=== PATIENT | female | born 1970 | race Caucasian/White ===

== ENCOUNTER 2017-12-18 19:16 | Emergency (ER) | payer MEDICARE, MEDICAID ==
[~2017-12-18] VITALS: Ht 175.3 cm; Wt 79.6 kg
[2017-12-18 19:25] VITALS: BP 110/7
[2017-12-18] MEDS ORDERED: amox tr/potassium clavulanate 875/125mg TAB PO ONE (20:20)
[2017-12-18] MEDS ORDERED: HYDROcodone/acetaminophen 5mg/325mg tablet PO ONE (20:20)
[2017-12-18] MEDS ORDERED: AMOX-422 PO (20:33)
[2017-12-18] MEDS ORDERED: ondansetron 4mg rapidly disintigrating tab PO ONE (20:35)
== END 2017-12-18 20:48 | disposition home or self-care (01) ==
LOC: ER 19:17
DX: H65.91 Unspecified nonsuppurative otitis media, right ear (principal); H72.91 Unspecified perforation of tympanic membrane, right ear; I48.91 Unspecified atrial fibrillation; I10 Essential (primary) hypertension; K21.9 Gastro-esophageal reflux disease without esophagitis; E11.9 Type 2 diabetes mellitus without complications; Z90.49 Acquired absence of other specified parts of digestive tract; Z88.5 Allergy status to narcotic agent
CPT/HCPCS: 99283; 99284

== ENCOUNTER 2018-07-12 13:05 | Emergency (ER) | payer MEDICARE, MEDICAID ==
[~2018-07-12] VITALS: Ht 177.8 cm; Wt 74.5 kg
[2018-07-12 13:34] LABS: BASOPHILS # (AUTO) 0.1 X10'3 (0-0.2); BASOPHILS % (AUTO) 1.6 % (0-1); EOSINOPHILS # (AUTO) 0.1 X10'3 (0-0.9); EOSINOPHILS % (AUTO) 2.1 % (0-6); HEMATOCRIT 29.8 % (35.0-45.0); HEMOGLOBIN 9.5 g/dl (12.0-16.0); LYMPHOCYTES # (AUTO) 1.5 X10'3 (1.1-4.8); LYMPHOCYTES % (AUTO) 27.9 % (21-51); MEAN CORPUSCULAR HEMOGLOBIN 23.9 PG (27.0-31.0); MEAN CORPUSCULAR HGB CONC 31.8 % (33.0-36.5); MEAN CORPUSCULAR VOLUME 75.1 FL (78-98); MEAN PLATELET VOLUME 7.1 FL (7.4-10.4); MONOCYTES # (AUTO) 0.5 X10'3 (0-0.9); MONOCYTES % (AUTO) 10.2 % (2-12); NEUTROPHILS % (AUTO) 58.2 % (42-75); PLATELET COUNT 376 X10'3 (140-440); RED BLOOD COUNT 3.97 X10'6 (4.20-5.60); RED CELL DISTRIBUTION WIDTH 20.9 % (11.5-14.5); WHITE BLOOD COUNT 5.2 X10'3 (4.5-11.0)
[2018-07-12] MEDS ORDERED: LORazepam 2 mg/ml vial IV ONE (13:35)
[2018-07-12 13:51] LABS: ALANINE AMINOTRANSFERASE 26 U/L (12-78); ALBUMIN 3.2 G/DL (3.4-5.0); ALBUMIN/GLOBULIN RATIO 0.8 (1.1-1.5); ALKALINE PHOSPHATASE 101 IU/L (46-116); ANION GAP 11 (8-16); ASPARTATE AMINO TRANSFERASE 20 U/L (10-37); BILIRUBIN,TOTAL 0.5 MG/DL (0.1-1.0); BLOOD UREA NITROGEN 17 MG/DL (7-18); CALCIUM 7.8 MG/DL (8.5-10.1); CHLORIDE 105 MMOL/L (99-107); CREATININE 0.74 MG/DL (0.40-0.90); GLUCOSE 114 MG/DL (70-104); POTASSIUM 3.8 MMOL/L (3.5-5.1); SODIUM 138 MMOL/L (135-145); TOTAL CARBON DIOXIDE 22.3 MMOL/L (24-32); TOTAL PROTEIN 7.3 G/DL (6.4-8.2); eGFR 84 ML/MIN
[2018-07-12 13:52] LABS: INR 0.9 INR; PARTIAL THROMBOPLASTIN TIME 27 SECONDS (22-32); PROTHROMBIN TIME 9.4 SECONDS (9.0-12.0)
[2018-07-12 14:00] LABS: TROPONIN I < 0.04 NG/ML (0.0-0.05)
[2018-07-12 14:46] LABS: ANISOCYTOSIS 3+; LARGE PLATELETS FEW; PLATELET ESTIMATE NORMAL
[2018-07-12 14:47] LABS: HYPOCHROMASIA 1+; POLYCHROMASIA 1+
[2018-07-12 16:46] LABS: CLARITY,URINE SLIGHTLY CLOUDY (Clear); COLOR,URINE YELLOW (Yellow); GLUCOSE, URINE NEGATIVE (Neg); KETONES,URINE NEGATIVE (Neg); LEUKOCYTE ESTERASE ,URINE TRACE (Neg); NITRITES, URINE NEGATIVE (Neg); OCCULT BLOOD,URINE NEGATIVE (Neg); PH,URINE 5.5 (4.8-8.0); PROTEIN,URINE NEGATIVE (Neg)
[2018-07-12 16:50] LABS: UA COLLECTION TYPE CLN CATCH MIDSTREAM
[2018-07-12 17:02] LABS: BACTERIA,URINE FEW /HPF (Neg); MUCUS STRANDS FEW /LPF (Neg); RBC,URINE 0-2 /HPF (0-2); SQUAMOUS EPITHELIAL CELL,UR MANY /LPF (FEW)
[2018-07-12 17:03] LABS: WBC,URINE 0-4 /HPF (0-4)
[2018-07-12 18:02] VITALS: BP 140/70
== END 2018-07-12 18:04 | disposition home or self-care (01) ==
LOC: ER 13:05
DX: I73.00 Raynaud's syndrome without gangrene (principal); R29.0 Tetany; R45.1 Restlessness and agitation; I48.91 Unspecified atrial fibrillation; I10 Essential (primary) hypertension; K21.9 Gastro-esophageal reflux disease without esophagitis; E11.9 Type 2 diabetes mellitus without complications; Z87.891 Personal history of nicotine dependence; Z90.49 Acquired absence of other specified parts of digestive tract; Z98.890 Other specified postprocedural states; Z98.84 Bariatric surgery status; Z88.5 Allergy status to narcotic agent
CPT/HCPCS: 36415; 71045; 80053; 81001; 84443; 84484; 85025; 85610; 85651; 85730; 93005; 96374; 99285; J2060

== ENCOUNTER 2018-07-15 17:55 | Emergency (ER) | payer MEDICARE, MEDICAID ==
[~2018-07-15] VITALS: Ht 177.8 cm; Wt 80.9 kg
[2018-07-15 19:09] VITALS: BP 111/74
== END 2018-07-15 19:11 | disposition home or self-care (01) ==
LOC: ER 17:56
DX: F10.129 Alcohol abuse with intoxication, unspecified (principal); I48.91 Unspecified atrial fibrillation; I10 Essential (primary) hypertension; K21.9 Gastro-esophageal reflux disease without esophagitis; E11.9 Type 2 diabetes mellitus without complications; Z90.49 Acquired absence of other specified parts of digestive tract; Z98.0 Intestinal bypass and anastomosis status; Z88.5 Allergy status to narcotic agent; Y90.9 Presence of alcohol in blood, level not specified
CPT/HCPCS: 99284

== ENCOUNTER 2018-07-15 19:12 | Emergency (ER) | payer MEDICARE, MEDICAID | END 2018-07-15 20:04 | disposition left against medical advice (07) | LOC: ER 19:12 | DX: R45.851 Suicidal ideations (principal); Z53.21 Procedure and treatment not carried out due to patient leaving prior to being seen by health care provider ==

== ENCOUNTER 2018-07-17 00:38 | Emergency (ER) | payer MEDICARE, MEDICAID | END 2018-07-17 00:47 | disposition left against medical advice (07) | LOC: ER 00:39 | DX: R45.851 Suicidal ideations (principal); Z53.21 Procedure and treatment not carried out due to patient leaving prior to being seen by health care provider ==

== ENCOUNTER 2018-07-18 00:34 | Emergency (ER) | payer MEDICARE, MEDICAID ==
[~2018-07-18] VITALS: Ht 177.8 cm; Wt 78.1 kg
[2018-07-18 04:19] VITALS: BP 91/59
== END 2018-07-18 04:20 | disposition home or self-care (01) ==
LOC: ER 00:34
DX: F10.129 Alcohol abuse with intoxication, unspecified (principal); I10 Essential (primary) hypertension; I48.91 Unspecified atrial fibrillation; K21.9 Gastro-esophageal reflux disease without esophagitis; E11.9 Type 2 diabetes mellitus without complications; Z90.49 Acquired absence of other specified parts of digestive tract; Z88.5 Allergy status to narcotic agent; Z88.8 Allergy status to other drugs, medicaments and biological substances; Y90.9 Presence of alcohol in blood, level not specified
CPT/HCPCS: 99284

== ENCOUNTER 2020-03-18 17:16 | Emergency (ER) | payer MEDICARE, MEDICAID ==
[~2020-03-18] VITALS: Ht 177.8 cm; Wt 90.9 kg
[2020-03-18 17:39] VITALS: BP 135/78
--- NOTE | 2020-03-18 18:41 | NUR ---
Pt admitted to being under the influence of ETOH
[2020-03-18] MEDS ORDERED: ibuprofen tablet 400 MG TABLET PO ONE (18:50)
== END 2020-03-18 19:14 | disposition home or self-care (01) ==
LOC: ER 17:17
DX: S61.411A Laceration without foreign body of right hand, initial encounter (principal); R20.0 Anesthesia of skin; M79.641 Pain in right hand; F10.920 Alcohol use, unspecified with intoxication, uncomplicated; I48.91 Unspecified atrial fibrillation; I10 Essential (primary) hypertension; K21.9 Gastro-esophageal reflux disease without esophagitis; E11.9 Type 2 diabetes mellitus without complications; F41.9 Anxiety disorder, unspecified; F31.9 Bipolar disorder, unspecified; Z86.69 Personal history of other diseases of the nervous system and sense organs; Z87.11 Personal history of peptic ulcer disease; Z90.89 Acquired absence of other organs; Z90.49 Acquired absence of other specified parts of digestive tract; Z72.89 Other problems related to lifestyle; Z88.5 Allergy status to narcotic agent; Z88.8 Allergy status to other drugs, medicaments and biological substances; X58.XXXA Exposure to other specified factors, initial encounter; Y93.89 Activity, other specified; Y92.89 Other specified places as the place of occurrence of the external cause; Y99.8 Other external cause status
CPT/HCPCS: 99282

== ENCOUNTER 2020-09-13 10:16 | Emergency (ER) | payer MEDICARE, MEDICAID ==
[~2020-09-13] VITALS: Ht 172.7 cm; Wt 97.7 kg
[2020-09-13 10:25] VITALS: BP 142/95
[2020-09-13] MEDS ORDERED: ondansetron 4mg rapidly disintigrating tab PO ONE (10:25)
[2020-09-13] MEDS ORDERED: proCHLORperazine 10 MG/2 ml inj IM ONE (11:25)
[2020-09-13] MEDS ORDERED: HYDROcodone/acetaminophen 10/325mg tab PO ONE (11:25)
== END 2020-09-13 12:12 | disposition home or self-care (01) ==
LOC: ER 10:16
DX: S30.0XXA Contusion of lower back and pelvis, initial encounter (principal); F10.129 Alcohol abuse with intoxication, unspecified; X58.XXXA Exposure to other specified factors, initial encounter; Y93.89 Activity, other specified; Y92.89 Other specified places as the place of occurrence of the external cause; Y99.8 Other external cause status; Y90.9 Presence of alcohol in blood, level not specified
CPT/HCPCS: 72100; 96372; 99283; J0780

== ENCOUNTER 2020-09-14 20:13 | Emergency (ER) | payer MEDICARE, MEDICAID ==
[~2020-09-14] VITALS: Ht 177.8 cm; Wt 102.3 kg
[2020-09-14 23:03] LABS: HEMATOCRIT 26.8 % (35.0-45.0); HEMOGLOBIN 8.4 g/dl (12.0-16.0); PLATELET COUNT 308 X10'3 (140-440)
[2020-09-14 23:05] LABS: BASOPHILS # (AUTO) 0.1 X10'3 (0-0.2); BASOPHILS % (AUTO) 1.9 % (0-1); EOSINOPHILS # (AUTO) 0.1 X10'3 (0-0.9); EOSINOPHILS % (AUTO) 1.9 % (0-6); LYMPHOCYTES # (AUTO) 1.5 X10'3 (1.1-4.8); LYMPHOCYTES % (AUTO) 34.6 % (21-51); MEAN CORPUSCULAR HEMOGLOBIN 21.1 PG (27.0-31.0); MEAN CORPUSCULAR HGB CONC 31.2 g/dL (33.0-36.5); MEAN CORPUSCULAR VOLUME 67.7 FL (78-98); MEAN PLATELET VOLUME 7.1 FL (7.4-10.4); MONOCYTES # (AUTO) 0.3 X10'3 (0-0.9); MONOCYTES % (AUTO) 6.8 % (2-12); NEUTROPHILS # (AUTO) 2.4 X10'3 (1.8-7.7); NEUTROPHILS % (AUTO) 54.8 % (42-75); RED BLOOD COUNT 3.96 X10'6 (4.20-5.60); RED CELL DISTRIBUTION WIDTH 19.4 % (11.5-14.5); WHITE BLOOD COUNT 4.3 X10'3 (4.5-11.0)
[2020-09-14 23:17] LABS: ALANINE AMINOTRANSFERASE 63 U/L (12-78); ALBUMIN 3.4 G/DL (3.4-5.0); ALBUMIN/GLOBULIN RATIO 0.9 (1.1-1.5); ALKALINE PHOSPHATASE 211 IU/L (46-116); ANION GAP 10 (8-16); ASPARTATE AMINO TRANSFERASE 73 U/L (10-37); BILIRUBIN,TOTAL 0.6 MG/DL (0.1-1.0); BLOOD UREA NITROGEN 13 MG/DL (7-18); BUN/CREATININE RATIO 15.3 (6.6-38.0); CALCIUM 7.8 MG/DL (8.5-10.1); CHLORIDE 103 MMOL/L (99-107); CREATININE 0.85 MG/DL (0.40-0.90); GLUCOSE 80 MG/DL (70-104); POTASSIUM 4.1 MMOL/L (3.5-5.1); SODIUM 138 MMOL/L (135-145); TOTAL CARBON DIOXIDE 25.1 MMOL/L (24-32); TOTAL PROTEIN 7.4 G/DL (6.4-8.2); eGFR 71 ML/MIN
[2020-09-14 23:18] LABS: LIPASE 63 U/L (73-393); MAGNESIUM 2.3 MG/DL (1.5-2.4)
[2020-09-14 23:27] LABS: ETHANOL 0.385 GM/DL (0.0-0.010)
[2020-09-15 00:18] VITALS: BP 117/83
== END 2020-09-15 00:20 | disposition home or self-care (01) ==
LOC: ER 20:13
DX: F10.239 Alcohol dependence with withdrawal, unspecified (principal); I10 Essential (primary) hypertension; K21.9 Gastro-esophageal reflux disease without esophagitis; E11.9 Type 2 diabetes mellitus without complications; F31.9 Bipolar disorder, unspecified; Z85.3 Personal history of malignant neoplasm of breast; Z87.19 Personal history of other diseases of the digestive system; Z90.49 Acquired absence of other specified parts of digestive tract; Z88.5 Allergy status to narcotic agent; Y90.9 Presence of alcohol in blood, level not specified
CPT/HCPCS: 36415; 80053; 80320; 83690; 83735; 85025; 99283

== ENCOUNTER 2021-01-03 14:17 | Emergency (ER) | payer MEDICARE, MEDICAID ==
[~2021-01-03] VITALS: Ht 177.8 cm; Wt 97.0 kg
[2021-01-03] MEDS ORDERED: ondansetron 4mg rapidly disintigrating tab PO ONE (15:30)
[2021-01-03 16:08] LABS: OCCULT BLOOD STOOL POSITIVE (Neg)
[2021-01-03 16:09] LABS: BASOPHILS % (AUTO) 1.2 % (0-1); EOSINOPHILS # (AUTO) 0.3 X10'3 (0-0.9); EOSINOPHILS % (AUTO) 8.6 % (0-6); HEMATOCRIT 27.3 % (35.0-45.0); HEMOGLOBIN 8.7 g/dl (12.0-16.0); LYMPHOCYTES # (AUTO) 1.8 X10'3 (1.1-4.8); LYMPHOCYTES % (AUTO) 50.6 % (21-51); MEAN CORPUSCULAR HEMOGLOBIN 26.2 PG (27.0-31.0); MEAN CORPUSCULAR HGB CONC 31.8 g/dL (33.0-36.5); MEAN CORPUSCULAR VOLUME 82.1 FL (78-98); MEAN PLATELET VOLUME 7.2 FL (7.4-10.4); MONOCYTES # (AUTO) 0.1 X10'3 (0-0.9); NEUTROPHILS # (AUTO) 1.3 X10'3 (1.8-7.7); NEUTROPHILS % (AUTO) 35.6 % (42-75); PLATELET COUNT 269 X10'3 (140-440); RED BLOOD COUNT 3.32 X10'6 (4.20-5.60); RED CELL DISTRIBUTION WIDTH 27.8 % (11.5-14.5); WHITE BLOOD COUNT 3.6 X10'3 (4.5-11.0)
[2021-01-03] MEDS ORDERED: proCHLORperazine 10mg tablet PO ONE (16:20)
[2021-01-03 16:23] LABS: ALANINE AMINOTRANSFERASE 95 U/L (12-78); ALBUMIN 3.4 G/DL (3.4-5.0); ALBUMIN/GLOBULIN RATIO 0.9 (1.1-1.5); ALKALINE PHOSPHATASE 310 IU/L (46-116); ANION GAP 15 (8-16); ASPARTATE AMINO TRANSFERASE 133 U/L (10-37); BILIRUBIN,TOTAL 0.5 MG/DL (0.1-1.0); BLOOD UREA NITROGEN 8 MG/DL (7-18); BUN/CREATININE RATIO 9.8 (6.6-38.0); CALCIUM 8.1 MG/DL (8.5-10.1); CHLORIDE 102 MMOL/L (99-107); CREATININE 0.82 MG/DL (0.40-0.90); GLUCOSE 94 MG/DL (70-104); POTASSIUM 3.9 MMOL/L (3.5-5.1); SODIUM 140 MMOL/L (135-145); TOTAL CARBON DIOXIDE 23.3 MMOL/L (24-32); TOTAL PROTEIN 7.3 G/DL (6.4-8.2); eGFR 74 ML/MIN
[2021-01-03 16:25] LABS: ETHANOL 0.406 GM/DL (0.0-0.010)
[2021-01-03 16:37] LABS: PLATELET ESTIMATE NORMAL; POIKILOCYTOSIS FEW; POLYCHROMASIA 1+
[2021-01-03 16:38] LABS: ANISOCYTOSIS 3+; MICROCYTOSIS 1+
[2021-01-03] MEDS ORDERED: pantoprazole 40mg Tablet.DR PO SCH (16:59)
[2021-01-03 17:17] VITALS: BP 119/78
[2021-01-04] MEDS ORDERED: pantoprazole 40mg Tablet.DR PO SCH (07:30)
== END 2021-01-03 17:18 | disposition home or self-care (01) ==
LOC: ER 14:18
DX: F10.129 Alcohol abuse with intoxication, unspecified (principal); I48.91 Unspecified atrial fibrillation; I10 Essential (primary) hypertension; K21.9 Gastro-esophageal reflux disease without esophagitis; E11.9 Type 2 diabetes mellitus without complications; F31.9 Bipolar disorder, unspecified; F15.90 Other stimulant use, unspecified, uncomplicated; Z86.14 Personal history of Methicillin resistant Staphylococcus aureus infection; Z90.49 Acquired absence of other specified parts of digestive tract; Z98.51 Tubal ligation status; Z98.890 Other specified postprocedural states; Z86.69 Personal history of other diseases of the nervous system and sense organs; Z88.8 Allergy status to other drugs, medicaments and biological substances; Z88.5 Allergy status to narcotic agent; Y90.9 Presence of alcohol in blood, level not specified
CPT/HCPCS: 36415; 80053; 80320; 82272; 85008; 85025; 86885; 86900; 86901; 99283; Q0164

== ENCOUNTER 2021-08-24 06:08 | Emergency (ER) | payer MEDICARE, MEDICAID ==
[~2021-08-24] VITALS: Ht 175.3 cm; Wt 90.9 kg
[2021-08-24] MEDS ORDERED: ondansetron/PF 4mg/2ml inj IV ONE (06:55)
[2021-08-24] MEDS ORDERED: normal saline 1000ML IV soln IVB ONE (06:55)
[2021-08-24] MEDS ORDERED: morphine 4 MG/ML inj SYRINge IV PRN (06:55)
--- NOTE | 2021-08-24 07:35 | NUR ---
PT WAS AMBULATED WITH TO RESTROOM, PT UNABLE TO PROVIDE URINE SAMPLE.
[2021-08-24 07:45] LABS: BASOPHILS % (AUTO) 0.3 % (0-1); EOSINOPHILS % (AUTO) 0.3 % (0-6); HEMATOCRIT 31.1 % (35.0-45.0); HEMOGLOBIN 10.2 g/dl (12.0-16.0); LYMPHOCYTES # (AUTO) 0.5 X10'3 (1.1-4.8); LYMPHOCYTES % (AUTO) 10.6 % (21-51); MEAN CORPUSCULAR HEMOGLOBIN 25.1 PG (27.0-31.0); MEAN CORPUSCULAR HGB CONC 32.7 g/dL (33.0-36.5); MEAN CORPUSCULAR VOLUME 76.9 FL (78-98); MEAN PLATELET VOLUME 8.9 FL (7.4-10.4); MONOCYTES # (AUTO) 0.7 X10'3 (0-0.9); MONOCYTES % (AUTO) 15.7 % (2-12); NEUTROPHILS # (AUTO) 3.1 X10'3 (1.8-7.7); NEUTROPHILS % (AUTO) 73.1 % (42-75); PLATELET COUNT 120 X10'3 (140-440); RED BLOOD COUNT 4.05 X10'6 (4.20-5.60); RED CELL DISTRIBUTION WIDTH 25.7 % (11.5-14.5); WHITE BLOOD COUNT 4.3 X10'3 (4.5-11.0)
[2021-08-24 07:51] LABS: PARTIAL THROMBOPLASTIN TIME 28 SECONDS (22-32)
[2021-08-24 07:54] LABS: ALANINE AMINOTRANSFERASE 53 U/L (12-78); ALBUMIN 2.7 G/DL (3.4-5.0); ALBUMIN/GLOBULIN RATIO 0.6 (1.1-1.5); ALKALINE PHOSPHATASE 225 IU/L (46-116); ANION GAP 11 (8-16); ASPARTATE AMINO TRANSFERASE 96 U/L (10-37); BILIRUBIN,TOTAL 0.8 MG/DL (0.1-1.0); BLOOD UREA NITROGEN 17 MG/DL (7-18); BUN/CREATININE RATIO 23.3 (6.6-38.0); CALCIUM 8.2 MG/DL (8.5-10.1); CHLORIDE 92 MMOL/L (99-107); CREATININE 0.73 MG/DL (0.40-0.90); ETHANOL < 0.010 GM/DL (0.0-0.010); GLUCOSE 108 MG/DL (70-104); LIPASE 600 U/L (73-393); POTASSIUM 3.7 MMOL/L (3.5-5.1); SODIUM 132 MMOL/L (135-145); TOTAL CARBON DIOXIDE 29.5 MMOL/L (24-32); TOTAL PROTEIN 7.1 G/DL (6.4-8.2); eGFR 85 ML/MIN
[2021-08-24 10:00] LABS: ANISOCYTOSIS 3+; PLATELET ESTIMATE DECREASED; TOTAL CELLS COUNTED 100
[2021-08-24 10:01] LABS: HYPOCHROMASIA 1+; MICROCYTOSIS 1+; POLYCHROMASIA FEW
[2021-08-24 13:06] VITALS: BP 126/97
== END 2021-08-24 12:58 | disposition home or self-care (01) ==
LOC: ER 06:09
DX: R10.10 Upper abdominal pain, unspecified (principal); R10.30 Lower abdominal pain, unspecified; K85.90 Acute pancreatitis without necrosis or infection, unspecified; K92.2 Gastrointestinal hemorrhage, unspecified; G40.909 Epilepsy, unspecified, not intractable, without status epilepticus; I48.91 Unspecified atrial fibrillation; K21.9 Gastro-esophageal reflux disease without esophagitis; E11.9 Type 2 diabetes mellitus without complications; F15.90 Other stimulant use, unspecified, uncomplicated; Z87.11 Personal history of peptic ulcer disease; Z86.14 Personal history of Methicillin resistant Staphylococcus aureus infection; Z85.3 Personal history of malignant neoplasm of breast; Z90.49 Acquired absence of other specified parts of digestive tract; Z98.51 Tubal ligation status; Z98.84 Bariatric surgery status; Z72.89 Other problems related to lifestyle
CPT/HCPCS: 80053; 80320; 83690; 85007; 85025; 85610; 85730; 86885; 86900; 86901; 96361; 96374; 96375; 99284; J2270; J2405; J7030

== ENCOUNTER 2021-09-04 22:00 | Inpatient (IN) | payer MEDICARE, MEDICAID ==
[~2021-09-04 22:00] MED LIST: CIPR-202 PO; FLUO40CA PO; METR-159 PO; NIFE30TA95 PO; ONDA4TAB12 PO; PANT-47 PO
[2021-09-30] MEDS ORDERED: HYDR-3686 PO (11:17)
[2021-09-30] MEDS ORDERED: gabapentin capsule PO (11:17)
[2021-09-30] MEDS ORDERED: VENL75CA61 PO (11:17)
[2021-09-30] MEDS ORDERED: QUET25TA36 PO (11:17)
[2021-09-30] MEDS ORDERED: folic acid tablet PO (11:17)
[2021-09-30] MEDS ORDERED: POTA-197 PO (11:17)
[2021-09-30] MEDS ORDERED: FURO40TA4 PO (11:17)
[2021-09-30] MEDS ORDERED: thiamine tablet PO (11:17)
[2021-09-30] MEDS ORDERED: MULT-25 PO (11:17)
[2021-09-30] MEDS ORDERED: NIFE30TA95 PO (11:17)
[2021-09-30] MEDS ORDERED: HYDR50TA65 PO (11:17)
[2021-09-30] MEDS ORDERED: CYAN500T71 PO (11:17)
[2021-09-30] MEDS ORDERED: VENL-191 PO (11:17)
[2021-09-30] MEDS ORDERED: PRAZ1CAP5 PO (11:17)
[2021-09-30] MEDS ORDERED: ONDA4TAB12 PO (11:17)
[2021-09-30] MEDS ORDERED: Lorazepam PO (16:00)
[2021-10-01] MEDS ORDERED: BUPR1FIL17 SL (06:27)
== END 2021-10-01 14:10 | disposition home or self-care (01) | DRG 885 ==
LOC: ADULT MH 22:00 → EEVIPCON 22:00
PROVIDERS: ADMIT Psychiatry & Neurology Psychiatry; ATTEND Psychiatry & Neurology Psychiatry
DX: F33.2 Major depressive disorder, recurrent severe without psychotic features (principal); F11.20 Opioid dependence, uncomplicated; K85.90 Acute pancreatitis without necrosis or infection, unspecified; R45.851 Suicidal ideations; F10.20 Alcohol dependence, uncomplicated; I48.91 Unspecified atrial fibrillation; I10 Essential (primary) hypertension; K21.9 Gastro-esophageal reflux disease without esophagitis; F43.12 Post-traumatic stress disorder, chronic; G89.29 Other chronic pain; D50.9 Iron deficiency anemia, unspecified; F41.9 Anxiety disorder, unspecified; E88.09 Other disorders of plasma-protein metabolism, not elsewhere classified; D72.819 Decreased white blood cell count, unspecified; R10.10 Upper abdominal pain, unspecified; Z88.5 Allergy status to narcotic agent; Z88.8 Allergy status to other drugs, medicaments and biological substances; Z85.3 Personal history of malignant neoplasm of breast; Z90.49 Acquired absence of other specified parts of digestive tract; Z98.51 Tubal ligation status; Z90.710 Acquired absence of both cervix and uterus; Z87.11 Personal history of peptic ulcer disease; Z98.84 Bariatric surgery status; Z86.14 Personal history of Methicillin resistant Staphylococcus aureus infection
CPT/HCPCS: 0002A; 36415; 71045; 80053; 80061; 82272; 82728; 83036; 83540; 83550; 84443; 85007; 85008; 85025; 86703; 86705; 86709; 86803; 87081; 87340; 87635; 91300; 93306; 97116; 97530; J2405; J7030; Q0177

== ENCOUNTER 2021-11-18 10:01 | Emergency (ER) | payer MEDICARE, MEDICAID ==
[~2021-11-18] VITALS: Ht 176.5 cm; Wt 81.8 kg
[~2021-11-18 10:01] MED LIST changes: +BUPR1FIL17 SL; -CIPR-202 PO; +CYAN500T71 PO; -FLUO40CA PO; +FURO40TA4 PO; +HYDR-3686 PO; +HYDR50TA65 PO; +Lorazepam PO; -METR-159 PO; +MULT-25 PO; +POTA-197 PO; +PRAZ1CAP5 PO; +QUET25TA36 PO; +VENL-191 PO; +VENL75CA61 PO; +folic acid tablet PO; +gabapentin capsule PO; +thiamine tablet PO
[2021-11-18] MEDS ORDERED: potassium Cl 20 mEq SR tablet PO STA (10:37)
[2021-11-18] MEDS ORDERED: normal saline 1000ML IV soln IVB ONE (10:40)
[2021-11-18] MEDS ORDERED: LORazepam 2 mg/ml vial IV ONE (10:40)
[2021-11-18] MEDS ORDERED: thiamine 100mg/ml 2ml inj. IV ONE (10:40)
[2021-11-18] MEDS ORDERED: folic acid 1mg/0.2ml inj IV ONE (10:40)
[2021-11-18 11:03] LABS: BASOPHILS # (AUTO) 0.1 X10'3 (0-0.2); BASOPHILS % (AUTO) 0.9 % (0-1); EOSINOPHILS # (AUTO) 0.1 X10'3 (0-0.9); EOSINOPHILS % (AUTO) 1.9 % (0-6); HEMATOCRIT 34.4 % (35.0-45.0); HEMOGLOBIN 11.3 g/dl (12.0-16.0); LYMPHOCYTES # (AUTO) 2.4 X10'3 (1.1-4.8); LYMPHOCYTES % (AUTO) 33.5 % (21-51); MEAN CORPUSCULAR HEMOGLOBIN 26.1 PG (27.0-31.0); MEAN CORPUSCULAR HGB CONC 32.8 g/dL (33.0-36.5); MEAN CORPUSCULAR VOLUME 79.4 FL (78-98); MONOCYTES # (AUTO) 0.4 X10'3 (0-0.9); MONOCYTES % (AUTO) 6.2 % (2-12); NEUTROPHILS # (AUTO) 4.1 X10'3 (1.8-7.7); NEUTROPHILS % (AUTO) 57.5 % (42-75); PLATELET COUNT 285 X10'3 (140-440); RED BLOOD COUNT 4.33 X10'6 (4.20-5.60); RED CELL DISTRIBUTION WIDTH 18.7 % (11.5-14.5); WHITE BLOOD COUNT 7.1 X10'3 (4.5-11.0)
[2021-11-18 11:18] LABS: ALANINE AMINOTRANSFERASE 45 U/L (12-78); ALBUMIN 3.6 G/DL (3.4-5.0); ALBUMIN/GLOBULIN RATIO 0.9 (1.1-1.5); ALKALINE PHOSPHATASE 129 IU/L (46-116); ANION GAP 12 (8-16); ASPARTATE AMINO TRANSFERASE 45 U/L (10-37); BILIRUBIN,TOTAL 0.4 MG/DL (0.1-1.0); BLOOD UREA NITROGEN 24 MG/DL (7-18); BUN/CREATININE RATIO 27.6 (6.6-38.0); CALCIUM 8.4 MG/DL (8.5-10.1); CHLORIDE 106 MMOL/L (99-107); CREATININE 0.87 MG/DL (0.40-0.90); GLUCOSE 84 MG/DL (70-104); POTASSIUM 3.7 MMOL/L (3.5-5.1); SODIUM 142 MMOL/L (135-145); TOTAL CARBON DIOXIDE 23.7 MMOL/L (24-32); TOTAL PROTEIN 7.7 G/DL (6.4-8.2); eGFR 69 ML/MIN
[2021-11-18 11:26] LABS: PLATELET ESTIMATE NORMAL
[2021-11-18 11:27] LABS: ANISOCYTOSIS 2+; ETHANOL 0.294 GM/DL (0.0-0.010); MICROCYTOSIS 1+
[2021-11-18 11:34] LABS: URINE HCG NEGATIVE (NEG)
[2021-11-18 11:40] LABS: CLARITY,URINE SLIGHTLY CLOUDY (Clear); GLUCOSE, URINE NEGATIVE (Neg); KETONES,URINE NEGATIVE (Neg); LEUKOCYTE ESTERASE ,URINE NEGATIVE (Neg); NITRITES, URINE NEGATIVE (Neg); OCCULT BLOOD,URINE NEGATIVE (Neg); PH,URINE 5.5 (4.8-8.0); PROTEIN,URINE NEGATIVE (Neg); UROBILINOGEN,URINE 0.2 E.U/dL (0.2-1.0)
[2021-11-18 11:42] LABS: COLOR,URINE STRAW (Yellow); UA COLLECTION TYPE CLN CATCH MIDSTREAM
[2021-11-18 11:46] LABS: BACTERIA,URINE 3+ /HPF (Neg); MUCUS STRANDS NONE SEEN /LPF (Neg); RBC,URINE NONE SEEN /HPF (0-2); SQUAMOUS EPITHELIAL CELL,UR MANY /LPF (FEW); WBC,URINE 0-4 /HPF (0-4)
[2021-11-18 12:20] LABS: URINE AMPHETAMINE SCREEN NEGATIVE (Neg); URINE BARBITUATE SCREEN NEGATIVE (Neg); URINE BENZODIAZEPINES SCREEN NEGATIVE (Neg); URINE CANNABINOID SCREEN NEGATIVE (Neg); URINE COCAINE SCREEN NEGATIVE (Neg); URINE METHADONE SCREEN NEGATIVE (Neg); URINE OPIATE SCREEN NEGATIVE (Neg); URINE PHENCYCLIDINE SCREEN NEGATIVE (Neg)
--- NOTE | 2021-11-18 12:40 | NUR ---
PT. TRANSFERRED FROM MAIN ER TO OVERFLOW. PT. AMBULATED ON TO THE UNIT BY [facility]. PT. PLACED IN BED #20. PT. PROVIDED WITH A GREEN SCRUB SET AND PERSONAL BELONGINGS LOGGED IN AND PLACED IN LOCKER. PT. AAOX4 AT THIS TIME. PT. DENIES ANY HI OR A/V HALLUCINATIONS. PT. STATES THAT LONG SHE IN THE HOSPITAL SHE HAS NO CURRENT THOUGHTS OF SI. PT. ASKING FOR FOOD STATES SHE DIDN'T GET TO FINISH HER LUNCH TRAY PRIOR TO TRANSFER. PT. PROVIDED WITH A SANDWICH AND JUICE. PT. ARRIVED ON THE UNIT WITH A #20 GAUGE IN RT. AC AREA, THIS VASCULAR RADIOLOGIST REMOVED IV SITE. NO S/S OF INFECTION OR INFILTARTION NOTED.
--- NOTE | 2021-11-18 12:57 | NUR ---
PT. NOTED HANGING OVER THE BED SIDE VOMITING. NOTIFIED WITH ORDER RECEIVED FOR REGLAN 10 MG PO .
[2021-11-18] MEDS ORDERED: metoclopramide 10mg tablet PO ONE (13:05)
--- NOTE | 2021-11-18 14:44 | NUR ---
PT. RESTING QUIETLY AFTER TALKING ON THE PHONE.
[2021-11-18] MEDS ORDERED: LORA-269 PO (15:40)
[2021-11-18] MEDS ORDERED: PRAZ2CAP2 PO (15:40)
[2021-11-18] MEDS ORDERED: ESCI20TA39 PO (15:40)
[2021-11-18] MEDS ORDERED: POTA-188 PO (15:40)
[2021-11-18] MEDS ORDERED: HYDR-3686 PO (15:40)
[2021-11-18] MEDS ORDERED: ONDA-103 PO (15:40)
[2021-11-18] MEDS ORDERED: NIFE30TA95 PO (15:40)
[2021-11-18] MEDS ORDERED: BUPR300T86 PO (15:40)
[2021-11-18] MEDS ORDERED: GABA600T13 PO (15:40)
[2021-11-18] MEDS ORDERED: PANT40TA54 PO (15:40)
[2021-11-18] MEDS ORDERED: FURO-149 PO (15:40)
[2021-11-18] MEDS ORDERED: FOLI1TAB27 PO (16:18)
--- NOTE | 2021-11-18 19:15 | NUR ---
RECEIVED PATIENT ON THE UNIT IN NO OBVIOUS DISTRESS NOTED. NO PHYSICAL COMPLAINT MADE. PATIENT BREATHING SPONTANOUSLY ON ROOM AIR. PATIENT RATES ANXIETY 10/10 AND DEPRESSION 5/10. SHE DENIES HAVING ANY SUICIDAL/ HOMICIDAL IDEATION AT THIS TIME.
[2021-11-18] MEDS: hydrOXYzine 25 MG tablet PO SCH (20:35)
[2021-11-18] MEDS: prazosin 1mg capsule PO SCH (20:35)
[2021-11-18] MEDS: gabapentin 300mg capsule PO SCH (20:35)
[2021-11-18] MEDS ORDERED: LORazepam 1 MG tablet PO SCH (21:00)
--- NOTE | 2021-11-19 01:23 | NUR ---
PATIENT ASLEEP BUT EASILY AROUSE. NO OBVIOUS DISTRESS NOTED.
--- NOTE | 2021-11-19 04:03 | NUR ---
PATIENT ASLEEP BUT EASILY AROUSE. NO OBVIOUS DISTRESS NOTED.OBSERVATION ONGOING.
--- NOTE | 2021-11-19 06:00 | NUR ---
PT. CARE ASSUMED FROM OFF GOING NURSE FIDELINA JESSICA. PT. VISIBLE ON THE UNIT RESTING QUIETLY WITH EYES CLOSED. NO SIGNS OF DISTRESS NOTED. STAFF WILL CONTINUE TO MONITOR FOR SAFETY
--- NOTE | 2021-11-19 06:05 | NUR ---
PATIENT ASLEEP BUT EASILY AROUSE. NO OBVIOUS DISTRESS NOTED. OBSERVATION ONGOING.
[2021-11-19] MEDS: hydrOXYzine 25 MG tablet PO SCH ×2 (07:38→20:46)
[2021-11-19] MEDS: gabapentin 300mg capsule PO SCH ×3 (07:38→20:45)
[2021-11-19] MEDS: potassium chloride 10mEq ER tablet PO SCH (07:38)
[2021-11-19] MEDS: furosemide 40mg tablet PO SCH (07:38)
[2021-11-19] MEDS: folic acid 1mg tablet PO SCH (07:38)
[2021-11-19] MEDS: pantoprazole 40mg Tablet.DR PO SCH (07:38)
[2021-11-19] MEDS: buPROPion SR 150mg tablet PO SCH (07:39)
[2021-11-19] MEDS: ESCITALOPRAM OXALATE 5 MG TABLET PO SCH (07:39)
[2021-11-19] MEDS: NIFEdipine XL 30mg tablet PO SCH (07:42)
[2021-11-19] MEDS: LORazepam 1 MG tablet PO PRN ×2 (07:46→14:03)
[2021-11-19] MEDS: ondansetron 4mg rapidly disintigrating tab PO SCH ×4 (07:49→23:30)
--- NOTE | 2021-11-19 07:50 | NUR ---
PT. AAOX4 THIS MORNING. PT. DENIES ANY CURRENT SI/HI OR A/V HALLUCINATIONS. PT. COMPLIANT WITH MORNING SCHEDULED MEDICATIONS. PT. REQUESTING PRN DOSE OF ATIVAN FOR C/O INCREASED ANXIETY. STAFF WILL CONTINUE TO MONITOR FOR SAFETY ON THE UNIT.
--- NOTE | 2021-11-19 13:55 | NUR ---
PT SEEN BY DR. FU. PT REPORTS HER HOME/ROUTINE DOSE OF BEDTIME ATIVAN IS 2MG AND ORDER HERE IS FOR 1 MG. RECEIVED V/O TO CHANGE HS DOSE TO 2MG PER DR. FU.
[2021-11-19] MEDS: acetaminophen 325mg tablet PO PRN (14:00)
--- NOTE | 2021-11-19 14:37 | NUR ---
PT. INQUIRED ABOUT TRANSFER TO THE [facility]. PT. INFORMED THAT BECAUSE OF HER HOLD STATUS 5150 SHE WOULD BE PLACED IN A BEHAVIORAL HEALTH FACILITY FOR FURTHER STABILIAZATION.
--- NOTE | 2021-11-19 14:45 | NUR ---
PT. VISIBLE SITTING ON THE EDGE OF BED TALKING ON THE PHONE.
[2021-11-19] MEDS: prazosin 1mg capsule PO SCH (20:46)
[2021-11-19] MEDS ORDERED: LORazepam 1 MG tablet PO SCH (21:00)
--- NOTE | 2021-11-19 21:14 | NUR ---
PATIENT RECEIVED ON THE UNIT IN NO OBVIOUS DISTRESS. NO PHYSICAL COMPLAINT MADE. PATIENT RATES HER ANXIETY 10/10 AND DEPRESSION 4/10. PATIENT DENIES HAVING ANY SUICIDAL IDEATION AT THIS TIME.
--- NOTE | 2021-11-19 23:51 | NUR ---
PATIENT ASLEEP BUT EASILY AROUSE. OBSERVATION ONGOING
--- NOTE | 2021-11-20 02:03 | NUR ---
PATIENT ASLEEP IN NO OBVIOUS DISTRESS OBSERVATION ONGOING
--- NOTE | 2021-11-20 05:59 | NUR ---
PATIENT ASLEEP IN NO OBVIOUS DISTRESS. OBSERVATION ONGOING.
[2021-11-20] MEDS: ondansetron 4mg rapidly disintigrating tab PO SCH (08:00)
[2021-11-20] MEDS: NIFEdipine XL 30mg tablet PO SCH (08:11)
[2021-11-20] MEDS: LORazepam 1 MG tablet PO PRN ×2 (08:11→12:37)
[2021-11-20] MEDS: buPROPion SR 150mg tablet PO SCH (08:11)
[2021-11-20] MEDS: ESCITALOPRAM OXALATE 5 MG TABLET PO SCH (08:11)
[2021-11-20] MEDS: pantoprazole 40mg Tablet.DR PO SCH (08:12)
[2021-11-20] MEDS: acetaminophen 325mg tablet PO PRN (08:12)
[2021-11-20] MEDS: folic acid 1mg tablet PO SCH (08:12)
[2021-11-20] MEDS: furosemide 40mg tablet PO SCH (08:12)
[2021-11-20] MEDS: potassium chloride 10mEq ER tablet PO SCH (08:12)
[2021-11-20] MEDS: gabapentin 300mg capsule PO SCH ×2 (08:12→12:20)
[2021-11-20] MEDS: hydrOXYzine 25 MG tablet PO SCH (08:12)
--- NOTE | 2021-11-20 08:30 | NUR ---
Pt. awake and eating breakfast at bedside. Pt. took all medications.
--- NOTE | 2021-11-20 10:30 | NUR ---
1:1 done at bedside, pt. denies SI/HI, A/V hallucinations. Pt. reports that she wants to go back to the [facility]
[2021-11-20] MEDS ORDERED: ondansetron 4mg rapidly disintigrating tab PO ONE (11:00)
--- NOTE | 2021-11-20 12:30 | NUR ---
Pt. awake and watching TV. Pt. in no apparent distress.
--- NOTE | 2021-11-20 14:30 | NUR ---
RN informed that pt. is able to return to [facility]. Physician medical clearance form filled out and signed by Dr. Zazueta and submitted to [facility] health social work professor.
[2021-11-20 17:01] VITALS: BP 128/88
[2021-11-21] MEDS ORDERED: aspirin 81mg tab.chew PO SCH (08:30)
== END 2021-11-20 17:04 ==
LOC: ER 10:02
DX: F43.10 Post-traumatic stress disorder, unspecified (principal); Z20.822 Contact with and (suspected) exposure to COVID-19; R45.851 Suicidal ideations; F10.129 Alcohol abuse with intoxication, unspecified; F41.9 Anxiety disorder, unspecified; I48.91 Unspecified atrial fibrillation; I10 Essential (primary) hypertension; K21.9 Gastro-esophageal reflux disease without esophagitis; E11.9 Type 2 diabetes mellitus without complications; F31.9 Bipolar disorder, unspecified; F15.90 Other stimulant use, unspecified, uncomplicated; Z86.69 Personal history of other diseases of the nervous system and sense organs; Z87.11 Personal history of peptic ulcer disease; Z86.14 Personal history of Methicillin resistant Staphylococcus aureus infection; Z90.89 Acquired absence of other organs; Z90.49 Acquired absence of other specified parts of digestive tract; Z98.51 Tubal ligation status; Z98.890 Other specified postprocedural states; Z72.89 Other problems related to lifestyle; Z88.1 Allergy status to other antibiotic agents; Z88.8 Allergy status to other drugs, medicaments and biological substances; Z88.5 Allergy status to narcotic agent; Z79.899 Other long term (current) drug therapy; Y90.0 Blood alcohol level of less than 20 mg/100 ml
CPT/HCPCS: 36415; 80053; 80305; 80320; 81001; 81025; 84443; 85008; 85025; 87635; 96374; 96375; 99285; C9803; J3411; J3490; J7030; Q0177

== ENCOUNTER 2022-06-26 11:14 | Emergency (ER) | payer MEDICARE, MEDICAID ==
[~2022-06-26] VITALS: Ht 182.9 cm; Wt 81.8 kg
[~2022-06-26 11:14] MED LIST changes: -BUPR1FIL17 SL; +BUPR300T86 PO; +ESCI20TA39 PO; +FOLI1TAB27 PO; +FURO-149 PO; -FURO40TA4 PO; +GABA600T13 PO; -HYDR50TA65 PO; +LORA-269 PO; -Lorazepam PO; +ONDA-103 PO; -ONDA4TAB12 PO; -PANT-47 PO; +PANT40TA54 PO; +POTA-188 PO; -POTA-197 PO; -PRAZ1CAP5 PO; +PRAZ2CAP2 PO; -QUET25TA36 PO; -VENL-191 PO; -VENL75CA61 PO; -gabapentin capsule PO
[2022-06-26 12:55] LABS: BASOPHILS # (AUTO) 0.1 X10'3 (0-0.2); EOSINOPHILS # (AUTO) 0.1 X10'3 (0-0.9); EOSINOPHILS % (AUTO) 2.6 % (0-6); HEMOGLOBIN 12.8 g/dl (12.0-16.0); LYMPHOCYTES # (AUTO) 2.1 X10'3 (1.1-4.8); MEAN CORPUSCULAR HEMOGLOBIN 30.3 PG (27.0-31.0); MEAN CORPUSCULAR HGB CONC 34.5 g/dL (33.0-36.5); MEAN CORPUSCULAR VOLUME 87.9 FL (78-98); MEAN PLATELET VOLUME 7.1 FL (7.4-10.4); MONOCYTES # (AUTO) 0.2 X10'3 (0-0.9); MONOCYTES % (AUTO) 4.1 % (2-12); NEUTROPHILS # (AUTO) 2.9 X10'3 (1.8-7.7); NEUTROPHILS % (AUTO) 53.3 % (42-75); PLATELET COUNT 226 X10'3 (140-440); RED BLOOD COUNT 4.21 X10'6 (4.20-5.60); RED CELL DISTRIBUTION WIDTH 17.2 % (11.5-14.5); WHITE BLOOD COUNT 5.4 X10'3 (4.5-11.0)
[2022-06-26 13:08] LABS: ALANINE AMINOTRANSFERASE 28 U/L (12-78); ALBUMIN 3.7 G/DL (3.4-5.0); ALBUMIN/GLOBULIN RATIO 1.1 (1.1-1.5); ALKALINE PHOSPHATASE 146 IU/L (46-116); ANION GAP 14 (8-16); ASPARTATE AMINO TRANSFERASE 35 U/L (10-37); BILIRUBIN,TOTAL 0.9 MG/DL (0.1-1.0); BLOOD UREA NITROGEN 16 MG/DL (7-18); BUN/CREATININE RATIO 18.2 (6.6-38.0); CALCIUM 8.3 MG/DL (8.5-10.1); CHLORIDE 109 MMOL/L (99-107); CREATININE 0.88 MG/DL (0.40-0.90); ETHANOL 0.279 GM/DL (0.0-0.010); GLUCOSE 78 MG/DL (70-104); POTASSIUM 3.6 MMOL/L (3.5-5.1); SODIUM 146 MMOL/L (135-145); TOTAL CARBON DIOXIDE 23.3 MMOL/L (24-32); TOTAL PROTEIN 7.1 G/DL (6.4-8.2); eGFR 68 ML/MIN
[2022-06-26 16:40] VITALS: BP 110/72
== END 2022-06-26 16:51 | disposition home or self-care (01) ==
LOC: ER 11:15 → EEVIPCON 11:15 → ER 16:51
DX: S00.12XA Contusion of left eyelid and periocular area, initial encounter (principal); S60.051A Contusion of right little finger without damage to nail, initial encounter; I11.9 Hypertensive heart disease without heart failure; K21.9 Gastro-esophageal reflux disease without esophagitis; E11.9 Type 2 diabetes mellitus without complications; F31.9 Bipolar disorder, unspecified; Z98.890 Other specified postprocedural states; F15.10 Other stimulant abuse, uncomplicated; Z90.49 Acquired absence of other specified parts of digestive tract; T76.21XA Adult sexual abuse, suspected, initial encounter; Y93.89 Activity, other specified; Y92.89 Other specified places as the place of occurrence of the external cause; Y99.8 Other external cause status
CPT/HCPCS: 36415; 70450; 70486; 71045; 80053; 80320; 85025; 93005; 99285

== ENCOUNTER 2023-01-04 13:03 | Emergency (ER) | payer MEDICARE, MEDICAID ==
[~2023-01-04] VITALS: Ht 172.7 cm; Wt 95.0 kg
[~2023-01-04 13:03] MED LIST changes: +DARI25TA PO; +DEXT30CA6 PO; -HYDR-3686 PO; +LORA2TAB96 PO; -ONDA-103 PO; +PRAZ1CAP5 PO; -PRAZ2CAP2 PO; +THIA50TA10 PO; -folic acid tablet PO; -thiamine tablet PO
[2023-01-04] MEDS ORDERED: LORazepam 2 mg/ml vial IV ONE (14:20)
[2023-01-04] MEDS ORDERED: thiamine 100mg/ml 2ml inj. IV ONE (14:20)
[2023-01-04] MEDS ORDERED: normal saline 1000ML IV soln IVB ONE (14:20)
[2023-01-04] MEDS ORDERED: folic acid 1mg/0.2ml inj IV ONE (14:33)
[2023-01-04 14:55] LABS: EOSINOPHILS # (AUTO) 0.1 X10'3 (0-0.9); MEAN CORPUSCULAR HGB CONC 33.6 g/dL (33.0-36.5); MEAN PLATELET VOLUME 7.9 FL (7.4-10.4); WHITE BLOOD COUNT 4.2 X10'3 (4.5-11.0)
[2023-01-04 14:57] LABS: ALANINE AMINOTRANSFERASE 36 U/L (12-78); ALBUMIN 3.5 G/DL (3.4-5.0); ALBUMIN/GLOBULIN RATIO 0.9 (1.1-1.5); ALKALINE PHOSPHATASE 101 IU/L (46-116); ANION GAP 10 (8-16); ASPARTATE AMINO TRANSFERASE 45 U/L (10-37); BILIRUBIN,TOTAL 0.2 MG/DL (0.1-1.0); BLOOD UREA NITROGEN 16 MG/DL (7-18); BUN/CREATININE RATIO 19.8 (10.0-20.0); CALCIUM 8.3 MG/DL (8.5-10.1); CHLORIDE 104 MMOL/L (99-107); CREATININE 0.81 MG/DL (0.40-0.90); GLUCOSE 73 MG/DL (70-104); POTASSIUM 4.5 MMOL/L (3.5-5.1); SODIUM 137 MMOL/L (135-145); TOTAL CARBON DIOXIDE 23.1 MMOL/L (24-32); TOTAL PROTEIN 7.4 G/DL (6.4-8.2); eGFR 75 ML/MIN
[2023-01-04 14:58] LABS: BASOPHILS % (AUTO) 1.1 % (0-1); EOSINOPHILS % (AUTO) 1.5 % (0-6); HEMATOCRIT 35.2 % (35.0-45.0); HEMOGLOBIN 11.8 g/dl (12.0-16.0); LYMPHOCYTES # (AUTO) 1.7 X10'3 (1.1-4.8); LYMPHOCYTES % (AUTO) 40.2 % (21-51); MEAN CORPUSCULAR HEMOGLOBIN 32.6 PG (27.0-31.0); MEAN CORPUSCULAR VOLUME 97.1 FL (78-98); MONOCYTES # (AUTO) 0.4 X10'3 (0-0.9); NEUTROPHILS % (AUTO) 47.2 % (42-75); PLATELET COUNT 272 X10'3 (140-440); RED BLOOD COUNT 3.63 X10'6 (4.20-5.60)
[2023-01-04 15:07] LABS: ETHANOL 0.228 GM/DL (0.0-0.010); LIPASE 86 U/L (73-393)
--- NOTE | 2023-01-04 18:05 | NUR ---
Faxed dietary for dinner tray. Order placed earlier. Pt has eaten snack of crackers and cheese and OJ, but has not had any other food today.
[2023-01-04 19:50] LABS: URINE AMPHETAMINE SCREEN NEGATIVE (Neg)
[2023-01-04 19:51] LABS: URINE BARBITUATE SCREEN POSITIVE (Neg); URINE BENZODIAZEPINES SCREEN POSITIVE (Neg); URINE CANNABINOID SCREEN NEGATIVE (Neg); URINE COCAINE SCREEN NEGATIVE (Neg); URINE METHADONE SCREEN NEGATIVE (Neg); URINE OPIATE SCREEN NEGATIVE (Neg); URINE PHENCYCLIDINE SCREEN NEGATIVE (Neg)
[2023-01-05] MEDS ORDERED: chlordiazePOXIDE 25mg capsule PO ONE ×2 (08:30→12:15)
--- NOTE | 2023-01-05 10:14 | NUR ---
RN CALLED REPORT TO OVERFLOW ARACELY BAL. PT WILL BE TRANSFERRED TO OVERFLOW BED 26.
--- NOTE | 2023-01-05 10:18 | NUR ---
patient just came from ER and now is in overflow water was also given to patient patient is now in bed sitting up.
--- NOTE | 2023-01-05 11:22 | NUR ---
Patient sleeping supine in her bed. No distress observed. Continue to monitor.
--- NOTE | 2023-01-05 12:14 | NUR ---
Patient eating lunch. No distress observed. Continue to monitor.
[2023-01-05] MEDS ORDERED: haloperidol lactate 5mg/ml inj IM ONE (12:15)
--- NOTE | 2023-01-05 14:19 | NUR ---
Patient sleeping. No distress observed. Continue to monitor.
--- NOTE | 2023-01-05 16:05 | NUR ---
Patient going to [facility] . Patient c/o of a little anxiety. RN went to get order for Ativan to give to patient prior to leaving.
[2023-01-05 16:16] VITALS: BP 143/79
[2023-01-05] MEDS ORDERED: LORazepam 1 MG tablet PO ONE (16:55)
== END 2023-01-05 16:15 ==
LOC: ER 13:04
DX: R45.851 Suicidal ideations (principal); Z20.822 Contact with and (suspected) exposure to COVID-19; F10.129 Alcohol abuse with intoxication, unspecified; I10 Essential (primary) hypertension; K21.9 Gastro-esophageal reflux disease without esophagitis; E11.9 Type 2 diabetes mellitus without complications; F31.9 Bipolar disorder, unspecified; F15.20 Other stimulant dependence, uncomplicated; Z88.1 Allergy status to other antibiotic agents; Z88.5 Allergy status to narcotic agent; Z90.49 Acquired absence of other specified parts of digestive tract
CPT/HCPCS: 36415; 80053; 80305; 80320; 83690; 84443; 85025; 87811; 96361; 96372; 96374; 96375; 99285; J1630; J2060; J3411; J3490; J7030

== ENCOUNTER 2023-01-18 13:43 | Emergency (ER) | payer MEDICARE, MEDICAID ==
[~2023-01-18] VITALS: Ht 177.8 cm; Wt 86.0 kg
[2023-01-18] MEDS ORDERED: thiamine 100mg/ml 2ml inj. IV ONE (14:05)
[2023-01-18] MEDS ORDERED: normal saline 1000ML IV soln IVB ONE (14:05)
[2023-01-18] MEDS ORDERED: folic acid 1mg/0.2ml inj IV ONE (14:05)
[2023-01-18 14:38] LABS: BASOPHILS # (AUTO) 0.1 X10'3 (0-0.2); BASOPHILS % (AUTO) 1.8 % (0-1); EOSINOPHILS # (AUTO) 0.1 X10'3 (0-0.9); EOSINOPHILS % (AUTO) 1.2 % (0-6); HEMATOCRIT 41.6 % (35.0-45.0); HEMOGLOBIN 14.1 g/dl (12.0-16.0); LYMPHOCYTES # (AUTO) 3.1 X10'3 (1.1-4.8); LYMPHOCYTES % (AUTO) 53.8 % (21-51); MEAN CORPUSCULAR HEMOGLOBIN 32.1 PG (27.0-31.0); MEAN CORPUSCULAR HGB CONC 33.9 g/dL (33.0-36.5); MEAN CORPUSCULAR VOLUME 94.5 FL (78-98); MEAN PLATELET VOLUME 7.7 FL (7.4-10.4); MONOCYTES # (AUTO) 0.3 X10'3 (0-0.9); MONOCYTES % (AUTO) 4.7 % (2-12); NEUTROPHILS # (AUTO) 2.2 X10'3 (1.8-7.7); NEUTROPHILS % (AUTO) 38.5 % (42-75); PLATELET COUNT 387 X10'3 (140-440); RED CELL DISTRIBUTION WIDTH 17.8 % (11.5-14.5); WHITE BLOOD COUNT 5.7 X10'3 (4.5-11.0)
[2023-01-18 14:57] LABS: ALANINE AMINOTRANSFERASE 28 U/L (12-78); ALBUMIN/GLOBULIN RATIO 0.9 (1.1-1.5); ALKALINE PHOSPHATASE 107 IU/L (46-116); ANION GAP 11 (8-16); ASPARTATE AMINO TRANSFERASE 32 U/L (10-37); BILIRUBIN,TOTAL 0.3 MG/DL (0.1-1.0); BLOOD UREA NITROGEN 18 MG/DL (7-18); BUN/CREATININE RATIO 21.7 (10.0-20.0); CALCIUM 8.7 MG/DL (8.5-10.1); CHLORIDE 99 MMOL/L (99-107); CREATININE 0.83 MG/DL (0.40-0.90); GLUCOSE 96 MG/DL (70-104); POTASSIUM 4.4 MMOL/L (3.5-5.1); SODIUM 137 MMOL/L (135-145); TOTAL CARBON DIOXIDE 27.4 MMOL/L (24-32); TOTAL PROTEIN 8.5 G/DL (6.4-8.2); eGFR 73 ML/MIN
[2023-01-18 14:58] VITALS: BP 136/87
[2023-01-18 15:06] LABS: ETHANOL 0.367 GM/DL (0.0-0.010)
[2023-01-18 15:26] LABS: ANISOCYTOSIS 1+; PLATELET ESTIMATE NORMAL; TOTAL CELLS COUNTED 100
--- NOTE | 2023-01-18 16:02 | NUR ---
Met with patient in regards to alcohol use and to see if patient was interested in resources for treatment options. Patient slipped up and hasn't been in contact with her sponsor, or gone to a meeting and hasn't taken her Naltrexone. I talked to the patient about calling her sponsor and getting to a meeting. Also to start her Naltrexone again. I gave patient my card and asked her to call me in a couple days and let me know how she is doing.
== END 2023-01-18 16:34 | disposition home or self-care (01) ==
LOC: ER 13:43
DX: F10.129 Alcohol abuse with intoxication, unspecified (principal); S09.90XA Unspecified injury of head, initial encounter; K21.9 Gastro-esophageal reflux disease without esophagitis; I10 Essential (primary) hypertension; F15.10 Other stimulant abuse, uncomplicated; R41.82 Altered mental status, unspecified; E11.9 Type 2 diabetes mellitus without complications; F31.9 Bipolar disorder, unspecified; I11.9 Hypertensive heart disease without heart failure; Z90.49 Acquired absence of other specified parts of digestive tract; Z98.890 Other specified postprocedural states; Y90.9 Presence of alcohol in blood, level not specified
CPT/HCPCS: 36415; 70450; 80053; 80320; 82948; 85007; 85025; 96374; 96375; 99285; J3411; J3490; J7030

== ENCOUNTER 2023-02-22 12:11 | Emergency (ER) | payer MEDICARE, MEDICAID ==
[~2023-02-22] VITALS: Ht 180.3 cm; Wt 85.0 kg
[~2023-02-22 12:11] MED LIST changes: +NIFE-72 PO; -NIFE30TA95 PO
[2023-02-22] MEDS ORDERED: famotidine/PF 10 mg/ml inj IV ONE (12:20)
[2023-02-22] MEDS ORDERED: normal saline 1000ML IV soln IV ONE (12:20)
[2023-02-22] MEDS ORDERED: folic acid 1mg/0.2ml inj IV ONE (12:20)
[2023-02-22] MEDS ORDERED: ondansetron/PF 4mg/2ml inj IV ONE (12:20)
[2023-02-22] MEDS ORDERED: thiamine 100mg/ml 2ml inj. IV ONE (12:20)
[2023-02-22] MEDS ORDERED: calcium gluconate inj. 1 GM in normal saline 100ml IV soln 100 ML IV ONE (12:45)
[2023-02-22 12:49] LABS: BASOPHILS # (AUTO) 0.1 X10'3 (0-0.2); BASOPHILS % (AUTO) 0.9 % (0-1); EOSINOPHILS # (AUTO) 0.1 X10'3 (0-0.9); EOSINOPHILS % (AUTO) 0.6 % (0-6); HEMOGLOBIN 13.2 g/dl (12.0-16.0); LYMPHOCYTES # (AUTO) 1.8 X10'3 (1.1-4.8); LYMPHOCYTES % (AUTO) 19.4 % (21-51); MEAN CORPUSCULAR HEMOGLOBIN 32.7 PG (27.0-31.0); MEAN CORPUSCULAR HGB CONC 33.9 g/dL (33.0-36.5); MEAN CORPUSCULAR VOLUME 96.4 FL (78-98); MEAN PLATELET VOLUME 8.5 FL (7.4-10.4); MONOCYTES # (AUTO) 0.7 X10'3 (0-0.9); MONOCYTES % (AUTO) 7.3 % (2-12); NEUTROPHILS # (AUTO) 6.5 X10'3 (1.8-7.7); NEUTROPHILS % (AUTO) 71.8 % (42-75); PLATELET COUNT 188 X10'3 (140-440); RED BLOOD COUNT 4.05 X10'6 (4.20-5.60); RED CELL DISTRIBUTION WIDTH 16.7 % (11.5-14.5); WHITE BLOOD COUNT 9.1 X10'3 (4.5-11.0)
[2023-02-22] MEDS ORDERED: CALCIUM GLUC 1gm/50ml NACL,iso 50 ML IV ONE (13:19)
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
[2023-02-22 13:42] LABS: ALANINE AMINOTRANSFERASE 27 U/L (12-78); ALBUMIN 3.6 G/DL (3.4-5.0); ALBUMIN/GLOBULIN RATIO 0.9 (1.1-1.5); ALKALINE PHOSPHATASE 112 IU/L (46-116); ASPARTATE AMINO TRANSFERASE 61 U/L (10-37); BILIRUBIN,TOTAL 0.5 MG/DL (0.1-1.0); BLOOD UREA NITROGEN 12 MG/DL (7-18); CHLORIDE 101 MMOL/L (99-107); GLUCOSE 130 MG/DL (70-104); MAGNESIUM 2.1 MG/DL (1.5-2.4); POTASSIUM 3.9 MMOL/L (3.5-5.1); SODIUM 137 MMOL/L (135-145); TOTAL PROTEIN 7.4 G/DL (6.4-8.2); eGFR 59 ML/MIN
[2023-02-22 13:44] LABS: ETHANOL 0.345 GM/DL (0.0-0.010)
[2023-02-22 14:05] LABS: ANION GAP 15 (8-16); TOTAL CARBON DIOXIDE 20.8 MMOL/L (24-32)
[2023-02-22 16:33] VITALS: BP 149/101
[2023-02-22] MEDS ORDERED: ONDA4TAB12 PO (23:48)
== END 2023-02-22 16:35 | disposition home or self-care (01) ==
LOC: ER 12:11
DX: F10.129 Alcohol abuse with intoxication, unspecified (principal); Y90.9 Presence of alcohol in blood, level not specified; F31.9 Bipolar disorder, unspecified; I10 Essential (primary) hypertension; K21.9 Gastro-esophageal reflux disease without esophagitis; E11.9 Type 2 diabetes mellitus without complications; F32.A Depression, unspecified; Z88.8 Allergy status to other drugs, medicaments and biological substances; Z88.1 Allergy status to other antibiotic agents
CPT/HCPCS: 36415; 80053; 80320; 83735; 85025; 96374; 96375; 99284; J0610; J2405; J3411; J3490; J7030

== ENCOUNTER 2023-02-22 22:35 | Emergency (ER) | payer MEDICARE, MEDICAID ==
[~2023-02-22] VITALS: Ht 180.3 cm; Wt 100.0 kg
[2023-02-22 22:40] VITALS: BP 164/95
[2023-02-22] MEDS ORDERED: ONDA4TAB12 PO (23:48)
--- NOTE | 2023-02-23 00:04 | NUR ---
PT SEEN BY PROVIDER ONLY. PROVIDED ONLY DC PAPERS TO THE PT AND HAD UC CALL TAXI
== END 2023-02-23 00:04 | disposition home or self-care (01) ==
LOC: ER 22:36
DX: F10.129 Alcohol abuse with intoxication, unspecified (principal); I10 Essential (primary) hypertension; K21.9 Gastro-esophageal reflux disease without esophagitis; E11.9 Type 2 diabetes mellitus without complications; F41.9 Anxiety disorder, unspecified; F15.10 Other stimulant abuse, uncomplicated; Z56.0 Unemployment, unspecified; Z88.8 Allergy status to other drugs, medicaments and biological substances; Z88.1 Allergy status to other antibiotic agents; Z88.6 Allergy status to analgesic agent; Y90.9 Presence of alcohol in blood, level not specified
CPT/HCPCS: 99283

== ENCOUNTER 2023-04-04 16:31 | Emergency (ER) | payer MEDICARE, MEDICAID ==
[~2023-04-04] VITALS: Ht 177.8 cm; Wt 84.0 kg
[~2023-04-04 16:31] MED LIST changes: -CYAN500T71 PO; -DEXT30CA6 PO; -FURO-149 PO; -GABA600T13 PO; -LORA2TAB96 PO; -MULT-25 PO; -POTA-188 PO; -PRAZ1CAP5 PO
[2023-04-04 17:45] LABS: BASOPHILS # (AUTO) 0.1 X10'3 (0-0.2); BASOPHILS % (AUTO) 1.2 % (0-1); EOSINOPHILS # (AUTO) 0.3 X10'3 (0-0.9); EOSINOPHILS % (AUTO) 5.4 % (0-6); HEMATOCRIT 35.2 % (35.0-45.0); HEMOGLOBIN 11.9 g/dl (12.0-16.0); LYMPHOCYTES # (AUTO) 2.5 X10'3 (1.1-4.8); LYMPHOCYTES % (AUTO) 50.3 % (21-51); MEAN CORPUSCULAR HEMOGLOBIN 31.6 PG (27.0-31.0); MEAN CORPUSCULAR HGB CONC 33.9 g/dL (33.0-36.5); MEAN CORPUSCULAR VOLUME 93.2 FL (78-98); MEAN PLATELET VOLUME 7.4 FL (7.4-10.4); MONOCYTES # (AUTO) 0.4 X10'3 (0-0.9); MONOCYTES % (AUTO) 7.3 % (2-12); NEUTROPHILS # (AUTO) 1.8 X10'3 (1.8-7.7); NEUTROPHILS % (AUTO) 35.8 % (42-75); PLATELET COUNT 261 X10'3 (140-440); RED BLOOD COUNT 3.78 X10'6 (4.20-5.60); RED CELL DISTRIBUTION WIDTH 15.8 % (11.5-14.5)
[2023-04-04 17:53] LABS: ALANINE AMINOTRANSFERASE 38 U/L (12-78); ALBUMIN/GLOBULIN RATIO 0.9 (1.1-1.5); ALKALINE PHOSPHATASE 109 IU/L (46-116); ANION GAP 12 (8-16); ASPARTATE AMINO TRANSFERASE 40 U/L (10-37); BILIRUBIN,TOTAL 0.6 MG/DL (0.1-1.0); BLOOD UREA NITROGEN 20 MG/DL (7-18); BUN/CREATININE RATIO 18.2 (10.0-20.0); CHLORIDE 104 MMOL/L (99-107); GLUCOSE 72 MG/DL (70-104); POTASSIUM 4.1 MMOL/L (3.5-5.1); SODIUM 140 MMOL/L (135-145); TOTAL CARBON DIOXIDE 23.6 MMOL/L (24-32); TOTAL PROTEIN 8.3 G/DL (6.4-8.2); eGFR 53 ML/MIN
[2023-04-04 18:03] LABS: ETHANOL 0.383 GM/DL (0.0-0.010)
[2023-04-04] MEDS ORDERED: normal saline 1000ml 1,000 ML IV ONE ×2 (18:55→21:40)
[2023-04-04] MEDS ORDERED: LORazepam 1 MG tablet PO ONE (20:15)
[2023-04-04] MEDS ORDERED: thiamine 100mg/ml 2ml inj. IV ONE (21:05)
[2023-04-04] MEDS ORDERED: folic acid 1mg/0.2ml inj IV ONE (21:05)
[2023-04-04 21:27] LABS: URINE HCG NEGATIVE (NEG)
[2023-04-04 21:30] LABS: COLOR,URINE YELLOW (Yellow); GLUCOSE, URINE NEGATIVE (Neg); KETONES,URINE NEGATIVE (Neg); LEUKOCYTE ESTERASE ,URINE NEGATIVE (Neg); NITRITES, URINE NEGATIVE (Neg); OCCULT BLOOD,URINE NEGATIVE (Neg); PH,URINE 5.5 (4.8-8.0); PROTEIN,URINE NEGATIVE (Neg); UROBILINOGEN,URINE 0.2 E.U/dL (0.2-1.0)
[2023-04-04 21:46] LABS: URINE AMPHETAMINE SCREEN NEGATIVE (Neg); URINE BARBITUATE SCREEN NEGATIVE (Neg); URINE BENZODIAZEPINES SCREEN NEGATIVE (Neg); URINE CANNABINOID SCREEN NEGATIVE (Neg); URINE COCAINE SCREEN NEGATIVE (Neg); URINE METHADONE SCREEN NEGATIVE (Neg); URINE OPIATE SCREEN NEGATIVE (Neg); URINE PHENCYCLIDINE SCREEN NEGATIVE (Neg)
[2023-04-04] MEDS: LORazepam 1 MG tablet PO PRN (22:09)
[2023-04-04 22:14] LABS: CLARITY,URINE SLIGHTLY CLOUDY (Clear)
[2023-04-04 22:17] LABS: UA COLLECTION TYPE CLN CATCH MIDSTREAM
[2023-04-04 22:18] LABS: WBC,URINE 0-4 /HPF (0-4)
[2023-04-04 22:19] LABS: RBC,URINE 0-2 /HPF (0-2)
[2023-04-04 22:24] LABS: BACTERIA,URINE 1+ /HPF (Neg); SQUAMOUS EPITHELIAL CELL,UR MANY /LPF (FEW)
--- NOTE | 2023-04-04 23:08 | NUR ---
Received pt from main ER, pt denies SI at this time. Pt had a snack and fresh water given. Pt is currently sleeping.
--- NOTE | 2023-04-05 00:35 | NUR ---
Pt is currently sleeping.
[2023-04-05] MEDS ORDERED: DARIDOREXANT HCL PO PRN (01:10)
[2023-04-05] MEDS ORDERED: LORazepam 1 MG tablet PO PRN (01:10)
[2023-04-05] MEDS ORDERED: LORazepam 1 MG tablet PO ONE (01:30)
--- NOTE | 2023-04-05 02:43 | NUR ---
Pt appears to be sleeping.
--- NOTE | 2023-04-05 05:13 | NUR ---
pt is currently sleeping.
[2023-04-05 05:45] VITALS: BP 149/80
[2023-04-05] MEDS: LORazepam 1 MG tablet PO PRN ×2 (05:45→09:41)
--- NOTE | 2023-04-05 06:44 | NUR ---
Patient sleeping on her left side. No distress observed. Continue to monitor.
[2023-04-05] MEDS ORDERED: folic acid 1mg tablet PO SCH (08:00)
[2023-04-05] MEDS ORDERED: thiamine 100mg tablet PO SCH (08:00)
[2023-04-05] MEDS ORDERED: NIFEdipine XL 30mg tablet PO SCH (08:00)
[2023-04-05] MEDS ORDERED: pantoprazole 40mg Tablet.DR PO SCH (08:00)
[2023-04-05] MEDS ORDERED: buPROPion SR 150mg tablet PO SCH (08:00)
[2023-04-05] MEDS ORDERED: ESCITALOPRAM OXALATE 5 MG TABLET PO SCH (08:00)
--- NOTE | 2023-04-05 08:40 | NUR ---
Patient eating breakfast. No distress observed. Continue to monitor.
--- NOTE | 2023-04-05 09:55 | NUR ---
Paty VINSON, evaluating patient. Continue to monitor.
--- NOTE | 2023-04-05 11:01 | NUR ---
Met with patient in regards to alcohol use and to see if patient was interested in resources for treatment options. Patient stopped taking her Naltrexone and started drinking again. Patient is having problems with her housing and it was a trigger for her. I discussed with patient about starting Naltrexone again, contacting her sponsor and going back to meetings.
== END 2023-04-05 12:20 | disposition home or self-care (01) ==
LOC: ER 16:31
DX: R45.851 Suicidal ideations (principal); Z20.822 Contact with and (suspected) exposure to COVID-19; F10.99 Alcohol use, unspecified with unspecified alcohol-induced disorder; I10 Essential (primary) hypertension; K21.9 Gastro-esophageal reflux disease without esophagitis; E11.9 Type 2 diabetes mellitus without complications; F31.9 Bipolar disorder, unspecified; F15.20 Other stimulant dependence, uncomplicated; Z88.1 Allergy status to other antibiotic agents; Z88.5 Allergy status to narcotic agent; Z88.8 Allergy status to other drugs, medicaments and biological substances; Z79.899 Other long term (current) drug therapy; Z90.49 Acquired absence of other specified parts of digestive tract; Z98.51 Tubal ligation status; Y90.9 Presence of alcohol in blood, level not specified
CPT/HCPCS: 36415; 80053; 80305; 80320; 81001; 81025; 84443; 85025; 87811; 96361; 96374; 96375; 99285; J3411; J3490; J7030

== ENCOUNTER 2023-04-11 00:28 | Inpatient (IN) | payer MEDICARE, MEDICAID ==
[~2023-04-11] VITALS: Ht 175.3 cm; Wt 90.9 kg
[2023-04-11 01:22] LABS: BASOPHILS # (AUTO) 0.1 X10'3 (0-0.2); EOSINOPHILS # (AUTO) 0.1 X10'3 (0-0.9); EOSINOPHILS % (AUTO) 1.5 % (0-6); HEMATOCRIT 33.8 % (35.0-45.0); HEMOGLOBIN 11.5 g/dl (12.0-16.0); LYMPHOCYTES # (AUTO) 1.4 X10'3 (1.1-4.8); LYMPHOCYTES % (AUTO) 24.9 % (21-51); MEAN CORPUSCULAR HEMOGLOBIN 31.8 PG (27.0-31.0); MEAN CORPUSCULAR HGB CONC 34.1 g/dL (33.0-36.5); MEAN CORPUSCULAR VOLUME 93.2 FL (78-98); MEAN PLATELET VOLUME 6.9 FL (7.4-10.4); MONOCYTES # (AUTO) 0.7 X10'3 (0-0.9); MONOCYTES % (AUTO) 12.2 % (2-12); NEUTROPHILS # (AUTO) 3.3 X10'3 (1.8-7.7); NEUTROPHILS % (AUTO) 60.4 % (42-75); PLATELET COUNT 240 X10'3 (140-440); RED BLOOD COUNT 3.63 X10'6 (4.20-5.60); RED CELL DISTRIBUTION WIDTH 16.1 % (11.5-14.5); WHITE BLOOD COUNT 5.4 X10'3 (4.5-11.0)
[2023-04-11 01:40] LABS: ALANINE AMINOTRANSFERASE 31 U/L (12-78); ALBUMIN 3.5 G/DL (3.4-5.0); ALBUMIN/GLOBULIN RATIO 0.9 (1.1-1.5); ALKALINE PHOSPHATASE 105 IU/L (46-116); ANION GAP 14 (8-16); ASPARTATE AMINO TRANSFERASE 77 U/L (10-37); BILIRUBIN,TOTAL 0.8 MG/DL (0.1-1.0); BLOOD UREA NITROGEN 11 MG/DL (7-18); BUN/CREATININE RATIO 10.7 (10.0-20.0); CALCIUM 8.3 MG/DL (8.5-10.1); CHLORIDE 100 MMOL/L (99-107); CREATININE 1.03 MG/DL (0.40-0.90); GLUCOSE 125 MG/DL (70-104); POTASSIUM 4.1 MMOL/L (3.5-5.1); SODIUM 135 MMOL/L (135-145); TOTAL CARBON DIOXIDE 21.5 MMOL/L (24-32); TOTAL PROTEIN 7.4 G/DL (6.4-8.2); eGFR 57 ML/MIN
[2023-04-11 01:55] LABS: ACETAMINOPHEN < 2.0 UG/ML (10-30); ETHANOL 0.354 GM/DL (0.0-0.010)
[2023-04-11 02:14] LABS: URINE AMPHETAMINE SCREEN NEGATIVE (Neg); URINE BARBITUATE SCREEN NEGATIVE (Neg); URINE BENZODIAZEPINES SCREEN NEGATIVE (Neg); URINE CANNABINOID SCREEN NEGATIVE (Neg); URINE COCAINE SCREEN NEGATIVE (Neg); URINE METHADONE SCREEN NEGATIVE (Neg); URINE OPIATE SCREEN NEGATIVE (Neg); URINE PHENCYCLIDINE SCREEN NEGATIVE (Neg)
[2023-04-11] MEDS ORDERED: LORazepam 1 MG tablet PO PRN (04:45)
--- NOTE | 2023-04-11 06:19 | NUR ---
[facility] FAXED TO [facility] @ [phone]
[2023-04-11] MEDS: buPROPion SR 150mg tablet PO SCH ×2 (08:00→20:27)
--- NOTE | 2023-04-11 08:30 | NUR ---
Patient sleeping quietly in bed. No requests at this time.
--- NOTE | 2023-04-11 09:46 | NUR ---
Pt requesting PO Ativan for withdrawal symptoms. Otherwise resting quietly.
[2023-04-11] MEDS: LORazepam 0.5 MG tablet PO PRN (09:57)
--- NOTE | 2023-04-11 10:02 | NUR ---
Met with patient in regards to alcohol use and to see if patient is interested in resources for treatment options. Patient is currently taking Naltrexone for alcohol cravings but still drinking. Patient has not contacted her sponsor or made it to a meeting. Patient said that she is concerned with her mental well-being right now. I discussed with patient that her mental well-being and her addiction go hand and hand and that it is very important to get back in contact with her sponsor. Patient has my card to call me if she needs anything.
[2023-04-11] MEDS: pantoprazole 40mg Tablet.DR PO SCH (11:01)
[2023-04-11] MEDS: folic acid 1mg tablet PO SCH (11:01)
[2023-04-11] MEDS: NIFEdipine XL 30mg tablet PO SCH (11:02)
[2023-04-11] MEDS: ESCITALOPRAM OXALATE 5 MG TABLET PO SCH (11:02)
[2023-04-11] MEDS: thiamine 100mg tablet PO SCH (11:02)
--- NOTE | 2023-04-11 11:15 | NUR ---
Patient sleeping most of afternoon - requesting snack for late breakfast. Yogurt and juice eaten.
--- NOTE | 2023-04-11 12:32 | NUR ---
Patient resting in bed, stating she feels uncomfortable and sick. VSS.
--- NOTE | 2023-04-11 13:45 | NUR ---
Late tray ordered for noon meal, but patient stating she feels nauseous. 1 juice consumed instead.
--- NOTE | 2023-04-11 15:48 | NUR ---
MD Chin requested CIWA score. PT scored 26 on CIWA @ 1545. BP 172/105, HR 88, 99% RA, pain of 8. Will continue to monitor.
[2023-04-11] MEDS ORDERED: dextrose 50%-water 50ml dispensing syringe IV PRN (16:15)
[2023-04-11] MEDS: haloperidol lactate 5mg/ml inj IM PRN (16:31)
--- NOTE | 2023-04-11 16:50 | NUR ---
PATIENT SITTING UP IN BED IN TRIPOD STANCE, DRY HEAVING, DIAPHORETIC, RN OCTAVIO AT BEDSIDE TO ADMINISTER PRN ATIVAN IVP (SEE EMAR) PER MD ORDER.
[2023-04-11] MEDS: LORazepam 2 mg/ml vial IV PRN (16:53)
[2023-04-11] MEDS ORDERED: chlordiazePOXIDE 25mg capsule PO ONE (17:40)
[2023-04-11] MEDS ORDERED: LORazepam 2 mg/ml vial IV ONE (17:40)
[2023-04-11] MEDS ORDERED: haloperidol lactate 5mg/ml inj IM ONE (17:40)
--- NOTE | 2023-04-11 17:45 | NUR ---
Patient received IM Haldol and IV Ativan for agitation, tremors, and withdrawal symptoms. See Vitals flowsheet for trends
[2023-04-11] MEDS ORDERED: ibuprofen 200mg tablet PO ONE (18:20)
[2023-04-11] MEDS ORDERED: HYDROcodone/acetaminophen 5mg/325mg tablet PO ONE (18:20)
[2023-04-11] MEDS ORDERED: HYDR-3973 PO (18:20)
--- NOTE | 2023-04-11 18:32 | NUR ---
Dr Chin spoke with MD Garcia regarding pt's withdrawal symptoms, Jose stated to given pt additional dose of 5mg IM Haldol and 2mg IV Ativan for symptoms. Tile Mechanic verified this with MD and MD assessed pt at bedside prior to administration of these. Pt stating she is feeling much more comfortable at this time. Vitals 148/101, HR 76, 97% RA, pain 7.
--- NOTE | 2023-04-11 18:45 | NUR ---
Rcvd report from Josephine JESSICA. Pt is here due to s/i and OD. Pt arrived in ER yesterday w/REJI of .354. Pt is fatigued upon arrival from main ER. Vitals WNL. Pt states she wants to eat and is encouraged to have dinner, but patient falls back asleep.
--- NOTE | 2023-04-11 19:35 | NUR ---
Pt is asleep, softly snoring, RR 14
[2023-04-11] MEDS: thiamine 100mg/ml 2ml inj. IV SCH (20:42)
--- NOTE | 2023-04-11 20:43 | NUR ---
Pt is calm cooperative, took HS meds and went back to sleep.
--- NOTE | 2023-04-11 21:33 | NUR ---
Pt is sleeping rr even and unlabored.
--- NOTE | 2023-04-12 03:12 | NUR ---
Pt is sleeping rr even and unlabored
--- NOTE | 2023-04-12 05:35 | NUR ---
Pt woke to have vitals done and returned to sleep. Pt appears to be resting comfortably
--- NOTE | 2023-04-12 06:30 | NUR ---
Received patient sleeping at shift change. Pt is on ETOH withdrawal precaution. VS stable. Will continue to monitor.
--- NOTE | 2023-04-12 07:15 | NUR ---
CIWA score 9. Pt arouses to name. Pt is calm, alert to person, place, year and situation. Lab at bedside drawing ETOH level. Pt compliant.
[2023-04-12] MEDS: ondansetron/PF 4mg/2ml inj IV PRN ×2 (07:43→16:42)
[2023-04-12] MEDS: LORazepam 2 mg/ml vial IV PRN ×5 (07:44→22:34)
--- NOTE | 2023-04-12 07:45 | NUR ---
Pt has saline lock in right ankle. IV flushed. Administered Zofran 4m and Ativan 2mg.
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
--- NOTE | 2023-04-12 08:30 | NUR ---
Pt eating breakfast. Pt movements are slow. On continuous monitor. No c/o N/V.
--- NOTE | 2023-04-12 08:30 | NUR ---
CIWA SCORE 3
--- NOTE | 2023-04-12 09:15 | NUR ---
MATTWA SCORE 3.
[2023-04-12] MEDS: thiamine 100mg/ml 2ml inj. IV SCH ×2 (10:05→14:01)
[2023-04-12] MEDS: folic acid 1mg/0.2ml inj IV SCH (10:05)
[2023-04-12] MEDS: ESCITALOPRAM OXALATE 5 MG TABLET PO SCH (10:06)
[2023-04-12] MEDS: pantoprazole 40mg Tablet.DR PO SCH (10:06)
[2023-04-12] MEDS: NIFEdipine XL 30mg tablet PO SCH (10:06)
[2023-04-12] MEDS: folic acid 1mg tablet PO SCH (10:07)
[2023-04-12] MEDS: thiamine 100mg tablet PO SCH (10:07)
[2023-04-12] MEDS: buPROPion SR 150mg tablet PO SCH ×2 (10:07→19:08)
--- NOTE | 2023-04-12 10:10 | NUR ---
Pt compliant with medication, able to keep down PO meds. Pt was just administered her HTN medication. Pt's SBP is ranging in the mid to high 150's and DBP around 99. Pt is having body twitches, reports she "dreaming." Pt continues to A&Ox4. Pt slightly sedated r/t Ativan. Decreased anxiety, diaphoresis and nausea. Will continue to monitor.
--- NOTE | 2023-04-12 11:15 | NUR ---
CIWA SCORE 3. Pt verbally reported "I am feeling okay." Will continue to monitor.
--- NOTE | 2023-04-12 11:55 | NUR ---
Pt's boyfriend Quinn called requesting to talk to patient. I woke pt up and asked if she wanted to speak to caller, she stated "I will call him back later, I want to sleep more". Clinical Professor relayed pt's response to caller.
--- NOTE | 2023-04-12 12:16 | NUR ---
JAVIER SCORE 3. Pt reports "I'm okay." Lunch tray at bedside. Pt A&Ox4. Addendum: 04/12/23 at 1218 by JOSE MARTIN CORRECTION. CIWA SCORE 1.
[2023-04-12] MEDS ORDERED: LORazepam 2 mg/ml vial IV ONE (14:17)
--- NOTE | 2023-04-12 14:40 | NUR ---
CIWA SCORE 6. PT REQUESTED PRN ATIVAN. ADMINISTERED 1 MG. WILL CONTINUE TO MONITOR.
--- NOTE | 2023-04-12 16:10 | NUR ---
CIWA SCORE 10. Pt c/o increased tremors, with increased diaphoresis. Pt ambulated to bathroom, gait is stiff. Pt r/t stiffness to increased tremors. Pt urinated without issue. Linens changed.
--- NOTE | 2023-04-12 16:50 | NUR ---
Administered Zofran for nausea and Ativan for withdrawal symptoms. IV located on right ankle.
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
--- NOTE | 2023-04-12 19:00 | NUR ---
The patient assessed. She has bilateral hand tremors. She is stating that she is hearing voices. Ativan 2mg given IV.
--- NOTE | 2023-04-12 20:51 | NUR ---
The patient is resting on her bed quietly. HR 78 and BP 151/95. She is endorsing suicidal thoughts and stated that she wants to go to sleep and never wake up.
--- NOTE | 2023-04-12 21:50 | NUR ---
The patient is resting on her bed.
[2023-04-12] MEDS ORDERED: acetaminophen 325mg tablet PO ONE (22:30)
--- NOTE | 2023-04-12 22:40 | NUR ---
The patient complaint of GODOY and requesting tylenol. Hand tremors present. MD made aware of patient complaint of GODOY. Tylenol given and Ativan for WD.
--- NOTE | 2023-04-12 23:30 | NUR ---
The patient appears to be sleeping
--- NOTE | 2023-04-13 01:01 | NUR ---
The patient appears to be sleeping
[2023-04-13] MEDS: LORazepam 2 mg/ml vial IV PRN ×3 (02:05→13:13)
--- NOTE | 2023-04-13 02:12 | NUR ---
The patient reports AH, high anxiety and GODOY. She is oriented to place and why she is here and year. She stated the month was February and had no idea of the day of the week or day of the month. Tremors are mild to moderate. Ativan 4mg given IV. She is now reporting decreasing GODOY
--- NOTE | 2023-04-13 03:01 | NUR ---
The patient is resting on her bed but is awake
--- NOTE | 2023-04-13 03:58 | NUR ---
The patient is complaining of restlessness. HR 67. Had been experiencing voices but denies this now. Her BP is 168/118. Dr. Harris was made aware of elevated BP, meds given and earlier report of AH.
--- NOTE | 2023-04-13 04:18 | NUR ---
Hospitalist here to examine the patient
[2023-04-13] MEDS ORDERED: glucagon, human recombinant 1mg kit SUBCUT PRN (04:30)
[2023-04-13] MEDS ORDERED: acetaminophen 325mg tablet PO PRN (04:30)
[2023-04-13] MEDS ORDERED: magnesium 4gm in 100ml NS 100 ML IV PRN (04:30)
[2023-04-13] MEDS ORDERED: ondansetron/PF 4mg/2ml inj IV PRN (04:30)
[2023-04-13] MEDS ORDERED: magnesium hydroxide 30ml (MOM) UD suspension PO PRN (04:30)
[2023-04-13] MEDS ORDERED: mag hydrox/Alum hydrox/simeth 30ml oral suspension PO PRN (04:30)
[2023-04-13] MEDS ORDERED: dextrose 50%-water 50ml dispensing syringe IV PRN ×2 (04:30)
[2023-04-13] MEDS ORDERED: MESSAGE TO PHARMACY PO ONE (04:30)
[2023-04-13] MEDS ORDERED: insulin Lispro (HumaLOG) vial - multi-dose SQ SCH (04:30)
[2023-04-13] MEDS ORDERED: potassium Cl 20 mEq SR tablet PO PRN ×2 (04:30)
[2023-04-13] MEDS ORDERED: potassium Cl 40MEQ/1/2NS 520ml 520 ML IV PRN (04:30)
[2023-04-13] MEDS ORDERED: DEXTROSE 15 GM of carb/4 tabs (each vial/BOTTLE has 4 tablets) PO PRN ×2 (04:30)
--- NOTE | 2023-04-13 05:04 | NUR ---
The patient is laying on her bed and talking to herself. Ativan given IV.
[2023-04-13] MEDS: K and/or MAG REPLACEMENT MC SCH ×2 (08:00→20:00)
[2023-04-13] MEDS: multivitamins, therapeutics tablet PO SCH (08:16)
[2023-04-13] MEDS: buPROPion SR 150mg tablet PO SCH ×2 (08:16→20:40)
[2023-04-13] MEDS: pantoprazole 40mg Tablet.DR PO SCH (08:16)
[2023-04-13] MEDS: thiamine 100mg tablet PO SCH ×2 (08:17→21:55)
[2023-04-13] MEDS: docusate sod 100mg capsule PO SCH ×2 (08:17→20:40)
[2023-04-13] MEDS: NIFEdipine XL 30mg tablet PO SCH (08:18)
[2023-04-13] MEDS: ESCITALOPRAM OXALATE 5 MG TABLET PO SCH (08:18)
[2023-04-13] MEDS: folic acid 1mg/0.2ml inj IV SCH (08:45)
[2023-04-13 10:07] LABS: BASOPHILS % (AUTO) 1.1 % (0-1); EOSINOPHILS # (AUTO) 0.2 X10'3 (0-0.9); EOSINOPHILS % (AUTO) 5.8 % (0-6); HEMATOCRIT 36.7 % (35.0-45.0); HEMOGLOBIN 12.3 g/dl (12.0-16.0); LYMPHOCYTES # (AUTO) 0.8 X10'3 (1.1-4.8); LYMPHOCYTES % (AUTO) 28.8 % (21-51); MEAN CORPUSCULAR HEMOGLOBIN 31.6 PG (27.0-31.0); MEAN CORPUSCULAR HGB CONC 33.5 g/dL (33.0-36.5); MEAN CORPUSCULAR VOLUME 94.3 FL (78-98); MEAN PLATELET VOLUME 7.6 FL (7.4-10.4); MONOCYTES # (AUTO) 0.3 X10'3 (0-0.9); MONOCYTES % (AUTO) 10.4 % (2-12); NEUTROPHILS # (AUTO) 1.5 X10'3 (1.8-7.7); NEUTROPHILS % (AUTO) 53.9 % (42-75); PLATELET COUNT 127 X10'3 (140-440); RED BLOOD COUNT 3.89 X10'6 (4.20-5.60); RED CELL DISTRIBUTION WIDTH 15.7 % (11.5-14.5); WHITE BLOOD COUNT 2.8 X10'3 (4.5-11.0)
[2023-04-13 10:13] LABS: ALANINE AMINOTRANSFERASE 27 U/L (12-78); ALBUMIN 3.5 G/DL (3.4-5.0); ALBUMIN/GLOBULIN RATIO 0.9 (1.1-1.5); ALKALINE PHOSPHATASE 116 IU/L (46-116); ANION GAP 11 (8-16); ASPARTATE AMINO TRANSFERASE 32 U/L (10-37); BILIRUBIN,TOTAL 1.1 MG/DL (0.1-1.0); BLOOD UREA NITROGEN 10 MG/DL (7-18); BUN/CREATININE RATIO 10.4 (10.0-20.0); CALCIUM 8.6 MG/DL (8.5-10.1); CHLORIDE 99 MMOL/L (99-107); CREATININE 0.96 MG/DL (0.40-0.90); GLUCOSE 156 MG/DL (70-104); POTASSIUM 3.7 MMOL/L (3.5-5.1); SODIUM 135 MMOL/L (135-145); TOTAL CARBON DIOXIDE 24.9 MMOL/L (24-32); TOTAL PROTEIN 7.3 G/DL (6.4-8.2); eGFR 62 ML/MIN
[2023-04-13 10:35] LABS: TOTAL CELLS COUNTED 100
[2023-04-13 10:36] LABS: LARGE PLATELETS FEW; PLATELET ESTIMATE DECREASED
[2023-04-13] MEDS: haloperidol lactate 5mg/ml inj IM PRN (13:23)
--- NOTE | 2023-04-13 18:00 | NUR ---
Pt has been cooperative and nice all day long. Pt has recieved 2 PRN doses of ativan today and 1 dose of Haldol. Pt has been resting in bed most of the day and will get up and ambulate to and from bathroom. Pt aware of being admitted to floor then planning on going to [facility] after.
--- NOTE | 2023-04-13 18:29 | NUR ---
Attempted to call report to PCU asked by staff to call back in a little while. Charge nurse notified.
--- NOTE | 2023-04-13 19:00 | NUR ---
Recieved report from ER Nurse Dragan pt made comfortable on her bed.
[2023-04-13 19:15] VITALS: BP 147/95; PULSE 74; RESP 16; TEMP 98.3; O2SAT 99
[2023-04-13] MEDS: enoxaparin 40mg/0.4ml syringe SQ SCH (20:00)
[2023-04-13] MEDS: acetaminophen 325mg tablet PO PRN (20:42)
[2023-04-13] MEDS: insulin glargine (Lantus) pen - multi-dose SQ SCH (21:00)
[2023-04-13] MEDS: LORazepam 0.5 MG tablet PO PRN (21:54)
[2023-04-13 22:00] VITALS: BP 138/72; PULSE 78; RESP 15; TEMP 98.2; O2SAT 96
[2023-04-14] VITALS (7 sets, daily range): BP systolic 136–151; BP diastolic 67–97; PULSE 68–87; RESP 12–16; TEMP 98–98.4; O2SAT 96–99
[2023-04-14] MEDS: LORazepam 2 mg/ml vial IV PRN ×5 (02:51→19:21)
--- NOTE | 2023-04-14 06:37 | NUR ---
Problems reprioritized. Patient report given, questions answered & plan of care reviewed with ARACELY HALE.
[2023-04-14 07:30] LABS: BASOPHILS % (AUTO) 1.1 % (0-1); EOSINOPHILS # (AUTO) 0.2 X10'3 (0-0.9); EOSINOPHILS % (AUTO) 7.9 % (0-6); HEMATOCRIT 35.2 % (35.0-45.0); HEMOGLOBIN 11.8 g/dl (12.0-16.0); LYMPHOCYTES # (AUTO) 1.2 X10'3 (1.1-4.8); LYMPHOCYTES % (AUTO) 37.1 % (21-51); MEAN CORPUSCULAR HEMOGLOBIN 31.7 PG (27.0-31.0); MEAN CORPUSCULAR HGB CONC 33.4 g/dL (33.0-36.5); MEAN PLATELET VOLUME 7.9 FL (7.4-10.4); MONOCYTES # (AUTO) 0.4 X10'3 (0-0.9); MONOCYTES % (AUTO) 11.5 % (2-12); NEUTROPHILS # (AUTO) 1.3 X10'3 (1.8-7.7); NEUTROPHILS % (AUTO) 42.4 % (42-75); PLATELET COUNT 132 X10'3 (140-440); RED BLOOD COUNT 3.71 X10'6 (4.20-5.60); WHITE BLOOD COUNT 3.1 X10'3 (4.5-11.0)
[2023-04-14 07:44] LABS: ALANINE AMINOTRANSFERASE 28 U/L (12-78); ALBUMIN 3.3 G/DL (3.4-5.0); ALBUMIN/GLOBULIN RATIO 0.9 (1.1-1.5); ALKALINE PHOSPHATASE 101 IU/L (46-116); ANION GAP 12 (8-16); ASPARTATE AMINO TRANSFERASE 34 U/L (10-37); BILIRUBIN,TOTAL 0.8 MG/DL (0.1-1.0); BLOOD UREA NITROGEN 8 MG/DL (7-18); BUN/CREATININE RATIO 9.5 (10.0-20.0); CALCIUM 8.5 MG/DL (8.5-10.1); CHLORIDE 104 MMOL/L (99-107); CREATININE 0.84 MG/DL (0.40-0.90); GLUCOSE 96 MG/DL (70-104); LIPASE 83 U/L (73-393); MAGNESIUM 1.8 MG/DL (1.5-2.4); PHOSPHORUS 3.4 MG/DL (2.3-4.5); POTASSIUM 3.6 MMOL/L (3.5-5.1); SODIUM 140 MMOL/L (135-145); TOTAL CARBON DIOXIDE 23.8 MMOL/L (24-32); TOTAL PROTEIN 6.9 G/DL (6.4-8.2); eGFR 72 ML/MIN
[2023-04-14] MEDS: K and/or MAG REPLACEMENT MC SCH ×2 (08:00→20:00)
[2023-04-14] MEDS: folic acid 1mg/0.2ml inj IV SCH (08:44)
[2023-04-14] MEDS: ESCITALOPRAM OXALATE 5 MG TABLET PO SCH (08:45)
[2023-04-14] MEDS: buPROPion SR 150mg tablet PO SCH ×2 (08:45→21:11)
[2023-04-14] MEDS: docusate sod 100mg capsule PO SCH ×2 (08:45→21:11)
[2023-04-14] MEDS: multivitamins, therapeutics tablet PO SCH (08:45)
[2023-04-14] MEDS: pantoprazole 40mg Tablet.DR PO SCH (08:45)
[2023-04-14] MEDS: NIFEdipine XL 30mg tablet PO SCH (08:45)
[2023-04-14] MEDS: thiamine 100mg tablet PO SCH ×2 (08:46→21:10)
--- NOTE | 2023-04-14 09:29 | NUR ---
Patient in room PCU 3020. I have received report from Cornelio JESSICA and had the opportunity to ask questions and assume patient care. Vanesa JESSICA, Chava JESSICA
--- NOTE | 2023-04-14 10:51 | NUR ---
Nutrition consult re: "poor appetite >1 week". Pt reports decreased appetite/PO intake per malnutrition risk screen with RN however at f/u malnutrition risk screen with RN pt denies decreased appetite/PO intake. Pt denies wt loss at both screenings. Per EMR pt A/O x 2, currently on a 1799 hold with a sitter at bedside, unable to obtain information from pt at this time. Current wt isn't scaled however is higher than scaled wt hx in EMR (range 81.82-86.6 kg 06/26/22-04/04/23). Patient's diet has just been advanced to regular from clear liquids, pending first meal since diet advancement. Pt with no documented decrease in muscle strength or edema. Pt currently lacks a minimum of two criteria for malnutrition. Per EMR pt with h/o gastric bypass and EtOH, currently receiving routine Thiamine, Folic acid, and MVI. TC to RN with recommendation for changing MVI to MVM with Iron and adding routine Vitamin D3, Vitamin B12, and Calcium citrate. Will continue to follow and make recommendations as appropriate. Recommendations: 1) Continue regular diet 2) Continue routine Thiamine and Folic acid, change MVI to MVM with Iron, add routine Calcium Citrate TID, Vitamin B12, and Vitamin D3 d/t h/o gastric bypass and EtOH 3) Routine bowel care 4) Scaled weight this admit; subsequent weekly scaled weights Addendum: 04/14/23 at [address] Amended: Links added.
--- NOTE | 2023-04-14 11:24 | NUR ---
Order for new vitamins placed per verbal order from Vanesa Tirado RN
[2023-04-14] MEDS: calcitriol 0.25mcg capsule PO SCH ×2 (12:21→21:10)
[2023-04-14] MEDS: insulin glargine (Lantus) pen - multi-dose SQ SCH (21:00)
--- NOTE | 2023-04-14 21:02 | NUR ---
PAGED DR. WILKINSON FOR ROOM 3020 MICHOACANO RAHMAN TAKES PRAZOSIN 1MG AT HOME EVERDAY FOR NIGHTMARES AND ASKING IF SHE CAN GET IT HERE NOW. THANK YOU AURORA BLACK RN [phone]
[2023-04-14] MEDS: enoxaparin 40mg/0.4ml syringe SQ SCH (21:11)
[2023-04-14] MEDS: cholecalciferol (vitamin D3) 1,000 unit (25mcg) tablet PO SCH (21:11)
[2023-04-14] MEDS: haloperidol lactate 5mg/ml inj IM PRN (21:12)
--- NOTE | 2023-04-14 22:11 | NUR ---
MD coffmanayed pt to take prazosin 1 mg once
[2023-04-14] MEDS ORDERED: prazosin 1mg capsule PO ONE (22:15)
[2023-04-15 02:00] VITALS: BP 118/78; PULSE 68; RESP 17; TEMP 98.2; O2SAT 96
[2023-04-15] MEDS: acetaminophen 325mg tablet PO PRN (05:24)
[2023-04-15] MEDS: haloperidol lactate 5mg/ml inj IM PRN (05:27)
--- NOTE | 2023-04-15 06:14 | NUR ---
Problems reprioritized. Patient report given, questions answered & plan of care reviewed with MARCIA.
--- NOTE | 2023-04-15 06:27 | NUR ---
Patient in room PCU 3020. I have received report from Maylin and had the opportunity to ask questions and assume patient care.Sitter at bedside, Pt sleeping Addendum: 04/15/23 at 0627 by Lawson White RN Amended: Links added.
[2023-04-15 06:52] VITALS: BP 135/86; PULSE 65; RESP 17; TEMP 97.6; O2SAT 100
[2023-04-15] MEDS: buPROPion SR 150mg tablet PO SCH (07:39)
[2023-04-15] MEDS: thiamine 100mg tablet PO SCH (07:39)
[2023-04-15] MEDS: multivitamins, therapeutics tablet PO SCH (07:39)
[2023-04-15] MEDS: docusate sod 100mg capsule PO SCH (07:39)
[2023-04-15] MEDS: calcitriol 0.25mcg capsule PO SCH (07:40)
[2023-04-15] MEDS: NIFEdipine XL 30mg tablet PO SCH (07:40)
[2023-04-15] MEDS: pantoprazole 40mg Tablet.DR PO SCH (07:40)
[2023-04-15] MEDS: ESCITALOPRAM OXALATE 5 MG TABLET PO SCH (07:40)
[2023-04-15] MEDS: cholecalciferol (vitamin D3) 1,000 unit (25mcg) tablet PO SCH (07:40)
[2023-04-15 08:00] VITALS: RESP 17; O2SAT 100
[2023-04-15] MEDS ORDERED: cyanocobalamin 500mcg tablet PO SCH (08:00)
[2023-04-15] MEDS ORDERED: folic acid 1mg tablet PO SCH ×2 (08:00)
[2023-04-15] MEDS ORDERED: multi-vitamin w/minerals & ferrous gluconate 9 MG/15 ML oral LIQUID PO SCH (08:00)
[2023-04-15] MEDS: K and/or MAG REPLACEMENT MC SCH (08:00)
[2023-04-15 08:08] LABS: BASOPHILS % (AUTO) 0.6 % (0-1); EOSINOPHILS # (AUTO) 0.2 X10'3 (0-0.9); EOSINOPHILS % (AUTO) 4.6 % (0-6); HEMATOCRIT 35.6 % (35.0-45.0); HEMOGLOBIN 11.8 g/dl (12.0-16.0); LYMPHOCYTES # (AUTO) 1.2 X10'3 (1.1-4.8); MEAN CORPUSCULAR HEMOGLOBIN 31.7 PG (27.0-31.0); MEAN CORPUSCULAR HGB CONC 33.3 g/dL (33.0-36.5); MEAN CORPUSCULAR VOLUME 95.4 FL (78-98); MONOCYTES # (AUTO) 0.5 X10'3 (0-0.9); MONOCYTES % (AUTO) 11.9 % (2-12); NEUTROPHILS # (AUTO) 2.3 X10'3 (1.8-7.7); NEUTROPHILS % (AUTO) 53.9 % (42-75); PLATELET COUNT 131 X10'3 (140-440); RED BLOOD COUNT 3.73 X10'6 (4.20-5.60); RED CELL DISTRIBUTION WIDTH 15.8 % (11.5-14.5); WHITE BLOOD COUNT 4.2 X10'3 (4.5-11.0)
[2023-04-15 08:12] LABS: ALANINE AMINOTRANSFERASE 29 U/L (12-78); ALBUMIN 3.3 G/DL (3.4-5.0); ALBUMIN/GLOBULIN RATIO 0.9 (1.1-1.5); ALKALINE PHOSPHATASE 108 IU/L (46-116); ANION GAP 10 (8-16); ASPARTATE AMINO TRANSFERASE 37 U/L (10-37); BILIRUBIN,TOTAL 0.6 MG/DL (0.1-1.0); BLOOD UREA NITROGEN 15 MG/DL (7-18); BUN/CREATININE RATIO 15.2 (10.0-20.0); CALCIUM 8.6 MG/DL (8.5-10.1); CHLORIDE 104 MMOL/L (99-107); CREATININE 0.99 MG/DL (0.40-0.90); GLUCOSE 94 MG/DL (70-104); LIPASE 99 U/L (73-393); MAGNESIUM 1.8 MG/DL (1.5-2.4); PHOSPHORUS 3.5 MG/DL (2.3-4.5); POTASSIUM 3.6 MMOL/L (3.5-5.1); SODIUM 138 MMOL/L (135-145); TOTAL CARBON DIOXIDE 24.2 MMOL/L (24-32); TOTAL PROTEIN 6.9 G/DL (6.4-8.2); eGFR 59 ML/MIN
[2023-04-15] MEDS: LORazepam 0.5 MG tablet PO PRN (09:32)
[2023-04-15] MEDS ORDERED: MULTIVIT MINERALS PO (10:19)
[2023-04-15] MEDS ORDERED: FERROUS GLUC PO (10:19)
--- NOTE | 2023-04-15 10:53 | NUR ---
iv removed, paperwork reviewed and questions answered, psych floor called
[2023-04-15] MEDS ORDERED: MULT-661 PO (12:43)
[2023-04-16] MEDS ORDERED: thiamine 100mg tablet PO SCH (08:00)
== END 2023-04-15 11:33 | DRG 897 ==
LOC: ER 00:29 → ED HOLD 04-13 04:34 → PCU 3S 04-13 19:05
PROVIDERS: ADMIT Family Medicine; ATTEND Family Medicine
DX: F10.129 Alcohol abuse with intoxication, unspecified (principal); R45.851 Suicidal ideations; F10.139 Alcohol abuse with withdrawal, unspecified; R25.1 Tremor, unspecified; Z20.822 Contact with and (suspected) exposure to COVID-19; E11.9 Type 2 diabetes mellitus without complications; F31.9 Bipolar disorder, unspecified; I10 Essential (primary) hypertension; F43.12 Post-traumatic stress disorder, chronic; I48.0 Paroxysmal atrial fibrillation; F15.90 Other stimulant use, unspecified, uncomplicated; F41.9 Anxiety disorder, unspecified; K21.9 Gastro-esophageal reflux disease without esophagitis; Z85.3 Personal history of malignant neoplasm of breast; Z87.11 Personal history of peptic ulcer disease; Z88.1 Allergy status to other antibiotic agents; Z88.8 Allergy status to other drugs, medicaments and biological substances; Z90.49 Acquired absence of other specified parts of digestive tract; Z98.84 Bariatric surgery status; Z98.51 Tubal ligation status; Z56.0 Unemployment, unspecified; Z88.5 Allergy status to narcotic agent; Z79.899 Other long term (current) drug therapy
CPT/HCPCS: 36415; 80053; 80305; 80320; 80329; 82272; 82948; 83690; 83735; 84100; 85007; 85025; 85610; 85730; 87081; 87811; 93005; 96374; 96375; 96376; 97116; 97161; 97530; 99285; G0378; J1630; J1650; J2060; J2405; J3411; J3490; J7030

== ENCOUNTER 2023-04-15 09:03 | Inpatient (IN) | payer MEDICARE, MEDICAID ==
[~2023-04-15] VITALS: Ht 175.3 cm; Wt 92.1 kg
[~2023-04-15 09:03] MED LIST changes: +HYDR-3973 PO
[2023-04-15] MEDS ORDERED: FERROUS GLUC PO (10:19)
[2023-04-15] MEDS ORDERED: MULTIVIT MINERALS PO (10:19)
[2023-04-15 11:45] VITALS: RESP 18
[2023-04-15] MEDS ORDERED: mag hydrox/Alum hydrox/simeth 30ml oral suspension PO PRN (11:45)
[2023-04-15] MEDS ORDERED: magnesium hydroxide 30ml (MOM) UD suspension PO PRN (11:45)
[2023-04-15] MEDS ORDERED: loperamide 2mg capsule PO PRN (11:45)
[2023-04-15] MEDS ORDERED: acetaminophen 325mg tablet PO PRN ×2 (11:45)
--- NOTE | 2023-04-15 12:20 | NUR ---
Admit note: [facility] to [facility] on a 5150 for DTS from Telemetry unit at 1136. Pt was brought in by ambulance stating she tried to cut her wrists but it didn't work. She states she lives alone and doesn't know if she can keep herself safe if she leaves the hospital. Pt has history of A-FIB, HTN, pancreatitis, DM, Bipolar, Depression, gastric bypass.
[2023-04-15] MEDS: LORazepam 1 MG tablet PO SCH ×2 (12:24→20:11)
[2023-04-15] MEDS ORDERED: MULT-661 PO (12:43)
[2023-04-15] MEDS ORDERED: ondansetron 4mg rapidly disintigrating tab PO PRN (12:50)
[2023-04-15] MEDS ORDERED: DARIDOREXANT HCL PO PRN (12:55)
[2023-04-15] MEDS: LORazepam 1 MG tablet PO PRN (16:16)
--- NOTE | 2023-04-15 17:52 | NUR ---
Nursing Progress Note: Sherlyn Problem: This is a 52-year-old female who has a long history of alcohol abuse and has depression as well has been drinking 1/5 of vodka every night and wanted to cut her wrist however cannot find a sharp object in her house. She was in the mental health overflow in the ED and the patient had DTs. Patient was admitted to PCU on residential monitor heavy alcohol withdrawal protocols were ordered. Patient has a history of atrial fibrillation, breast cancer, hypertension, GERD, Anxiety, Bipolar, and Peptic Ulcer Disease. Intervention: : Maintained a safe and supportive environment, medication administration/education/monitoring, provided clear and simple instructions, provided active listening and positive encouragement, CIWA protocol, maintained fall precautions, and maintained Q 15 min safety checks. Response: Received pt 1136 on unit. Performed 2 RN skin check. No notable skin issues. Pt. scored 14 on CIWA scale, given scheduled 2mg Ativan. Repeated CIWA q1hr due to first score over 8. Pt. reports hearing mumbled voices that wake her up and make her feel like she is in other places. They are command hallucinations telling her to harm herself. Denies VH at the moment. Patient endorses audio hallucinations when she starts to doze off as being more pronounced, otherwise she hears mumbling. Patient prefers to be called River. Pt. states she is considered disabled with PTSD. Pt. endorses SI, not HI. 1mg Ativan PRN given for anxiety. Plan: Patient continues to require monitoring in a safe therapeutic environment.
[2023-04-15 19:22] VITALS: BP 113/72; PULSE 77; RESP 16; TEMP 97.7; O2SAT 98
--- NOTE | 2023-04-16 01:45 | NUR ---
Nursing Progress Note: Problem: This is a 52-year-old female who has a long history of alcohol abuse and has depression as well has been drinking 1/5 of vodka every night and wanted to cut her wrist however cannot find a sharp object in her house. She was in the mental health overflow in the ED and the patient had DTs. Patient was admitted to PCU on personnel monitor heavy alcohol withdrawal protocols were ordered. Patient has a history of atrial fibrillation, breast cancer, hypertension, GERD, Anxiety, Bipolar, and Peptic Ulcer Disease. Intervention: : Maintained a safe and supportive environment, medication administration/education/monitoring, provided clear and simple instructions, provided active listening and positive encouragement, CIWA protocol, maintained fall precautions, and maintained Q 15 min safety checks. Response: Patient is pleasant and cooperative with care; compliant with medication. Patient remains on CIWA; scores have remained 6 or below at this time and is currently on q2H checks. Patient denied SI, HI, A/VH this shift; no apparent delusions but appears to be guarded. Patient is self-isolative but participated in HS snack. She was observed talking on the phone and conversation appeared to go well. She is observed sleeping and does not appear to be having difficulty. Plan: Patient continues to require monitoring in a safe therapeutic environment.
[2023-04-16 07:00] VITALS: RESP 16; O2SAT 100
[2023-04-16 07:20] LABS: BASOPHILS % (AUTO) 0.4 % (0-1); EOSINOPHILS # (AUTO) 0.1 X10'3 (0-0.9); EOSINOPHILS % (AUTO) 3.1 % (0-6); HEMATOCRIT 35.7 % (35.0-45.0); HEMOGLOBIN 12.1 g/dl (12.0-16.0); LYMPHOCYTES # (AUTO) 1.3 X10'3 (1.1-4.8); LYMPHOCYTES % (AUTO) 29.8 % (21-51); MEAN CORPUSCULAR HEMOGLOBIN 31.9 PG (27.0-31.0); MEAN CORPUSCULAR HGB CONC 33.8 g/dL (33.0-36.5); MEAN CORPUSCULAR VOLUME 94.4 FL (78-98); MEAN PLATELET VOLUME 7.8 FL (7.4-10.4); MONOCYTES # (AUTO) 0.5 X10'3 (0-0.9); MONOCYTES % (AUTO) 11.5 % (2-12); NEUTROPHILS # (AUTO) 2.4 X10'3 (1.8-7.7); NEUTROPHILS % (AUTO) 55.2 % (42-75); PLATELET COUNT 122 X10'3 (140-440); RED BLOOD COUNT 3.79 X10'6 (4.20-5.60); WHITE BLOOD COUNT 4.4 X10'3 (4.5-11.0)
[2023-04-16 07:36] LABS: ALANINE AMINOTRANSFERASE 36 U/L (12-78); ALBUMIN 3.4 G/DL (3.4-5.0); ALBUMIN/GLOBULIN RATIO 0.9 (1.1-1.5); ALKALINE PHOSPHATASE 102 IU/L (46-116); ANION GAP 9 (8-16); ASPARTATE AMINO TRANSFERASE 42 U/L (10-37); BILIRUBIN,TOTAL 0.6 MG/DL (0.1-1.0); BLOOD UREA NITROGEN 20 MG/DL (7-18); BUN/CREATININE RATIO 22.5 (10.0-20.0); CALCIUM 8.8 MG/DL (8.5-10.1); CHLORIDE 104 MMOL/L (99-107); CREATININE 0.89 MG/DL (0.40-0.90); GLUCOSE 94 MG/DL (70-104); MAGNESIUM 1.8 MG/DL (1.5-2.4); POTASSIUM 3.7 MMOL/L (3.5-5.1); SODIUM 136 MMOL/L (135-145); TOTAL CARBON DIOXIDE 23.4 MMOL/L (24-32); TOTAL PROTEIN 7.1 G/DL (6.4-8.2); eGFR 67 ML/MIN
[2023-04-16] MEDS: LORazepam 1 MG tablet PO SCH ×3 (07:42→20:03)
[2023-04-16] MEDS: folic acid 1mg tablet PO SCH (07:42)
[2023-04-16] MEDS: multivitamins, therapeutics tablet PO SCH (07:42)
[2023-04-16] MEDS: NIFEdipine XL 30mg tablet PO SCH (07:42)
[2023-04-16] MEDS: thiamine 100mg tablet PO SCH (07:42)
[2023-04-16] MEDS: pantoprazole 40mg Tablet.DR PO SCH (07:42)
[2023-04-16] MEDS: ESCITALOPRAM OXALATE 5 MG TABLET PO SCH (07:43)
[2023-04-16 08:00] VITALS: BP 152/87; PULSE 78; RESP 16; TEMP 98.3; O2SAT 100
[2023-04-16] MEDS ORDERED: buPROPion SR 150mg tablet PO SCH ×2 (08:00→08:45)
[2023-04-16] MEDS ORDERED: MULTIVIT MINERALS PO SCH (08:00)
[2023-04-16] MEDS ORDERED: FERROUS GLUC PO SCH (08:00)
[2023-04-16] MEDS: buPROPion SR 150mg tablet PO SCH (10:04)
[2023-04-16] MEDS: LORazepam 1 MG tablet PO PRN (15:43)
--- NOTE | 2023-04-16 17:40 | NUR ---
Nursing Progress Note: Sherlyn Problem: This is a 52-year-old female who has a long history of alcohol abuse and has depression as well has been drinking 1/5 of vodka every night and wanted to cut her wrist however cannot find a sharp object in her house. She was in the mental health overflow in the ED and the patient had DTs. Patient was admitted to PCU on manager card heavy alcohol withdrawal protocols were ordered. Patient has a history of atrial fibrillation, breast cancer, hypertension, GERD, Anxiety, Bipolar, and Peptic Ulcer Disease. Intervention: : Maintained a safe and supportive environment, medication administration/education/monitoring, provided clear and simple instructions, provided active listening and positive encouragement, CIWA protocol, maintained fall precautions, and maintained Q 15 min safety checks. Response: Received Pt in bed sleeping w/o distress at the beginning of this shift. Pt was cooperative with vitals and took AM meds w/o issue. She ate breakfast and engaged in assessments in a guarded way. Pt CIWA at 1000 = 1. She spent time in community room watching TV and talking a little with others. Pt appears well groomed. She was anxious in early afternoon and received scheduled meds with good effect. Her CIWA at 1400 = 13; Ativan 1mg given and Dr Castano nitified. CIWA repeated at 1700 =4. Pt continues to endorse SI and deny HI/AH/VH at this time. She reports never having a seizure during w/d but has had some tremors. Pt states when I do it, I do it good. I want to get thru this and get out of here. Pt does not appear to have a serious plan to not abuse ETOH in future, although recognizing it is a serious problem. Plan: Patient continues to require monitoring in a safe therapeutic environment.
[2023-04-16 19:00] VITALS: RESP 19; O2SAT 99
[2023-04-16 19:40] VITALS: BP 136/82; PULSE 76; RESP 17; TEMP 98.5; O2SAT 99
--- NOTE | 2023-04-17 03:33 | NUR ---
Nursing Progress Note: Problem: This is a 52-year-old female who has a long history of alcohol abuse and has depression as well has been drinking 1/5 of vodka every night and wanted to cut her wrist however cannot find a sharp object in her house. She was in the mental health overflow in the ED and the patient had DTs. Patient was admitted to PCU on color television console monitor heavy alcohol withdrawal protocols were ordered. Patient has a history of atrial fibrillation, breast cancer, hypertension, GERD, Anxiety, Bipolar, and Peptic Ulcer Disease. Intervention: : Maintained a safe and supportive environment, medication administration/education/monitoring, provided clear and simple instructions, provided active listening and positive encouragement, CIWA protocol, maintained fall precautions, and maintained Q 15 min safety checks. Response: Patient is pleasant and cooperative with care; compliant with medication. She remains on CIWA q6H; at this time patient has scored 0. Patient reported looking forward to starting Rexulti and Prazosin. She denied SI, HI, A/VH this shift; no apparent delusions expressed. She was social with peers in the community room and participated in HS snack prior to bed; observed sleeping and does not appear to be having difficulty. Plan: Patient continues to require monitoring in a safe therapeutic environment.
[2023-04-17 07:30] VITALS: RESP 16; O2SAT 99
[2023-04-17 07:54] VITALS: BP 112/83; PULSE 67; RESP 16; TEMP 97.1; O2SAT 99
[2023-04-17] MEDS: thiamine 100mg tablet PO SCH (08:03)
[2023-04-17] MEDS: LORazepam 1 MG tablet PO SCH ×3 (08:03→20:03)
[2023-04-17] MEDS: buPROPion SR 150mg tablet PO SCH (08:03)
[2023-04-17] MEDS: pantoprazole 40mg Tablet.DR PO SCH (08:03)
[2023-04-17] MEDS: NIFEdipine XL 30mg tablet PO SCH (08:03)
[2023-04-17] MEDS: multivitamins, therapeutics tablet PO SCH (08:04)
[2023-04-17] MEDS: folic acid 1mg tablet PO SCH (08:04)
[2023-04-17] MEDS: ESCITALOPRAM OXALATE 5 MG TABLET PO SCH (08:04)
[2023-04-17] MEDS: LORazepam 1 MG tablet PO PRN ×2 (11:46→18:24)
--- NOTE | 2023-04-17 17:36 | NUR ---
Nursing Progress Note: Problem: This is a 52-year-old female who has a long history of alcohol abuse and has depression as well has been drinking 1/5 of vodka every night and wanted to cut her wrist however cannot find a sharp object in her house. She was in the mental health overflow in the ED and the patient had DTs. Patient was admitted to PCU on ekg monitor heavy alcohol withdrawal protocols were ordered. Patient has a history of atrial fibrillation, breast cancer, hypertension, GERD, Anxiety, Bipolar, and Peptic Ulcer Disease. Intervention: : Maintained a safe and supportive environment, medication administration/education/monitoring, provided clear and simple instructions, provided active listening and positive encouragement, CIWA protocol, maintained fall precautions, and maintained Q 15 min safety checks. Response: RN received pt. asleep in bed at start of shift. Pt. awoke for breakfast and took all medications. Pt.s CIWA discontinued by provider. 1:1 done at bedside, pt. denies SI/HI, A/V hallucinations. Pt. requested PRN anxiolytic due to increased anxiety and received Ativan 1mg with good effect. Pt. observed. Watching TV in community room and socializing with peers. Pt. reports that her boyfriend is unable to bring in her Quvivic and is requested to be placed on Seroquel 250mg HS for sleep. Provider notified. Plan: Patient continues to require monitoring in a safe therapeutic environment.
--- NOTE | 2023-04-17 18:54 | NUR ---
Notified Dr. Reyes about patient's request for Seroquel [address] Reyes called states that he will place her on Rexulti and Inderal instead. Waiting for orders to come through.
[2023-04-17 19:50] VITALS: RESP 16; O2SAT 99
[2023-04-17 20:01] VITALS: BP 115/78; PULSE 88; RESP 16; TEMP 97.7; O2SAT 99
[2023-04-17] MEDS: prazosin 1mg capsule PO SCH (20:03)
--- NOTE | 2023-04-18 05:31 | NUR ---
Nursing Progress Note: Problem: This is a 52-year-old female who has a long history of alcohol abuse and has depression as well has been drinking 1/5 of vodka every night and wanted to cut her wrist however cannot find a sharp object in her house. She was in the mental health overflow in the ED and the patient had DTs. Patient was admitted to PCU on psychology tech heavy alcohol withdrawal protocols were ordered. Patient has a history of atrial fibrillation, breast cancer, hypertension, GERD, Anxiety, Bipolar, and Peptic Ulcer Disease. Intervention: : Maintained a safe and supportive environment, medication administration/education/monitoring, provided clear and simple instructions, provided active listening and positive encouragement, CIWA protocol, maintained fall precautions, and maintained Q 15 min safety checks. Response:Upon arrival to shift noted patient sitting up in group room socializing with cohort. Noted her to be wearing clean green scrubs with good hygiene. Open in conversation, friendly. Speech and thought process clear. Patient requested Seroquel for sleep. Dr. Reyes ordered Rexulti instead. Denies SI, HI, AH or VH. No behaviors or delusional statements noted. Compliant with HS meds. No PRNs given this shift. Will continue to monitor. Plan: Patient continues to require monitoring in a safe therapeutic environment.
[2023-04-18 07:30] VITALS: BP 136/82; PULSE 58; RESP 18; TEMP 97.3; O2SAT 98
[2023-04-18] MEDS: pantoprazole 40mg Tablet.DR PO SCH (07:45)
[2023-04-18] MEDS: NIFEdipine XL 30mg tablet PO SCH (07:45)
[2023-04-18] MEDS: thiamine 100mg tablet PO SCH (07:45)
[2023-04-18] MEDS: LORazepam 1 MG tablet PO SCH ×3 (07:45→20:06)
[2023-04-18] MEDS: ESCITALOPRAM OXALATE 5 MG TABLET PO SCH (07:45)
[2023-04-18] MEDS: folic acid 1mg tablet PO SCH (07:46)
[2023-04-18] MEDS: buPROPion SR 150mg tablet PO SCH (07:46)
[2023-04-18] MEDS: multivitamins, therapeutics tablet PO SCH (07:46)
--- NOTE | 2023-04-18 13:34 | NUR ---
5250 UPHELD FOR DTS
[2023-04-18] MEDS: LORazepam 1 MG tablet PO PRN ×2 (16:47→20:02)
--- NOTE | 2023-04-18 16:58 | NUR ---
Nursing Progress Note: Problem: This is a 52-year-old female who has a long history of alcohol abuse and has depression as well has been drinking 1/5 of vodka every night and wanted to cut her wrist however cannot find a sharp object in her house. She was in the mental health overflow in the ED and the patient had DTs. Patient was admitted to PCU on classroom monitor heavy alcohol withdrawal protocols were ordered. Patient has a history of atrial fibrillation, breast cancer, hypertension, GERD, Anxiety, Bipolar, and Peptic Ulcer Disease. Intervention: : Maintained a safe and supportive environment, medication administration/education/monitoring, provided clear and simple instructions, provided active listening and positive encouragement, maintained fall precautions, and maintained Q 15 min safety checks. Response: RN received pt. asleep in bed at start of shift. Pt. awoke for breakfast and took all medications. 1:1 done at bedside, pt. reports feeling good today, denies SI/HI, A/V hallucinations. Pt. observed watching TV in community room and socializing with peers. In the afternoon pt. c/o anxiety and received PRN Ativan 1mg with good effect. Plan: Patient continues to require monitoring in a safe therapeutic environment.
[2023-04-18 19:49] VITALS: RESP 16; O2SAT 99
[2023-04-18 20:00] VITALS: BP 122/79; PULSE 76; RESP 16; TEMP 97.9; O2SAT 99
[2023-04-18] MEDS: prazosin 1mg capsule PO SCH (20:02)
[2023-04-18] MEDS: temazepam 15mg capsule PO PRN (21:15)
--- NOTE | 2023-04-19 03:37 | NUR ---
Nursing Progress Note: Problem: This is a 52-year-old female who has a long history of alcohol abuse and has depression as well has been drinking 1/5 of vodka every night and wanted to cut her wrist however cannot find a sharp object in her house. She was in the mental health overflow in the ED and the patient had DTs. 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 Patient has a history of atrial fibrillation, breast cancer, hypertension, GERD, Anxiety, Bipolar, and Peptic Ulcer Disease. Intervention: : Maintained a safe and supportive environment, medication administration/education/monitoring, provided clear and simple instructions, provided active listening and positive encouragement, maintained fall precautions, and maintained Q 15 min safety checks. Response: Upon arrival to shift noted patient sitting up in group room with her arms wrapped around herself and rocking. Reports feeling anxious. Asked about new medication for this evening. Reports having trouble sleeping last night as she tossed and turned so MD said hed order a new med Temazepam. Asked for a shower. Got in the shower right away and reports feeling better. Reports that her boyfriend will hopefully bring in the Quivic tomorrow but his construction job get off late in the evening. Compliant with HS meds. PRN Ativan and Temazepam given. Will continue to monitor. Plan: Patient continues to require monitoring in a safe therapeutic environment.
[2023-04-19 07:30] VITALS: BP 106/81; PULSE 81; RESP 14; TEMP 97.1; O2SAT 99
[2023-04-19] MEDS: folic acid 1mg tablet PO SCH (07:45)
[2023-04-19] MEDS: pantoprazole 40mg Tablet.DR PO SCH (07:45)
[2023-04-19] MEDS: LORazepam 1 MG tablet PO SCH ×2 (07:45→13:25)
[2023-04-19] MEDS: ESCITALOPRAM OXALATE 5 MG TABLET PO SCH (07:45)
[2023-04-19] MEDS: NIFEdipine XL 30mg tablet PO SCH (07:45)
[2023-04-19] MEDS: thiamine 100mg tablet PO SCH (07:45)
[2023-04-19] MEDS: multivitamins, therapeutics tablet PO SCH (07:45)
[2023-04-19] MEDS: buPROPion SR 150mg tablet PO SCH (07:46)
--- NOTE | 2023-04-19 09:51 | NUR ---
Initial: Pt admit for depression with SI and PTSD. Currently on a regular diet and eating well, documented with mostly 100% PO intake though occasional 75% PO intake of meals, overall meeting estimated nutrient needs. Per EMR pt with EtOH hx, currently receiving routine Thiamine, Folic acid, and MVI. Noted h/o gastric bypass per EMR. Pt would benefit from MVI change to MVM with Iron as well as routine Calcium, Vitamin B12, and Vitamin D supplementation, TC to [facility] and message left for RN. CRUZ 04/18 per EMR. Will continue to follow and make recommendations as appropriate. Recommendations: 1) Continue regular diet 2) Continue routine Thiamine and Folic acid, change MVI to MVM with Iron, add routine Calcium, Vitamin B12, and Vitamin D d/t h/o gastric bypass and EtOH 3) Bowel care PRN 4) Weekly scaled weights Addendum: 04/19/23 at [address] Amended: Links added.
[2023-04-19] MEDS ORDERED: multi-vitamin w/minerals & ferrous gluconate 9 MG/15 ML oral LIQUID PO ONE (10:45)
[2023-04-19] MEDS: LORazepam 1 MG tablet PO PRN (17:02)
--- NOTE | 2023-04-19 17:46 | NUR ---
Nursing Progress Note: Problem: This is a 52-year-old female who has a long history of alcohol abuse and has depression as well has been drinking 1/5 of vodka every night and wanted to cut her wrist however cannot find a sharp object in her house. She was in the mental health overflow in the ED and the patient had DTs. Patient was admitted to PCU on library monitor heavy alcohol withdrawal protocols were ordered. Patient has a history of atrial fibrillation, breast cancer, hypertension, GERD, Anxiety, Bipolar, and Peptic Ulcer Disease. Intervention: : Maintained a safe and supportive environment, medication administration/education/monitoring, provided clear and simple instructions, provided active listening and positive encouragement, maintained fall precautions, and maintained Q 15 min safety checks. Response: RN received pt. asleep in bed at start of shift. Pt. awoke for breakfast and took all medications. 1:1 done at bedside, pt. reports feeling good today, denies SI/HI, A/V hallucinations. Pt. reports she feels she is getting better and is thinking she may discharge Tuesday. Pt. reports she is going to go back to seeing her ETOH counselor once a week. Pt. observed watching TV in community room and socializing with peers. In the afternoon pt. c/o anxiety and received PRN Ativan 1mg with good effect. Plan: Patient continues to require monitoring in a safe therapeutic environment.
[2023-04-19 19:02] VITALS: RESP 16
[2023-04-19 19:30] VITALS: BP 116/78; PULSE 74; RESP 16; TEMP 97.9; O2SAT 100
[2023-04-19] MEDS: prazosin 1mg capsule PO SCH (19:58)
[2023-04-19] MEDS: cholecalciferol (vitamin D3) 1,000 unit (25mcg) tablet PO SCH (19:58)
[2023-04-19] MEDS: temazepam 15mg capsule PO PRN (19:58)
[2023-04-20] MEDS: LORazepam 1 MG tablet PO PRN (03:59)
--- NOTE | 2023-04-20 04:11 | NUR ---
Nursing Progress Note: Problem: This is a 52-year-old female who has a long history of alcohol abuse and has depression as well has been drinking 1/5 of vodka every night and wanted to cut her wrist however cannot find a sharp object in her house. She was in the mental health overflow in the ED and the patient had DTs. Patient was admitted to PCU on residential monitor heavy alcohol withdrawal protocols were ordered. Patient has a history of atrial fibrillation, breast cancer, hypertension, GERD, Anxiety, Bipolar, and Peptic Ulcer Disease. Intervention: : Maintained a safe and supportive environment, medication administration/education/monitoring, provided clear and simple instructions, provided active listening and positive encouragement, maintained fall precautions, and maintained Q 15 min safety checks. Response: Upon arrival to shift noted patient to be in a good mood. Sitting up in group room with feet propped up on table. Good hygiene noted while wearing clean green hospital scrubs. Reports feeling better and that, as long as Dr. Clancy says its okay I can go discharge tomorrow. Appears to be in a good mood with bright affect noted. Denies SI or MH s/sx. Reports Temazepam worked for her last night. PRN Temazepam and Ativan administered with good effect. Compliant with HS meds. Will continue to monitor. Plan: Patient continues to require monitoring in a safe therapeutic environment.
[2023-04-20 08:00] VITALS: BP 161/88; PULSE 55; RESP 14; TEMP 97.9; O2SAT 98
[2023-04-20] MEDS ORDERED: multi-vitamin w/minerals & ferrous gluconate 9 MG/15 ML oral LIQUID PO SCH (08:00)
[2023-04-20] MEDS: cholecalciferol (vitamin D3) 1,000 unit (25mcg) tablet PO SCH ×2 (08:12→20:10)
[2023-04-20] MEDS: thiamine 100mg tablet PO SCH (08:12)
[2023-04-20] MEDS: folic acid 1mg tablet PO SCH (08:13)
[2023-04-20] MEDS: NIFEdipine XL 30mg tablet PO SCH (08:13)
[2023-04-20] MEDS: pantoprazole 40mg Tablet.DR PO SCH (08:13)
[2023-04-20] MEDS: buPROPion SR 150mg tablet PO SCH (08:13)
[2023-04-20] MEDS: ESCITALOPRAM OXALATE 5 MG TABLET PO SCH (08:14)
[2023-04-20] MEDS: LORazepam 1 MG tablet PO SCH ×3 (08:14→16:12)
--- NOTE | 2023-04-20 17:40 | NUR ---
Nursing Progress Note: Problem: This is a 52-year-old female who has a long history of alcohol abuse and has depression as well has been drinking 1/5 of vodka every night and wanted to cut her wrist however cannot find a sharp object in her house. She was in the mental health overflow in the ED and the patient had DTs. 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 Patient has a history of atrial fibrillation, breast cancer, hypertension, GERD, Anxiety, Bipolar, and Peptic Ulcer Disease. Intervention: : Maintained a safe and supportive environment, medication administration/education/monitoring, provided clear and simple instructions, provided active listening and positive encouragement, maintained fall precautions, and maintained Q 15 min safety checks. Response: RN received pt. asleep in bed at start of shift. Patient ate all meals in the community room and took medications cooperatively. Pt. denies SI/HI and AVH. Performed 1:1 in the community room. Observed patient interacting in community room and watching TV while riding the exercise bike. Pt. is hoping to meet with Dr. Michelle and be able to go home tomorrow. Patient states that she is feeling a lot better. Patient napping intermittently throughout the day. Patient has a bright affect and is calm and cooperative. Plan: Patient continues to require monitoring in a safe therapeutic environment.
[2023-04-20 19:00] VITALS: RESP 16; O2SAT 98
[2023-04-20 20:00] VITALS: BP 121/82; PULSE 76; RESP 16; TEMP 96.9; O2SAT 100
[2023-04-20] MEDS: prazosin 1mg capsule PO SCH (20:09)
--- NOTE | 2023-04-21 03:48 | NUR ---
Nursing Progress Note: Problem: This is a 52-year-old female who has a long history of alcohol abuse and has depression as well has been drinking 1/5 of vodka every night and wanted to cut her wrist however cannot find a sharp object in her house. She was in the mental health overflow in the ED and the patient had DTs. Patient was admitted to PCU on monitoring manager heavy alcohol withdrawal protocols were ordered. Patient has a history of atrial fibrillation, breast cancer, hypertension, GERD, Anxiety, Bipolar, and Peptic Ulcer Disease. Intervention: : Maintained a safe and supportive environment, medication administration/education/monitoring, provided clear and simple instructions, provided active listening and positive encouragement, maintained fall precautions, and maintained Q 15 min safety checks. Response: Patient approached nursing station requesting shower, in which patient received one. Patient was observed getting hair braided by a peer. Patient participated in HS snack time and was seen chatting with peers and watching TV. Patient cooperative with medication regimen and has no complaints to note. Patient denies any hallucination, voices, or thoughts. Plan: Patient continues to require monitoring in a safe therapeutic environment.
[2023-04-21 07:00] VITALS: RESP 16; O2SAT 98
[2023-04-21 08:00] VITALS: BP 143/83; PULSE 60; RESP 16; TEMP 97.8; O2SAT 99
[2023-04-21] MEDS: NIFEdipine XL 30mg tablet PO SCH (08:45)
[2023-04-21] MEDS: cholecalciferol (vitamin D3) 1,000 unit (25mcg) tablet PO SCH (08:46)
[2023-04-21] MEDS: thiamine 100mg tablet PO SCH (08:46)
[2023-04-21] MEDS: ESCITALOPRAM OXALATE 5 MG TABLET PO SCH (08:46)
[2023-04-21] MEDS: LORazepam 1 MG tablet PO SCH ×2 (08:46→11:08)
[2023-04-21] MEDS: buPROPion SR 150mg tablet PO SCH (08:46)
[2023-04-21] MEDS: pantoprazole 40mg Tablet.DR PO SCH (08:47)
[2023-04-21] MEDS: folic acid 1mg tablet PO SCH (08:47)
[2023-04-21] MEDS ORDERED: CHOL100046 PO (11:02)
[2023-04-21] MEDS ORDERED: BUPR450T3 PO (11:02)
[2023-04-21] MEDS ORDERED: ATI1T PO ×2 (11:02→15:27)
[2023-04-21] MEDS ORDERED: FOLI1TAB27 PO (11:02)
[2023-04-21] MEDS ORDERED: PRAZ1CAP5 PO (11:02)
[2023-04-21] MEDS ORDERED: BREX0.5T PO (11:02)
[2023-04-21] MEDS ORDERED: THIA100T66 PO (11:02)
--- NOTE | 2023-04-21 12:31 | NUR ---
DISCHARGE NOTE: Pt. signed all paperwork and copies placed in binder. All personal belongings were accounted for and signed off by pt. All f/u recommendations reviewed with pt. She ambulated off the unit at 1215 without issue.
== END 2023-04-21 12:15 | disposition home or self-care (01) | DRG 885 ==
LOC: ADULT MH 11:50
PROVIDERS: ADMIT Psychiatry & Neurology Psychiatry; ATTEND Psychiatry & Neurology Psychiatry
DX: F33.2 Major depressive disorder, recurrent severe without psychotic features (principal); R45.851 Suicidal ideations; D50.9 Iron deficiency anemia, unspecified; F10.20 Alcohol dependence, uncomplicated; F43.12 Post-traumatic stress disorder, chronic; I10 Essential (primary) hypertension; I48.0 Paroxysmal atrial fibrillation; F41.9 Anxiety disorder, unspecified; F90.9 Attention-deficit hyperactivity disorder, unspecified type; E11.9 Type 2 diabetes mellitus without complications; K21.9 Gastro-esophageal reflux disease without esophagitis; R01.1 Cardiac murmur, unspecified; Z79.899 Other long term (current) drug therapy; Z80.0 Family history of malignant neoplasm of digestive organs; Z80.3 Family history of malignant neoplasm of breast; Z81.8 Family history of other mental and behavioral disorders; Z82.49 Family history of ischemic heart disease and other diseases of the circulatory system; Z85.3 Personal history of malignant neoplasm of breast; Z87.11 Personal history of peptic ulcer disease; Z88.1 Allergy status to other antibiotic agents; Z88.8 Allergy status to other drugs, medicaments and biological substances; Z90.13 Acquired absence of bilateral breasts and nipples; Z98.84 Bariatric surgery status; Z71.41 Alcohol abuse counseling and surveillance of alcoholic; Z90.49 Acquired absence of other specified parts of digestive tract; Z98.51 Tubal ligation status
CPT/HCPCS: 36415; 80053; 83735; 85025; 87081

== ENCOUNTER 2023-05-14 11:51 | Emergency (ER) | payer MEDICARE, MEDICAID ==
[~2023-05-14] VITALS: Ht 180.3 cm; Wt 100.0 kg
[~2023-05-14 11:51] MED LIST changes: +ATI1T PO; +BREX0.5T PO; -BUPR300T86 PO; +BUPR450T3 PO; +CHOL100046 PO; +FERROUS GLUC PO; -HYDR-3973 PO; -LORA-269 PO; +MULT-661 PO; +MULTIVIT MINERALS PO; +PRAZ1CAP5 PO; +THIA100T66 PO; -THIA50TA10 PO
[2023-05-14 13:12] LABS: BASOPHILS % (AUTO) 0.9 % (0-1); EOSINOPHILS # (AUTO) 0.1 X10'3 (0-0.9); EOSINOPHILS % (AUTO) 1.3 % (0-6); HEMOGLOBIN 12.4 g/dl (12.0-16.0); LYMPHOCYTES # (AUTO) 1.7 X10'3 (1.1-4.8); LYMPHOCYTES % (AUTO) 35.4 % (21-51); MEAN CORPUSCULAR HEMOGLOBIN 32.1 PG (27.0-31.0); MEAN CORPUSCULAR HGB CONC 33.6 g/dL (33.0-36.5); MEAN CORPUSCULAR VOLUME 95.6 FL (78-98); MEAN PLATELET VOLUME 6.7 FL (7.4-10.4); MONOCYTES # (AUTO) 0.4 X10'3 (0-0.9); MONOCYTES % (AUTO) 7.4 % (2-12); NEUTROPHILS # (AUTO) 2.7 X10'3 (1.8-7.7); PLATELET COUNT 237 X10'3 (140-440); RED BLOOD COUNT 3.87 X10'6 (4.20-5.60); RED CELL DISTRIBUTION WIDTH 16.3 % (11.5-14.5); WHITE BLOOD COUNT 4.9 X10'3 (4.5-11.0)
[2023-05-14 13:19] LABS: BILIRUBIN,URINE NEGATIVE (Neg); CLARITY,URINE CLEAR (Clear); COLOR,URINE YELLOW (Yellow); GLUCOSE, URINE NEGATIVE (Neg); KETONES,URINE NEGATIVE (Neg); LEUKOCYTE ESTERASE ,URINE NEGATIVE (Neg); NITRITES, URINE NEGATIVE (Neg); OCCULT BLOOD,URINE NEGATIVE (Neg); PH,URINE 5.5 (4.8-8.0); PROTEIN,URINE NEGATIVE (Neg); URINE HCG NEGATIVE (NEG); UROBILINOGEN,URINE 0.2 E.U/dL (0.2-1.0)
[2023-05-14 13:24] LABS: UA COLLECTION TYPE VOIDED
[2023-05-14 13:26] LABS: URINE AMPHETAMINE SCREEN NEGATIVE (Neg); URINE BARBITUATE SCREEN NEGATIVE (Neg); URINE BENZODIAZEPINES SCREEN NEGATIVE (Neg); URINE CANNABINOID SCREEN NEGATIVE (Neg); URINE COCAINE SCREEN NEGATIVE (Neg); URINE METHADONE SCREEN NEGATIVE (Neg); URINE OPIATE SCREEN NEGATIVE (Neg); URINE PHENCYCLIDINE SCREEN NEGATIVE (Neg)
[2023-05-14 13:26] LABS: ALANINE AMINOTRANSFERASE 27 U/L (12-78); ALBUMIN 3.5 G/DL (3.4-5.0); ALBUMIN/GLOBULIN RATIO 0.8 (1.1-1.5); ALKALINE PHOSPHATASE 99 IU/L (46-116); ANION GAP 9 (8-16); ASPARTATE AMINO TRANSFERASE 35 U/L (10-37); BILIRUBIN,TOTAL 0.5 MG/DL (0.1-1.0); BLOOD UREA NITROGEN 18 MG/DL (7-18); BUN/CREATININE RATIO 19.6 (10.0-20.0); CALCIUM 8.4 MG/DL (8.5-10.1); CHLORIDE 104 MMOL/L (99-107); CREATININE 0.92 MG/DL (0.40-0.90); GLUCOSE 95 MG/DL (70-104); POTASSIUM 3.9 MMOL/L (3.5-5.1); SODIUM 139 MMOL/L (135-145); TOTAL CARBON DIOXIDE 25.9 MMOL/L (24-32); TOTAL PROTEIN 7.7 G/DL (6.4-8.2); eCRCL 82 ML/MIN; eGFR 65 ML/MIN
[2023-05-14 13:30] LABS: ETHANOL 415 MG/DL (<10)
[2023-05-14] MEDS ORDERED: LORazepam 1 MG tablet PO ONE (13:30)
--- NOTE | 2023-05-14 13:31 | NUR ---
DR LESLIE NOTIFIED OF PT'S BLOOD ALCOHOL LEVEL 415
--- NOTE | 2023-05-14 17:03 | NUR ---
patient changed into green scrubs and all belongings are in room 27. patient in bed resting quietly, no distress noted.
--- NOTE | 2023-05-14 18:44 | NUR ---
pt is awake and sitting quietly on the gurney in er room 13. no distress or needs at this time. per md pt will not be medically cleared until observation period has ended due to etoh level.
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
[2023-05-14] MEDS ORDERED: prazosin 1mg capsule PO ONE (20:50)
[2023-05-14] MEDS ORDERED: chlordiazePOXIDE 25mg capsule PO ONE (20:50)
[2023-05-14] MEDS ORDERED: haloperidol lactate 5mg/ml inj IM ONE (20:50)
--- NOTE | 2023-05-14 21:31 | NUR ---
Client was resting at 21:30. Scored 11 on CIWA. Moderate tremors in both hands. 100 mg Librium Cap PO and 5 mg Haldol IM given. Client reports hx of ETOH withdrawal and recognizes s/s. Cooperative.
--- NOTE | 2023-05-14 23:01 | NUR ---
Client ambulated to restroom at 22:30 and returned to bed. Fell asleep w/o difficulty.
--- NOTE | 2023-05-14 23:06 | NUR ---
CORRECTION: Client did not ambulate to restroom at this time.
[2023-05-15] MEDS ORDERED: DARIDOREXANT HCL PO PRN (00:15)
--- NOTE | 2023-05-15 02:01 | NUR ---
CIWA score 11 at 01:30. Ambulated to restroom. Reported 7/10 anxiety. Vital signs taken. Client fell asleep w/o difficulty.
--- NOTE | 2023-05-15 04:45 | NUR ---
Resting on back. Resp even and unlabored.
[2023-05-15 05:24] VITALS: BP 163/103; PULSE 89; TEMP 97.6; O2SAT 98
[2023-05-15] MEDS ORDERED: chlordiazePOXIDE 25mg capsule PO ONE (05:40)
[2023-05-15] MEDS ORDERED: LORazepam 1 MG tablet PO PRN ×2 (05:45→10:10)
[2023-05-15] MEDS ORDERED: LORazepam 1 MG tablet PO ONE (05:45)
--- NOTE | 2023-05-15 05:58 | NUR ---
MATTWA score 18. Given 100 mg Librium Tab PO and 1 mg Ativan Tab PO. Stated "I'm going through withdrawals." Client has tremors and reports GODOY.
--- NOTE | 2023-05-15 06:44 | NUR ---
Ptient sleeping on her right side. Respirtions nonlabored. No distress observed. Continue to monitor.
[2023-05-15 07:45] VITALS: RESP 16
[2023-05-15] MEDS ORDERED: ESCITALOPRAM OXALATE 5 MG TABLET PO SCH (08:00)
[2023-05-15] MEDS ORDERED: folic acid 1mg tablet PO SCH (08:00)
[2023-05-15] MEDS ORDERED: BUPROPION HCL 450 MG PO SCH (08:00)
[2023-05-15] MEDS ORDERED: LORazepam 1 MG tablet PO SCH (08:00)
[2023-05-15] MEDS ORDERED: thiamine 100mg tablet PO SCH (08:00)
[2023-05-15] MEDS ORDERED: multivitamins, therapeutics tablet PO SCH (08:00)
[2023-05-15] MEDS ORDERED: NIFEdipine XL 30mg tablet PO SCH (08:00)
[2023-05-15] MEDS ORDERED: pantoprazole 40mg Tablet.DR PO SCH (08:00)
[2023-05-15] MEDS ORDERED: cholecalciferol (vitamin D3) 1,000 unit (25mcg) tablet PO SCH (08:00)
--- NOTE | 2023-05-15 08:36 | NUR ---
Patient eating breakfast. No distress observed. Continue to monitor.
--- NOTE | 2023-05-15 09:55 | NUR ---
CIWA Score 11. Patient fell asleep immediately after vital signs. No distress observed. Continue to monitor.
--- NOTE | 2023-05-15 12:08 | NUR ---
Patient eating lunch. No distress observed. Continue to monitor.
--- NOTE | 2023-05-15 14:10 | NUR ---
RN gave patient 2 mg Ativan due to tremors. Continue to monitor.
--- NOTE | 2023-05-15 14:30 | NUR ---
Mickey VINSON, evaluating patient. No distress observed. Continue to monitor.
[2023-05-15] MEDS ORDERED: prazosin 1mg capsule PO SCH (21:00)
== END 2023-05-15 17:01 | disposition still patient (30) ==
LOC: ER 11:52
DX: R45.851 Suicidal ideations (principal); Z20.822 Contact with and (suspected) exposure to COVID-19; F10.129 Alcohol abuse with intoxication, unspecified; I10 Essential (primary) hypertension; K21.9 Gastro-esophageal reflux disease without esophagitis; E11.9 Type 2 diabetes mellitus without complications; F31.9 Bipolar disorder, unspecified; F15.90 Other stimulant use, unspecified, uncomplicated; Z88.8 Allergy status to other drugs, medicaments and biological substances; Z88.1 Allergy status to other antibiotic agents; Z88.5 Allergy status to narcotic agent; Z98.890 Other specified postprocedural states; Z90.49 Acquired absence of other specified parts of digestive tract; Z98.51 Tubal ligation status; Y90.9 Presence of alcohol in blood, level not specified
CPT/HCPCS: 36415; 80053; 80305; 80320; 81003; 81025; 85025; 87811; 96372; 99285; J1630

== ENCOUNTER 2023-05-29 19:09 | Inpatient (IN) | payer MEDICARE, MEDICAID ==
[~2023-05-29] VITALS: Ht 180.3 cm; Wt 96.4 kg
[2023-05-29] MEDS ORDERED: ringers solution, lacted 1,000 ML IV ONE (19:20)
[2023-05-29] MEDS ORDERED: pantoprazole 40mg IV 40 MG in normal saline 100ml IV soln 100 ML IV ONE (19:20)
[2023-05-29] MEDS ORDERED: thiamine 100mg/ml 2ml inj. IV ONE (19:20)
[2023-05-29] MEDS ORDERED: pantoprazole 40MG/NS 100ML BAG 100 ML IV ONE (19:31)
[2023-05-29] MEDS ORDERED: QUET200T31 PO (19:40)
[2023-05-29 19:55] LABS: BASOPHILS % (AUTO) 0.7 % (0-1); EOSINOPHILS # (AUTO) 0.2 X10'3 (0-0.9); EOSINOPHILS % (AUTO) 5.1 % (0-6); HEMATOCRIT 36.9 % (35.0-45.0); HEMOGLOBIN 12.1 g/dl (12.0-16.0); LYMPHOCYTES # (AUTO) 2.4 X10'3 (1.1-4.8); LYMPHOCYTES % (AUTO) 54.3 % (21-51); MEAN CORPUSCULAR HEMOGLOBIN 31.6 PG (27.0-31.0); MEAN CORPUSCULAR HGB CONC 32.9 g/dL (33.0-36.5); MEAN CORPUSCULAR VOLUME 96.1 FL (78-98); MEAN PLATELET VOLUME 7.4 FL (7.4-10.4); MONOCYTES # (AUTO) 0.5 X10'3 (0-0.9); NEUTROPHILS # (AUTO) 1.3 X10'3 (1.8-7.7); NEUTROPHILS % (AUTO) 28.9 % (42-75); PLATELET COUNT 162 X10'3 (140-440); RED BLOOD COUNT 3.83 X10'6 (4.20-5.60); RED CELL DISTRIBUTION WIDTH 17.6 % (11.5-14.5); WHITE BLOOD COUNT 4.4 X10'3 (4.5-11.0)
[2023-05-29 19:55] LABS: BILIRUBIN,URINE NEGATIVE (Neg); CLARITY,URINE CLEAR (Clear); COLOR,URINE STRAW (Yellow); GLUCOSE, URINE NEGATIVE (Neg); KETONES,URINE NEGATIVE (Neg); LEUKOCYTE ESTERASE ,URINE NEGATIVE (Neg); NITRITES, URINE NEGATIVE (Neg); OCCULT BLOOD,URINE NEGATIVE (Neg); PH,URINE 5.5 (4.8-8.0); PROTEIN,URINE NEGATIVE (Neg); UROBILINOGEN,URINE 0.2 E.U/dL (0.2-1.0)
[2023-05-29 19:58] LABS: ALANINE AMINOTRANSFERASE 35 U/L (12-78); ALBUMIN 3.3 G/DL (3.4-5.0); ALBUMIN/GLOBULIN RATIO 0.8 (1.1-1.5); ALKALINE PHOSPHATASE 111 IU/L (46-116); ANION GAP 10 (8-16); ASPARTATE AMINO TRANSFERASE 71 U/L (10-37); BILIRUBIN,TOTAL 0.3 MG/DL (0.1-1.0); BLOOD UREA NITROGEN 10 MG/DL (7-18); BUN/CREATININE RATIO 10.5 (10.0-20.0); CHLORIDE 101 MMOL/L (99-107); CREATININE 0.95 MG/DL (0.40-0.90); GLUCOSE 108 MG/DL (70-104); POTASSIUM 4.1 MMOL/L (3.5-5.1); SODIUM 136 MMOL/L (135-145); TOTAL CARBON DIOXIDE 24.9 MMOL/L (24-32); TOTAL PROTEIN 7.4 G/DL (6.4-8.2); eCRCL 79 ML/MIN; eGFR 62 ML/MIN
[2023-05-29 20:01] LABS: LIPASE 141 U/L (73-393)
[2023-05-29 20:07] LABS: ETHANOL 504 MG/DL (<10)
--- NOTE | 2023-05-29 20:08 | NUR ---
The patient moved to bed 21 in the ER overflow. She is very intoxicated but cooperative.
[2023-05-29 20:09] LABS: UA COLLECTION TYPE STRAIGHT CATH
[2023-05-29 20:11] LABS: URINE AMPHETAMINE SCREEN NEGATIVE (Neg); URINE BARBITUATE SCREEN NEGATIVE (Neg); URINE BENZODIAZEPINES SCREEN NEGATIVE (Neg); URINE CANNABINOID SCREEN NEGATIVE (Neg); URINE COCAINE SCREEN NEGATIVE (Neg); URINE METHADONE SCREEN NEGATIVE (Neg); URINE OPIATE SCREEN NEGATIVE (Neg); URINE PHENCYCLIDINE SCREEN NEGATIVE (Neg)
[2023-05-29 20:34] LABS: TOTAL CELLS COUNTED 100
[2023-05-29 20:36] LABS: PLATELET ESTIMATE NORMAL
[2023-05-29 20:37] LABS: ANISOCYTOSIS 1+
[2023-05-29 20:39] LABS: SPHEROCYTES FEW
--- NOTE | 2023-05-29 20:39 | NUR ---
Dr. Abdul made aware of critical BA 504
[2023-05-29] MEDS ORDERED: LORazepam 2 mg/ml vial IV ONE (21:20)
--- NOTE | 2023-05-29 22:10 | NUR ---
The patient appears to be resting comfortable
[2023-05-29] MEDS ORDERED: ringers solution, lactated 500ml IV solution IV ONE (22:40)
[2023-05-29] MEDS ORDERED: diphenhydrAMINE 25mg capsule PO PRN (23:05)
[2023-05-29] MEDS ORDERED: magnesium hydroxide 30ml (MOM) UD suspension PO PRN (23:05)
[2023-05-29] MEDS ORDERED: acetaminophen 650mg rectal suppository RC PRN (23:05)
[2023-05-29] MEDS ORDERED: bisacodyl 10mg suppository rectal RC PRN (23:05)
[2023-05-29] MEDS ORDERED: mag hydrox/Alum hydrox/simeth 30ml oral suspension PO PRN (23:05)
[2023-05-29] MEDS ORDERED: metoclopramide 5 mg/ml inj IV PRN (23:05)
[2023-05-29] MEDS ORDERED: diphenhydrAMINE 50 mg/ml inj IV PRN (23:05)
[2023-05-29] MEDS ORDERED: acetaminophen 325mg tablet PO PRN ×2 (23:05)
[2023-05-29] MEDS ORDERED: dextrose 50%-water 50ml dispensing syringe IV PRN (23:05)
[2023-05-29] MEDS ORDERED: haloperidol lactate 5mg/ml inj IM PRN (23:05)
[2023-05-29] MEDS ORDERED: haloperidol 5mg tablet PO PRN (23:05)
[2023-05-29] MEDS ORDERED: morphine 2 MG/ML inj. syringe IV PRN ×2 (23:05)
[2023-05-29] MEDS ORDERED: ondansetron/PF 4mg/2ml inj IV PRN (23:05)
[2023-05-29] MEDS ORDERED: ondansetron 4mg rapidly disintigrating tab PO PRN (23:05)
[2023-05-29 23:29] LABS: APTT 28 SECONDS (22-32); PROTHROMBIN TIME 9.8 SECONDS (9.0-12.0)
[2023-05-29 23:49] LABS: PHOSPHORUS 6.1 MG/DL (2.3-4.5); PRO BRAIN NATRIURETIC PEPTIDE 113 PG/ML (0-125)
[2023-05-29] MEDS: dextrose 5%-1/2 normal saline 1,000 ML IV SCH (23:52)
[2023-05-30 00:09] LABS: INR 0.9 INR
[2023-05-30 00:10] LABS: HEMOGLOBIN A1C 4.9 % (4.5-6.2)
[2023-05-30 04:48] LABS: BASOPHILS % (AUTO) 0.5 % (0-1); EOSINOPHILS # (AUTO) 0.1 X10'3 (0-0.9); EOSINOPHILS % (AUTO) 5.6 % (0-6); HEMATOCRIT 34.5 % (35.0-45.0); HEMOGLOBIN 11.3 g/dl (12.0-16.0); LYMPHOCYTES # (AUTO) 1.4 X10'3 (1.1-4.8); LYMPHOCYTES % (AUTO) 54.4 % (21-51); MEAN CORPUSCULAR HEMOGLOBIN 31.5 PG (27.0-31.0); MEAN CORPUSCULAR HGB CONC 32.7 g/dL (33.0-36.5); MEAN CORPUSCULAR VOLUME 96.6 FL (78-98); MEAN PLATELET VOLUME 7.4 FL (7.4-10.4); MONOCYTES # (AUTO) 0.3 X10'3 (0-0.9); MONOCYTES % (AUTO) 13.1 % (2-12); NEUTROPHILS # (AUTO) 0.7 X10'3 (1.8-7.7); NEUTROPHILS % (AUTO) 26.4 % (42-75); PLATELET COUNT 114 X10'3 (140-440); RED BLOOD COUNT 3.58 X10'6 (4.20-5.60); RED CELL DISTRIBUTION WIDTH 17.3 % (11.5-14.5); WHITE BLOOD COUNT 2.6 X10'3 (4.5-11.0)
[2023-05-30 04:50] LABS: ALANINE AMINOTRANSFERASE 31 U/L (12-78); ALBUMIN 2.8 G/DL (3.4-5.0); ALBUMIN/GLOBULIN RATIO 0.8 (1.1-1.5); ALKALINE PHOSPHATASE 93 IU/L (46-116); ANION GAP 10 (8-16); ASPARTATE AMINO TRANSFERASE 64 U/L (10-37); BILIRUBIN,TOTAL 0.3 MG/DL (0.1-1.0); BLOOD UREA NITROGEN 8 MG/DL (7-18); BUN/CREATININE RATIO 8.7 (10.0-20.0); CHLORIDE 107 MMOL/L (99-107); CHOL/HDL RATIO 1.9 (0.00-4.99); CHOLESTEROL 255 MG/DL (0-200); CREATININE 0.92 MG/DL (0.40-0.90); GLUCOSE 88 MG/DL (70-104); HDL CHOLESTEROL 134 MG/DL (35-60); LDL CHOLESTEROL 44 MG/DL (50-100); POTASSIUM 3.7 MMOL/L (3.5-5.1); SODIUM 142 MMOL/L (135-145); TOTAL CARBON DIOXIDE 24.9 MMOL/L (24-32); TOTAL PROTEIN 6.5 G/DL (6.4-8.2); TRIGLYCERIDES 50 MG/DL (20-135); eCRCL 82 ML/MIN; eGFR 65 ML/MIN
[2023-05-30] MEDS: docusate sod 100mg capsule PO SCH ×2 (08:37→20:00)
[2023-05-30] MEDS: heparin, porcine 5000 units/ml vial SQ SCH ×2 (08:37→20:02)
[2023-05-30] MEDS: thiamine 100mg/ml 2ml inj. IV SCH ×3 (09:01→22:06)
--- NOTE | 2023-05-30 09:09 | NUR ---
Received order for consult. Met with patient in regards to alcohol use and to see if patient was interested in resources for treatment options. Patient wants help but hasn't been ready to follow through with treatment. Patient knows what she needs to do but is lacking support from boyfriend. I talked to patient about getting a sponsor, going back on naltrexone, and starting meetings. Patient will call me with any questions.
[2023-05-30] MEDS: dextrose 5%-1/2 normal saline 1,000 ML IV SCH ×2 (09:29→19:52)
[2023-05-30] MEDS: folic acid 1mg/0.2ml inj IV SCH (09:34)
[2023-05-30] MEDS: proCHLORperazine 10 MG/2 ml inj IV PRN ×2 (09:38→20:02)
--- NOTE | 2023-05-30 10:22 | NUR ---
Pt resting in bed with eyes closed. Respirations equal and unlabored. No acute distress noted at this time.
[2023-05-30] MEDS: LORazepam 2 mg/ml vial IV PRN ×4 (12:25→22:07)
[2023-05-30] MEDS ORDERED: PROZ10C PO (17:12)
[2023-05-30] MEDS ORDERED: NALT50TA PO (17:12)
[2023-05-30] MEDS ORDERED: PANT-47 PO (17:12)
[2023-05-30] MEDS ORDERED: QUET200T PO (17:12)
[2023-05-30] MEDS ORDERED: THIA50TA10 PO (17:12)
[2023-05-30] MEDS ORDERED: CHOL100017 PO (17:12)
[2023-05-30] MEDS ORDERED: AMPH30CA3 PO (17:12)
[2023-05-30] MEDS ORDERED: BUPR300T7 PO (17:12)
[2023-05-30] MEDS ORDERED: LORA-269 PO (17:12)
[2023-05-30] MEDS ORDERED: PRAZ2CAP2 PO (17:12)
[2023-05-30] MEDS ORDERED: BREX0.5T PO (17:12)
[2023-05-30] MEDS ORDERED: NIFE-34 PO (17:12)
[2023-05-30] MEDS ORDERED: DARI25TA PO (17:12)
[2023-05-30] MEDS ORDERED: FOLI1TAB27 PO (17:12)
[2023-05-30] MEDS ORDERED: ESCI20TA39 PO (17:12)
[2023-05-30 19:40] VITALS: BP 149/98; PULSE 69; RESP 18; TEMP 97.6; O2SAT 98
--- NOTE | 2023-05-30 19:50 | NUR ---
Report received from Dragan JESSICA. Pt arrived on unit at 1914. Pt placed on tele. Sitter at bedside. All needs met at this time.
[2023-05-30] MEDS ORDERED: DARIDOREXANT HCL PO SCH (21:00)
[2023-05-30 22:00] VITALS: BP 154/87; PULSE 61; RESP 18; TEMP 98; O2SAT 98
[2023-05-30] MEDS: quetiapine 100mg tablet PO SCH (22:07)
[2023-05-30] MEDS: prazosin 1mg capsule PO SCH (22:07)
[2023-05-31] VITALS (7 sets, daily range): BP systolic 121–141; BP diastolic 70–95; PULSE 61–99; RESP 16–20; TEMP 97.5–98.6; O2SAT 95–99
[2023-05-31] MEDS: dextrose 5%-1/2 normal saline 1,000 ML IV SCH (05:30)
--- NOTE | 2023-05-31 06:32 | NUR ---
Problems reprioritized. Patient report given, questions answered & plan of care reviewed with Sebastian RN and Celia RN.
--- NOTE | 2023-05-31 07:34 | NUR ---
Patient in room PCU 3013. I have received report from Mel JESSICA and had the opportunity to ask questions and assume patient care.
[2023-05-31 07:39] LABS: BASOPHILS % (AUTO) 0.5 % (0-1); EOSINOPHILS # (AUTO) 0.1 X10'3 (0-0.9); EOSINOPHILS % (AUTO) 3.6 % (0-6); HEMATOCRIT 33.2 % (35.0-45.0); HEMOGLOBIN 11.1 g/dl (12.0-16.0); LYMPHOCYTES # (AUTO) 0.7 X10'3 (1.1-4.8); LYMPHOCYTES % (AUTO) 34.3 % (21-51); MEAN CORPUSCULAR HEMOGLOBIN 31.8 PG (27.0-31.0); MEAN CORPUSCULAR HGB CONC 33.4 g/dL (33.0-36.5); MEAN CORPUSCULAR VOLUME 95.3 FL (78-98); MEAN PLATELET VOLUME 7.8 FL (7.4-10.4); MONOCYTES # (AUTO) 0.2 X10'3 (0-0.9); MONOCYTES % (AUTO) 10.2 % (2-12); NEUTROPHILS % (AUTO) 51.4 % (42-75); PLATELET COUNT 86 X10'3 (140-440); RED BLOOD COUNT 3.48 X10'6 (4.20-5.60); RED CELL DISTRIBUTION WIDTH 16.9 % (11.5-14.5)
[2023-05-31] MEDS: buPROPion SR 150mg tablet PO SCH (07:55)
[2023-05-31] MEDS: thiamine 100mg/ml 2ml inj. IV SCH ×3 (07:55→20:28)
[2023-05-31] MEDS: NIFEdipine XL 30mg tablet PO SCH (07:55)
[2023-05-31] MEDS: pantoprazole 40mg Tablet.DR PO SCH (07:55)
[2023-05-31] MEDS: docusate sod 100mg capsule PO SCH ×2 (07:56→20:28)
[2023-05-31] MEDS: ESCITALOPRAM OXALATE 5 MG TABLET PO SCH (07:57)
[2023-05-31] MEDS: LORazepam 1 MG tablet PO SCH ×3 (07:57→16:48)
[2023-05-31] MEDS: HYDROcodone/acetaminophen 5mg/325mg tablet PO PRN (07:57)
[2023-05-31] MEDS: folic acid 1mg/0.2ml inj IV SCH (07:57)
[2023-05-31] MEDS: FLUoxetine 10mg capsule PO SCH (07:58)
[2023-05-31] MEDS: heparin, porcine 5000 units/ml vial SQ SCH ×2 (07:58→20:00)
[2023-05-31] MEDS ORDERED: dextroamphetamine/amphetamine ER 5 MG CAP.ER.24H PO SCH ×2 (08:00→08:14)
[2023-05-31] MEDS ORDERED: folic acid 1mg tablet PO SCH (08:00)
[2023-05-31] MEDS ORDERED: dextroamphetam/amphetam ER cap 15 MG CAP.ER.24H PO SCH (08:00)
[2023-05-31 08:18] LABS: ALANINE AMINOTRANSFERASE 35 U/L (12-78); ALBUMIN 2.7 G/DL (3.4-5.0); ALBUMIN/GLOBULIN RATIO 0.8 (1.1-1.5); ALKALINE PHOSPHATASE 97 IU/L (46-116); ANION GAP 8 (8-16); ASPARTATE AMINO TRANSFERASE 54 U/L (10-37); BLOOD UREA NITROGEN 11 MG/DL (7-18); BUN/CREATININE RATIO 12.9 (10.0-20.0); CALCIUM 8.4 MG/DL (8.5-10.1); CHLORIDE 102 MMOL/L (99-107); CREATININE 0.85 MG/DL (0.40-0.90); GLUCOSE 97 MG/DL (70-104); POTASSIUM 3.4 MMOL/L (3.5-5.1); SODIUM 136 MMOL/L (135-145); TOTAL CARBON DIOXIDE 25.8 MMOL/L (24-32); TOTAL PROTEIN 6.2 G/DL (6.4-8.2); eCRCL 89 ML/MIN; eGFR 71 ML/MIN
[2023-05-31] MEDS ORDERED: DEXTROAMPHETAMINE PO SCH (08:23)
[2023-05-31] MEDS ORDERED: AMPHETAMINE PO SCH (08:23)
[2023-05-31 08:39] LABS: ANISOCYTOSIS 1+; PLATELET ESTIMATE DECREASED; TOTAL CELLS COUNTED 100
[2023-05-31 08:40] LABS: HYPOCHROMASIA 1+
[2023-05-31 08:41] LABS: POLYCHROMASIA FEW
[2023-05-31] MEDS ORDERED: potassium Cl 20 mEq SR tablet PO PRN (09:30)
[2023-05-31] MEDS ORDERED: magnesium Cl slow-release 64mg tablet PO PRN (09:30)
[2023-05-31] MEDS ORDERED: magnesium 2GM in 50ml NS 50 ML IV PRN (09:30)
[2023-05-31] MEDS ORDERED: magnesium 4gm in 100ml NS 100 ML IV PRN (09:30)
[2023-05-31] MEDS ORDERED: potassium Cl 40MEQ/1/2NS 520ml 520 ML IV PRN (09:30)
[2023-05-31] MEDS: potassium Cl 20 mEq SR tablet PO PRN ×3 (10:03→20:27)
[2023-05-31] MEDS: proCHLORperazine 10 MG/2 ml inj IV PRN (12:36)
[2023-05-31] MEDS: LORazepam 2 mg/ml vial IV PRN ×2 (14:42→20:41)
[2023-05-31] MEDS: K and/or MAG REPLACEMENT MC SCH (20:00)
[2023-05-31] MEDS: prazosin 1mg capsule PO SCH (20:27)
[2023-05-31] MEDS: quetiapine 100mg tablet PO SCH (20:27)
[2023-05-31] MEDS: HYDROcodone/acetaminophen 10/325mg tab PO PRN (20:28)
--- NOTE | 2023-05-31 20:30 | NUR ---
Pt stated she was in pain when nurse was giving the 2000 medications to pt. Nurse got PRN pain medication which was effective. When nurse came back with PRN Pain medication the pt then stated she was feeling anxious, pt's arms were also shaking. Nurse then got PRN ativan and administered the medication for anxiety per orders.
[2023-06-01] VITALS (8 sets, daily range): BP systolic 129–146; BP diastolic 83–93; PULSE 62–69; RESP 16–17; TEMP 97.6–98.9; O2SAT 93–98
[2023-06-01] MEDS: LORazepam 2 mg/ml vial IV PRN ×3 (01:09→11:03)
--- NOTE | 2023-06-01 01:15 | NUR ---
Pt woke up and called for nurse. When nurse checked on the pt, the pt stated she was feeling anxious. Nurse administered PRN ativan per order, medication was effective.
[2023-06-01] MEDS: proCHLORperazine 10 MG/2 ml inj IV PRN ×2 (05:11→11:04)
[2023-06-01 05:42] LABS: BASOPHILS % (AUTO) 0.6 % (0-1); EOSINOPHILS # (AUTO) 0.1 X10'3 (0-0.9); EOSINOPHILS % (AUTO) 3.4 % (0-6); HEMATOCRIT 34.3 % (35.0-45.0); HEMOGLOBIN 11.3 g/dl (12.0-16.0); LYMPHOCYTES # (AUTO) 0.7 X10'3 (1.1-4.8); LYMPHOCYTES % (AUTO) 31.4 % (21-51); MEAN CORPUSCULAR HEMOGLOBIN 31.5 PG (27.0-31.0); MEAN CORPUSCULAR HGB CONC 33.1 g/dL (33.0-36.5); MEAN CORPUSCULAR VOLUME 95.2 FL (78-98); MEAN PLATELET VOLUME 7.7 FL (7.4-10.4); MONOCYTES # (AUTO) 0.3 X10'3 (0-0.9); MONOCYTES % (AUTO) 10.7 % (2-12); NEUTROPHILS # (AUTO) 1.3 X10'3 (1.8-7.7); NEUTROPHILS % (AUTO) 53.9 % (42-75); PLATELET COUNT 96 X10'3 (140-440); RED CELL DISTRIBUTION WIDTH 16.6 % (11.5-14.5); WHITE BLOOD COUNT 2.4 X10'3 (4.5-11.0)
[2023-06-01 05:57] LABS: ALANINE AMINOTRANSFERASE 47 U/L (12-78); ALBUMIN 3.1 G/DL (3.4-5.0); ALBUMIN/GLOBULIN RATIO 0.8 (1.1-1.5); ALKALINE PHOSPHATASE 110 IU/L (46-116); ANION GAP 8 (8-16); ASPARTATE AMINO TRANSFERASE 74 U/L (10-37); BILIRUBIN,TOTAL 0.7 MG/DL (0.1-1.0); BLOOD UREA NITROGEN 9 MG/DL (7-18); BUN/CREATININE RATIO 10.1 (10.0-20.0); CALCIUM 9.2 MG/DL (8.5-10.1); CHLORIDE 102 MMOL/L (99-107); CREATININE 0.89 MG/DL (0.40-0.90); GLUCOSE 99 MG/DL (70-104); POTASSIUM 3.7 MMOL/L (3.5-5.1); SODIUM 134 MMOL/L (135-145); TOTAL CARBON DIOXIDE 24.3 MMOL/L (24-32); TOTAL PROTEIN 7.1 G/DL (6.4-8.2); eCRCL 85 ML/MIN; eGFR 67 ML/MIN
--- NOTE | 2023-06-01 06:04 | NUR ---
Patient in room PCU 3013. I have received report from Mel JESSICA and had the opportunity to ask questions and assume patient care.
--- NOTE | 2023-06-01 06:19 | NUR ---
Problems reprioritized. Patient report given, questions answered & plan of care reviewed with Sebastian JESSICA. Pt stable at shift change.
[2023-06-01] MEDS: FLUoxetine 10mg capsule PO SCH (08:00)
[2023-06-01] MEDS: K and/or MAG REPLACEMENT MC SCH ×2 (08:00→20:00)
[2023-06-01] MEDS: ESCITALOPRAM OXALATE 5 MG TABLET PO SCH (08:08)
[2023-06-01] MEDS: pantoprazole 40mg Tablet.DR PO SCH (08:08)
[2023-06-01] MEDS: docusate sod 100mg capsule PO SCH ×2 (08:09→19:42)
[2023-06-01] MEDS: NIFEdipine XL 30mg tablet PO SCH (08:09)
[2023-06-01] MEDS: buPROPion SR 150mg tablet PO SCH (08:09)
[2023-06-01] MEDS: LORazepam 1 MG tablet PO SCH ×4 (08:09→19:42)
[2023-06-01] MEDS: thiamine 100mg/ml 2ml inj. IV SCH ×3 (08:09→21:18)
[2023-06-01] MEDS: folic acid 1mg/0.2ml inj IV SCH (08:09)
[2023-06-01] MEDS: heparin, porcine 5000 units/ml vial SQ SCH ×2 (08:10→19:44)
[2023-06-01 10:29] LABS: TOTAL CELLS COUNTED 100
[2023-06-01 10:30] LABS: ANISOCYTOSIS 1+; GIANT PLATELET FEW; LARGE PLATELETS FEW; PLATELET ESTIMATE DECREASED
--- NOTE | 2023-06-01 13:44 | NUR ---
Received order for consult. I met with patient in the ER. Patient is lacking motivation and support to start recovery process. Patient has the tools to start when ready and has my card to call me with any questions.
[2023-06-01] MEDS: HYDROcodone/acetaminophen 5mg/325mg tablet PO PRN (15:04)
--- NOTE | 2023-06-01 18:21 | NUR ---
Problems reprioritized. Patient report given, questions answered & plan of care reviewed with Mariia JESSICA.
--- NOTE | 2023-06-01 18:30 | NUR ---
Patient in room PCU 3013. I have received report from GUERLINE JESSICA and had the opportunity to ask questions and assume patient care.
[2023-06-01] MEDS: prazosin 1mg capsule PO SCH (21:22)
[2023-06-01] MEDS: quetiapine 100mg tablet PO SCH (21:23)
[2023-06-01] MEDS: LORazepam 1 MG tablet PO PRN (23:37)
[2023-06-02] MEDS: temazepam 15mg capsule PO PRN ×2 (01:02→20:35)
[2023-06-02] MEDS: HYDROcodone/acetaminophen 10/325mg tab PO PRN ×2 (01:06→20:36)
[2023-06-02 05:26] LABS: NUCLEATED RED BLOOD CELLS 0 /100WBC (0-0)
[2023-06-02 05:30] LABS: EOSINOPHILS # (AUTO) 0.1 X10'3 (0-0.9); EOSINOPHILS % (AUTO) 3.3 % (0-6); HEMATOCRIT 33.2 % (35.0-45.0); LYMPHOCYTES # (AUTO) 1.1 X10'3 (1.1-4.8); LYMPHOCYTES % (AUTO) 38.7 % (21-51); MEAN CORPUSCULAR HEMOGLOBIN 31.7 PG (27.0-31.0); MONOCYTES # (AUTO) 0.4 X10'3 (0-0.9); MONOCYTES % (AUTO) 13.7 % (2-12); NEUTROPHILS # (AUTO) 1.2 X10'3 (1.8-7.7); NEUTROPHILS % (AUTO) 43.3 % (42-75); PLATELET COUNT 110 X10'3 (140-440); RED BLOOD COUNT 3.46 X10'6 (4.20-5.60); RED CELL DISTRIBUTION WIDTH 16.3 % (11.5-14.5); WHITE BLOOD COUNT 2.8 X10'3 (4.5-11.0)
[2023-06-02 05:46] LABS: ALANINE AMINOTRANSFERASE 51 U/L (12-78); ALBUMIN/GLOBULIN RATIO 0.8 (1.1-1.5); ALKALINE PHOSPHATASE 102 IU/L (46-116); ANION GAP 8 (8-16); ASPARTATE AMINO TRANSFERASE 79 U/L (10-37); BILIRUBIN,TOTAL 0.5 MG/DL (0.1-1.0); BLOOD UREA NITROGEN 13 MG/DL (7-18); BUN/CREATININE RATIO 13.4 (10.0-20.0); CALCIUM 8.6 MG/DL (8.5-10.1); CHLORIDE 102 MMOL/L (99-107); CREATININE 0.97 MG/DL (0.40-0.90); GLUCOSE 91 MG/DL (70-104); POTASSIUM 3.6 MMOL/L (3.5-5.1); SODIUM 134 MMOL/L (135-145); TOTAL CARBON DIOXIDE 24.5 MMOL/L (24-32); TOTAL PROTEIN 6.9 G/DL (6.4-8.2); eCRCL 77 ML/MIN; eGFR 61 ML/MIN
--- NOTE | 2023-06-02 06:11 | NUR ---
Problems reprioritized. Patient report given, questions answered & plan of care reviewed with GUERLINE JESSICA.
--- NOTE | 2023-06-02 06:18 | NUR ---
Yesterday Dr Castillo noticed that the pt had two similar class meds and when I asked the pt she stated she hadn't been taking her Prozac for a few months. Dr Castillo then told me to cancel her Prozac med so they wouldn't have a compounding effect.
--- NOTE | 2023-06-02 06:18 | NUR ---
Patient in room PCU 3013. I have received report from Mariia JESSICA and had the opportunity to ask questions and assume patient care.
[2023-06-02 06:50] LABS: ANISOCYTOSIS 1+; PLATELET ESTIMATE DECREASED; TOTAL CELLS COUNTED 100
[2023-06-02 06:52] LABS: HYPOCHROMASIA 1+; STOMATOCYTES FEW
[2023-06-02 06:53] LABS: LARGE PLATELETS FEW
[2023-06-02 07:00] VITALS: BP 128/72; PULSE 66; RESP 15; TEMP 98.6; O2SAT 96
[2023-06-02] MEDS: ESCITALOPRAM OXALATE 5 MG TABLET PO SCH (07:22)
[2023-06-02] MEDS: docusate sod 100mg capsule PO SCH ×2 (07:22→19:54)
[2023-06-02] MEDS: LORazepam 1 MG tablet PO PRN ×2 (07:22→20:35)
[2023-06-02] MEDS: heparin, porcine 5000 units/ml vial SQ SCH ×2 (07:23→19:55)
[2023-06-02] MEDS: buPROPion SR 150mg tablet PO SCH (07:23)
[2023-06-02] MEDS: K and/or MAG REPLACEMENT MC SCH ×2 (07:23→20:00)
[2023-06-02] MEDS: pantoprazole 40mg Tablet.DR PO SCH (07:23)
[2023-06-02] MEDS: NIFEdipine XL 30mg tablet PO SCH (07:23)
[2023-06-02 07:37] VITALS: RESP 15; O2SAT 96
[2023-06-02 11:00] VITALS: BP 108/75; PULSE 75; RESP 14; TEMP 98.1; O2SAT 97
[2023-06-02] MEDS: naltrexone 50mg tablet PO SCH (12:06)
[2023-06-02] MEDS: HYDROcodone/acetaminophen 5mg/325mg tablet PO PRN ×2 (12:06→16:12)
[2023-06-02] MEDS: LORazepam 1 MG tablet PO SCH ×2 (12:06→16:09)
--- NOTE | 2023-06-02 14:49 | NUR ---
PAGER ID: [phone] MESSAGE: [place] [id number], [place] pt and she will not be admitted to [facility] due to lack of mental hold. Did you want anything done for pt or plan for DC? Sebastian [phone]
--- NOTE | 2023-06-02 15:58 | NUR ---
Page Sent promotional table spacer PAGER ID: [phone] MESSAGE: [id number]. SRI. IS IT OK TO DC THE SITTER AND THE 1799 ON THIS PATIENT ? VALENTINE @[phone] (87 character message out of a maximum of 240)
[2023-06-02] MEDS: gabapentin 300mg capsule PO SCH ×2 (16:09→23:22)
[2023-06-02 18:00] VITALS: BP 129/94; PULSE 76; RESP 17; TEMP 96.9; O2SAT 98
--- NOTE | 2023-06-02 18:12 | NUR ---
Problems reprioritized. Patient report given, questions answered & plan of care reviewed with Bessie MO.
[2023-06-02 20:00] VITALS: RESP 17; O2SAT 98
[2023-06-02] MEDS: prazosin 1mg capsule PO SCH (20:35)
[2023-06-02] MEDS: quetiapine 100mg tablet PO SCH (20:36)
[2023-06-02 22:00] VITALS: BP 100/72; PULSE 76; RESP 14; TEMP 97.7; O2SAT 99
[2023-06-02] MEDS ORDERED: LORazepam 2 mg/ml vial IV PRN (23:05)
[2023-06-02] MEDS ORDERED: LORazepam 1 MG tablet PO PRN (23:05)
[2023-06-03 02:00] VITALS: BP 116/72; PULSE 66; RESP 20; TEMP 98.5; O2SAT 92
[2023-06-03 06:00] VITALS: BP 122/76; PULSE 66; RESP 18; TEMP 97.7; O2SAT 99
--- NOTE | 2023-06-03 06:00 | NUR ---
Patient in room PCU 3013. I have received report from Deborah and had the opportunity to ask questions and assume patient care.
[2023-06-03 06:37] LABS: BASOPHILS % (AUTO) 0.8 % (0-1); EOSINOPHILS # (AUTO) 0.1 X10'3 (0-0.9); EOSINOPHILS % (AUTO) 3.1 % (0-6); HEMATOCRIT 36.2 % (35.0-45.0); HEMOGLOBIN 11.8 g/dl (12.0-16.0); LYMPHOCYTES % (AUTO) 26.7 % (21-51); MEAN CORPUSCULAR HEMOGLOBIN 31.4 PG (27.0-31.0); MEAN CORPUSCULAR HGB CONC 32.5 g/dL (33.0-36.5); MEAN CORPUSCULAR VOLUME 96.4 FL (78-98); MEAN PLATELET VOLUME 7.8 FL (7.4-10.4); MONOCYTES # (AUTO) 0.5 X10'3 (0-0.9); MONOCYTES % (AUTO) 13.4 % (2-12); NEUTROPHILS # (AUTO) 2.1 X10'3 (1.8-7.7); PLATELET COUNT 125 X10'3 (140-440); RED BLOOD COUNT 3.76 X10'6 (4.20-5.60); RED CELL DISTRIBUTION WIDTH 16.8 % (11.5-14.5); WHITE BLOOD COUNT 3.7 X10'3 (4.5-11.0)
[2023-06-03 06:57] LABS: ALANINE AMINOTRANSFERASE 82 U/L (12-78); ALBUMIN 3.1 G/DL (3.4-5.0); ALBUMIN/GLOBULIN RATIO 0.8 (1.1-1.5); ALKALINE PHOSPHATASE 97 IU/L (46-116); ANION GAP 6 (8-16); ASPARTATE AMINO TRANSFERASE 112 U/L (10-37); BILIRUBIN,TOTAL 0.4 MG/DL (0.1-1.0); BLOOD UREA NITROGEN 15 MG/DL (7-18); BUN/CREATININE RATIO 14.2 (10.0-20.0); CALCIUM 8.9 MG/DL (8.5-10.1); CHLORIDE 106 MMOL/L (99-107); CREATININE 1.06 MG/DL (0.40-0.90); GLUCOSE 94 MG/DL (70-104); POTASSIUM 3.9 MMOL/L (3.5-5.1); SODIUM 137 MMOL/L (135-145); TOTAL CARBON DIOXIDE 24.6 MMOL/L (24-32); TOTAL PROTEIN 7.1 G/DL (6.4-8.2); eCRCL 70 ML/MIN; eGFR 55 ML/MIN
[2023-06-03 08:00] VITALS: RESP 18; O2SAT 99
[2023-06-03] MEDS: K and/or MAG REPLACEMENT MC SCH (08:00)
[2023-06-03] MEDS ORDERED: thiamine 100mg tablet PO SCH (08:00)
[2023-06-03] MEDS ORDERED: folic acid 1mg tablet PO SCH (08:00)
[2023-06-03] MEDS: gabapentin 300mg capsule PO SCH (08:40)
[2023-06-03] MEDS: ESCITALOPRAM OXALATE 5 MG TABLET PO SCH (08:40)
[2023-06-03] MEDS: LORazepam 1 MG tablet PO SCH ×2 (08:41→12:19)
[2023-06-03] MEDS: docusate sod 100mg capsule PO SCH (08:41)
[2023-06-03] MEDS: NIFEdipine XL 30mg tablet PO SCH (08:41)
[2023-06-03] MEDS: heparin, porcine 5000 units/ml vial SQ SCH (08:41)
[2023-06-03] MEDS: naltrexone 50mg tablet PO SCH (08:42)
[2023-06-03] MEDS: pantoprazole 40mg Tablet.DR PO SCH (08:42)
[2023-06-03] MEDS: buPROPion SR 150mg tablet PO SCH (08:42)
[2023-06-03] MEDS: HYDROcodone/acetaminophen 10/325mg tab PO PRN (09:10)
[2023-06-03 10:00] VITALS: BP 137/92; PULSE 78; RESP 18; TEMP 98.1; O2SAT 100
--- NOTE | 2023-06-03 12:30 | NUR ---
Patient discharged. Discharge paperwork given and explained. No IV or Telebox present. Patient was stable and had no c/o of pain or discomfort. Patient took all belongings and left in a private vehicle with her boyfriend.
== END 2023-06-03 12:43 | disposition home or self-care (01) | DRG 439 ==
LOC: ER 19:09 → ED HOLD 23:08 → EDBEDREQ 05-30 17:37 → PCU 3S 05-30 19:15
PROVIDERS: ADMIT Family Medicine; ATTEND Family Medicine
DX: K85.90 Acute pancreatitis without necrosis or infection, unspecified (principal); F10.231 Alcohol dependence with withdrawal delirium; I13.0 Hypertensive heart and chronic kidney disease with heart failure and stage 1 through stage 4 chronic kidney disease, or unspecified chronic kidney disease; I50.32 Chronic diastolic (congestive) heart failure; R45.851 Suicidal ideations; N17.9 Acute kidney failure, unspecified; F10.229 Alcohol dependence with intoxication, unspecified; Z20.822 Contact with and (suspected) exposure to COVID-19; N18.9 Chronic kidney disease, unspecified; G40.909 Epilepsy, unspecified, not intractable, without status epilepticus; F31.9 Bipolar disorder, unspecified; E11.22 Type 2 diabetes mellitus with diabetic chronic kidney disease; K76.0 Fatty (change of) liver, not elsewhere classified; I48.91 Unspecified atrial fibrillation; I27.20 Pulmonary hypertension, unspecified; F41.9 Anxiety disorder, unspecified; K21.9 Gastro-esophageal reflux disease without esophagitis; Y90.8 Blood alcohol level of 240 mg/100 ml or more; Z88.5 Allergy status to narcotic agent; Z88.8 Allergy status to other drugs, medicaments and biological substances; Z88.1 Allergy status to other antibiotic agents; Z79.899 Other long term (current) drug therapy; Z98.84 Bariatric surgery status; Z90.49 Acquired absence of other specified parts of digestive tract; Z87.11 Personal history of peptic ulcer disease; Z85.3 Personal history of malignant neoplasm of breast; Z87.891 Personal history of nicotine dependence; Z82.49 Family history of ischemic heart disease and other diseases of the circulatory system; Z80.3 Family history of malignant neoplasm of breast; Z80.0 Family history of malignant neoplasm of digestive organs
CPT/HCPCS: 36415; 80053; 80061; 80305; 80320; 81003; 83036; 83690; 83735; 83880; 84100; 85007; 85025; 85610; 85730; 87081; 87811; 99285; A6258; C1758; C9113; G0378; J0780; J1644; J2060; J3411; J3490; J7042; J7120

== ENCOUNTER 2023-07-26 14:50 | Emergency (ER) | payer MEDICARE, MEDICAID ==
[~2023-07-26] VITALS: Ht 172.7 cm; Wt 96.0 kg
[~2023-07-26 14:50] MED LIST changes: +AMPH30CA3 PO; -ATI1T PO; +BUPR300T7 PO; -BUPR450T3 PO; +CHOL100017 PO; -CHOL100046 PO; -FERROUS GLUC PO; +LORA-269 PO; -MULT-661 PO; -MULTIVIT MINERALS PO; +NALT50TA PO; +NIFE-34 PO; -NIFE-72 PO; +PANT-47 PO; -PANT40TA54 PO; -PRAZ1CAP5 PO; +PRAZ2CAP2 PO; +PROZ10C PO; +QUET200T PO; -THIA100T66 PO; +THIA50TA10 PO
[2023-07-26 17:28] LABS: ALANINE AMINOTRANSFERASE 97 U/L (12-78); ALBUMIN/GLOBULIN RATIO 0.9 (1.1-1.5); ALKALINE PHOSPHATASE 232 IU/L (46-116); ANION GAP 17 (8-16); ASPARTATE AMINO TRANSFERASE 189 U/L (10-37); BILIRUBIN,TOTAL 1.1 MG/DL (0.1-1.0); BLOOD UREA NITROGEN 15 MG/DL (7-18); BUN/CREATININE RATIO 15.8 (10.0-20.0); CALCIUM 9.1 MG/DL (8.5-10.1); CHLORIDE 94 MMOL/L (99-107); CREATININE 0.95 MG/DL (0.40-0.90); EOSINOPHILS % (AUTO) 0.6 % (0-6); GLUCOSE 92 MG/DL (70-104); HEMATOCRIT 41.7 % (35.0-45.0); LYMPHOCYTES # (AUTO) 1.6 X10'3 (1.1-4.8); LYMPHOCYTES % (AUTO) 33.3 % (21-51); MEAN CORPUSCULAR HEMOGLOBIN 31.1 PG (27.0-31.0); MEAN CORPUSCULAR HGB CONC 33.4 g/dL (33.0-36.5); MEAN CORPUSCULAR VOLUME 93.1 FL (78-98); MEAN PLATELET VOLUME 7.4 FL (7.4-10.4); MONOCYTES # (AUTO) 0.3 X10'3 (0-0.9); MONOCYTES % (AUTO) 7.2 % (2-12); NEUTROPHILS # (AUTO) 2.7 X10'3 (1.8-7.7); NEUTROPHILS % (AUTO) 57.9 % (42-75); PLATELET COUNT 254 X10'3 (140-440); POTASSIUM 4.1 MMOL/L (3.5-5.1); RED BLOOD COUNT 4.48 X10'6 (4.20-5.60); RED CELL DISTRIBUTION WIDTH 15.9 % (11.5-14.5); SODIUM 130 MMOL/L (135-145); TOTAL CARBON DIOXIDE 19.3 MMOL/L (24-32); TOTAL PROTEIN 8.5 G/DL (6.4-8.2); WHITE BLOOD COUNT 4.7 X10'3 (4.5-11.0); eCRCL 71 ML/MIN; eGFR 62 ML/MIN
[2023-07-26 17:37] LABS: LIPASE 48 U/L (16-77); THYROID STIMULATING HORMONE 1.68 ulU/ml (0.34-4.50)
[2023-07-26] MEDS ORDERED: LORazepam 2 mg/ml vial IV ONE ×2 (20:00→21:05)
[2023-07-26] MEDS ORDERED: normal saline 1000ML IV soln IVB ONE ×2 (20:00)
[2023-07-26] MEDS ORDERED: metoclopramide 5 mg/ml inj IV ONE (20:00)
[2023-07-26] MEDS ORDERED: diphenhydrAMINE 50 mg/ml inj IV ONE (20:00)
[2023-07-26 20:32] LABS: LIPASE 48 U/L (16-77)
[2023-07-26] MEDS ORDERED: chlordiazePOXIDE 25mg capsule PO ONE (21:05)
[2023-07-26 22:17] LABS: ETHANOL 287 MG/DL (<10)
[2023-07-26 22:35] LABS: URINE HCG NEGATIVE (NEG)
[2023-07-26 22:37] LABS: BILIRUBIN,URINE NEGATIVE (Neg); CLARITY,URINE CLOUDY (Clear); COLOR,URINE YELLOW (Yellow); GLUCOSE, URINE NEGATIVE (Neg); KETONES,URINE TRACE mg/dl (Neg); LEUKOCYTE ESTERASE ,URINE NEGATIVE (Neg); NITRITES, URINE NEGATIVE (Neg); OCCULT BLOOD,URINE TRACE-INTACT (Neg); PROTEIN,URINE TRACE mg/dl (Neg); UROBILINOGEN,URINE 0.2 E.U/dL (0.2-1.0)
[2023-07-26 22:44] LABS: UA COLLECTION TYPE CLN CATCH MIDSTREAM
[2023-07-26 22:45] LABS: URINE AMPHETAMINE SCREEN NEGATIVE (Neg); URINE BARBITUATE SCREEN NEGATIVE (Neg); URINE BENZODIAZEPINES SCREEN NEGATIVE (Neg); URINE CANNABINOID SCREEN NEGATIVE (Neg); URINE COCAINE SCREEN NEGATIVE (Neg); URINE METHADONE SCREEN NEGATIVE (Neg); URINE OPIATE SCREEN NEGATIVE (Neg); URINE PHENCYCLIDINE SCREEN NEGATIVE (Neg)
[2023-07-26 22:46] LABS: BACTERIA,URINE 1+ /HPF (Neg); MUCUS STRANDS FEW /LPF (Neg); RBC,URINE 0-2 /HPF (0-2); RENAL CELLS, URINE FEW /HPF; SQUAMOUS EPITHELIAL CELL,UR MANY /LPF (FEW); WBC,URINE 0-4 /HPF (0-4)
[2023-07-27 07:00] VITALS: TEMP 98.4
[2023-07-27 09:07] VITALS: BP 157/85; PULSE 97; RESP 16; O2SAT 98
--- NOTE | 2023-07-27 09:07 | NUR ---
PT. BELONGINGS COLLECTED AND PLACED IN OVERFLOW LOCKER #4.
--- NOTE | 2023-07-27 09:21 | NUR ---
PACKET FAXED TO [facility] @ [phone]
[2023-07-27] MEDS ORDERED: AMPH30TA3 PO (09:48)
[2023-07-27] MEDS ORDERED: GABA600T13 PO (09:48)
[2023-07-27] MEDS ORDERED: GABA-535 PO (09:48)
[2023-07-27] MEDS ORDERED: HYDR-3686 PO (09:48)
--- NOTE | 2023-07-27 10:49 | NUR ---
Met with patient in regards to alcohol use and to see if she was interested in resources for treatment options. Patient stated that she recently relapsed. Patient was doing good for a while. Patient has Naltrexone at home and I encouraged her to start taking again and to get back in touch with her sponsor. Patient has my number to call me if needed.
[2023-07-27] MEDS ORDERED: LORazepam 2 mg/ml vial IV ONE (11:20)
[2023-07-27] MEDS ORDERED: LORazepam 1 MG tablet PO ONE (11:45)
== END 2023-07-27 12:00 | disposition home or self-care (01) ==
LOC: ER 14:51
DX: R45.851 Suicidal ideations (principal); Z20.822 Contact with and (suspected) exposure to COVID-19; F10.129 Alcohol abuse with intoxication, unspecified; I48.91 Unspecified atrial fibrillation; I10 Essential (primary) hypertension; E11.9 Type 2 diabetes mellitus without complications; K21.9 Gastro-esophageal reflux disease without esophagitis; F41.9 Anxiety disorder, unspecified; F31.9 Bipolar disorder, unspecified; F15.90 Other stimulant use, unspecified, uncomplicated; Z56.0 Unemployment, unspecified; Z98.51 Tubal ligation status; Z90.49 Acquired absence of other specified parts of digestive tract; Z79.899 Other long term (current) drug therapy; Z88.1 Allergy status to other antibiotic agents; Z88.8 Allergy status to other drugs, medicaments and biological substances; Y90.8 Blood alcohol level of 240 mg/100 ml or more
CPT/HCPCS: 36415; 80053; 80305; 80320; 81001; 81025; 83690; 84145; 84443; 85025; 87811; 96361; 96374; 96375; 99285; J1200; J2060; J2765; J7030

== ENCOUNTER 2023-07-31 08:55 | Emergency (ER) | payer MEDICARE, MEDICAID ==
[~2023-07-31] VITALS: Ht 175.3 cm; Wt 99.6 kg
[~2023-07-31 08:55] MED LIST changes: -AMPH30CA3 PO; +AMPH30TA3 PO; -BREX0.5T PO; +GABA600T13 PO; +HYDR-3686 PO; -QUET200T PO
[2023-07-31 08:56] VITALS: BP_SYST 162; TEMP 97.8
[2023-07-31] MEDS ORDERED: bacitracin 15gm ointment TP ONE (09:05)
[2023-07-31] MEDS ORDERED: LIDOcaine 1% 30ml preserv. free vial IJ ONE ×2 (10:30→11:15)
[2023-07-31] MEDS ORDERED: LIDOcaine/epinephrine/tetracaine TOPICAL sol 3 ML syringe TOP ONE (10:30)
[2023-07-31] MEDS ORDERED: fluorescein sod 1mg ophthalmic strip RIGHTEYE ONE (10:30)
[2023-07-31] MEDS ORDERED: acetaminophen 325mg tablet PO ONE (10:35)
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
[2023-07-31] MEDS ORDERED: AMOX-117 PO (11:50)
[2023-07-31] MEDS ORDERED: PROP15DR68 OP (11:50)
[2023-07-31] MEDS ORDERED: ketorolac trometh. 30mg/ml inj. IM ONE (11:55)
[2023-07-31 12:22] VITALS: BP_DIAS 151; PULSE 86; RESP 18; O2SAT 77
== END 2023-07-31 12:25 | disposition home or self-care (01) ==
LOC: ER 08:56
DX: S01.511A Laceration without foreign body of lip, initial encounter (principal); W18.39XA Other fall on same level, initial encounter; Y93.89 Activity, other specified; Y92.89 Other specified places as the place of occurrence of the external cause; Y99.8 Other external cause status
CPT/HCPCS: 70450; 70486; 71250; 73562; 74176; 96372; 99285; J1885

== ENCOUNTER 2023-10-12 17:50 | Emergency (ER) | payer MEDICARE, MEDICAID ==
[~2023-10-12] VITALS: Ht 175.3 cm; Wt 109.1 kg
[~2023-10-12 17:50] MED LIST changes: +AMPH30CA3 PO; -AMPH30TA3 PO; +BUPR150T8 PO; -BUPR300T7 PO; +ESCI20TA PO; -ESCI20TA39 PO; -GABA600T13 PO; +MULT-25 PO; +POTA-207 PO; -PROZ10C PO
[2023-10-12] MEDS ORDERED: iohexol 350MG/ML 100ml bottle IV ONE (17:54)
[2023-10-12 18:20] LABS: BASOPHILS % (AUTO) 0.7 % (0-1); EOSINOPHILS # (AUTO) 0.1 X10'3 (0-0.9); HEMATOCRIT 32.7 % (35.0-45.0); HEMOGLOBIN 10.7 g/dl (12.0-16.0); LYMPHOCYTES # (AUTO) 1.3 X10'3 (1.1-4.8); LYMPHOCYTES % (AUTO) 19.5 % (21-51); MEAN CORPUSCULAR HEMOGLOBIN 30.9 PG (27.0-31.0); MEAN CORPUSCULAR HGB CONC 32.9 g/dL (33.0-36.5); MEAN PLATELET VOLUME 8.1 FL (7.4-10.4); MONOCYTES # (AUTO) 0.7 X10'3 (0-0.9); MONOCYTES % (AUTO) 10.5 % (2-12); NEUTROPHILS # (AUTO) 4.4 X10'3 (1.8-7.7); NEUTROPHILS % (AUTO) 67.3 % (42-75); PLATELET COUNT 158 X10'3 (140-440); RED BLOOD COUNT 3.47 X10'6 (4.20-5.60); RED CELL DISTRIBUTION WIDTH 18.5 % (11.5-14.5); WHITE BLOOD COUNT 6.5 X10'3 (4.5-11.0)
[2023-10-12 18:38] LABS: APTT 26 SECONDS (22-32); PROTHROMBIN TIME 9.6 SECONDS (9.0-12.0)
[2023-10-12 19:06] LABS: INR 0.9 INR
[2023-10-12 19:19] LABS: ALANINE AMINOTRANSFERASE 43 U/L (12-78); ALBUMIN/GLOBULIN RATIO 0.9 (1.1-1.5); ALKALINE PHOSPHATASE 125 IU/L (46-116); ANION GAP 15 (8-16); ASPARTATE AMINO TRANSFERASE 36 U/L (10-37); BILIRUBIN,TOTAL 0.3 MG/DL (0.1-1.0); BLOOD UREA NITROGEN 20 MG/DL (7-18); BUN/CREATININE RATIO 19.6 (10.0-20.0); CALCIUM 8.8 MG/DL (8.5-10.1); CHLORIDE 102 MMOL/L (99-107); CREATININE 1.02 MG/DL (0.40-0.90); ETHANOL 232 MG/DL (<10); GLUCOSE 69 MG/DL (70-104); POTASSIUM 4.1 MMOL/L (3.5-5.1); SODIUM 135 MMOL/L (135-145); TOTAL CARBON DIOXIDE 17.7 MMOL/L (24-32); TOTAL PROTEIN 8.4 G/DL (6.4-8.2); eCRCL 68 ML/MIN; eGFR 57 ML/MIN
[2023-10-12 19:45] LABS: BILIRUBIN,URINE NEGATIVE (Neg); CLARITY,URINE SLIGHTLY CLOUDY (Clear); COLOR,URINE STRAW (Yellow); GLUCOSE, URINE NEGATIVE (Neg); KETONES,URINE NEGATIVE (Neg); LEUKOCYTE ESTERASE ,URINE NEGATIVE (Neg); NITRITES, URINE NEGATIVE (Neg); OCCULT BLOOD,URINE NEGATIVE (Neg); PH,URINE 5.5 (4.8-8.0); PROTEIN,URINE NEGATIVE (Neg); UROBILINOGEN,URINE 0.2 E.U/dL (0.2-1.0)
[2023-10-12 19:51] LABS: UA COLLECTION TYPE CLN CATCH MIDSTREAM
[2023-10-12 19:53] LABS: WBC,URINE 0-4 /HPF (0-4)
[2023-10-12 19:54] LABS: BACTERIA,URINE FEW /HPF (Neg); MUCUS STRANDS FEW /LPF (Neg); RBC,URINE 0-2 /HPF (0-2); SQUAMOUS EPITHELIAL CELL,UR NONE SEEN /LPF (FEW)
[2023-10-12 20:23] LABS: URINE AMPHETAMINE SCREEN NEGATIVE (Neg); URINE BARBITUATE SCREEN POSITIVE (Neg); URINE BENZODIAZEPINES SCREEN NEGATIVE (Neg); URINE CANNABINOID SCREEN NEGATIVE (Neg); URINE COCAINE SCREEN NEGATIVE (Neg); URINE METHADONE SCREEN NEGATIVE (Neg); URINE OPIATE SCREEN NEGATIVE (Neg); URINE PHENCYCLIDINE SCREEN NEGATIVE (Neg)
[2023-10-12 20:42] VITALS: BP 150/107; PULSE 83; RESP 16; O2SAT 100
== END 2023-10-12 20:43 | disposition home or self-care (01) ==
LOC: ER 17:51
DX: F10.129 Alcohol abuse with intoxication, unspecified (principal); Y90.7 Blood alcohol level of 200-239 mg/100 ml; R29.810 Facial weakness; R53.1 Weakness; R47.81 Slurred speech; I48.91 Unspecified atrial fibrillation; I10 Essential (primary) hypertension; F15.90 Other stimulant use, unspecified, uncomplicated; E11.9 Type 2 diabetes mellitus without complications; Z85.3 Personal history of malignant neoplasm of breast; Z59.00 Homelessness unspecified; Z90.49 Acquired absence of other specified parts of digestive tract; Z98.51 Tubal ligation status; Z88.8 Allergy status to other drugs, medicaments and biological substances; Z88.1 Allergy status to other antibiotic agents
CPT/HCPCS: 36415; 70450; 70496; 70498; 71045; 80053; 80305; 80320; 81001; 82948; 85025; 85610; 85730; 86885; 86900; 86901; 93005; 99285; J3490; Q9967

== ENCOUNTER 2023-11-09 00:20 | Emergency (ER) | payer MEDICARE, MEDICAID ==
[~2023-11-09] VITALS: Ht 175.3 cm; Wt 100.0 kg
[~2023-11-09 00:20] MED LIST changes: +CHLO25CA10 PO; -LORA-269 PO; -POTA-207 PO; +PROC-8 PO
[2023-11-09] MEDS ORDERED: iohexol 300mg/ml 100ml inj. ONE (00:52)
[2023-11-09] MEDS: acetaminophen 1,000mg/100ml IV 100 ML IV ONE (01:26)
[2023-11-09] MEDS: metoclopramide 5 mg/ml inj IV ONE (01:26)
[2023-11-09] MEDS: normal saline 1000ml 1,000 ML IV ONE (01:27)
[2023-11-09 01:45] LABS: BASOPHILS # (AUTO) 0.1 X10'3 (0-0.2); EOSINOPHILS # (AUTO) 0.1 X10'3 (0-0.9); LYMPHOCYTES # (AUTO) 1.2 X10'3 (1.1-4.8); MONOCYTES # (AUTO) 0.3 X10'3 (0-0.9); NEUTROPHILS # (AUTO) 1.5 X10'3 (1.8-7.7); WHITE BLOOD COUNT 3.3 X10'3 (4.5-11.0)
[2023-11-09 01:47] LABS: BASOPHILS % (AUTO) 1.9 % (0-1); EOSINOPHILS % (AUTO) 2.6 % (0-6); HEMATOCRIT 33.7 % (35.0-45.0); HEMOGLOBIN 11.2 g/dl (12.0-16.0); LYMPHOCYTES % (AUTO) 38.2 % (21-51); MEAN CORPUSCULAR HEMOGLOBIN 30.7 PG (27.0-31.0); MEAN CORPUSCULAR HGB CONC 33.1 g/dL (33.0-36.5); MEAN CORPUSCULAR VOLUME 92.7 FL (78-98); MEAN PLATELET VOLUME 6.7 FL (7.4-10.4); MONOCYTES % (AUTO) 10.7 % (2-12); NEUTROPHILS % (AUTO) 46.6 % (42-75); PLATELET COUNT 242 X10'3 (140-440); RED BLOOD COUNT 3.63 X10'6 (4.20-5.60); RED CELL DISTRIBUTION WIDTH 19.9 % (11.5-14.5)
[2023-11-09 01:50] LABS: ALBUMIN 3.4 G/DL (3.4-5.0); ANION GAP 11 (8-16); BLOOD UREA NITROGEN 17 MG/DL (7-18); BUN/CREATININE RATIO 18.1 (10.0-20.0); CHLORIDE 103 MMOL/L (99-107); CREATININE 0.94 MG/DL (0.40-0.90); GLUCOSE 97 MG/DL (70-104); POTASSIUM 3.5 MMOL/L (3.5-5.1); SODIUM 140 MMOL/L (135-145); TOTAL CARBON DIOXIDE 26.2 MMOL/L (24-32); eCRCL 74 ML/MIN; eGFR 63 ML/MIN
[2023-11-09 01:51] LABS: ETHANOL 317 MG/DL (<10)
[2023-11-09 02:30] VITALS: BP 107/66; PULSE 77; RESP 16; TEMP 97.9; O2SAT 96
[2023-11-09 03:28] LABS: TOTAL CELLS COUNTED 100
[2023-11-09 03:29] LABS: ANISOCYTOSIS 2+; PLATELET ESTIMATE NORMAL
== END 2023-11-09 02:34 | disposition home or self-care (01) ==
LOC: ER 00:21
DX: R51.9 Headache, unspecified (principal); M54.9 Dorsalgia, unspecified; M54.2 Cervicalgia; F10.129 Alcohol abuse with intoxication, unspecified; Y93.89 Activity, other specified; Y92.89 Other specified places as the place of occurrence of the external cause; Y99.8 Other external cause status; Y90.9 Presence of alcohol in blood, level not specified
CPT/HCPCS: 36415; 70450; 71260; 72125; 72128; 74177; 80048; 80320; 85007; 85025; 93005; 96374; 96375; 99285; J0131; J2765; J3490; J7030; Q9967

== ENCOUNTER 2023-11-13 12:42 | Emergency (ER) | payer MEDICARE, MEDICAID ==
[~2023-11-13] VITALS: Ht 176.5 cm; Wt 78.0 kg
[2023-11-13] MEDS ORDERED: LORazepam 2 mg/ml vial IV ONE (14:10)
[2023-11-13] MEDS ORDERED: morphine 2 MG/ML inj. syringe IV ONE (14:15)
[2023-11-13 15:09] LABS: BASOPHILS % (AUTO) 0.4 % (0-1); EOSINOPHILS # (AUTO) 0.1 X10'3 (0-0.9); EOSINOPHILS % (AUTO) 2.5 % (0-6); HEMATOCRIT 36.9 % (35.0-45.0); HEMOGLOBIN 12.2 g/dl (12.0-16.0); LYMPHOCYTES # (AUTO) 1.4 X10'3 (1.1-4.8); LYMPHOCYTES % (AUTO) 41.5 % (21-51); MEAN CORPUSCULAR HEMOGLOBIN 30.3 PG (27.0-31.0); MEAN CORPUSCULAR HGB CONC 33.1 g/dL (33.0-36.5); MEAN CORPUSCULAR VOLUME 91.5 FL (78-98); MEAN PLATELET VOLUME 6.8 FL (7.4-10.4); MONOCYTES # (AUTO) 0.2 X10'3 (0-0.9); MONOCYTES % (AUTO) 5.4 % (2-12); NEUTROPHILS # (AUTO) 1.7 X10'3 (1.8-7.7); NEUTROPHILS % (AUTO) 50.2 % (42-75); PLATELET COUNT 234 X10'3 (140-440); RED BLOOD COUNT 4.03 X10'6 (4.20-5.60); RED CELL DISTRIBUTION WIDTH 19.6 % (11.5-14.5); WHITE BLOOD COUNT 3.4 X10'3 (4.5-11.0)
[2023-11-13 15:30] LABS: ALANINE AMINOTRANSFERASE 25 U/L (12-78); ALBUMIN 3.5 G/DL (3.4-5.0); ALBUMIN/GLOBULIN RATIO 0.8 (1.1-1.5); ALKALINE PHOSPHATASE 105 IU/L (46-116); ANION GAP 17 (8-16); ASPARTATE AMINO TRANSFERASE 41 U/L (10-37); BILIRUBIN,TOTAL 0.6 MG/DL (0.1-1.0); BLOOD UREA NITROGEN 12 MG/DL (7-18); BUN/CREATININE RATIO 14.1 (10.0-20.0); CALCIUM 8.1 MG/DL (8.5-10.1); CHLORIDE 102 MMOL/L (99-107); CREATININE 0.85 MG/DL (0.40-0.90); GLUCOSE 92 MG/DL (70-104); SODIUM 141 MMOL/L (135-145); TOTAL CARBON DIOXIDE 21.8 MMOL/L (24-32); TOTAL PROTEIN 7.9 G/DL (6.4-8.2); eCRCL 83 ML/MIN; eGFR 71 ML/MIN
[2023-11-13 15:38] LABS: BILIRUBIN,DIRECT 0.4 MG/DL (0-0.3); LIPASE 51 U/L (16-77); MAGNESIUM 2.1 MG/DL (1.5-2.4); PRO BRAIN NATRIURETIC PEPTIDE 47 PG/ML (0-125)
[2023-11-13 15:44] LABS: ETHANOL 428 MG/DL (<10)
[2023-11-13 15:59] VITALS: BP 116/66; PULSE 89; RESP 16; TEMP 98.5; O2SAT 95
[2023-11-13] MEDS: normal saline 1000ml 1,000 ML IV ONE (16:20)
[2023-11-13 17:23] LABS: OCCULT BLOOD STOOL POSITIVE (Neg)
== END 2023-11-13 18:38 | disposition home or self-care (01) ==
LOC: ER 12:42
DX: F10.129 Alcohol abuse with intoxication, unspecified (principal); Y90.9 Presence of alcohol in blood, level not specified; K21.9 Gastro-esophageal reflux disease without esophagitis; F31.9 Bipolar disorder, unspecified; F41.9 Anxiety disorder, unspecified; I10 Essential (primary) hypertension; Z88.8 Allergy status to other drugs, medicaments and biological substances; Z88.1 Allergy status to other antibiotic agents
CPT/HCPCS: 36415; 71045; 80048; 80076; 80320; 82140; 82272; 83690; 83735; 83880; 84484; 85025; 93005; 96360; 99285; J7030

== ENCOUNTER 2023-11-16 19:02 | Emergency (ER) | payer MEDICARE, MEDICAID ==
[~2023-11-16] VITALS: Ht 175.3 cm; Wt 100.0 kg
[2023-11-16 19:12] VITALS: TEMP 98
[2023-11-17 04:11] VITALS: BP 124/84; PULSE 103; RESP 20; O2SAT 97
== END 2023-11-17 05:16 | disposition home or self-care (01) ==
LOC: ER 19:05
DX: F10.920 Alcohol use, unspecified with intoxication, uncomplicated (principal); K21.9 Gastro-esophageal reflux disease without esophagitis; I11.0 Hypertensive heart disease with heart failure; E11.9 Type 2 diabetes mellitus without complications; F31.9 Bipolar disorder, unspecified; Z90.49 Acquired absence of other specified parts of digestive tract; Z88.8 Allergy status to other drugs, medicaments and biological substances; Z88.1 Allergy status to other antibiotic agents; Z79.899 Other long term (current) drug therapy; Y90.9 Presence of alcohol in blood, level not specified
CPT/HCPCS: 99283; 99284

== ENCOUNTER 2023-12-14 17:58 | Emergency (ER) | payer MEDICARE, MEDICAID ==
[~2023-12-14] VITALS: Ht 175.3 cm; Wt 108.0 kg
[2023-12-14 18:54] LABS: BASOPHILS % (AUTO) 0.7 % (0-1); EOSINOPHILS # (AUTO) 0.1 X10'3 (0-0.9); EOSINOPHILS % (AUTO) 2.6 % (0-6); HEMATOCRIT 33.6 % (35.0-45.0); LYMPHOCYTES # (AUTO) 1.4 X10'3 (1.1-4.8); LYMPHOCYTES % (AUTO) 44.6 % (21-51); MEAN CORPUSCULAR HEMOGLOBIN 29.4 PG (27.0-31.0); MEAN CORPUSCULAR HGB CONC 32.6 g/dL (33.0-36.5); MEAN PLATELET VOLUME 7.2 FL (7.4-10.4); MONOCYTES # (AUTO) 0.4 X10'3 (0-0.9); MONOCYTES % (AUTO) 12.5 % (2-12); NEUTROPHILS # (AUTO) 1.2 X10'3 (1.8-7.7); NEUTROPHILS % (AUTO) 39.6 % (42-75); PLATELET COUNT 192 X10'3 (140-440); RED BLOOD COUNT 3.74 X10'6 (4.20-5.60); RED CELL DISTRIBUTION WIDTH 19.6 % (11.5-14.5)
[2023-12-14 19:19] LABS: ALBUMIN 3.4 G/DL (3.4-5.0); ANION GAP 12 (8-16); BLOOD UREA NITROGEN 16 MG/DL (7-18); BUN/CREATININE RATIO 18.4 (10.0-20.0); CALCIUM 8.9 MG/DL (8.5-10.1); CHLORIDE 107 MMOL/L (99-107); CREATININE 0.87 MG/DL (0.40-0.90); GLUCOSE 113 MG/DL (70-104); POTASSIUM 3.8 MMOL/L (3.5-5.1); SODIUM 141 MMOL/L (135-145); THYROID STIMULATING HORMONE 1.56 ulU/ml (0.34-4.50); TOTAL CARBON DIOXIDE 21.8 MMOL/L (24-32); eCRCL 80 ML/MIN; eGFR 69 ML/MIN
[2023-12-14 19:27] LABS: ETHANOL 435 MG/DL (<10)
[2023-12-14 21:24] LABS: TOTAL CELLS COUNTED 100
[2023-12-14 21:25] LABS: ANISOCYTOSIS 2+; PLATELET ESTIMATE NORMAL
[2023-12-14] MEDS: normal saline 1000ml 1,000 ML IV ONE (22:48)
[2023-12-14] MEDS ORDERED: LORA-269 PO (23:00)
[2023-12-14] MEDS ORDERED: ASPI-1265 PO (23:00)
[2023-12-14 23:21] LABS: LIPASE 60 U/L (16-77)
[2023-12-15 00:50] LABS: URINE HCG NEGATIVE (NEG)
[2023-12-15 00:55] LABS: BILIRUBIN,URINE NEGATIVE (Neg); CLARITY,URINE CLEAR (Clear); COLOR,URINE YELLOW (Yellow); GLUCOSE, URINE NEGATIVE (Neg); KETONES,URINE NEGATIVE (Neg); LEUKOCYTE ESTERASE ,URINE NEGATIVE (Neg); NITRITES, URINE NEGATIVE (Neg); OCCULT BLOOD,URINE NEGATIVE (Neg); PH,URINE 5.5 (4.8-8.0); PROTEIN,URINE NEGATIVE (Neg); UROBILINOGEN,URINE 0.2 E.U/dL (0.2-1.0)
[2023-12-15 01:04] LABS: URINE AMPHETAMINE SCREEN NEGATIVE (Neg); URINE BARBITUATE SCREEN NEGATIVE (Neg); URINE BENZODIAZEPINES SCREEN NEGATIVE (Neg); URINE CANNABINOID SCREEN NEGATIVE (Neg); URINE COCAINE SCREEN NEGATIVE (Neg); URINE METHADONE SCREEN NEGATIVE (Neg); URINE OPIATE SCREEN NEGATIVE (Neg); URINE PHENCYCLIDINE SCREEN NEGATIVE (Neg)
[2023-12-15 01:14] LABS: UA COLLECTION TYPE CLN CATCH MIDSTREAM
[2023-12-15] MEDS: LORazepam 1 MG tablet PO ONE ×2 (05:40→09:13)
[2023-12-15] MEDS: buPROPion SR 150mg tablet PO SCH (08:17)
[2023-12-15] MEDS: pantoprazole 40mg Tablet.DR PO SCH (08:18)
[2023-12-15] MEDS: thiamine 100mg tablet PO SCH (08:18)
[2023-12-15] MEDS: ESCITALOPRAM 10 mg tablet 10 MG TABLET PO SCH (08:18)
[2023-12-15] MEDS: proMETHazine 25mg tablet PO ONE (12:45)
[2023-12-15] MEDS: LORazepam 1 MG tablet PO PRN (15:53)
[2023-12-15 17:53] VITALS: BP 161/86; PULSE 96; RESP 16; TEMP 98.9; O2SAT 99
[2023-12-15] MEDS: acetaminophen 325mg tablet PO ONE (18:23)
[2023-12-16] MEDS: chlordiazePOXIDE 25mg capsule PO ONE (03:38)
== END 2023-12-16 09:38 | disposition home or self-care (01) ==
LOC: ER 17:58
DX: R45.851 Suicidal ideations (principal); R10.9 Unspecified abdominal pain; Z20.822 Contact with and (suspected) exposure to COVID-19; I10 Essential (primary) hypertension; E11.9 Type 2 diabetes mellitus without complications; K21.9 Gastro-esophageal reflux disease without esophagitis; Z85.3 Personal history of malignant neoplasm of breast; F41.9 Anxiety disorder, unspecified; F32.9 Major depressive disorder, single episode, unspecified; Z88.8 Allergy status to other drugs, medicaments and biological substances; Z91.018 Allergy to other foods
CPT/HCPCS: 36415; 74176; 80048; 80305; 80320; 81003; 81025; 83690; 84443; 85007; 85025; 87811; 96360; 96361; 99285; J7030; Q0169; 99284

== ENCOUNTER 2023-12-21 18:02 | Emergency (ER) | payer MEDICARE, MEDICAID ==
[~2023-12-21] VITALS: Ht 175.3 cm; Wt 99.0 kg
[~2023-12-21 18:02] MED LIST changes: -AMPH30CA3 PO; -CHLO25CA10 PO; -FOLI1TAB27 PO; -HYDR-3686 PO; -NALT50TA PO; -NIFE-34 PO; -PRAZ2CAP2 PO; -PROC-8 PO
[2023-12-21 18:25] VITALS: BP 123/86; PULSE 84; RESP 17; TEMP 98.2; O2SAT 97
== END 2023-12-21 20:02 | disposition left against medical advice (07) ==
LOC: ER 18:02
DX: R45.851 Suicidal ideations (principal); Z53.21 Procedure and treatment not carried out due to patient leaving prior to being seen by health care provider
CPT/HCPCS: 99281

== ENCOUNTER 2024-02-15 16:14 | Inpatient (IN) | payer MEDICARE, MEDICAID ==
[~2024-02-15] VITALS: Ht 177.8 cm; Wt 100.0 kg
[2024-02-15] MEDS: ondansetron/PF 4mg/2ml inj IV ONE (17:40)
[2024-02-15 17:48] LABS: URINE HCG NEGATIVE (NEG)
[2024-02-15 18:02] LABS: BILIRUBIN,URINE NEGATIVE (Neg); CLARITY,URINE CLEAR (Clear); COLOR,URINE YELLOW (Yellow); GLUCOSE, URINE NEGATIVE (Neg); KETONES,URINE NEGATIVE (Neg); LEUKOCYTE ESTERASE ,URINE NEGATIVE (Neg); NITRITES, URINE NEGATIVE (Neg); OCCULT BLOOD,URINE NEGATIVE (Neg); PH,URINE 5.5 (4.8-8.0); PROTEIN,URINE NEGATIVE (Neg); UROBILINOGEN,URINE 0.2 E.U/dL (0.2-1.0)
[2024-02-15 18:04] LABS: BASOPHILS # (AUTO) 0.1 X10'3 (0-0.2); EOSINOPHILS # (AUTO) 0.1 X10'3 (0-0.9); EOSINOPHILS % (AUTO) 2.7 % (0-6); HEMATOCRIT 33.4 % (35.0-45.0); HEMOGLOBIN 10.6 g/dl (12.0-16.0); LYMPHOCYTES # (AUTO) 1.1 X10'3 (1.1-4.8); MEAN CORPUSCULAR HEMOGLOBIN 30.1 PG (27.0-31.0); MEAN CORPUSCULAR HGB CONC 31.7 g/dL (33.0-36.5); MEAN CORPUSCULAR VOLUME 94.9 FL (78-98); MEAN PLATELET VOLUME 8.2 FL (7.4-10.4); MONOCYTES # (AUTO) 0.7 X10'3 (0-0.9); MONOCYTES % (AUTO) 19.4 % (2-12); NEUTROPHILS # (AUTO) 1.5 X10'3 (1.8-7.7); NEUTROPHILS % (AUTO) 43.9 % (42-75); PLATELET COUNT 192 X10'3 (140-440); RED BLOOD COUNT 3.52 X10'6 (4.20-5.60); RED CELL DISTRIBUTION WIDTH 22.8 % (11.5-14.5); WHITE BLOOD COUNT 3.5 X10'3 (4.5-11.0)
[2024-02-15 18:05] LABS: UA COLLECTION TYPE VOIDED
[2024-02-15 18:05] LABS: URINE AMPHETAMINE SCREEN NEGATIVE (Neg); URINE BARBITUATE SCREEN NEGATIVE (Neg); URINE BENZODIAZEPINES SCREEN NEGATIVE (Neg); URINE CANNABINOID SCREEN NEGATIVE (Neg); URINE COCAINE SCREEN NEGATIVE (Neg); URINE METHADONE SCREEN NEGATIVE (Neg); URINE PHENCYCLIDINE SCREEN NEGATIVE (Neg)
[2024-02-15 18:10] LABS: ALBUMIN 3.2 G/DL (3.4-5.0); ANION GAP 12 (8-16); BLOOD UREA NITROGEN 8 MG/DL (7-18); BUN/CREATININE RATIO 8.8 (10.0-20.0); CHLORIDE 103 MMOL/L (99-107); CREATININE 0.91 MG/DL (0.40-0.90); GLUCOSE 100 MG/DL (70-104); POTASSIUM 4.1 MMOL/L (3.5-5.1); SODIUM 135 MMOL/L (135-145); THYROID STIMULATING HORMONE 2.36 ulU/ml (0.34-4.50); TOTAL CARBON DIOXIDE 19.9 MMOL/L (24-32); eCRCL 79 ML/MIN; eGFR 65 ML/MIN
[2024-02-15 18:12] LABS: ETHANOL 326 MG/DL (<10)
[2024-02-15] MEDS: chlordiazePOXIDE 25mg capsule PO ONE (19:00)
[2024-02-15] MEDS: normal saline 1000ml 1,000 ML IV ONE (19:01)
[2024-02-15] MEDS: diphenhydrAMINE 50 mg/ml inj IV ONE (19:51)
[2024-02-15] MEDS: proCHLORperazine 10 MG/2 ml inj IV ONE (19:51)
[2024-02-15] MEDS: phenobarbital inj 130 MG in normal saline 100ml IV soln 99 ML IV SCH (19:52)
[2024-02-15] MEDS ORDERED: phenobarbital inj 130 MG in normal saline 100ml IV soln 99 ML IV SCH (20:00)
[2024-02-15] MEDS ORDERED: diltiazem 5mg/ml 5ml inj. IV ONE (20:10)
[2024-02-15] MEDS ORDERED: phenobarbital sod 130mg/ml inj. IV ONE (20:10)
[2024-02-15 20:37] LABS: TOTAL CELLS COUNTED 100
[2024-02-15 20:38] LABS: ANISOCYTOSIS 3+; PLATELET ESTIMATE NORMAL; POLYCHROMASIA FEW; SMUDGE CELLS 1+
[2024-02-15] MEDS: normal saline 1000ml 1,000 ML IVB ONE (20:46)
[2024-02-15] MEDS: diltiazem 5mg/ml 5ml inj. IV ONE (20:56)
[2024-02-15 21:39] LABS: ALANINE AMINOTRANSFERASE 112 U/L (12-78); ALBUMIN/GLOBULIN RATIO 0.7 (1.1-1.5); ALKALINE PHOSPHATASE 143 IU/L (46-116); ASPARTATE AMINO TRANSFERASE 247 U/L (10-37); BILIRUBIN,DIRECT 0.6 MG/DL (0-0.3); BILIRUBIN,TOTAL 0.5 MG/DL (0.1-1.0); LIPASE 147 U/L (16-77); TOTAL PROTEIN 7.8 G/DL (6.4-8.2)
[2024-02-16] VITALS (14 sets, daily range): BP systolic 110–143; BP diastolic 73–109; PULSE 112–161; RESP 15–24; TEMP 97.6–99.1; O2SAT 94–99
[2024-02-16] MEDS: metoprolol tartrate 25mg tablet PO ONE (00:26)
[2024-02-16] MEDS: ringers solution, lacted 1,000 ML IV SCH (00:27)
[2024-02-16] MEDS ORDERED: magnesium hydroxide 30ml (MOM) UD suspension PO PRN (01:50)
[2024-02-16] MEDS ORDERED: morphine 2 MG/ML inj. syringe IV PRN (01:50)
[2024-02-16] MEDS ORDERED: magnesium Cl slow-release 64mg tablet PO PRN (01:50)
[2024-02-16] MEDS ORDERED: potassium Cl 20 mEq SR tablet PO PRN (01:50)
[2024-02-16] MEDS ORDERED: mag hydrox/Alum hydrox/simeth 30ml oral suspension PO PRN (01:50)
[2024-02-16] MEDS ORDERED: potassium Cl 40MEQ/1/2NS 520ml 520 ML IV PRN (01:50)
[2024-02-16] MEDS ORDERED: ondansetron/PF 4mg/2ml inj IV PRN (01:50)
[2024-02-16] MEDS ORDERED: haloperidol lactate 5mg/ml inj IM PRN (01:50)
[2024-02-16] MEDS ORDERED: magnesium 4gm in 100ml NS 100 ML IV PRN (01:50)
[2024-02-16] MEDS ORDERED: HYDROcodone/acetaminophen 5mg/325mg tablet PO PRN (01:50)
[2024-02-16] MEDS ORDERED: acetaminophen 325mg tablet PO PRN (01:50)
[2024-02-16] MEDS ORDERED: dextrose 50%-water 50ml dispensing syringe IV PRN (01:50)
[2024-02-16] MEDS ORDERED: magnesium 2GM in 50ml NS 50 ML IV PRN (01:50)
[2024-02-16] MEDS: diltiazem-NS 100mg/100ml 100 ML IV SCH (02:11)
[2024-02-16] MEDS: diltiazem 5mg/ml 5ml inj. IV ONE (02:11)
[2024-02-16] MEDS: normal saline 1000ml 1,000 ML IV SCH (04:17)
[2024-02-16] MEDS: diazepam inj 5 MG/ML inj. IV PRN ×2 (04:43→11:19)
[2024-02-16 07:58] LABS: APTT 27 SECONDS (22-32); INR 1.1 INR; PROTHROMBIN TIME 11.2 SECONDS (9.0-12.0)
[2024-02-16] MEDS: K and/or MAG REPLACEMENT MC SCH (08:00)
[2024-02-16] MEDS ORDERED: heparin, porcine 5000 units/ml vial SQ SCH (08:00)
[2024-02-16] MEDS: ringers solution, lacted 1,000 ML IV ONE (08:31)
[2024-02-16 08:35] LABS: FREE T4 (FREE THYROXINE) 0.89 NG/DL (0.73-1.40); MAGNESIUM 1.7 MG/DL (1.5-2.4); PHOSPHORUS 3.7 MG/DL (2.3-4.5); THYROID STIMULATING HORMONE 2.34 ulU/ml (0.34-4.50)
[2024-02-16] MEDS: metoprolol tartrate 50mg tablet PO SCH (08:35)
[2024-02-16] MEDS: buPROPion SR 150mg tablet PO SCH (08:35)
[2024-02-16] MEDS: ESCITALOPRAM 10 mg tablet 10 MG TABLET PO SCH (08:35)
[2024-02-16] MEDS: thiamine 100mg/ml 2ml inj. IV SCH (08:36)
[2024-02-16] MEDS: chlordiazePOXIDE 25mg capsule PO SCH (08:36)
[2024-02-16] MEDS: pantoprazole 40mg Tablet.DR PO SCH (08:36)
[2024-02-16] MEDS: morphine 2 MG/ML inj. syringe IV PRN (08:37)
[2024-02-16] MEDS: folic acid 1mg/0.2ml inj IV SCH (11:19)
[2024-02-16] MEDS: HYDROcodone/acetaminophen 10/325mg tab PO PRN (11:20)
[2024-02-16] MEDS ORDERED: aminophylline 250mg/10ml inj. IV PRN (11:55)
[2024-02-16] MEDS ORDERED: nitroGLYCERIN 0.4mg SUBLingual tab SL PRN (11:55)
[2024-02-16] MEDS ORDERED: metoprolol tartrate 1mg/ml inj IV PRN (11:55)
[2024-02-16] MEDS: digoxin 250mcg/ml 2ml ampule IV ONE (12:53)
[2024-02-16] MEDS: proCHLORperazine 10 MG/2 ml inj IV PRN (15:34)
[2024-02-17] VITALS (20 sets, daily range): BP systolic 113–149; BP diastolic 77–102; PULSE 95–143; RESP 14–24; TEMP 97.3–99; O2SAT 92–99
[2024-02-17] MEDS: heparin, porcine 5000 units/ml vial SQ SCH (00:49)
[2024-02-17 06:56] LABS: BASOPHILS % (AUTO) 1.3 % (0-1); EOSINOPHILS # (AUTO) 0.1 X10'3 (0-0.9); EOSINOPHILS % (AUTO) 2.5 % (0-6); HEMOGLOBIN 9.6 g/dl (12.0-16.0); LYMPHOCYTES # (AUTO) 0.5 X10'3 (1.1-4.8); LYMPHOCYTES % (AUTO) 15.6 % (21-51); MEAN CORPUSCULAR HEMOGLOBIN 31.1 PG (27.0-31.0); MEAN CORPUSCULAR VOLUME 94.3 FL (78-98); MEAN PLATELET VOLUME 8.6 FL (7.4-10.4); MONOCYTES # (AUTO) 0.3 X10'3 (0-0.9); MONOCYTES % (AUTO) 9.5 % (2-12); NEUTROPHILS # (AUTO) 2.3 X10'3 (1.8-7.7); NEUTROPHILS % (AUTO) 71.1 % (42-75); PLATELET COUNT 131 X10'3 (140-440); RED BLOOD COUNT 3.08 X10'6 (4.20-5.60); RED CELL DISTRIBUTION WIDTH 22.2 % (11.5-14.5); WHITE BLOOD COUNT 3.3 X10'3 (4.5-11.0)
[2024-02-17 07:18] LABS: ALANINE AMINOTRANSFERASE 122 U/L (12-78); ALBUMIN 2.8 G/DL (3.4-5.0); ALBUMIN/GLOBULIN RATIO 0.7 (1.1-1.5); ALKALINE PHOSPHATASE 161 IU/L (46-116); ANION GAP 8 (8-16); ASPARTATE AMINO TRANSFERASE 265 U/L (10-37); BILIRUBIN,TOTAL 1.8 MG/DL (0.1-1.0); BLOOD UREA NITROGEN 5 MG/DL (7-18); BUN/CREATININE RATIO 6.3 (10.0-20.0); CALCIUM 7.7 MG/DL (8.5-10.1); CHLORIDE 104 MMOL/L (99-107); CHOL/HDL RATIO 4.6 (0.00-4.99); CHOLESTEROL 264 MG/DL (0-200); GLUCOSE 90 MG/DL (70-104); HDL CHOLESTEROL 57 MG/DL (35-60); LDL CHOLESTEROL 150 MG/DL (50-100); LIPASE 48 U/L (16-77); POTASSIUM 3.2 MMOL/L (3.5-5.1); SODIUM 136 MMOL/L (135-145); TOTAL CARBON DIOXIDE 24.1 MMOL/L (24-32); TOTAL PROTEIN 7.1 G/DL (6.4-8.2); TRIGLYCERIDES 68 MG/DL (20-135); eCRCL 90 ML/MIN; eGFR 76 ML/MIN
[2024-02-17] MEDS: regadenoson 0.4mg/5ml syringe IV PRN (09:37)
[2024-02-17] MEDS: chlordiazePOXIDE 25mg capsule PO SCH (10:37)
[2024-02-17] MEDS: diltiazem SR 60mg capsule (twice daily) PO ONE (12:00)
[2024-02-17] MEDS: digoxin 250mcg (0.25mg) tablet PO ONE (14:53)
[2024-02-17] MEDS: diltiazem SR 60mg capsule (twice daily) PO SCH (19:36)
[2024-02-17] MEDS: potassium Cl 20 mEq SR tablet PO PRN (19:37)
[2024-02-18 05:01] VITALS: RESP 16
[2024-02-18] MEDS: diazepam 5mg tablet PO PRN (05:01)
[2024-02-18] MEDS: digoxin 250mcg (0.25mg) tablet PO SCH (07:48)
[2024-02-18 07:59] LABS: % IRON SATURATION 10 % (11-46); IRON 36 UG/DL (49-151); TOTAL IRON BINDING CAPACITY 369 UG/DL (259-388)
[2024-02-18 08:00] VITALS: PULSE 94
[2024-02-18 08:00] LABS: ALANINE AMINOTRANSFERASE 112 U/L (12-78); ALBUMIN 3.3 G/DL (3.4-5.0); ALBUMIN/GLOBULIN RATIO 0.7 (1.1-1.5); ALKALINE PHOSPHATASE 182 IU/L (46-116); ANION GAP 13 (8-16); ASPARTATE AMINO TRANSFERASE 174 U/L (10-37); BILIRUBIN,TOTAL 1.9 MG/DL (0.1-1.0); BLOOD UREA NITROGEN 5 MG/DL (7-18); BUN/CREATININE RATIO 6.1 (10.0-20.0); CALCIUM 8.6 MG/DL (8.5-10.1); CHLORIDE 99 MMOL/L (99-107); CREATININE 0.82 MG/DL (0.40-0.90); FERRITIN 69 NG/ML (8-252); GLUCOSE 108 MG/DL (70-104); LIPASE 59 U/L (16-77); POTASSIUM 3.4 MMOL/L (3.5-5.1); SODIUM 133 MMOL/L (135-145); TOTAL CARBON DIOXIDE 21.3 MMOL/L (24-32); TOTAL PROTEIN 8.3 G/DL (6.4-8.2); eCRCL 88 ML/MIN; eGFR 73 ML/MIN
[2024-02-18 08:50] LABS: BASOPHILS % (AUTO) 0.4 % (0-1); EOSINOPHILS # (AUTO) 0.1 X10'3 (0-0.9); EOSINOPHILS % (AUTO) 1.2 % (0-6); HEMATOCRIT 32.1 % (35.0-45.0); HEMOGLOBIN 10.3 g/dl (12.0-16.0); LYMPHOCYTES # (AUTO) 0.5 X10'3 (1.1-4.8); LYMPHOCYTES % (AUTO) 9.2 % (21-51); MEAN CORPUSCULAR HEMOGLOBIN 30.8 PG (27.0-31.0); MEAN PLATELET VOLUME 8.7 FL (7.4-10.4); MONOCYTES # (AUTO) 0.7 X10'3 (0-0.9); MONOCYTES % (AUTO) 13.3 % (2-12); NEUTROPHILS # (AUTO) 3.9 X10'3 (1.8-7.7); NEUTROPHILS % (AUTO) 75.9 % (42-75); PLATELET COUNT 158 X10'3 (140-440); RED BLOOD COUNT 3.34 X10'6 (4.20-5.60); RED CELL DISTRIBUTION WIDTH 22.2 % (11.5-14.5); WHITE BLOOD COUNT 5.2 X10'3 (4.5-11.0)
[2024-02-18 09:25] LABS: ANISOCYTOSIS 3+; PLATELET ESTIMATE NORMAL
[2024-02-18 09:26] LABS: STOMATOCYTES FEW
[2024-02-18] MEDS ORDERED: METO50TA16 PO (13:18)
[2024-02-18] MEDS ORDERED: CARSR60C PO (13:18)
[2024-02-18] MEDS ORDERED: APIX5TAB3 PO (13:18)
[2024-02-18] MEDS ORDERED: DIGO250T4 PO (13:18)
[2024-02-19 12:26] LABS: TRANSFERRIN 304 mg/dL (192-364)
[2024-02-20] MEDS ORDERED: thiamine 100mg tablet PO SCH (08:00)
[2024-02-20] MEDS ORDERED: folic acid 1mg tablet PO SCH (08:00)
== END 2024-02-18 14:10 | disposition home or self-care (01) | DRG 308 ==
LOC: ER 16:15 → ED HOLD 02-16 01:53 → PCU 3S 02-16 07:38
PROVIDERS: ADMIT Internal Medicine Critical Care Medicine; ATTEND Internal Medicine
PROC: 4A02XM4 Measurement of Cardiac Total Activity, External Approach (ICD-10-PCS; principal; 2024-02-17)
PROC: 3E033HZ Introduction of Radioactive Substance into Peripheral Vein, Percutaneous Approach (ICD-10-PCS; 2024-02-17)
DX: I48.91 Unspecified atrial fibrillation (principal); K85.90 Acute pancreatitis without necrosis or infection, unspecified; F10.239 Alcohol dependence with withdrawal, unspecified; R45.851 Suicidal ideations; I10 Essential (primary) hypertension; K21.9 Gastro-esophageal reflux disease without esophagitis; Z20.822 Contact with and (suspected) exposure to COVID-19; F41.9 Anxiety disorder, unspecified; K76.0 Fatty (change of) liver, not elsewhere classified; K70.9 Alcoholic liver disease, unspecified; E11.9 Type 2 diabetes mellitus without complications; F31.9 Bipolar disorder, unspecified; F10.229 Alcohol dependence with intoxication, unspecified; F43.10 Post-traumatic stress disorder, unspecified; E87.6 Hypokalemia; D69.6 Thrombocytopenia, unspecified; F15.90 Other stimulant use, unspecified, uncomplicated; R74.01 Elevation of levels of liver transaminase levels; D64.9 Anemia, unspecified; N28.89 Other specified disorders of kidney and ureter; Z88.8 Allergy status to other drugs, medicaments and biological substances; Z90.13 Acquired absence of bilateral breasts and nipples; Z88.1 Allergy status to other antibiotic agents; Z88.5 Allergy status to narcotic agent; Z85.3 Personal history of malignant neoplasm of breast; Z90.710 Acquired absence of both cervix and uterus; Z90.49 Acquired absence of other specified parts of digestive tract; Z98.84 Bariatric surgery status; Z80.3 Family history of malignant neoplasm of breast; Z80.0 Family history of malignant neoplasm of digestive organs; Z87.11 Personal history of peptic ulcer disease; Z98.51 Tubal ligation status
CPT/HCPCS: 36415; 74176; 78452; 80048; 80053; 80061; 80076; 80305; 80320; 81003; 81025; 82607; 82728; 82948; 83540; 83550; 83605; 83690; 83735; 84100; 84439; 84443; 84466; 85007; 85008; 85025; 85610; 85730; 87081; 87811; 93005; 93017; 93306; 99285; A9500; C1751; G0378; J0780; J1160; J1200; J1644; J2270; J2405; J2560; J2785; J3360; J3411; J3490; J7030; J7120

== ENCOUNTER 2024-02-29 07:50 | Emergency (ER) | payer MEDICARE, MEDICAID ==
[~2024-02-29] VITALS: Ht 175.3 cm; Wt 109.1 kg
[~2024-02-29 07:50] MED LIST changes: +APIX5TAB3 PO; +CARSR60C PO; +DIGO250T4 PO; +METO50TA16 PO
[2024-02-29 07:57] VITALS: TEMP 98.8
[2024-02-29 08:27] LABS: BASOPHILS # (AUTO) 0.2 X10'3 (0-0.2); BILIRUBIN,URINE NEGATIVE (Neg); CLARITY,URINE CLEAR (Clear); COLOR,URINE YELLOW (Yellow); EOSINOPHILS # (AUTO) 0.1 X10'3 (0-0.9); GLUCOSE, URINE NEGATIVE (Neg); KETONES,URINE NEGATIVE (Neg); LEUKOCYTE ESTERASE ,URINE NEGATIVE (Neg); MEAN PLATELET VOLUME 7.2 FL (7.4-10.4); MONOCYTES # (AUTO) 1.1 X10'3 (0-0.9); NITRITES, URINE NEGATIVE (Neg); OCCULT BLOOD,URINE TRACE-INTACT (Neg); PH,URINE 5.5 (4.8-8.0); PROTEIN,URINE NEGATIVE (Neg); UROBILINOGEN,URINE 0.2 E.U/dL (0.2-1.0)
[2024-02-29 08:28] LABS: BASOPHILS % (AUTO) 4.3 % (0-1); EOSINOPHILS % (AUTO) 2.1 % (0-6); HEMATOCRIT 35.1 % (35.0-45.0); HEMOGLOBIN 11.2 g/dl (12.0-16.0); LYMPHOCYTES # (AUTO) 1.2 X10'3 (1.1-4.8); LYMPHOCYTES % (AUTO) 23.4 % (21-51); MEAN CORPUSCULAR HEMOGLOBIN 29.7 PG (27.0-31.0); MEAN CORPUSCULAR HGB CONC 31.8 g/dL (33.0-36.5); MEAN CORPUSCULAR VOLUME 93.6 FL (78-98); MONOCYTES % (AUTO) 21.4 % (2-12); NEUTROPHILS # (AUTO) 2.5 X10'3 (1.8-7.7); NEUTROPHILS % (AUTO) 48.8 % (42-75); PLATELET COUNT 571 X10'3 (140-440); RED BLOOD COUNT 3.75 X10'6 (4.20-5.60); RED CELL DISTRIBUTION WIDTH 21.6 % (11.5-14.5); WHITE BLOOD COUNT 5.1 X10'3 (4.5-11.0)
[2024-02-29 08:32] LABS: URINE HCG NEGATIVE (NEG)
[2024-02-29 08:33] LABS: UA COLLECTION TYPE OTHER
[2024-02-29 08:34] LABS: SQUAMOUS EPITHELIAL CELL,UR MANY /LPF (FEW)
[2024-02-29 08:35] LABS: BACTERIA,URINE NONE SEEN /HPF (Neg); RBC,URINE 0-2 /HPF (0-2); WBC,URINE 0-4 /HPF (0-4)
[2024-02-29 08:42] LABS: ALANINE AMINOTRANSFERASE 161 U/L (12-78); ALBUMIN/GLOBULIN RATIO 0.6 (1.1-1.5); ALKALINE PHOSPHATASE 183 IU/L (46-116); ANION GAP 14 (8-16); ASPARTATE AMINO TRANSFERASE 398 U/L (10-37); BILIRUBIN,TOTAL 0.4 MG/DL (0.1-1.0); BLOOD UREA NITROGEN 8 MG/DL (7-18); BUN/CREATININE RATIO 9.3 (10.0-20.0); CALCIUM 8.9 MG/DL (8.5-10.1); CHLORIDE 104 MMOL/L (99-107); CREATININE 0.86 MG/DL (0.40-0.90); GLUCOSE 77 MG/DL (70-104); LIPASE 84 U/L (16-77); POTASSIUM 4.3 MMOL/L (3.5-5.1); SODIUM 138 MMOL/L (135-145); TOTAL CARBON DIOXIDE 20.5 MMOL/L (24-32); TOTAL PROTEIN 8.4 G/DL (6.4-8.2); eCRCL 81 ML/MIN; eGFR 70 ML/MIN
[2024-02-29] MEDS: normal saline 1000ML IV soln IVB ONE (08:44)
[2024-02-29] MEDS: diphenhydrAMINE 50 mg/ml inj IV ONE (08:45)
[2024-02-29] MEDS: ketorolac tromethamine 15mg/ml inj. IV ONE (08:45)
[2024-02-29] MEDS: metoclopramide 5 mg/ml inj IV ONE (08:45)
[2024-02-29 08:54] LABS: ANISOCYTOSIS 3+; PLATELET ESTIMATE INCREASED; TOTAL CELLS COUNTED 100
[2024-02-29 08:55] LABS: STOMATOCYTES FEW
[2024-02-29 10:06] VITALS: BP 118/74; PULSE 88; RESP 20; O2SAT 95
== END 2024-02-29 11:09 | disposition home or self-care (01) ==
LOC: ER 07:51
DX: S09.8XXA Other specified injuries of head, initial encounter (principal); I48.91 Unspecified atrial fibrillation; I10 Essential (primary) hypertension; K21.9 Gastro-esophageal reflux disease without esophagitis; E11.9 Type 2 diabetes mellitus without complications; F41.9 Anxiety disorder, unspecified; F32.A Depression, unspecified; Z90.49 Acquired absence of other specified parts of digestive tract; Z98.51 Tubal ligation status; F10.90 Alcohol use, unspecified, uncomplicated; F15.90 Other stimulant use, unspecified, uncomplicated; Z56.0 Unemployment, unspecified; Z88.1 Allergy status to other antibiotic agents; Z88.8 Allergy status to other drugs, medicaments and biological substances; Z91.018 Allergy to other foods; Z79.899 Other long term (current) drug therapy; W18.30XA Fall on same level, unspecified, initial encounter; Y93.89 Activity, other specified; Y92.89 Other specified places as the place of occurrence of the external cause; Y99.8 Other external cause status
CPT/HCPCS: 36415; 70450; 80053; 81001; 81025; 83690; 85007; 85025; 96361; 96374; 96375; 99285; J1200; J1885; J2765; J7030

== ENCOUNTER 2024-03-12 12:17 | Emergency (ER) | payer MEDICARE, MEDICAID ==
[~2024-03-12] VITALS: Ht 175.3 cm; Wt 113.6 kg
[2024-03-12 13:45] LABS: URINE HCG NEGATIVE (NEG)
[2024-03-12 13:47] LABS: BILIRUBIN,URINE NEGATIVE (Neg); CLARITY,URINE CLEAR (Clear); COLOR,URINE YELLOW (Yellow); GLUCOSE, URINE NEGATIVE (Neg); KETONES,URINE NEGATIVE (Neg); LEUKOCYTE ESTERASE ,URINE NEGATIVE (Neg); NITRITES, URINE NEGATIVE (Neg); OCCULT BLOOD,URINE NEGATIVE (Neg); PH,URINE 5.5 (4.8-8.0); PROTEIN,URINE NEGATIVE (Neg); UROBILINOGEN,URINE 0.2 E.U/dL (0.2-1.0)
[2024-03-12 13:52] LABS: UA COLLECTION TYPE CLN CATCH MIDSTREAM
[2024-03-12 13:58] LABS: URINE AMPHETAMINE SCREEN NEGATIVE (Neg); URINE BARBITUATE SCREEN NEGATIVE (Neg); URINE BENZODIAZEPINES SCREEN POSITIVE (Neg); URINE CANNABINOID SCREEN NEGATIVE (Neg); URINE COCAINE SCREEN NEGATIVE (Neg); URINE METHADONE SCREEN NEGATIVE (Neg); URINE OPIATE SCREEN NEGATIVE (Neg); URINE PHENCYCLIDINE SCREEN NEGATIVE (Neg)
[2024-03-12 14:06] LABS: EOSINOPHILS # (AUTO) 0.2 X10'3 (0-0.9); MEAN PLATELET VOLUME 7.8 FL (7.4-10.4); MONOCYTES # (AUTO) 0.5 X10'3 (0-0.9); WHITE BLOOD COUNT 4.2 X10'3 (4.5-11.0)
[2024-03-12 14:08] LABS: BASOPHILS % (AUTO) 1.2 % (0-1); EOSINOPHILS % (AUTO) 4.1 % (0-6); HEMOGLOBIN 10.1 g/dl (12.0-16.0); LYMPHOCYTES # (AUTO) 1.5 X10'3 (1.1-4.8); LYMPHOCYTES % (AUTO) 36.7 % (21-51); MEAN CORPUSCULAR HEMOGLOBIN 30.5 PG (27.0-31.0); MEAN CORPUSCULAR HGB CONC 32.5 g/dL (33.0-36.5); MEAN CORPUSCULAR VOLUME 93.9 FL (78-98); MONOCYTES % (AUTO) 12.6 % (2-12); NEUTROPHILS # (AUTO) 1.9 X10'3 (1.8-7.7); NEUTROPHILS % (AUTO) 45.4 % (42-75); PLATELET COUNT 292 X10'3 (140-440); RED CELL DISTRIBUTION WIDTH 21.3 % (11.5-14.5)
[2024-03-12 14:30] LABS: ALBUMIN 3.2 G/DL (3.4-5.0); ANION GAP 14 (8-16); BLOOD UREA NITROGEN 10 MG/DL (7-18); BUN/CREATININE RATIO 12.7 (10.0-20.0); CALCIUM 8.8 MG/DL (8.5-10.1); CHLORIDE 106 MMOL/L (99-107); CREATININE 0.79 MG/DL (0.40-0.90); GLUCOSE 92 MG/DL (70-104); POTASSIUM 4.1 MMOL/L (3.5-5.1); SODIUM 140 MMOL/L (135-145); THYROID STIMULATING HORMONE 0.66 ulU/ml (0.34-4.50); TOTAL CARBON DIOXIDE 20.3 MMOL/L (24-32); eCRCL 88 ML/MIN; eGFR 77 ML/MIN
[2024-03-12 14:39] LABS: ETHANOL 323 MG/DL (<10)
[2024-03-12 14:52] LABS: ANISOCYTOSIS 3+; PLATELET ESTIMATE NORMAL; TEAR DROP CELLS FEW
[2024-03-12] MEDS ORDERED: LORA2TAB96 PO (15:50)
[2024-03-12] MEDS ORDERED: NIFE10CA2 PO (15:55)
[2024-03-12] MEDS ORDERED: MULT-25 PO (15:58)
[2024-03-12] MEDS: mag hydrox/Alum hydrox/simeth 30ml oral suspension PO ONE (19:19)
[2024-03-12] MEDS: LIDOcaine 2% Viscous 15ml cup MM ONE (19:19)
[2024-03-12] MEDS: LORazepam 1 MG tablet PO PRN (19:26)
[2024-03-12] MEDS: DARIDOREXANT HCL PO SCH (21:00)
[2024-03-13 05:36] VITALS: BP 142/96; PULSE 90; RESP 13; TEMP 98.1; O2SAT 97
[2024-03-13] MEDS ORDERED: thiamine 100mg tablet PO SCH (08:00)
[2024-03-13] MEDS ORDERED: multivitamins, therapeutics tablet PO SCH (08:00)
[2024-03-13] MEDS ORDERED: pantoprazole 40mg Tablet.DR PO SCH (08:00)
[2024-03-13] MEDS ORDERED: ESCITALOPRAM 10 mg tablet 10 MG TABLET PO SCH (08:00)
[2024-03-13] MEDS ORDERED: cholecalciferol (vitamin D3) 1,000 unit (25mcg) tablet PO SCH (08:00)
[2024-03-13] MEDS ORDERED: buPROPion SR 150mg tablet PO SCH (08:00)
== END 2024-03-13 07:58 | disposition home or self-care (01) ==
LOC: ER 12:17
DX: F10.129 Alcohol abuse with intoxication, unspecified (principal); R45.851 Suicidal ideations; Z20.822 Contact with and (suspected) exposure to COVID-19; I48.91 Unspecified atrial fibrillation; I10 Essential (primary) hypertension; K21.9 Gastro-esophageal reflux disease without esophagitis; E11.9 Type 2 diabetes mellitus without complications; F41.9 Anxiety disorder, unspecified; F32.A Depression, unspecified; F15.90 Other stimulant use, unspecified, uncomplicated; Z90.49 Acquired absence of other specified parts of digestive tract; Z95.1 Presence of aortocoronary bypass graft; Z98.51 Tubal ligation status; Z85.41 Personal history of malignant neoplasm of cervix uteri; Z98.890 Other specified postprocedural states; Z56.0 Unemployment, unspecified; Z88.1 Allergy status to other antibiotic agents; Z88.8 Allergy status to other drugs, medicaments and biological substances; Z91.018 Allergy to other foods; Z79.899 Other long term (current) drug therapy; Y90.8 Blood alcohol level of 240 mg/100 ml or more
CPT/HCPCS: 36415; 80048; 80305; 81003; 81025; 84443; 85008; 85025; 87811; 99284; G0480; 80320

== ENCOUNTER 2024-04-14 13:27 | Emergency (ER) | payer MEDICARE, MEDICAID ==
[~2024-04-14] VITALS: Ht 177.8 cm; Wt 109.1 kg
[~2024-04-14 13:27] MED LIST changes: -APIX5TAB3 PO; -CARSR60C PO; -DIGO250T4 PO; +LORA2TAB96 PO; -METO50TA16 PO; +NIFE10CA2 PO
[2024-04-14 14:57] LABS: BASOPHILS # (AUTO) 0.1 X10'3 (0-0.2); EOSINOPHILS # (AUTO) 0.1 X10'3 (0-0.9); HEMOGLOBIN 10.5 g/dl (12.0-16.0); MEAN PLATELET VOLUME 8.1 FL (7.4-10.4); MONOCYTES # (AUTO) 0.5 X10'3 (0-0.9); PLATELET COUNT 304 X10'3 (140-440)
[2024-04-14 14:58] LABS: BASOPHILS % (AUTO) 1.5 % (0-1); EOSINOPHILS % (AUTO) 1.3 % (0-6); HEMATOCRIT 32.1 % (35.0-45.0); LYMPHOCYTES # (AUTO) 1.7 X10'3 (1.1-4.8); LYMPHOCYTES % (AUTO) 28.6 % (21-51); MEAN CORPUSCULAR HEMOGLOBIN 28.9 PG (27.0-31.0); MEAN CORPUSCULAR HGB CONC 32.6 g/dL (33.0-36.5); MEAN CORPUSCULAR VOLUME 88.7 FL (78-98); MONOCYTES % (AUTO) 8.6 % (2-12); NEUTROPHILS # (AUTO) 3.5 X10'3 (1.8-7.7); RED BLOOD COUNT 3.62 X10'6 (4.20-5.60); RED CELL DISTRIBUTION WIDTH 17.5 % (11.5-14.5); WHITE BLOOD COUNT 5.8 X10'3 (4.5-11.0)
[2024-04-14 15:08] LABS: ALANINE AMINOTRANSFERASE 66 U/L (12-78); ALBUMIN 3.9 G/DL (3.4-5.0); ALKALINE PHOSPHATASE 111 IU/L (46-116); ANION GAP 12 (8-16); ASPARTATE AMINO TRANSFERASE 67 U/L (10-37); BILIRUBIN,TOTAL 0.6 MG/DL (0.1-1.0); BLOOD UREA NITROGEN 12 MG/DL (7-18); BUN/CREATININE RATIO 12.8 (10.0-20.0); CHLORIDE 103 MMOL/L (99-107); CREATININE 0.94 MG/DL (0.40-0.90); GLUCOSE 85 MG/DL (70-104); POTASSIUM 4.2 MMOL/L (3.5-5.1); SODIUM 135 MMOL/L (135-145); TOTAL CARBON DIOXIDE 20.1 MMOL/L (24-32); eCRCL 77 ML/MIN; eGFR 63 ML/MIN
[2024-04-14 15:17] LABS: SALICYLATE 2.8 MG/DL (4.0-20.0); THYROID STIMULATING HORMONE 1.21 ulU/ml (0.34-4.50)
[2024-04-14 15:19] LABS: ETHANOL 355 MG/DL (<10)
[2024-04-14 15:20] LABS: ACETAMINOPHEN < 2.0 UG/ML (10-30)
[2024-04-14 16:48] LABS: BILIRUBIN,URINE NEGATIVE (Neg); CLARITY,URINE CLEAR (Clear); GLUCOSE, URINE NEGATIVE (Neg); KETONES,URINE NEGATIVE (Neg); LEUKOCYTE ESTERASE ,URINE NEGATIVE (Neg); NITRITES, URINE NEGATIVE (Neg); OCCULT BLOOD,URINE NEGATIVE (Neg); PH,URINE 5.5 (4.8-8.0); PROTEIN,URINE NEGATIVE (Neg); UROBILINOGEN,URINE 0.2 E.U/dL (0.2-1.0)
[2024-04-14 16:51] LABS: COLOR,URINE STRAW (Yellow); UA COLLECTION TYPE CLN CATCH MIDSTREAM
[2024-04-14 16:52] LABS: URINE AMPHETAMINE SCREEN NEGATIVE (Neg); URINE BARBITUATE SCREEN NEGATIVE (Neg); URINE BENZODIAZEPINES SCREEN NEGATIVE (Neg); URINE CANNABINOID SCREEN NEGATIVE (Neg); URINE COCAINE SCREEN NEGATIVE (Neg); URINE METHADONE SCREEN NEGATIVE (Neg); URINE OPIATE SCREEN NEGATIVE (Neg); URINE PHENCYCLIDINE SCREEN NEGATIVE (Neg)
[2024-04-14 20:07] VITALS: BP 140/98; PULSE 89; RESP 16; TEMP 98.3; O2SAT 98
== END 2024-04-14 20:10 | disposition still patient (30) ==
LOC: ER 13:28
DX: F10.129 Alcohol abuse with intoxication, unspecified (principal); R45.851 Suicidal ideations; F32.A Depression, unspecified; I48.91 Unspecified atrial fibrillation; I10 Essential (primary) hypertension; K21.9 Gastro-esophageal reflux disease without esophagitis; E11.9 Type 2 diabetes mellitus without complications; F41.9 Anxiety disorder, unspecified; F15.90 Other stimulant use, unspecified, uncomplicated; Z90.49 Acquired absence of other specified parts of digestive tract; Z98.890 Other specified postprocedural states; Z88.8 Allergy status to other drugs, medicaments and biological substances; Z88.1 Allergy status to other antibiotic agents; Z79.899 Other long term (current) drug therapy; Z98.51 Tubal ligation status; Z85.3 Personal history of malignant neoplasm of breast; Z56.0 Unemployment, unspecified; Z20.822 Contact with and (suspected) exposure to COVID-19
CPT/HCPCS: 36415; 80053; 80305; 80329; 81003; 84443; 85025; 87811; 99285; G0480; 80320

== ENCOUNTER 2024-04-19 09:25 | Emergency (ER) | payer MEDICARE, MEDICAID ==
[~2024-04-19] VITALS: Ht 177.8 cm; Wt 98.5 kg
[2024-04-19] MEDS ORDERED: BUSP10TA3 (09:57)
[2024-04-19 10:36] LABS: BASOPHILS # (AUTO) 0.1 X10'3 (0-0.2); BASOPHILS % (AUTO) 0.8 % (0-1); EOSINOPHILS # (AUTO) 0.1 X10'3 (0-0.9); HEMATOCRIT 34.1 % (35.0-45.0); HEMOGLOBIN 11.1 g/dl (12.0-16.0); LYMPHOCYTES # (AUTO) 1.8 X10'3 (1.1-4.8); MEAN CORPUSCULAR HEMOGLOBIN 29.1 PG (27.0-31.0); MEAN CORPUSCULAR HGB CONC 32.6 g/dL (33.0-36.5); MEAN CORPUSCULAR VOLUME 89.2 FL (78-98); MEAN PLATELET VOLUME 7.3 FL (7.4-10.4); MONOCYTES # (AUTO) 0.6 X10'3 (0-0.9); MONOCYTES % (AUTO) 8.7 % (2-12); NEUTROPHILS # (AUTO) 4.4 X10'3 (1.8-7.7); NEUTROPHILS % (AUTO) 62.5 % (42-75); PLATELET COUNT 300 X10'3 (140-440); RED BLOOD COUNT 3.83 X10'6 (4.20-5.60)
[2024-04-19 10:52] LABS: ALBUMIN 3.9 G/DL (3.4-5.0); ANION GAP 15 (8-16); BLOOD UREA NITROGEN 13 MG/DL (7-18); BUN/CREATININE RATIO 13.1 (10.0-20.0); CALCIUM 8.9 MG/DL (8.5-10.1); CHLORIDE 103 MMOL/L (99-107); CREATININE 0.99 MG/DL (0.40-0.90); GLUCOSE 97 MG/DL (70-104); POTASSIUM 4.2 MMOL/L (3.5-5.1); SALICYLATE 3.5 MG/DL (4.0-20.0); SODIUM 140 MMOL/L (135-145); THYROID STIMULATING HORMONE 1.04 ulU/ml (0.34-4.50); TOTAL CARBON DIOXIDE 22.4 MMOL/L (24-32); eCRCL 73 ML/MIN; eGFR 59 ML/MIN
[2024-04-19 10:57] LABS: ACETAMINOPHEN < 2.0 UG/ML (10-30); ETHANOL 402 MG/DL (<10)
[2024-04-19 11:33] LABS: URINE HCG NEGATIVE (NEG)
[2024-04-19] MEDS: normal saline 1000ml 1,000 ML IV ONE ×2 (11:35→12:07)
[2024-04-19 11:40] LABS: BILIRUBIN,URINE NEGATIVE (Neg); CLARITY,URINE CLEAR (Clear); COLOR,URINE STRAW (Yellow); GLUCOSE, URINE NEGATIVE (Neg); KETONES,URINE NEGATIVE (Neg); LEUKOCYTE ESTERASE ,URINE NEGATIVE (Neg); NITRITES, URINE NEGATIVE (Neg); OCCULT BLOOD,URINE NEGATIVE (Neg); PROTEIN,URINE NEGATIVE (Neg); UROBILINOGEN,URINE 0.2 E.U/dL (0.2-1.0)
[2024-04-19 11:53] LABS: URINE AMPHETAMINE SCREEN NEGATIVE (Neg); URINE BARBITUATE SCREEN NEGATIVE (Neg); URINE BENZODIAZEPINES SCREEN NEGATIVE (Neg); URINE CANNABINOID SCREEN NEGATIVE (Neg); URINE COCAINE SCREEN NEGATIVE (Neg); URINE METHADONE SCREEN NEGATIVE (Neg); URINE OPIATE SCREEN NEGATIVE (Neg); URINE PHENCYCLIDINE SCREEN NEGATIVE (Neg)
[2024-04-19 12:01] LABS: UA COLLECTION TYPE NON-SPECIFIED
[2024-04-19] MEDS ORDERED: BUPR-561 PO (13:34)
[2024-04-19] MEDS ORDERED: NIFE-72 PO (13:42)
[2024-04-19 16:34] VITALS: BP 165/105; PULSE 97; RESP 16; TEMP 98.1; O2SAT 95
[2024-04-20] MEDS ORDERED: multivitamins, therapeutics tablet PO SCH (08:00)
[2024-04-20] MEDS ORDERED: cholecalciferol (vitamin D3) 1,000 unit (25mcg) tablet PO SCH (08:00)
[2024-04-20] MEDS ORDERED: BUPROPION HCL 150MG XL 24 HR 150 MG TAB PO SCH (08:00)
[2024-04-20] MEDS ORDERED: thiamine 100mg tablet PO SCH (08:00)
[2024-04-20] MEDS ORDERED: pantoprazole 40mg Tablet.DR PO SCH (08:00)
[2024-04-20] MEDS ORDERED: ESCITALOPRAM 10 mg tablet 10 MG TABLET PO SCH (08:00)
[2024-04-20] MEDS ORDERED: NIFEdipine XL 30mg tablet PO SCH (08:00)
== END 2024-04-19 16:36 | disposition home or self-care (01) ==
LOC: ER 09:26
DX: F10.129 Alcohol abuse with intoxication, unspecified (principal); Z20.822 Contact with and (suspected) exposure to COVID-19; R45.851 Suicidal ideations; I48.91 Unspecified atrial fibrillation; I10 Essential (primary) hypertension; K21.9 Gastro-esophageal reflux disease without esophagitis; E11.9 Type 2 diabetes mellitus without complications; F41.9 Anxiety disorder, unspecified; F31.9 Bipolar disorder, unspecified; F15.90 Other stimulant use, unspecified, uncomplicated; Z88.8 Allergy status to other drugs, medicaments and biological substances; Z88.1 Allergy status to other antibiotic agents; Z88.5 Allergy status to narcotic agent; Z91.018 Allergy to other foods; Z79.899 Other long term (current) drug therapy; Z98.890 Other specified postprocedural states; Z90.49 Acquired absence of other specified parts of digestive tract; Z98.51 Tubal ligation status; Y90.9 Presence of alcohol in blood, level not specified
CPT/HCPCS: 36415; 71046; 76770; 80048; 80305; 80329; 81003; 81025; 84443; 85025; 87811; 96360; 99284; G0480; J7030; 80320

== ENCOUNTER 2024-08-16 22:45 | Emergency (ER) | payer MEDICARE, MEDICAID ==
[~2024-08-16] VITALS: Ht 177.8 cm; Wt 96.0 kg
[~2024-08-16 22:45] MED LIST changes: +APIX5TAB3 PO; +ATEN50TA41 PO; +BUPR-561 PO; -BUPR150T8 PO; +BUSP10TA11 PO; -DARI25TA PO; +FERR324T3 PO; +FOLI1TAB27 PO; +GABA-535 PO; -LORA2TAB96 PO; +NIFE-72 PO; -NIFE10CA2 PO; +QUET-1 PO; +VITC500T PO
[2024-08-16] MEDS: thiamine 100mg tablet PO ONE (23:43)
[2024-08-16 23:54] LABS: BASOPHILS % (AUTO) 0.7 % (0-1); EOSINOPHILS # (AUTO) 0.1 X10'3 (0-0.9); EOSINOPHILS % (AUTO) 2.7 % (0-6); HEMATOCRIT 30.3 % (35.0-45.0); HEMOGLOBIN 10.2 g/dl (12.0-16.0); LYMPHOCYTES # (AUTO) 1.5 X10'3 (1.1-4.8); LYMPHOCYTES % (AUTO) 28.7 % (21-51); MEAN CORPUSCULAR HEMOGLOBIN 31.9 PG (27.0-31.0); MEAN CORPUSCULAR HGB CONC 33.6 g/dL (33.0-36.5); MEAN CORPUSCULAR VOLUME 94.8 FL (78-98); MEAN PLATELET VOLUME 7.4 FL (7.4-10.4); MONOCYTES # (AUTO) 0.6 X10'3 (0-0.9); MONOCYTES % (AUTO) 11.3 % (2-12); NEUTROPHILS % (AUTO) 56.6 % (42-75); PLATELET COUNT 139 X10'3 (140-440); RED CELL DISTRIBUTION WIDTH 18.5 % (11.5-14.5); WHITE BLOOD COUNT 5.2 X10'3 (4.5-11.0)
[2024-08-16] MEDS: normal saline 1000ml 1,000 ML IV ONE (23:54)
[2024-08-17 00:09] LABS: ALANINE AMINOTRANSFERASE 36 U/L (12-78); ALBUMIN 3.3 G/DL (3.4-5.0); ALBUMIN/GLOBULIN RATIO 0.8 (1.1-1.5); ALKALINE PHOSPHATASE 136 IU/L (46-116); ANION GAP 11 (8-16); ASPARTATE AMINO TRANSFERASE 80 U/L (10-37); BILIRUBIN,TOTAL 0.4 MG/DL (0.1-1.0); BLOOD UREA NITROGEN 19 MG/DL (7-18); BUN/CREATININE RATIO 14.1 (10.0-20.0); CHLORIDE 98 MMOL/L (99-107); CREATININE 1.35 MG/DL (0.40-0.90); GLUCOSE 97 MG/DL (70-104); SODIUM 133 MMOL/L (135-145); TOTAL CARBON DIOXIDE 23.9 MMOL/L (24-32); TOTAL PROTEIN 7.4 G/DL (6.4-8.2); eCRCL 53 ML/MIN; eGFR 41 ML/MIN
[2024-08-17 00:29] LABS: ETHANOL 489 MG/DL (<10)
[2024-08-17] MEDS: normal saline 1000ML IV soln IVB ONE (01:58)
[2024-08-17] MEDS: normal saline 1000ml 1,000 ML IV ONE (04:32)
[2024-08-17] MEDS: potassium Cl 20 mEq SR tablet PO STA (05:18)
[2024-08-17 07:44] VITALS: BP 90/58; PULSE 77; RESP 16; TEMP 97.7; O2SAT 99
== END 2024-08-17 07:46 | disposition home or self-care (01) ==
LOC: ER 22:46
DX: F10.129 Alcohol abuse with intoxication, unspecified (principal); I48.91 Unspecified atrial fibrillation; I10 Essential (primary) hypertension; E11.9 Type 2 diabetes mellitus without complications; K21.9 Gastro-esophageal reflux disease without esophagitis; F15.90 Other stimulant use, unspecified, uncomplicated; F41.9 Anxiety disorder, unspecified; F32.A Depression, unspecified; Z90.49 Acquired absence of other specified parts of digestive tract; Z90.89 Acquired absence of other organs; Z98.51 Tubal ligation status; Z85.3 Personal history of malignant neoplasm of breast; Z88.1 Allergy status to other antibiotic agents; Z88.5 Allergy status to narcotic agent; Z88.8 Allergy status to other drugs, medicaments and biological substances; Z79.899 Other long term (current) drug therapy; Z56.0 Unemployment, unspecified
CPT/HCPCS: 36415; 80053; 85025; 96360; 96361; 99285; G0480; J7030; 80320

== ENCOUNTER 2025-01-07 20:04 | Emergency (ER) | payer MEDICARE, MEDICAID ==
[~2025-01-07] VITALS: Ht 180.3 cm; Wt 102.3 kg
[~2025-01-07 20:04] MED LIST changes: -BUPR-561 PO; +BUPR-726 PO
[2025-01-07 21:04] LABS: BASOPHILS # (AUTO) 0.1 X10'3 (0-0.2); BASOPHILS % (AUTO) 1.3 % (0-1); EOSINOPHILS # (AUTO) 0.1 X10'3 (0-0.9); EOSINOPHILS % (AUTO) 1.7 % (0-6); HEMATOCRIT 25.4 % (35.0-45.0); HEMOGLOBIN 7.9 g/dl (12.0-16.0); LYMPHOCYTES # (AUTO) 1.5 X10'3 (1.1-4.8); LYMPHOCYTES % (AUTO) 34.5 % (21-51); MEAN CORPUSCULAR HEMOGLOBIN 24.6 PG (27.0-31.0); MEAN CORPUSCULAR VOLUME 79.3 FL (78-98); MEAN PLATELET VOLUME 7.5 FL (7.4-10.4); MONOCYTES # (AUTO) 0.3 X10'3 (0-0.9); MONOCYTES % (AUTO) 6.8 % (2-12); NEUTROPHILS # (AUTO) 2.4 X10'3 (1.8-7.7); NEUTROPHILS % (AUTO) 55.7 % (42-75); PLATELET COUNT 174 X10'3 (140-440); RED CELL DISTRIBUTION WIDTH 20.2 % (11.5-14.5); WHITE BLOOD COUNT 4.3 X10'3 (4.5-11.0)
[2025-01-07 21:10] LABS: ALANINE AMINOTRANSFERASE 32 U/L (12-78); ALBUMIN 3.5 G/DL (3.4-5.0); ALBUMIN/GLOBULIN RATIO 0.8 (1.1-1.5); ALKALINE PHOSPHATASE 147 IU/L (46-116); ANION GAP 17 (8-16); ASPARTATE AMINO TRANSFERASE 52 U/L (10-37); BILIRUBIN,TOTAL 0.4 MG/DL (0.1-1.0); BLOOD UREA NITROGEN 9 MG/DL (7-18); BUN/CREATININE RATIO 10.2 (10.0-20.0); CALCIUM 8.8 MG/DL (8.5-10.1); CHLORIDE 103 MMOL/L (99-107); CREATININE 0.88 MG/DL (0.40-0.90); GLUCOSE 88 MG/DL (70-104); SODIUM 141 MMOL/L (135-145); TOTAL CARBON DIOXIDE 20.9 MMOL/L (24-32); TOTAL PROTEIN 7.9 G/DL (6.4-8.2); eCRCL 84 ML/MIN; eGFR 67 ML/MIN
[2025-01-07 21:18] LABS: LIPASE 41 U/L (16-77); MAGNESIUM 2.2 MG/DL (1.5-2.4); PRO BRAIN NATRIURETIC PEPTIDE 70 PG/ML (0-125)
[2025-01-07 21:36] LABS: PLATELET ESTIMATE NORMAL
[2025-01-07 21:39] LABS: LARGE PLATELETS FEW
[2025-01-07 21:40] LABS: ANISOCYTOSIS 2+
[2025-01-07 22:06] VITALS: TEMP 98.3
[2025-01-07] MEDS: normal saline 1000ml 1,000 ML IV ONE (22:41)
[2025-01-07] MEDS: acetaminophen 1,000mg/100ml IV 100 ML IV ONE (22:41)
[2025-01-08 00:11] VITALS: BP 108/63; PULSE 81; RESP 16; O2SAT 93
== END 2025-01-08 00:20 | disposition home or self-care (01) ==
LOC: ER 20:04
DX: D64.9 Anemia, unspecified (principal); K64.9 Unspecified hemorrhoids; K92.2 Gastrointestinal hemorrhage, unspecified; F10.20 Alcohol dependence, uncomplicated; E11.9 Type 2 diabetes mellitus without complications; F31.9 Bipolar disorder, unspecified; I10 Essential (primary) hypertension; I48.91 Unspecified atrial fibrillation; F41.9 Anxiety disorder, unspecified; Z85.3 Personal history of malignant neoplasm of breast; Z88.1 Allergy status to other antibiotic agents; Z88.5 Allergy status to narcotic agent; Z88.8 Allergy status to other drugs, medicaments and biological substances; Z90.49 Acquired absence of other specified parts of digestive tract; Z90.89 Acquired absence of other organs; Z98.51 Tubal ligation status; Z98.84 Bariatric surgery status; Y90.9 Presence of alcohol in blood, level not specified
CPT/HCPCS: 36415; 70360; 71045; 80053; 83690; 83735; 83880; 84484; 85025; 93005; 96365; 99285; J0131; J7030; 85008

== ENCOUNTER 2025-02-22 10:49 | Emergency (ER) | payer MEDICARE, MEDICAID ==
[~2025-02-22] VITALS: Ht 175.3 cm; Wt 77.3 kg
[2025-02-22 11:02] VITALS: TEMP 97.1
[2025-02-22 11:46] LABS: BASOPHILS # (AUTO) 0.1 X10'3 (0-0.2); BASOPHILS % (AUTO) 1.7 % (0-1); EOSINOPHILS # (AUTO) 0.2 X10'3 (0-0.9); EOSINOPHILS % (AUTO) 5.5 % (0-6); HEMATOCRIT 24.8 % (35.0-45.0); HEMOGLOBIN 7.4 g/dl (12.0-16.0); LYMPHOCYTES # (AUTO) 1.7 X10'3 (1.1-4.8); LYMPHOCYTES % (AUTO) 44.7 % (21-51); MEAN CORPUSCULAR HEMOGLOBIN 21.9 PG (27.0-31.0); MEAN CORPUSCULAR HGB CONC 29.8 g/dL (33.0-36.5); MEAN CORPUSCULAR VOLUME 73.4 FL (78-98); MEAN PLATELET VOLUME 7.6 FL (7.4-10.4); MONOCYTES # (AUTO) 0.3 X10'3 (0-0.9); MONOCYTES % (AUTO) 8.2 % (2-12); NEUTROPHILS # (AUTO) 1.5 X10'3 (1.8-7.7); NEUTROPHILS % (AUTO) 39.9 % (42-75); PLATELET COUNT 288 X10'3 (140-440); RED BLOOD COUNT 3.37 X10'6 (4.20-5.60); WHITE BLOOD COUNT 3.7 X10'3 (4.5-11.0)
[2025-02-22 11:49] LABS: BILIRUBIN,URINE NEGATIVE (Neg); CLARITY,URINE CLEAR (Clear); COLOR,URINE YELLOW (Yellow); GLUCOSE, URINE NEGATIVE (Neg); KETONES,URINE NEGATIVE (Neg); LEUKOCYTE ESTERASE ,URINE NEGATIVE (Neg); NITRITES, URINE NEGATIVE (Neg); OCCULT BLOOD,URINE TRACE-INTACT (Neg); PH,URINE 5.5 (4.8-8.0); PROTEIN,URINE NEGATIVE (Neg); UROBILINOGEN,URINE 0.2 E.U/dL (0.2-1.0)
[2025-02-22 11:51] LABS: URINE HCG NEGATIVE (NEG)
[2025-02-22 11:53] LABS: UA COLLECTION TYPE VOIDED
[2025-02-22 11:55] LABS: BACTERIA,URINE 1+ /HPF (Neg); RBC,URINE 0-2 /HPF (0-2); SQUAMOUS EPITHELIAL CELL,UR FEW /LPF (FEW); WBC,URINE 0-4 /HPF (0-4)
[2025-02-22 12:00] LABS: URINE AMPHETAMINE SCREEN NEGATIVE (Neg); URINE BARBITUATE SCREEN NEGATIVE (Neg); URINE BENZODIAZEPINES SCREEN NEGATIVE (Neg); URINE CANNABINOID SCREEN NEGATIVE (Neg); URINE COCAINE SCREEN NEGATIVE (Neg); URINE METHADONE SCREEN NEGATIVE (Neg); URINE OPIATE SCREEN NEGATIVE (Neg); URINE PHENCYCLIDINE SCREEN NEGATIVE (Neg)
[2025-02-22 12:06] LABS: ANISOCYTOSIS 2+; MICROCYTOSIS 1+; PLATELET ESTIMATE NORMAL
[2025-02-22 12:07] LABS: ELLIPTOCYTES FEW; HYPOCHROMASIA 1+; POLYCHROMASIA FEW; TEAR DROP CELLS FEW
[2025-02-22 12:09] LABS: ALBUMIN 3.6 G/DL (3.4-5.0); ANION GAP 13 (8-16); BLOOD UREA NITROGEN 10 MG/DL (7-18); BUN/CREATININE RATIO 12.3 (10.0-20.0); CALCIUM 8.7 MG/DL (8.5-10.1); CHLORIDE 108 MMOL/L (99-107); CREATININE 0.81 MG/DL (0.40-0.90); GLUCOSE 90 MG/DL (70-104); POTASSIUM 4.4 MMOL/L (3.5-5.1); SODIUM 144 MMOL/L (135-145); THYROID STIMULATING HORMONE 1.02 ulU/ml (0.34-4.50); TOTAL CARBON DIOXIDE 23.2 MMOL/L (24-32); eCRCL 85 ML/MIN; eGFR 74 ML/MIN
[2025-02-22 12:10] LABS: ETHANOL 319 MG/DL (<10)
--- NOTE | 2025-02-22 12:39 | Physician Documentation ---
History of Present Illness ~ Chief Complaint: Mental Health Eval Stated Complaint: MH Time Seen by MD: 12:38 OK to notify your PCP?: Yes Primary Medical Doctor: Wally Hawkins Source: patient, RN/, RN notes reviewed, old records Exam Limitations: no limitations HPI 54 year old female seen in bed 21 presents to the emergency department via EMS for complaints of a mental health evaluation. She states that she has been feeling suicidal because she has been off of her medications due to insurance issues for six months. She states she no longer has a doctor or a care team behind her. Patient states that she has been drinking IPAs. Patient denies any other associated symptoms at this time. Patient denies any other alleviating or exacerbating factors. Medication Reconciliation Allergies: Coded Allergies: zolpidem (Unverified Allergy, Severe, hives, 02/22/25) doxycycline (Verified Allergy, Mild, "BURNING", 02/22/25) mc pepper (Verified Allergy, Unknown, 02/22/25) BLISTERS IN MOUTH trazodone (Verified Allergy, Unknown, 02/22/25) codeine (Verified Adverse Reaction, Mild, 02/22/25) N/V ondansetron (Verified Adverse Reaction, Mild, Migraine, 02/22/25) Scheduled Apixaban (Eliquis), 5 MG PO BID Atenolol (Atenolol), 50 MG PO DAILY Bupropion HCl (Bupropion Xl), 3 TAB PO DAILY Buspirone Hcl* (Buspar*), 1 TAB PO BID, (Reported) Chlordiazepoxide HCl (Chlordiazepoxide HCl), 1 CAP PO DAILY Escitalopram Oxalate (Lexapro), 1 TAB PO DAILY Gabapentin (Gabapentin), 1 CAP PO TID Nifedipine (Nifedipine Er), 1 TAB PO DAILY Quetiapine Fumarate* (Seroquel*), 1 TAB PO HS Discontinued Medications Ascorbic Acid* (Vitamin C*), 1 TAB PO TIDWM, (Reported) Discontinued Reason: completed med therapy Cholecalciferol (Vitamin D3) (Vitamin D3), 5 TAB PO DAILY, (Reported) Discontinued Reason: completed med therapy Ferrous Gluconate (Ferrous Gluconate), 324 MG PO DAILY Discontinued Reason: completed med therapy Folic Acid* (Folic Acid*), 1 TAB PO DAILY, (Reported) Discontinued Reason: completed med therapy Multivitamin with Folic Acid (Thera Tablet), 1 TAB PO DAILY, (Reported) Discontinued Reason: completed med therapy Pantoprazole Sodium (PROTONIX tablet), 1 TAB PO DAILY, (Reported) Discontinued Reason: completed med therapy Thiamine HCl (Vitamin B-1), 2 TAB PO DAILY, (Reported) Discontinued Reason: completed med therapy Past Medical History Past Medical History: Seizures, Atrial Fibrillation, Hypertension, GERD, Pancreatitis, Peptic Ulcer Disease, Anemia, Diabetes, *INFECTIOUS DZ*, MRSA Abscess, Breast Cancer, Anxiety, Bipolar, Depression Past Surgical History: appendectomy, cholecystectomy, gastric bypass, tonsillectomy, tubal ligation, other Patient History: FH: breast cancer Aunt FH: colon cancer FH: dementia Aunt FH: depression FATHER FH: heart attack GRANDFATHER OR GRANDMOTHER, Name: Grandmother, , Age: 87 GRANDFATHER OR GRANDMOTHER, Name: Grandfather, , Age: 42 FH: heart disease MOTHER Aunt Alcohol Use: Abuse Drug Use: methamphetamine Lives In: Home Occupation: unemployed Review of Systems All Other Systems at this time: Reviewed and Negative ROS As stated above in the HPI, otherwise all systems are reviewed and negative. Physical Exam Vital Signs: RN Vital Signs have been reviewed: Yes, Temperature: 97.1, Heart Rate: 75, Respiratory Rate: 16, BP: 128/74, Pulse Oximetry: 95, Weight: 77.270 Oxygen Flow Rate: 0 Pulse Oximetry Reflects: adequate oxygenation Physical Exam General: The patient is well developed, well nourished, nontoxic appearing and is in no acute distress. Skin: [place], warm and dry with no rashes. HEENT: Head was normocephalic and atraumatic. Eyes - pupils equal, round, reactive to light and accommodation. Extraocular movements were intact. Conjunctivae were nonicteric. Ears - bilateral tympanic membranes were normal. The mouth and oropharynx were clear with moist mucous membranes. There were no pharyngeal exudates or erythema. Neck: Supple and nontender. There was no jugular venous distention, lymphadenopathy, thyromegaly or masses. Chest: Clear to auscultation bilaterally without wheezes, rales or rhonchi. No accessory muscle use. No dullness to percussion. Heart: Rate regular and rhythmic. S1, S2. No murmurs. Palpation of the chest wall was normal. No rubs or thrills. Abdomen: Soft, nontender and nondistended. Positive bowel sounds. No guarding or rebound. No hepatosplenomegaly or palpable masses. Extremities: No cyanosis, clubbing or edema. The patient moves all extremities. Pulses were equal and symmetric. Neurologic: Cranial nerves II-XII were intact. Sensation was intact to light touch throughout. Motor strength was 5/5 in all four extremities. Deep tendon reflexes were intact in both upper and lower extremities. Psychologic: The patient was oriented to person, place and time. The patient demonstrated appropriate judgement and insight. Progress Results/Orders Reviewed/noted all lab results: Yes Results/Orders Orders - PRABHJOT CHIN MD Med Rec (02/22/25 11:27) Close Observation Level (02/22/25 11:) Covid19 Binax Poc Result Entry (02/22/25 11:27) Substance Use Navigator (02/22/25 11:27) Completed Orders - PRABHJOT CHIN MD Cbc/Diff (02/22/25 11:) Hcg, Ur Ql (02/22/25 11:27) Drug Screen, Urine (02/22/25 11:27) Ethanol (02/22/25 11:27) TSH (02/22/25 11:27) BMP (02/22/25 11:27) Ua With Microscopic (02/22/25 11:06) Magnesium Oxide Tablet (Mag-Ox 400mg Tab (02/22/25 13:40) Folic Acid/Vitamin B Comp W-C (Nephro-Vi (02/22/25 13:40) Thiamine Tablet (Thiamine Tablet) (02/22/25 13:40) Folic Acid/Vitamin B Comp W-C (Nephro-Vi (02/22/25 13:40) Vital Signs 02/22/25 02/22/25 02/22/25 02/22/25 11:02 11:27 11:33 13:41 Temp 97.1 Pulse 83 75 95 Resp 16 16 16 B/P (MAP) 140/85 128/74 (92) 144/81 Pulse Ox 97 95 99 O2 Flow Rate 0 0 Laboratory Tests Test 02/22/25 11:06 02/22/25 11:13 02/22/25 11:39 Urine Specimen Description Voided Urine Color Yellow Urine Clarity Clear Urine pH 5.5 Urine Specific [place] 1.010 Urine Protein Negative Urine Glucose (UA) Negative Urine Ketones Negative Urine Occult Blood Trace-intact Urine Nitrite Negative Urine Bilirubin Negative Urine Urobilinogen 0.2 Urine Leukocyte Esterase Negative Urine RBC 0-2 Urine WBC 0-4 Urine Squamous Epithelial Cells Few Urine Bacteria 1+ Volume Urine Centrifuged 10 ml Urine HCG, Qualitative Negative Urine Comment Urine Opiates Screen Negative Urine Methadone Screen Negative Urine Fentanyl Screen Negative Urine Barbiturates Screen Negative Urine Phencyclidine Screen Negative Urine Amphetamines Screen Negative Urine Benzodiazepines Screen Negative Urine Cocaine Screen Negative Urine Cannabinoids Screen Negative Drug Screen Comment SARS-CoV-2 Antigen (Rapid) Negative White Blood Count 3.7 L Red Blood Count 3.37 L Hemoglobin 7.4 L Hematocrit 24.8 L Mean Corpuscular Volume 73.4 L Mean Corpuscular Hemoglobin 21.9 L Mean Corpuscular Hemoglobin Concent 29.8 L Red Cell Distribution Width 20.0 H Platelet Count 288 Mean Platelet Volume 7.6 Neutrophils (%) (Auto) 39.9 L Lymphocytes (%) (Auto) 44.7 Monocytes (%) (Auto) 8.2 Eosinophils (%) (Auto) 5.5 Basophils (%) (Auto) 1.7 H Neutrophils # (Auto) 1.5 L Lymphocytes # (Auto) 1.7 Monocytes # (Auto) 0.3 Eosinophils # (Auto) 0.2 Basophils # (Auto) 0.1 CBC Comment Platelet Estimate Normal Red Blood Cell Morphology Perf Polychromasia Few Hypochromasia 1+ Basophilic Stippling Anisocytosis 2+ Microcytosis 1+ Tear Drop Cells Few Elliptocytes Few Sodium Level 144 Potassium Level 4.4 Chloride Level 108 H Carbon Dioxide Level 23.2 L Anion Gap 13 Blood Urea Nitrogen 10 Creatinine 0.81 Estimated GFR/1.73 m2 74 BUN/Creatinine Ratio 12.3 Glucose Level 90 Calcium Level 8.7 Albumin 3.6 Thyroid Stimulating Hormone (TSH) 1.02 Chemistry Comments Ethyl Alcohol Level 319 H Re-Evaluation Re-Evaluation : Re-Evaluation: Improved Progress Patient was seen and examined. Patient is given reassurance. Patient was intoxicated also somewhat suicidal. Patient received fluids. Laboratory work was obtained. CBC WBC is 3.7. Hemoglobin hematocrit quite low at 7.4 and 24.8. Platelets 288. Chemistry did not show an elevated BUN. That has some mild acidosis with a CO2 of 23. Tox screen was positive for alcohol at 319. Urinalysis is within normal limits, COVID within normal limits. Patient received magnesium folic acid thiamine and after patient metabolize her alcohol feeling better was then discharged home. Patient has a safe disposition and a safety plan. Continuous vehicle monitor technician interpretation shows normal sinus rhythm heart rate 80s, no ectopy, normal, my interpretation. Pulse oximetry monitor interpretation shows normal oxygenation at 96% room air, normal, my interpretation. Medical Decision Making Additional info obtained from: old records Differential Dx:Considerations: Include: Alcohol abuse, Anxiety, Bipolar disorder, Conversion disorder, Depression, Encephaloathy, Panic disorder, Pers onality disorder, Schizophrenia, Substance abuse, Suicidal, Other Departure Disposition: HOME / SELF CARE / HOMELESS Impression: Primary Impression: Alcoholic intoxication Qualified Codes: F10.929 - Alcohol use, unspecified with intoxication, unspecified Additional Impression: Depression Qualified Codes: F32.A - Depression, unspecified Condition: Stable Discharge Instructions: Alcohol Intoxication, [id number] Referrals: NO PRIMARY CARE PROVIDER (PCP) Prescriptions Chlordiazepoxide HCl (Chlordiazepoxide HCl) 25 Mg Capsule 1 CAP PO DAILY for 10 Days, #30 CAP Prov: PRABHJOT CHIN MD 02/22/25 Quetiapine Fumarate* (Seroquel*) 100 Mg Tablet 1 TAB PO HS for 30 Days, #30 TAB Prov: PRABHJOT CHIN MD 02/22/25 Gabapentin (Gabapentin) 400 Mg Capsule 1 CAP PO TID for 30 Days, #120 CAP Prov: PRABHJOT CHIN MD 02/22/25 Nifedipine (Nifedipine Er) 30 Mg Tablet.sa 1 TAB PO DAILY for 30 Days, #30 TAB 0 Refills Prov: PRABHJOT CHIN MD 02/22/25 Bupropion HCl (Bupropion Xl) 150 Mg Tab.er.24h 3 TAB PO DAILY for 30 Days, #30 TAB 0 Refills Prov: PRABHJOT CHIN MD 02/22/25 Escitalopram Oxalate (Lexapro) 20 Mg Tablet 1 TAB PO DAILY for 30 Days, #30 TAB 0 Refills Prov: PRABHJOT CHIN MD 02/22/25 Education Educated: Patient Educated regarding: diagnosis, treatment, prognosis, need for follow up Signature Scribe Signature: Scribed for Parbhjot Chin MD by Norm Motta . 02/22/25 12:51 Attestation: The note accurately reflects work and decisions made by me.Prabhjot Chin MD 02/22/25 12:39 PRABHJOT CHIN MD Feb 22, 2025 12:39 NORM MELGAR Feb 22, 2025 12:51
[2025-02-22] MEDS ORDERED: CHLO25CA10 PO ×2 (13:24→13:45)
[2025-02-22] MEDS ORDERED: folic acid/vitamin B complex w/vitamin C 0.8mg tablet PO SCH (13:40)
[2025-02-22 13:41] VITALS: BP 144/81; PULSE 95; RESP 16; O2SAT 99
[2025-02-22] MEDS ORDERED: QUET-1 PO (13:45)
[2025-02-22] MEDS ORDERED: NIFE-72 PO (13:45)
[2025-02-22] MEDS ORDERED: GABA-535 PO (13:45)
[2025-02-22] MEDS ORDERED: BUPR-726 PO (13:45)
[2025-02-22] MEDS ORDERED: ESCI20TA PO (13:45)
[2025-02-22] MEDS: thiamine 100mg tablet PO ONE (13:59)
[2025-02-22] MEDS: folic acid/vitamin B complex w/vitamin C 0.8mg tablet PO ONE (13:59)
[2025-02-22] MEDS: magnesium oxide 400mg tablet PO ONE (13:59)
== END 2025-02-22 13:50 | disposition home or self-care (01) ==
LOC: ER 10:50
DX: F10.129 Alcohol abuse with intoxication, unspecified (principal); R45.851 Suicidal ideations; F31.9 Bipolar disorder, unspecified; E11.9 Type 2 diabetes mellitus without complications; I10 Essential (primary) hypertension; I48.91 Unspecified atrial fibrillation; F41.9 Anxiety disorder, unspecified; F15.90 Other stimulant use, unspecified, uncomplicated; Z85.3 Personal history of malignant neoplasm of breast; Z20.822 Contact with and (suspected) exposure to COVID-19; Z88.1 Allergy status to other antibiotic agents; Z88.5 Allergy status to narcotic agent; Z88.8 Allergy status to other drugs, medicaments and biological substances; Z90.49 Acquired absence of other specified parts of digestive tract; Z90.89 Acquired absence of other organs; Z98.51 Tubal ligation status; Z98.84 Bariatric surgery status; Y90.9 Presence of alcohol in blood, level not specified
CPT/HCPCS: 36415; 80048; 80305; 81001; 81025; 84443; 85025; 87811; 99284; G0480; 80320; 85008

== ENCOUNTER 2025-02-26 10:27 | Emergency (ER) | payer MEDICARE, MEDICAID ==
[~2025-02-26] VITALS: Ht 172.7 cm; Wt 90.9 kg
[~2025-02-26 10:27] MED LIST changes: +CHLO25CA10 PO; -CHOL100017 PO; -FERR324T3 PO; -FOLI1TAB27 PO; -MULT-25 PO; -PANT-47 PO; -THIA50TA10 PO; -VITC500T PO
[2025-02-26] MEDS: diazepam 5mg tablet PO ONE (11:23)
--- NOTE | 2025-02-26 11:31 | Physician Documentation ---
History of Present Illness ~ Chief Complaint: Suicidal Ideation Stated Complaint: Time Seen by MD: 11:11 Primary Medical Doctor: Wally DAVIS [id number] female presents to the ED with a complaint of SI and attempted cutting her arms. Today she has been binge drinking recently and has spiraled into a state of self-harm behavior. This is happened to her before. She has a schizoaffective diagnosis but does not know which medication she is supposed to be taking Medication Reconciliation Allergies: Coded Allergies: zolpidem (Unverified Allergy, Severe, hives, 02/22/25) doxycycline (Verified Allergy, Mild, "BURNING", 02/22/25) mc pepper (Verified Allergy, Unknown, 02/22/25) BLISTERS IN MOUTH trazodone (Verified Allergy, Unknown, 02/22/25) codeine (Verified Adverse Reaction, Mild, 02/22/25) N/V ondansetron (Verified Adverse Reaction, Mild, Migraine, 02/22/25) Scheduled Bupropion HCl (Bupropion Xl), 3 TAB PO DAILY, (Reported) Escitalopram Oxalate (Lexapro), 1 TAB PO DAILY, (Reported) Gabapentin (Gabapentin), 1 CAP PO TID, (Reported) Nifedipine (Nifedipine Er), 1 TAB PO DAILY, (Reported) Nifedipine ER* (Nifedipine Er*), 1 TAB PO DAILY, (Reported) Pantoprazole Sodium (Pantoprazole Sodium), 1 TAB PO DAILY, (Reported) Quetiapine Fumarate (Quetiapine Fumarate), 1 TAB PO HS, (Reported) Discontinued Medications Apixaban (Eliquis), 5 MG PO BID Discontinued Reason: patient no longer taking Ascorbic Acid* (Vitamin C*), 1 TAB PO TIDWM, (Reported) Discontinued Reason: completed med therapy Atenolol (Atenolol), 50 MG PO DAILY Discontinued Reason: patient no longer taking Bupropion HCl (Bupropion Xl), 3 TAB PO DAILY Discontinued Reason: patient no longer taking Buspirone Hcl* (Buspar*), 1 TAB PO BID, (Reported) Discontinued Reason: patient no longer taking Chlordiazepoxide HCl (Chlordiazepoxide HCl), 1 CAP PO DAILY Discontinued Reason: patient no longer taking Cholecalciferol (Vitamin D3) (Vitamin D3), 5 TAB PO DAILY, (Reported) Discontinued Reason: completed med therapy Escitalopram Oxalate (Lexapro), 1 TAB PO DAILY Discontinued Reason: patient no longer taking Ferrous Gluconate (Ferrous Gluconate), 324 MG PO DAILY Discontinued Reason: completed med therapy Folic Acid* (Folic Acid*), 1 TAB PO DAILY, (Reported) Discontinued Reason: completed med therapy Gabapentin (Gabapentin), 1 CAP PO TID Discontinued Reason: patient no longer taking Multivitamin with Folic Acid (Thera Tablet), 1 TAB PO DAILY, (Reported) Discontinued Reason: completed med therapy Nifedipine (Nifedipine Er), 1 TAB PO DAILY Discontinued Reason: patient no longer taking Pantoprazole Sodium (PROTONIX tablet), 1 TAB PO DAILY, (Reported) Discontinued Reason: completed med therapy Quetiapine Fumarate* (Seroquel*), 1 TAB PO HS Discontinued Reason: patient no longer taking Thiamine HCl (Vitamin B-1), 2 TAB PO DAILY, (Reported) Discontinued Reason: completed med therapy Past Medical History Past Medical History: Seizures, Atrial Fibrillation, Hypertension, GERD, Pancreatitis, Peptic Ulcer Disease, Anemia, Diabetes, *INFECTIOUS DZ*, MRSA Abscess, Breast Cancer, Anxiety, Bipolar, Depression Past Surgical History: appendectomy, cholecystectomy, gastric bypass, tonsillectomy, tubal ligation, other Patient History: FH: breast cancer Aunt FH: colon cancer FH: dementia Aunt FH: depression FATHER FH: heart attack GRANDFATHER OR GRANDMOTHER, Name: Grandmother, , Age: 87 GRANDFATHER OR GRANDMOTHER, Name: Grandfather, , Age: 42 FH: heart disease MOTHER Aunt Alcohol Use: Abuse Drug Use: methamphetamine Lives In: Home Occupation: unemployed Review of Systems All Other Systems at this time: Reviewed and Negative ROS As stated above in the HPI, otherwise all systems are reviewed and negative. Physical Exam Vital Signs: Temperature: 98.0, Source: Oral, Heart Rate: 80, Respiratory Rate: 16, BP: 152/1, Pulse Oximetry: 98, Weight: 90.910 Oxygen Flow Rate: 0 Progress Progress Note Doctor [place] 02/27/2025 received this patient in sign-out suicidal heavy recent binge drinking reports 6-12 I PAs daily last drink yesterday. She has history of chronic alcohol use disorder and extensive psychiatric history. She has been seen multiple times in the emergency department for alcohol use disorder and alcohol withdrawal. She has been admitted in the past for alcohol withdrawal however at that time she also added AFib. She has also been seen multiple times since then and seen and treated and discharged from the emergency department. She is complaining currently of some shakiness. Her vitals are reviewed aside for very mild hypertension she has no tachycardia no signs of delirium tremens. I discussed the case with [facility] who have bed availability for her at [facility]. At this point I do not see any indication for admission however we will keep a close eye on her over the next several hours to see how she responds to Librium Results/Orders Results/Orders Completed Orders - KALEB REDDING MD Chlordiazepoxide Capsule (Librium Capsul (02/27/25 13:10) Medications Received in ER Medications (Trade) Dose Ordered Sig/Franco Route PRN Reason Start Time Stop Time Status Last Admin Dose Admin (Librium capsule) 50 mg ONCE ONCE PO 02/27/25 13:10 02/27/25 13:16 DC 02/27/25 13:24 50 MG Vital Signs 02/26/25 02/26/25 02/26/25 02/26/25 10:30 11:40 11:54 23:14 Temp 98.0 Pulse 80 75 Resp 16 15 15 15 B/P (MAP) 152/1 128/83 (98) Pulse Ox 98 95 O2 Flow Rate 0 02/27/25 02/27/25 02/27/25 02/27/25 05:28 08:12 08:13 09:23 Temp 97.2 97.2 97.8 Pulse 76 85 79 Resp 20 14 14 B/P (MAP) 161/83 (109) 148/76 (100) 166/102 (123) Pulse Ox 99 98 97 O2 Flow Rate 0 0 Laboratory Tests Test 02/26/25 11:45 02/26/25 16:25 02/27/25 02:45 02/27/25 13:05 White Blood Count 3.3 L 2.6 L Red Blood Count 3.34 L 3.32 L Hemoglobin 7.3 L 7.3 L Hematocrit 24.0 L 23.6 L Mean Corpuscular Volume 71.8 L 71.0 L Mean Corpuscular Hemoglobin 21.9 L 21.9 L Mean Corpuscular Hemoglobin Concent 30.6 L 30.8 L Red Cell Distribution Width 20.3 H 20.4 H Platelet Count 244 187 Mean Platelet Volume 7.6 7.3 L Neutrophils (%) (Auto) 45.5 50.1 Lymphocytes (%) (Auto) 40.7 31.4 Monocytes (%) (Auto) 8.7 13.0 H Eosinophils (%) (Auto) 3.3 3.7 Basophils (%) (Auto) 1.8 H 1.8 H Neutrophils # (Auto) 1.5 L 1.3 L Lymphocytes # (Auto) 1.4 0.8 L Monocytes # (Auto) 0.3 0.3 Eosinophils # (Auto) 0.1 0.1 Basophils # (Auto) 0.1 0.0 CBC Comment Sodium Level 144 143 Potassium Level 4.0 3.7 Chloride Level 106 106 Carbon Dioxide Level 23.6 L 27.0 Anion Gap 14 10 Blood Urea Nitrogen 15 15 Creatinine 0.97 H 0.71 Estimated GFR/1.73 m2 60 86 BUN/Creatinine Ratio 15.5 21.1 H Glucose Level 102 88 Calcium Level 8.7 9.0 Albumin 3.6 3.3 L Thyroid Stimulating Hormone (TSH) 0.75 Chemistry Comments Ethyl Alcohol Level 362 H Urine Specimen Description Cln catch midstream Urine Color Yellow Urine Clarity Clear Urine pH 6.0 Urine Specific [place] 1.020 Urine Protein Negative Urine Glucose (UA) Negative Urine Ketones Negative Urine Occult Blood Negative Urine Nitrite Negative Urine Bilirubin Negative Urine Urobilinogen 0.2 Urine Leukocyte Esterase Negative Volume Urine Centrifuged 10 ml Urine HCG, Qualitative Negative Urine Comment Urine Opiates Screen Negative Urine Methadone Screen Negative Urine Fentanyl Screen Negative Urine Barbiturates Screen Negative Urine Phencyclidine Screen Negative Urine Amphetamines Screen Negative Urine Benzodiazepines Screen Negative Urine Cocaine Screen Negative Urine Cannabinoids Screen Negative Drug Screen Comment Differential Total Cells Counted 100 Neutrophils % (Manual) 59.0 Lymphocytes % (Manual) 31.0 Monocytes % (Manual) 7.0 Eosinophils % (Manual) 3.0 Platelet Estimate Normal Red Blood Cell Morphology Perf Hypochromasia 2+ Basophilic Stippling Anisocytosis 3+ Microcytosis 1+ Stomatocytes 3+ Prothrombin Time 10.4 INR International Normalized Ratio 1.0 Coagulation Comments Phosphorus Level 4.1 Magnesium Level 1.8 Total Bilirubin 0.9 Aspartate Amino Transf (AST/SGOT) 30 Alanine Aminotransferase (ALT/SGPT) 23 Alkaline Phosphatase 156 H Total Protein 7.3 Globulin 4.0 Albumin/Globulin Ratio 0.8 L Amylase Level 39 Lipase 36 SARS-CoV-2 Antigen (Rapid) Negative Departure [facility] Impression: Primary Impression: Alcoholic intoxication Qualified Codes: F10.920 - Alcohol use, unspecified with intoxication, uncomplicated Discharge Instructions: Suicidal Feelings: How to Help Yourself Additional Instructions: Transfer orders for [facility]: At this time there is no evidence of an emergent medical condition that would preclude (admission/transfer) to a psychiatric unit via [facility] protocol for further psychiatric, as well as medical evaluation and treatment. At this time I have no reason to believe that transfer via [facility] protocol would have serious medical compromise in the patient's health. Referrals: NO PRIMARY CARE PROVIDER (PCP) Signature Scribe Signature: f Attestation: The note accurately reflects work and decisions made by me.Maria Guadalupe Choe NP 02/26/25 11:30 MARIA GUADALUPE GARCIA NP Feb 26, 2025 11:31 KALEB REDDING MD Feb 27, 2025 13:04
[2025-02-26 12:15] LABS: BASOPHILS # (AUTO) 0.1 X10'3 (0-0.2); EOSINOPHILS # (AUTO) 0.1 X10'3 (0-0.9); MONOCYTES # (AUTO) 0.3 X10'3 (0-0.9); NEUTROPHILS # (AUTO) 1.5 X10'3 (1.8-7.7)
[2025-02-26 12:16] LABS: BASOPHILS % (AUTO) 1.8 % (0-1); EOSINOPHILS % (AUTO) 3.3 % (0-6); HEMOGLOBIN 7.3 g/dl (12.0-16.0); LYMPHOCYTES # (AUTO) 1.4 X10'3 (1.1-4.8); LYMPHOCYTES % (AUTO) 40.7 % (21-51); MEAN CORPUSCULAR HEMOGLOBIN 21.9 PG (27.0-31.0); MEAN CORPUSCULAR HGB CONC 30.6 g/dL (33.0-36.5); MEAN CORPUSCULAR VOLUME 71.8 FL (78-98); MEAN PLATELET VOLUME 7.6 FL (7.4-10.4); MONOCYTES % (AUTO) 8.7 % (2-12); NEUTROPHILS % (AUTO) 45.5 % (42-75); PLATELET COUNT 244 X10'3 (140-440); RED BLOOD COUNT 3.34 X10'6 (4.20-5.60); RED CELL DISTRIBUTION WIDTH 20.3 % (11.5-14.5); WHITE BLOOD COUNT 3.3 X10'3 (4.5-11.0)
[2025-02-26 12:51] LABS: ALBUMIN 3.6 G/DL (3.4-5.0); ANION GAP 14 (8-16); BLOOD UREA NITROGEN 15 MG/DL (7-18); BUN/CREATININE RATIO 15.5 (10.0-20.0); CALCIUM 8.7 MG/DL (8.5-10.1); CHLORIDE 106 MMOL/L (99-107); CREATININE 0.97 MG/DL (0.40-0.90); GLUCOSE 102 MG/DL (70-104); SODIUM 144 MMOL/L (135-145); THYROID STIMULATING HORMONE 0.75 ulU/ml (0.34-4.50); TOTAL CARBON DIOXIDE 23.6 MMOL/L (24-32); eCRCL 68 ML/MIN; eGFR 60 ML/MIN
[2025-02-26 12:52] LABS: ETHANOL 362 MG/DL (<10)
[2025-02-26] MEDS: gabapentin 300mg capsule PO ONE (13:30)
[2025-02-26] MEDS ORDERED: QUET100T34 PO (16:30)
[2025-02-26] MEDS ORDERED: PANT40TA54 PO (16:30)
[2025-02-26] MEDS ORDERED: BUPR-726 PO (16:35)
[2025-02-26] MEDS ORDERED: ESCI20TA PO (16:35)
[2025-02-26] MEDS ORDERED: NIFE-72 PO (16:35)
[2025-02-26] MEDS ORDERED: NIFE-34 PO (16:35)
[2025-02-26] MEDS ORDERED: GABA-535 PO (16:35)
[2025-02-26 16:43] LABS: BILIRUBIN,URINE NEGATIVE (Neg); CLARITY,URINE CLEAR (Clear); COLOR,URINE YELLOW (Yellow); GLUCOSE, URINE NEGATIVE (Neg); KETONES,URINE NEGATIVE (Neg); LEUKOCYTE ESTERASE ,URINE NEGATIVE (Neg); NITRITES, URINE NEGATIVE (Neg); OCCULT BLOOD,URINE NEGATIVE (Neg); PROTEIN,URINE NEGATIVE (Neg); UROBILINOGEN,URINE 0.2 E.U/dL (0.2-1.0)
[2025-02-26 16:44] LABS: URINE HCG NEGATIVE (NEG)
[2025-02-26 16:48] LABS: UA COLLECTION TYPE CLN CATCH MIDSTREAM; URINE AMPHETAMINE SCREEN NEGATIVE (Neg); URINE BARBITUATE SCREEN NEGATIVE (Neg); URINE BENZODIAZEPINES SCREEN NEGATIVE (Neg); URINE CANNABINOID SCREEN NEGATIVE (Neg); URINE COCAINE SCREEN NEGATIVE (Neg); URINE METHADONE SCREEN NEGATIVE (Neg); URINE OPIATE SCREEN NEGATIVE (Neg); URINE PHENCYCLIDINE SCREEN NEGATIVE (Neg)
[2025-02-26] MEDS: quetiapine 100mg tablet PO SCH (20:06)
[2025-02-26] MEDS: gabapentin 400mg capsule PO SCH (20:06)
[2025-02-26] MEDS: chlordiazePOXIDE 25mg capsule PO SCH (20:06)
[2025-02-27 03:01] LABS: BASOPHILS % (AUTO) 1.8 % (0-1); EOSINOPHILS # (AUTO) 0.1 X10'3 (0-0.9); EOSINOPHILS % (AUTO) 3.7 % (0-6); HEMATOCRIT 23.6 % (35.0-45.0); HEMOGLOBIN 7.3 g/dl (12.0-16.0); LYMPHOCYTES # (AUTO) 0.8 X10'3 (1.1-4.8); LYMPHOCYTES % (AUTO) 31.4 % (21-51); MEAN CORPUSCULAR HEMOGLOBIN 21.9 PG (27.0-31.0); MEAN CORPUSCULAR HGB CONC 30.8 g/dL (33.0-36.5); MEAN PLATELET VOLUME 7.3 FL (7.4-10.4); MONOCYTES # (AUTO) 0.3 X10'3 (0-0.9); NEUTROPHILS # (AUTO) 1.3 X10'3 (1.8-7.7); NEUTROPHILS % (AUTO) 50.1 % (42-75); PLATELET COUNT 187 X10'3 (140-440); RED BLOOD COUNT 3.32 X10'6 (4.20-5.60); RED CELL DISTRIBUTION WIDTH 20.4 % (11.5-14.5); WHITE BLOOD COUNT 2.6 X10'3 (4.5-11.0)
[2025-02-27 03:12] LABS: PROTHROMBIN TIME 10.4 SECONDS (9.0-12.0)
[2025-02-27 03:17] LABS: ALANINE AMINOTRANSFERASE 23 U/L (12-78); ALBUMIN 3.3 G/DL (3.4-5.0); ALBUMIN/GLOBULIN RATIO 0.8 (1.1-1.5); ALKALINE PHOSPHATASE 156 IU/L (46-116); AMYLASE 39 U/L (25-115); ANION GAP 10 (8-16); ASPARTATE AMINO TRANSFERASE 30 U/L (10-37); BILIRUBIN,TOTAL 0.9 MG/DL (0.1-1.0); BLOOD UREA NITROGEN 15 MG/DL (7-18); BUN/CREATININE RATIO 21.1 (10.0-20.0); CHLORIDE 106 MMOL/L (99-107); CREATININE 0.71 MG/DL (0.40-0.90); GLUCOSE 88 MG/DL (70-104); LIPASE 36 U/L (16-77); MAGNESIUM 1.8 MG/DL (1.5-2.4); PHOSPHORUS 4.1 MG/DL (2.3-4.5); POTASSIUM 3.7 MMOL/L (3.5-5.1); SODIUM 143 MMOL/L (135-145); TOTAL PROTEIN 7.3 G/DL (6.4-8.2); eCRCL 94 ML/MIN; eGFR 86 ML/MIN
[2025-02-27 03:27] LABS: PLATELET ESTIMATE NORMAL; TOTAL CELLS COUNTED 100
[2025-02-27 03:29] LABS: ANISOCYTOSIS 3+; HYPOCHROMASIA 2+; MICROCYTOSIS 1+; STOMATOCYTES 3+
[2025-02-27] MEDS: ibuprofen 200mg tablet PO ONE (05:35)
[2025-02-27] MEDS: BUPROPION HCL 150MG XL 24 HR 150 MG TAB PO SCH (08:04)
[2025-02-27] MEDS: ESCITALOPRAM 10 mg tablet 10 MG TABLET PO SCH (08:04)
[2025-02-27] MEDS: NIFEdipine XL 30mg tablet PO SCH (08:04)
[2025-02-27] MEDS: pantoprazole 40mg Tablet.DR PO SCH (08:04)
[2025-02-27 09:23] VITALS: BP 166/102; PULSE 79; RESP 14; TEMP 97.8; O2SAT 97
[2025-02-27] MEDS: chlordiazePOXIDE 25mg capsule PO ONE (13:24)
== END 2025-02-27 14:45 | disposition home or self-care (01) ==
LOC: ER 10:28
DX: F10.129 Alcohol abuse with intoxication, unspecified (principal); R45.851 Suicidal ideations; E11.9 Type 2 diabetes mellitus without complications; F31.9 Bipolar disorder, unspecified; F41.9 Anxiety disorder, unspecified; I10 Essential (primary) hypertension; I48.91 Unspecified atrial fibrillation; K21.9 Gastro-esophageal reflux disease without esophagitis; F15.90 Other stimulant use, unspecified, uncomplicated; Z85.3 Personal history of malignant neoplasm of breast; Z20.822 Contact with and (suspected) exposure to COVID-19; Z88.1 Allergy status to other antibiotic agents; Z88.5 Allergy status to narcotic agent; Z88.8 Allergy status to other drugs, medicaments and biological substances; Z90.49 Acquired absence of other specified parts of digestive tract; Z90.89 Acquired absence of other organs; Z98.51 Tubal ligation status; Z98.84 Bariatric surgery status; Y90.9 Presence of alcohol in blood, level not specified
CPT/HCPCS: 36415; 80048; 80053; 80305; 81003; 81025; 82150; 83690; 83735; 84100; 84443; 85025; 85610; 87811; 99285; G0480; 80320; 85007

== ENCOUNTER 2025-04-15 11:41 | Emergency (ER) | payer MEDICARE, MEDICAID ==
[~2025-04-15] VITALS: Ht 177.8 cm; Wt 96.7 kg
[~2025-04-15 11:41] MED LIST changes: -APIX5TAB3 PO; -ATEN50TA41 PO; +ATOR20TA66 PO; -BUSP10TA11 PO; -CHLO25CA10 PO; +LOSA25TA41 PO; +NIFE-34 PO; -NIFE-72 PO; +PANT40TA54 PO; -QUET-1 PO
[2025-04-15 11:54] VITALS: BP 123/75; PULSE 80; RESP 16; TEMP 98.6; O2SAT 98
--- NOTE | 2025-04-15 12:08 | Physician Documentation ---
HPI ~ General Chief Complaint: Medication Request Stated Complaint: MEDICATION ISSUES Time Seen by MD: 12:07 Primary Medical Doctor: Wally Hawkins History of Present Illness HPI Comments 44-year-old female presents requesting clearance to go to see your [facility] which is a dual diagnosis recovery [facility]. Patient states she has multiple psychiatric diagnoses including depression and PTSD in addition she drinks excessive amounts of alcohol. She says her last drink was early this morning and she drank too tall cans of beer. she usually drink 10-12 high a BV IPA beers daily. denies any tremors seizures auditory or visual hallucinations Without Medications Since: Apr 15, 2025 Medication Reconciliation Allergies: Coded Allergies: zolpidem (Unverified Allergy, Severe, hives, 02/22/25) doxycycline (Verified Allergy, Mild, "BURNING", 02/22/25) mc pepper (Verified Allergy, Unknown, 02/22/25) BLISTERS IN MOUTH trazodone (Verified Allergy, Unknown, 02/22/25) codeine (Verified Adverse Reaction, Mild, 02/22/25) N/V ondansetron (Verified Adverse Reaction, Mild, Migraine, 02/22/25) Scheduled Atorvastatin Calcium (Atorvastatin Calcium), 40 MG PO HS Bupropion HCl (Bupropion Xl), 3 TAB PO DAILY, (Reported) Escitalopram Oxalate (Lexapro), 1 TAB PO DAILY, (Reported) Gabapentin (Gabapentin), 1 CAP PO TID, (Reported) Losartan Potassium (Losartan Potassium), 50 MG PO DAILY Nifedipine ER* (Nifedipine Er*), 1 TAB PO DAILY, (Reported) Pantoprazole Sodium (Pantoprazole Sodium), 1 TAB PO DAILY, (Reported) Past Medical History Past Medical History: Seizures, Atrial Fibrillation, Hypertension, GERD, Pancreatitis, Peptic Ulcer Disease, Anemia, Diabetes, *INFECTIOUS DZ*, MRSA Abs cess, Breast Cancer, Anxiety, Bipolar, Depression Past Surgical History: appendectomy, cholecystectomy, gastric bypass, tonsillectomy, tubal ligation, other Patient History: FH: breast cancer Aunt FH: colon cancer FH: dementia Aunt FH: depression FATHER FH: heart attack GRANDFATHER OR GRANDMOTHER, Name: Grandmother, , Age: 87 GRANDFATHER OR GRANDMOTHER, Name: Grandfather, , Age: 42 FH: heart disease MOTHER Aunt Alcohol Use: Abuse Drug Use: methamphetamine Lives In: Home Occupation: unemployed Review of Systems All Other Systems at this time: Reviewed and Negative ROS As stated above in the HPI, otherwise all systems are reviewed and negative. Physical Exam Physical Exam Vital Signs: Temperature: 98.6, Source: Oral, Heart Rate: 80, Respiratory Rate: 16, BP: 123/75, Pulse Oximetry: 98, Weight: 96.700 Oxygen Flow Rate: 0 Physical Exam General: Alert, no apparent distress. No tremors Respiratory: Lungs clear, no respiratory distress. Cardiovascular: Regular rate and rhythm, no murmurs. Neurologic: Oriented x4. Psychiatric: Normal mood and affect. Progress Results/Orders Results/Orders Vital Signs 04/15/25 11:54 Temp 98.6 Pulse 80 Resp 16 B/P (MAP) 123/75 Pulse Ox 98 O2 Flow Rate 0 Medical Decision Making Findings This patient is requesting medical clearance for alcohol and psychiatric treatment. At this time I do not see any reason to not medically clear her. She is appropriate to the situation shows no signs of acute alcohol withdrawal. 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 04/15/25 13:26 MARIA GUADALUPE INTERIANO NP Apr 15, 2025 12:08
== END 2025-04-15 13:40 | disposition home or self-care (01) ==
LOC: ER 11:42
DX: F10.20 Alcohol dependence, uncomplicated (principal); E11.9 Type 2 diabetes mellitus without complications; I10 Essential (primary) hypertension; F31.9 Bipolar disorder, unspecified; I48.91 Unspecified atrial fibrillation; F15.90 Other stimulant use, unspecified, uncomplicated; Z85.3 Personal history of malignant neoplasm of breast; Z87.11 Personal history of peptic ulcer disease; Z88.1 Allergy status to other antibiotic agents; Z88.8 Allergy status to other drugs, medicaments and biological substances; Z98.51 Tubal ligation status; Z98.84 Bariatric surgery status; Z90.89 Acquired absence of other organs; Z90.49 Acquired absence of other specified parts of digestive tract; Y90.9 Presence of alcohol in blood, level not specified
CPT/HCPCS: 99283

== ENCOUNTER 2025-04-23 11:20 | Emergency (ER) | payer MEDICARE, MEDICAID ==
[~2025-04-23] VITALS: Ht 172.7 cm; Wt 101.8 kg
[2025-04-23 11:23] VITALS: TEMP 97.6
[2025-04-23 13:12] LABS: MEAN PLATELET VOLUME 6.8 FL (7.4-10.4)
[2025-04-23 13:14] LABS: RED CELL DISTRIBUTION WIDTH 30.2 % (11.5-14.5)
[2025-04-23 13:26] LABS: CREATININE 0.81 MG/DL (0.40-0.90); TOTAL CARBON DIOXIDE 23.1 MMOL/L (24-32); eCRCL 82 ML/MIN; eGFR 74 ML/MIN
[2025-04-23 14:19] LABS: URINE HCG NEGATIVE (NEG)
[2025-04-23 14:21] LABS: LEUKOCYTE ESTERASE ,URINE NEGATIVE (Neg); NITRITES, URINE NEGATIVE (Neg); OCCULT BLOOD,URINE NEGATIVE (Neg)
[2025-04-23 14:26] LABS: UA COLLECTION TYPE CLN CATCH MIDSTREAM
[2025-04-23 14:28] LABS: URINE AMPHETAMINE SCREEN NEGATIVE (Neg); URINE BARBITUATE SCREEN NEGATIVE (Neg); URINE BENZODIAZEPINES SCREEN POSITIVE (Neg); URINE CANNABINOID SCREEN NEGATIVE (Neg); URINE COCAINE SCREEN NEGATIVE (Neg); URINE METHADONE SCREEN NEGATIVE (Neg); URINE OPIATE SCREEN NEGATIVE (Neg); URINE PHENCYCLIDINE SCREEN NEGATIVE (Neg)
--- NOTE | 2025-04-23 16:33 | Physician Documentation ---
History of Present Illness ~ Chief Complaint: Mental Health Eval Stated Complaint: ETOH Time Seen by MD: 13:31 Primary Medical Doctor: Wally Hawkins HPI Is a 52-year-old female that presents to the emergency department for evaluation mental health concerns. Patient reports that is she has been drinking for several days feels the need to drink until she does not wake up anymore wishes to not wake up at this time in his considered committing suicide by drinking large quantities. Medication Reconciliation Allergies: Coded Allergies: zolpidem (Unverified Allergy, Severe, hives, 04/23/25) doxycycline (Verified Allergy, Mild, "BURNING", 04/23/25) mc pepper (Verified Allergy, Unknown, 04/23/25) BLISTERS IN MOUTH trazodone (Verified Allergy, Unknown, 04/23/25) codeine (Verified Adverse Reaction, Mild, 04/23/25) N/V ondansetron (Verified Adverse Reaction, Mild, Migraine, 04/23/25) Scheduled Atorvastatin Calcium (Atorvastatin Calcium), 40 MG PO HS Bupropion HCl (Bupropion Xl), 3 TAB PO DAILY, (Reported) Escitalopram Oxalate (Lexapro), 1 TAB PO DAILY, (Reported) Gabapentin (Gabapentin), 1 CAP PO TID, (Reported) Losartan Potassium (Losartan Potassium), 50 MG PO DAILY Nifedipine ER* (Nifedipine Er*), 1 TAB PO DAILY, (Reported) Pantoprazole Sodium (Pantoprazole Sodium), 1 TAB PO DAILY, (Reported) Past Medical History Past Medical History: Seizures, Atrial Fibrillation, Hypertension, GERD, Pancreatitis, Peptic Ulcer Disease, Anemia, Diabetes, *INFECTIOUS DZ*, MRSA Abscess, Breast Cancer, Anxiety, Bipolar, Depression Past Surgical History: appendectomy, cholecystectomy, gastric bypass, tonsillectomy, tubal ligation, other Patient History: FH: breast cancer Aunt FH: colon cancer FH: dementia Aunt FH: depression FATHER FH: heart attack GRANDFATHER OR GRANDMOTHER, Name: Grandmother, , Age: 87 GRANDFATHER OR GRANDMOTHER, Name: Grandfather, , Age: 42 FH: heart disease MOTHER Aunt Alcohol Use: Abuse Drug Use: methamphetamine Lives In: Home Occupation: unemployed Review of Systems ROS As stated above in the HPI, otherwise all systems are reviewed and negative. Physical Exam Vital Signs: Temperature: 97.6, Source: Oral, Heart Rate: 75, Respiratory Rate: 16, BP: 132/82, Pulse Oximetry: 99, Weight: 101.850 Oxygen Flow Rate: 0 Physical Exam VITALS: Reviewed and as above. GENERAL: Alert, no apparent distress. HEENT: Normocephalic, atraumatic, PERRL, EOMI, dry mucosa, no erythema RESPIRATORY: Lungs clear, normal breath sounds, no respiratory distress. CHEST: No accessory muscle use, no retractions CV: Regular rate, rhythm, no edema, no murmur, No: JVD GI: Soft, non-tender, bowels sounds present, no rebound, guarding, or rigidity BACK: No CVA tenderness, or swelling MUSCULOSKELETAL No deformities, no edema SKIN: Warm and dry, no rash NEURO: Oriented x4, No motor or sensory deficit PSYCH: Expresses desire to commit suicide no particular plan other than to drank large quantities of alcohol. Progress Results/Orders Results/Orders Vital Signs 04/23/25 04/23/25 04/23/25 11:23 20:15 20:26 Temp 97.6 Pulse 75 71 Resp 16 18 B/P (MAP) 132/82 130/80 (97) Pulse Ox 99 98 O2 Flow Rate 0 Laboratory Tests Test 04/23/25 12:55 04/23/25 13:00 Urine Specimen Description Cln catch midstream Urine Color Straw Urine Clarity Clear Urine pH 6.0 Urine Specific Jameson 1.010 Urine Protein Negative Urine Glucose (UA) Negative Urine Ketones Negative Urine Occult Blood Negative Urine Nitrite Negative Urine Bilirubin Negative Urine Urobilinogen 0.2 Urine Leukocyte Esterase Negative Urine Culture Indicated Not ind Volume Urine Centrifuged 10 ml Urine HCG, Qualitative Negative Urine Comment Urine Opiates Screen Negative Urine Methadone Screen Negative Urine Fentanyl Screen Negative Urine Barbiturates Screen Negative Urine Phencyclidine Screen Negative Urine Amphetamines Screen Negative Urine Benzodiazepines Screen Positive Urine Cocaine Screen Negative Urine Cannabinoids Screen Negative Drug Screen Comment White Blood Count 3.9 L Red Blood Count 4.34 Hemoglobin 11.5 L Hematocrit 35.2 Mean Corpuscular Volume 81.0 Mean Corpuscular Hemoglobin 26.4 L Mean Corpuscular Hemoglobin Concent 32.7 L Red Cell Distribution Width 30.2 H Platelet Count 339 Mean Platelet Volume 6.8 L Neutrophils (%) (Auto) 43.6 Lymphocytes (%) (Auto) 44.2 Monocytes (%) (Auto) 5.5 Eosinophils (%) (Auto) 4.3 Basophils (%) (Auto) 2.4 H Neutrophils # (Auto) 1.7 L Lymphocytes # (Auto) 1.7 Monocytes # (Auto) 0.2 Eosinophils # (Auto) 0.2 Basophils # (Auto) 0.1 CBC Comment Sodium Level 140 Potassium Level 4.2 Chloride Level 104 Carbon Dioxide Level 23.1 L Anion Gap 13 Blood Urea Nitrogen 10 Creatinine 0.81 Estimated GFR/1.73 m2 74 BUN/Creatinine Ratio 12.3 Glucose Level 96 Calcium Level 9.3 Total Bilirubin 0.4 Aspartate Amino Transf (AST/SGOT) 113 H Alanine Aminotransferase (ALT/SGPT) 99 H Alkaline Phosphatase 147 H Total Protein 8.8 H Albumin 4.1 Globulin 4.7 H Albumin/Globulin Ratio 0.9 L Chemistry Comments Medical Decision Making Findings Medical clearance for mental health evaluation. Re-eval as patient reduces blood alcohol level. Differential Dx:Considerations: Include: Alcohol abuse, Anxiety, Bipolar disorder, Conversion disorder, Depression, Encephaloathy, Homicidal, Panic disorder, Personality disorder, Schizophrenia, Substance abuse, Suicidal, Other Departure Disposition: 01 HOME / SELF CARE / HOMELESS Impression: Primary Impression: Acute alcohol intoxication Additional Impressions: Alcohol abuse Alcohol dependence Condition: Stable Discharge Instructions: Alcohol Abuse and Nutrition, Alcohol Intoxication, Suicidal Feelings: How to Help Yourself Additional Instructions: Evaluated for alcohol ingestion and concern for exacerbation of your chronic depression. Evaluated in the allowed to sober up here in the emergency department your counseled regarding alcohol consumption resources available. Your current medications were refilled for you. He is. Follow up with your primary care provider. Please return to the emergency department for any worsening recurrent symptoms or any additional concerning symptoms that we discussed here today. Referrals: NO PRIMARY CARE PROVIDER (PCP) Prescriptions Pantoprazole Sodium (Pantoprazole Sodium) 40 Mg Tablet.dr 40 MG PO DAILY for 30 Days, TAB.SR Prov: SARAH NIX MIXING HOUSE OPERATOR 04/23/25 Nifedipine ER* (Nifedipine Er*) 30 Mg Tab.er2.24 1 TAB PO DAILY for 30 Days, #30 TAB Prov: SARAH NIX MIXING HOUSE OPERATOR 04/23/25 Losartan Potassium (Losartan Potassium) 50 Mg Tablet 1 TAB PO DAILY for 30 Days, #30 TAB 0 Refills Prov: SARAH NIX MIXING HOUSE OPERATOR 04/23/25 Gabapentin (Gabapentin) 400 Mg Capsule 1 CAP PO Q8H for 30 Days, #90 CAP 0 Refills Prov: SARAH NIX 04/23/25 Escitalopram Oxalate (Escitalopram Oxalate) 20 Mg Tablet 1 TAB PO DAILY for 30 Days, #30 TAB 0 Refills Prov: SARAH NIX 04/23/25 Bupropion Hcl (BUPROPION HCL SR) 150 Mg Tablet.er 150 MG PO DAILY for 30 Days, #30 TAB.SR Prov: SARAH NIX 04/23/25 Atorvastatin Calcium* (Lipitor*) 40 Mg Tablet 1 TAB PO DAILY for 30 Days, #30 TAB Prov: SARAH NIX 04/23/25 Education Educated: Patient Educated regarding: diagnosis, treatment, need for follow up Signature Scribe Signature: . Attestation: Scribed for Sarah Nix by ABE Arauz . 04/23/25 20:51 SARAH NIX Apr 23, 2025 16:33
[2025-04-23 20:15] VITALS: BP 130/80; PULSE 71; RESP 18; O2SAT 98
[2025-04-23] MEDS ORDERED: NIFE-34 PO (20:49)
[2025-04-23] MEDS ORDERED: ATOR40TA PO (20:49)
[2025-04-23] MEDS ORDERED: BUPR-114 PO (20:49)
[2025-04-23] MEDS ORDERED: ESCI20TA39 PO (20:49)
[2025-04-23] MEDS ORDERED: LOSA50TA64 PO (20:49)
[2025-04-23] MEDS ORDERED: GABA-535 PO (20:49)
[2025-04-23] MEDS ORDERED: PANT40TA54 PO (20:49)
== END 2025-04-23 20:48 | disposition still patient (30) ==
LOC: ER 11:21
DX: F10.229 Alcohol dependence with intoxication, unspecified (principal); E11.9 Type 2 diabetes mellitus without complications; F31.9 Bipolar disorder, unspecified; I10 Essential (primary) hypertension; I48.91 Unspecified atrial fibrillation; K21.9 Gastro-esophageal reflux disease without esophagitis; F15.90 Other stimulant use, unspecified, uncomplicated; Z85.3 Personal history of malignant neoplasm of breast; Z88.1 Allergy status to other antibiotic agents; Z88.5 Allergy status to narcotic agent; Z88.8 Allergy status to other drugs, medicaments and biological substances; Z90.49 Acquired absence of other specified parts of digestive tract; Z90.89 Acquired absence of other organs; Z98.51 Tubal ligation status; Z79.899 Other long term (current) drug therapy; Z98.84 Bariatric surgery status; Y90.9 Presence of alcohol in blood, level not specified
CPT/HCPCS: 36415; 80053; 80305; 81003; 81025; 85025; 99283

== ENCOUNTER 2025-04-29 22:49 | Emergency (ER) | payer MEDICARE, MEDICAID ==
[~2025-04-29] VITALS: Ht 180.3 cm; Wt 113.0 kg
[~2025-04-29 22:49] MED LIST changes: +ATOR40TA PO; +BUPR-114 PO; +ESCI20TA39 PO; +LOSA50TA64 PO
[2025-04-29 23:18] LABS: MEAN PLATELET VOLUME 8.1 FL (7.4-10.4); RED CELL DISTRIBUTION WIDTH 28.1 % (11.5-14.5)
[2025-04-29 23:31] LABS: PLATELET ESTIMATE DECREASED
[2025-04-29 23:34] LABS: CREATININE 0.97 MG/DL (0.40-0.90); TOTAL CARBON DIOXIDE 18.5 MMOL/L (24-32); eCRCL 76 ML/MIN; eGFR 60 ML/MIN
--- NOTE | 2025-04-29 23:44 | Physician Documentation ---
History of Present Illness ~ Chief Complaint: Mechanical Fall Stated Complaint: MULTIPLE COMPLAINT M ALS Time Seen by MD: 23:00 Primary Medical Doctor: Wally Hawkins Mode of Arrival: EMS HPI Patient presents to the emergency room endorsing multiple falls with right shoulder pain and face pain. She states she does not exactly remember what happened but she did fall. She also reports lots of bruising to her legs. She states this is because of drinking. She has a history of alcoholism and states she is trying to get into a rehab facility. Tetanus within 5 Years?: No Medication Reconciliation Allergies: Coded Allergies: zolpidem (Unverified Allergy, Severe, hives, 04/23/25) doxycycline (Verified Allergy, Mild, "BURNING", 04/23/25) mc pepper (Verified Allergy, Unknown, 04/23/25) BLISTERS IN MOUTH trazodone (Verified Allergy, Unknown, 04/23/25) codeine (Verified Adverse Reaction, Mild, 04/23/25) N/V ondansetron (Verified Adverse Reaction, Mild, Migraine, 04/23/25) Scheduled Atorvastatin Calcium (Atorvastatin Calcium), 40 MG PO HS Atorvastatin Calcium* (Lipitor*), 1 TAB PO DAILY Bupropion HCl (Bupropion Xl), 3 TAB PO DAILY, (Reported) Bupropion Hcl (Bupropion Hcl Sr), 150 MG PO DAILY Escitalopram Oxalate (Lexapro), 1 TAB PO DAILY, (Reported) Escitalopram Oxalate (Escitalopram Oxalate), 1 TAB PO DAILY Gabapentin (Gabapentin), 1 CAP PO TID, (Reported) Gabapentin (Gabapentin), 1 CAP PO Q8H Losartan Potassium (Losartan Potassium), 50 MG PO DAILY Losartan Potassium (Losartan Potassium), 1 TAB PO DAILY Nifedipine ER* (Nifedipine Er*), 1 TAB PO DAILY, (Reported) Nifedipine ER* (Nifedipine Er*), 1 TAB PO DAILY Pantoprazole Sodium (Pantoprazole Sodium), 1 TAB PO DAILY, (Reported) Pantoprazole Sodium (Pantoprazole Sodium), 40 MG PO DAILY Past Medical History Past Medical History: Seizures, Atrial Fibrillation, Hypertension, GERD, Pancreatitis, Peptic Ulcer Disease, Anemia, Diabetes, *INFECTIOUS DZ*, MRSA Abscess, Breast Cancer, Anxiety, Bipolar, Depression Past Surgical History: appendectomy, cholecystectomy, gastric bypass, tonsillectomy, tubal ligation, other Patient History: FH: breast cancer Aunt FH: colon cancer FH: dementia Aunt FH: depression FATHER FH: heart attack GRANDFATHER OR GRANDMOTHER, Name: Grandmother, , Age: 87 GRANDFATHER OR GRANDMOTHER, Name: Grandfather, , Age: 42 FH: heart disease MOTHER Aunt Alcohol Use: Abuse Drug Use: methamphetamine Lives In: Home Occupation: unemployed Review of Systems ROS All review of systems negative except as per HPI Physical Exam Vital Signs: Temperature: 98.4, Source: Oral, Heart Rate: 62, Respiratory Rate: 16, BP: 138/107, Pulse Oximetry: 99, Weight: 113.000 Physical Exam General: Patient is awake, alert, oriented x4 in no acute distress Head: Normocephalic with abrasion to the right side of her face. Eyes: Conjunctival normal. EOMI. PERRL. ENT: Mucous membranes moist. Neck: Supple, trachea is midline. Chest: Clear to auscultation bilaterally without rales, rhonchi, or wheezes. There is no accessory muscle use or retractions. Cardiac: RRR without murmurs, gallops, or rubs. Abd: Soft, nondistended, nontender, with normoactive bowel sounds. No guarding, rebound, or rigidity. Extremities: Normal strength. Normal range of motion. No deformities or edema. 10 cm x 10 cm bruise to right superior shoulder, multiple bruises of varying ages on bilateral lower extremities. Ambulatory. Progress Results/Orders Results/Orders Orders - BROWN AGUILAR MD Ct Head (04/29/25 23:38) Urinalysis, Cult If Indicated (04/29/25 23:01) Shoulder, Complete (Min 2 Vws) (04/30/25 00:13) Completed Orders - BROWN AGUILAR MD Ct Head (04/29/25 23:38) Cbc/Diff (04/29/25 23:01) Lipase (04/29/25 23:01) Hs Troponin I W Calculations (04/29/25 23:01) CMP (04/29/25 23:01) Normal Saline 1000ml (0.9% Sodium Chlori (04/29/25 23:05) Thiamine Inj. (Thiamine Inj.) (04/29/25 23:05) Normal Saline 1000ml (0.9% Sodium Chlori (04/29/25 23:40) Shoulder, Complete (Min 2 Vws) (04/30/25 00:13) Ethanol (04/29/25 23:11) Medications Received in ER Medications (Trade) Dose Ordered Sig/Franco Route PRN Reason Start Time Stop Time Status Last Admin Dose Admin Sodium Chloride 1,000 ml @ 1,000 mls/hr ONCE ONCE IV 04/29/25 23:05 04/30/25 00:04 DC 04/30/25 01:17 1,000 MLS/HR (thiamine inj.) 100 mg ONCE ONCE IV 04/29/25 23:05 04/29/25 23:06 DC 04/30/25 01:17 100 MG Sodium Chloride 1,000 ml @ 1,000 mls/hr ONCE ONCE IV 04/29/25 23:40 04/30/25 00:39 DC 04/30/25 01:21 1,000 MLS/HR Vital Signs 04/29/25 04/29/25 04/30/25 23:06 23:16 01:22 Temp 98.4 Pulse 62 65 Resp 16 16 14 B/P (MAP) 138/107 146/96 (113) Pulse Ox 99 99 Laboratory Tests Test 04/29/25 23:11 White Blood Count 4.3 L Red Blood Count 3.94 L Hemoglobin 10.7 L Hematocrit 32.7 L Mean Corpuscular Volume 83.0 Mean Corpuscular Hemoglobin 27.2 Mean Corpuscular Hemoglobin Concent 32.7 L Red Cell Distribution Width 28.1 H Platelet Count 128 L Mean Platelet Volume 8.1 Neutrophils (%) (Auto) 49.3 Lymphocytes (%) (Auto) 33.1 Monocytes (%) (Auto) 14.3 H Eosinophils (%) (Auto) 2.2 Basophils (%) (Auto) 1.1 H Neutrophils # (Auto) 2.1 Lymphocytes # (Auto) 1.4 Monocytes # (Auto) 0.6 Eosinophils # (Auto) 0.1 Basophils # (Auto) 0.0 CBC Comment Platelet Estimate Decreased Red Blood Cell Morphology Perf Polychromasia Few Basophilic Stippling Anisocytosis 3+ Microcytosis Few Macrocytosis Few Sodium Level 132 L Potassium Level 3.6 Chloride Level 97 L Carbon Dioxide Level 18.5 L Anion Gap 17 H Blood Urea Nitrogen 10 Creatinine 0.97 H Estimated GFR/1.73 m2 60 BUN/Creatinine Ratio 10.3 Glucose Level 141 H Calcium Level 9.3 Total Bilirubin 0.9 Aspartate Amino Transf (AST/SGOT) 95 H Alanine Aminotransferase (ALT/SGPT) 45 Alkaline Phosphatase 149 H Troponin I High Sensitivity 10 Total Protein 8.7 H Albumin 4.0 Globulin 4.7 H Albumin/Globulin Ratio 0.9 L Lipase 41 Chemistry Comments Ethyl Alcohol Level 372 H Medical Decision Making Findings Patient presented to the emergency room after sustaining a fall. Imaging reassuring. Labs do show significant acid-base disturbances likely secondary to admitted alcohol intoxication. IV fluids have likely corrected this. As patient in his stable and suffering up I do not feel she requires repeat labs. She was monitored in the emergency room until clinically sober. Departure Disposition: 01 HOME / SELF CARE / HOMELESS Impression: Primary Impression: Alcoholic intoxication Condition: Fair Discharge Instructions: Alcohol Abuse and Dependence Information, Adult Referrals: NO PRIMARY CARE PROVIDER (PCP) Signature Scribe Signature: No scribe Attestation: The note accurately reflects work and decisions made by me.Brown Aguilar MD 04/30/25 01:45 BROWN AGUILAR MD Apr 29, 2025 23:44
--- NOTE | 2025-04-29 23:49 | RADIOLOGY REPORT ---
COMPUTERIZED TOMOGRAPHY OF THE HEAD WITHOUT CONTRAST REASON FOR STUDY: fall COMPARISON: CT CT HEAD on DOS: 02/29/24, CT CT HEAD on DOS: 11/09/23, CT CTA NECK/HEAD on DOS: 10/12/23, CT CT STROKE ALERT on DOS: 10/12/23, CT CT FACIAL BONES/SOFT TISSUE on DOS: 07/31/23 TECHNIQUE: Helical tomographic scans were obtained through the brain. 2-D coronal and sagittal refor matted images are provided. Radiation optimization: All CT scans at this facility use at least one of these dose optimization techniques: Automated exposure control mA and/or kV adjustment per patient s ize (includes targeted exams where dose is matched to clinical indication) or iterative reconstructio n. RADIATION DOSE: CTDI: 65.84 mGy DLP: 1208.87 mGy-cm FINDINGS: No suspicious intracranial hyperdensity to suggest acute blood. There is no mass effect n or midline shift. There is no hydrocephalus. The suprasellar cistern is intact. The calvarium is inta ct. The visualized mastoid air cells and paranasal sinuses are clear. IMPRESSION: No acute intracranial abnormality.
--- NOTE | 2025-04-30 00:23 | RADIOLOGY REPORT ---
EXAM: DI SHOULDER, COMPLETE (MIN 2 VWS) REASON FOR EXAM: pain RIGHT TECHNIQUE: Internally and externally rotated AP views and Y-view of the right shoulder are submitted for review. COMPARISON: None FINDINGS: The bones demonstrate grossly normal mineralization. There is no acute fracture or dislocat ion. There is no widening of the acromioclavicular joint. There are old healed right rib fractures. T he soft tissues are unremarkable. IMPRESSION: No acute fracture or dislocation.
[2025-04-30 01:00] LABS: ETHANOL 372 MG/DL (<10)
[2025-04-30] MEDS: thiamine 100mg/ml 2ml inj. IV ONE (01:17)
[2025-04-30] MEDS: normal saline 1000ml 1,000 ML IV ONE ×2 (01:17→01:21)
[2025-04-30 02:21] VITALS: BP 137/95; PULSE 112; RESP 14; TEMP 98.4; O2SAT 96
== END 2025-04-30 02:25 | disposition home or self-care (01) ==
LOC: ER 22:49
DX: S00.81XA Abrasion of other part of head, initial encounter (principal); M25.511 Pain in right shoulder; F10.129 Alcohol abuse with intoxication, unspecified; E11.9 Type 2 diabetes mellitus without complications; F31.9 Bipolar disorder, unspecified; I10 Essential (primary) hypertension; I48.91 Unspecified atrial fibrillation; K21.9 Gastro-esophageal reflux disease without esophagitis; D64.9 Anemia, unspecified; F41.9 Anxiety disorder, unspecified; F15.90 Other stimulant use, unspecified, uncomplicated; Y90.9 Presence of alcohol in blood, level not specified; Z85.3 Personal history of malignant neoplasm of breast; Z88.1 Allergy status to other antibiotic agents; Z88.5 Allergy status to narcotic agent; Z88.8 Allergy status to other drugs, medicaments and biological substances; Z90.49 Acquired absence of other specified parts of digestive tract; Z98.51 Tubal ligation status; Z79.899 Other long term (current) drug therapy; Z56.0 Unemployment, unspecified; W18.30XA Fall on same level, unspecified, initial encounter; Y93.89 Activity, other specified; Y92.89 Other specified places as the place of occurrence of the external cause; Y99.8 Other external cause status
CPT/HCPCS: 36415; 70450; 73030; 80053; 83690; 84484; 85008; 85025; 96361; 96374; 99285; G0480; J3411; J7030; 80320

== ENCOUNTER 2025-04-30 12:09 | Emergency (ER) | payer MEDICARE, MEDICAID ==
[~2025-04-30] VITALS: Ht 180.3 cm; Wt 93.8 kg
[2025-04-30 13:13] LABS: MEAN PLATELET VOLUME 7.6 FL (7.4-10.4); RED CELL DISTRIBUTION WIDTH 28.3 % (11.5-14.5)
[2025-04-30 13:38] LABS: CREATININE 0.74 MG/DL (0.40-0.90); TOTAL CARBON DIOXIDE 16.6 MMOL/L (24-32); eCRCL 99 ML/MIN; eGFR 82 ML/MIN
[2025-04-30 13:47] LABS: ETHANOL 405 MG/DL (<10)
[2025-04-30 13:57] LABS: EOSINOPHILS % (MANUAL) 6.0 % (0-6); LYMPHOCYTES % (MANUAL) 40.0 % (21-51); MONOCYTES % (MANUAL) 10.0 % (2-12); NEUTROPHILS % (MANUAL) 44.0 % (42-75); PLATELET ESTIMATE DECREASED
[2025-04-30 14:15] LABS: LEUKOCYTE ESTERASE ,URINE NEGATIVE (Neg); NITRITES, URINE NEGATIVE (Neg); OCCULT BLOOD,URINE NEGATIVE (Neg)
[2025-04-30 14:20] LABS: URINE HCG NEGATIVE (NEG)
[2025-04-30 14:23] LABS: UA COLLECTION TYPE CLN CATCH MIDSTREAM
[2025-04-30] MEDS: normal saline 1000ml 1,000 ML IV ONE ×2 (14:25)
[2025-04-30 14:36] LABS: URINE AMPHETAMINE SCREEN NEGATIVE (Neg); URINE BARBITUATE SCREEN NEGATIVE (Neg); URINE BENZODIAZEPINES SCREEN POSITIVE (Neg); URINE CANNABINOID SCREEN NEGATIVE (Neg); URINE COCAINE SCREEN NEGATIVE (Neg); URINE METHADONE SCREEN NEGATIVE (Neg); URINE OPIATE SCREEN NEGATIVE (Neg); URINE PHENCYCLIDINE SCREEN NEGATIVE (Neg)
--- NOTE | 2025-04-30 17:02 | Physician Documentation ---
History of Present Illness ~ Chief Complaint: Suicidal Ideation Stated Complaint: ETOH Time Seen by MD: 12:34 Primary Medical Doctor: Wally Hawkins Mode of Arrival: EMS, [facility] This is a 54-year-old female with a known history of alcoholism and prior suicidal ideation, comes in because she tried to drink herself to . Her psychiatry thinks that she needs to be in a residential facility in [place] needs medical clearance. She is actively suicidal with a an intent to harm herself. She denies any other somatic complaints and denies any headache, chest pain, difficulty breathing, nausea, vomiting, diarrhea, abdominal pain. She reports recurrent falls the to state of alcohol intoxication and has been obvious bruise that appears to be old on her right shoulder. There other bruises in various stages of healing. Patient states that she drank multiple I PAs prior to arrival. Medication Reconciliation Allergies: Coded Allergies: zolpidem (Unverified Allergy, Severe, hives, 04/23/25) doxycycline (Verified Allergy, Mild, "BURNING", 04/23/25) mc pepper (Verified Allergy, Unknown, 04/23/25) BLISTERS IN MOUTH trazodone (Verified Allergy, Unknown, 04/23/25) codeine (Verified Adverse Reaction, Mild, 04/23/25) N/V ondansetron (Verified Adverse Reaction, Mild, Migraine, 04/23/25) Scheduled Atorvastatin Calcium* (Lipitor*), 1 TAB PO DAILY Bupropion Hcl (Bupropion Hcl Sr), 150 MG PO DAILY Escitalopram Oxalate (Lexapro), 1 TAB PO DAILY, (Reported) Gabapentin (Gabapentin), 1 CAP PO TID, (Reported) Losartan Potassium (Losartan Potassium), 1 TAB PO DAILY Nifedipine ER* (Nifedipine Er*), 1 TAB PO DAILY, (Reported) Pantoprazole Sodium (Pantoprazole Sodium), 40 MG PO DAILY Discontinued Medications Atorvastatin Calcium (Atorvastatin Calcium), 40 MG PO HS Discontinued Reason: patient no longer taking Bupropion HCl (Bupropion Xl), 3 TAB PO DAILY, (Reported) Discontinued Reason: patient no longer taking Escitalopram Oxalate (Escitalopram Oxalate), 1 TAB PO DAILY Discontinued Reason: patient no longer taking Gabapentin (Gabapentin), 1 CAP PO Q8H Discontinued Reason: patient no longer taking Losartan Potassium (Losartan Potassium), 50 MG PO DAILY Discontinued Reason: patient no longer taking Nifedipine ER* (Nifedipine Er*), 1 TAB PO DAILY Discontinued Reason: patient no longer taking Pantoprazole Sodium (Pantoprazole Sodium), 1 TAB PO DAILY, (Reported) Discontinued Reason: patient no longer taking Past Medical History Past Medical History: Seizures, Atrial Fibrillation, Hypertension, GERD, Pancreatitis, Peptic Ulcer Disease, Anemia, Diabetes, *INFECTIOUS DZ*, MRSA Abscess, Breast Cancer, Anxiety, Bipolar, Depression Past Surgical History: appendectomy, cholecystectomy, gastric bypass, tonsillectomy, tubal ligation, other Patient History: FH: breast cancer Aunt FH: colon cancer FH: dementia Aunt FH: depression FATHER FH: heart attack GRANDFATHER OR GRANDMOTHER, Name: Grandmother, , Age: 87 GRANDFATHER OR GRANDMOTHER, Name: Grandfather, , Age: 42 FH: heart disease MOTHER Aunt Smoking Status: Current every day smoker Alcohol Use: Abuse Drug Use: methamphetamine Lives In: Home Occupation: unemployed Review of Systems ROS 10 point review of systems was performed and unless noted above in HPI is negative for acute process/complaint. Physical Exam Vital Signs: Temperature: 97.6, Source: Temporal, Heart Rate: 91, Respiratory Rate: 16, BP: 96/57, Pulse Oximetry: 96, Weight: 93.800 Oxygen Flow Rate: 0 Physical Exam GENERAL: Awake, alert, oriented, GCS 15, no apparent distress, non-toxic appearing, answers questions, follows commands appropriately. Examined in a chair in the hallway and then placed in bed 16 HEENT: Atraumatic, normocephalic, pupils equal, extraocular muscles intact, sclerae anicteric, mucus membranes moist, oropharynx is clear, no stridor. NECK: supple, full active range of motion, trachea midline, no thyromegaly, no lymphadenopathy, no JVD. CARDIOVASCULAR: regular rate/rhythm, no murmurs/gallops/rubs, Pulses are 2+ in all extremities and symmetric. Capillary refill less than 2 seconds. PULMONARY: Nonlabored, good air movement ,no respiratory distress, speaking in full sentences, clear to auscultation bilaterally, no wheezing, no ronchi, no rales, no accessory muscle use. GASTROINTESTINAL: Soft, non-tender, non-distended, normal active bowel sounds, no organomegaly, no pulsatile masses, no CVA tenderness. NEUROLOGIC: Lucid with normal mental status. Normal facial symmetry. Moves all extremities symmetrically and with purpose. No truncal ataxia. Speech is fluid slurred consistent with alcohol intoxication. No focal deficits. MUSCULOSKELETAL: There is full range of motion of all extremities. There is no joint pain or joint swelling or joint erythema. There is no muscle pain or tenderness or swelling. EXTREMITIES: warm, well-perfused, no cyanosis, no clubbing, no edema, no acute deformities. Skin: warm, dry, no rashes or lesions, no jaundice, no petechiae orpurpura. No ecchymosis. PSYCHIATRIC: Tearful affect, poor insight, poor concentration. Focused exam: [Endorses active suicidal ideation] Progress Results/Orders Results/Orders Orders - LAZARO DENTON DO Med Rec (04/30/25 12:38) 1799.11 (04/30/25 12:38) Close Observation Level (04/30/25 12:38) Covid19 Binax Poc Result Entry (04/30/25 12:38) Substance Use Navigator (04/30/25 12:38) Regular Diet (04/30/25 Dinner) Completed Orders - LAZARO DENTON DO Cbc/Diff (04/30/25 12:38) Urinalysis (04/30/25 12:38) Hcg, Ur Ql (04/30/25 12:38) Drug Screen, Urine (04/30/25 12:38) Ethanol (04/30/25 12:38) Acetaminophen (04/30/25 12:38) Salicylate (04/30/25 12:38) TSH (04/30/25 12:38) BMP (04/30/25 12:38) Man Diff (04/30/25 12:52) Normal Saline 1000ml (0.9% Sodium Chlori (04/30/25 13:55) Normal Saline 1000ml (0.9% Sodium Chlori (04/30/25 13:55) Medications Received in ER Medications (Trade) Dose Ordered Sig/Franco Route PRN Reason Start Time Stop Time Status Last Admin Dose Admin Sodium Chloride 1,000 ml @ 1,000 mls/hr ONCE ONCE IV 04/30/25 13:55 04/30/25 14:54 DC 04/30/25 14:25 1,000 MLS/HR Sodium Chloride 1,000 ml @ 1,000 mls/hr ONCE ONCE IV 04/30/25 13:55 04/30/25 14:54 DC 04/30/25 14:25 1,000 MLS/HR Vital Signs 04/30/25 04/30/25 04/30/25 04/30/25 12:24 12:45 12:45 14:39 Temp 97.6 Pulse 94 83 88 Resp 16 15 15 15 B/P (MAP) 145/93 144/96 (112) 111/70 (84) Pulse Ox 98 98 98 O2 Flow Rate 0 0 0 04/30/25 04/30/25 15:27 16:31 Pulse 98 91 Resp 15 16 B/P (MAP) 94/52 (66) 96/57 (70) Pulse Ox 97 96 O2 Flow Rate 0 0 Laboratory Tests Test 04/30/25 12:52 04/30/25 14:00 White Blood Count 2.6 L Red Blood Count 3.85 L Hemoglobin 10.4 L Hematocrit 32.3 L Mean Corpuscular Volume 84.0 Mean Corpuscular Hemoglobin 27.0 Mean Corpuscular Hemoglobin Concent 32.2 L Red Cell Distribution Width 28.3 H Platelet Count 134 L Mean Platelet Volume 7.6 Neutrophils (%) (Auto) 38.7 L Lymphocytes (%) (Auto) 41.1 Monocytes (%) (Auto) 12.7 H Eosinophils (%) (Auto) 6.1 H Basophils (%) (Auto) 1.4 H Neutrophils # (Auto) 1.0 L Lymphocytes # (Auto) 1.1 Monocytes # (Auto) 0.3 Eosinophils # (Auto) 0.2 Basophils # (Auto) 0.0 CBC Comment Differential Total Cells Counted 100 Neutrophils % (Manual) 44.0 Lymphocytes % (Manual) 40.0 Monocytes % (Manual) 10.0 Eosinophils % (Manual) 6.0 Platelet Estimate Decreased Red Blood Cell Morphology Perf Hypochromasia 1+ Basophilic Stippling Anisocytosis 3+ Sodium Level 137 Potassium Level 3.7 Chloride Level 103 Carbon Dioxide Level 16.6 L Anion Gap 17 H Blood Urea Nitrogen 7 Creatinine 0.74 Estimated GFR/1.73 m2 82 BUN/Creatinine Ratio 9.5 L Glucose Level 92 Calcium Level 8.8 Albumin 3.8 Thyroid Stimulating Hormone (TSH) 1.72 Chemistry Comments Salicylates Level 3.2 L Acetaminophen Level < 2.0 L Ethyl Alcohol Level 405 *H Urine Specimen Description Cln catch midstream Urine Color Yellow Urine Clarity Clear Urine pH 6.0 Urine Specific [place] <=1.005 Urine Protein Negative Urine Glucose (UA) Negative Urine Ketones Negative Urine Occult Blood Negative Urine Nitrite Negative Urine Bilirubin Negative Urine Urobilinogen 0.2 Urine Leukocyte Esterase Negative Volume Urine Centrifuged 10 ml Urine HCG, Qualitative Negative Urine Comment Urine Opiates Screen Negative Urine Methadone Screen Negative Urine Fentanyl Screen Negative Urine Barbiturates Screen Negative Urine Phencyclidine Screen Negative Urine Amphetamines Screen Negative Urine Benzodiazepines Screen Positive Urine Cocaine Screen Negative Urine Cannabinoids Screen Negative Drug Screen Comment SARS-CoV-2 Antigen (Rapid) Negative Medical Decision Making Findings Facility Status: ED Holds, RME process The plan was discussed with the patient, who demonstrates clear understanding of the plan and is in agreement with the plan unless otherwise noted in the chart. All questions have been answered, all concerns were addressed unless otherwise documented. I was available throughout their ED stay for frequent reassessment and questions . Differential Diagnoses (considered and possible or likely): [Alcohol intoxication, suicidal ideation, dehydration, electrolyte derangement, recurrent falls, patient is at risk of alcohol withdrawal if she is allowed to sober up.] ??Differential Diagnoses (considered and unlikely, not requiring evaluation currently): [No evidence of lateralizing sinuses suspect a stroke. No acute trauma.] MDM Data Please see [facility] for the following: Independent Historians and external Records Review. Historian: [Patient] Independent Historians: ?[Record review] Medication Management: [Reviewed medication list] Social History and determinants: [Reviewed] Please see the body of the note for the following: Any independent interpretations of ECG, imaging studies. All vitals signs/haemodynamics, ordered tests were independently reviewed and interpreted by myself. Nursing triage complaint and vitals reviewed, additional nursing notes were reviewed as available and I agree unless otherwise noted or documented in contradiction in the chart Vital Signs: Independently reviewed Labs: Independently interpreted Imaging: Independently interpreted Old Medical Records: Independently reviewed, see [facility] for relevant summary and information Pulse Oximetry: [97%] interpreted as [normal on room air] by me [Riveting Machine Operator Automatic: [Regular Rate, Regular rhythm, no ectopy, NSR] reviewed and interpreted by me] Additionally notably showing: [Hemodynamics reviewed. The patient isn't febrile, not tachycardic, no evidence of hypotension or hypotension to suggest alcohol withdrawal at this time. No evidence of tachycardia. Laboratory studies show leukopenia of 2.6, anemia of 10.4, thrombocytopenia of 134. Chemistry shows no significant electrolyte derangement. Normal thyroid function. Toxicology shows that she is positive for benzodiazepines as well as alcohol of 405. The lady is stupendously drunk. COVID is negative. The patient ] Tests considered but not ordered include: [Imaging does not appear to be necessary] Social Determinants of Health Impact: Patient was evaluated in [facility] [place] to healthcare due to below par ratio of patient to medical providers. [] Comorbid Conditions Impacting Present Evaluation and Care/Treatment: [Alcoholism and suicidality] Management Discussions with other Healthcare Providers: [] Treatment and Disposition Medication Management (Given or considered): []. See EMR for details Consideration for Hospitalization/Escalation/Deescalation of Care: Admission for observation has been considered, [however the patient is able to tolerate p.o., their symptoms are controlled, they are able to rely on oral medications, and their chief complaint/diagnosis can be managed on outpatient basis.] ?ED Course:?[At this point the patient is an intoxicated with the alcohol, however she appears to be clinically sober despite of alcohol of four or five. She is medically cleared. It is important to note that as the patient marlen up, she is likely to develop alcohol withdrawal, she will remain on a monitoring tech with frequent vital signs and she may be returned into the fold of medical patient's requiring admission.] ?Shared decision making:?[] Code status:?FULL Please see the full Electronic Medical Record for full details of nursing documentation, medications list, other records of complete past medical history and conditions, vital signs, laboratory studies, and any radiologic study interpretations by radiologists. Portions of this note were completed using [employer] dictation software and as a result there may exist minor errors in spelling. I have reviewed elements of past family and social history and agree as included in note. Departure Disposition: 30 STILL A PATIENT Impression: Primary Impression: Alcoholic intoxication Additional Impressions: Alcoholism Suicidal ideation At risk for alcohol withdrawal Condition: Guarded Referrals: NO PRIMARY CARE PROVIDER (PCP) Signature Scribe Signature: No scribe Attestation: This note accurately reflects clinical decisions, work performed by myself, Lazaro Schulack, LAZARO ROSS DO Apr 30, 2025 17:02
[2025-05-01] MEDS: NIFEdipine XL 30mg tablet PO SCH (07:34)
[2025-05-01] MEDS: ESCITALOPRAM 10 mg tablet 10 MG TABLET PO SCH (07:35)
[2025-05-02] MEDS ORDERED: CHLO25CA10 PO (17:47)
[2025-05-02] MEDS ORDERED: GABA300T28 PO (17:47)
[2025-05-02 19:09] VITALS: BP 143/101; PULSE 107; RESP 14; TEMP 98.6; O2SAT 99
== END 2025-05-02 19:48 | disposition still patient (30) ==
LOC: ER 12:09
DX: R45.851 Suicidal ideations (principal); F10.229 Alcohol dependence with intoxication, unspecified; I48.91 Unspecified atrial fibrillation; I10 Essential (primary) hypertension; F41.9 Anxiety disorder, unspecified; F17.200 Nicotine dependence, unspecified, uncomplicated; F15.90 Other stimulant use, unspecified, uncomplicated; E11.9 Type 2 diabetes mellitus without complications; K21.9 Gastro-esophageal reflux disease without esophagitis; F31.9 Bipolar disorder, unspecified; Y90.9 Presence of alcohol in blood, level not specified; Z85.3 Personal history of malignant neoplasm of breast; Z88.1 Allergy status to other antibiotic agents; Z88.5 Allergy status to narcotic agent; Z88.8 Allergy status to other drugs, medicaments and biological substances; Z90.49 Acquired absence of other specified parts of digestive tract; Z98.51 Tubal ligation status; Z79.899 Other long term (current) drug therapy; Z56.0 Unemployment, unspecified; Z20.822 Contact with and (suspected) exposure to COVID-19
CPT/HCPCS: 36415; 80048; 80305; 80329; 81003; 81025; 84443; 85007; 85025; 87811; 96360; 99285; A6446; G0480; J7030; 80320

== ENCOUNTER 2025-05-14 12:09 | Inpatient (IN) | payer MEDICARE, MEDICAID ==
[~2025-05-14] VITALS: Ht 175.3 cm; Wt 93.8 kg
[~2025-05-14 12:09] MED LIST changes: -ATOR20TA66 PO; -BUPR-726 PO; +CHLO25CA10 PO; -ESCI20TA39 PO; +GABA300T28 PO; -LOSA25TA41 PO
--- NOTE | 2025-05-14 12:44 | Physician Documentation ---
History of Present Illness ~ Chief Complaint: Mechanical Fall Stated Complaint: FALL Time Seen by MD: 12:43 Primary Medical Doctor: Wally DAVIS This is a 54-year-old female brought in by EMS after a ground level mechanical fall, per EMS positive head strike, no loss of consciousness, no blood thinners. Hematoma noted. EMS reports positive EtOH. A C-collar was placed by EMS prior to arrival. Patient does also admit to heavy drinking and states she drinks 12 or more high alcohol content beers per day and states she has been trying to quit in wounds to start rehab and gets severe shakes is concern about seizures when she stops abruptly the alcohol. He currently denies any chest pain or shortness of breath or abdominal pain or nausea, vomiting, diarrhea. Patient has no other concern or complaint at this time. Tetanus within 5 Years?: No Medication Reconciliation Allergies: Coded Allergies: zolpidem (Unverified Allergy, Severe, hives, 04/23/25) doxycycline (Verified Allergy, Mild, "BURNING", 04/23/25) mc pepper (Verified Allergy, Unknown, 04/23/25) BLISTERS IN MOUTH trazodone (Verified Allergy, Unknown, 04/23/25) codeine (Verified Adverse Reaction, Mild, 04/23/25) N/V ondansetron (Verified Adverse Reaction, Mild, Migraine, 04/23/25) Scheduled Atorvastatin Calcium* (Lipitor*), 1 TAB PO DAILY Bupropion Hcl (Bupropion Hcl Sr), 150 MG PO DAILY Chlordiazepoxide Hcl (Librium), 25 MG PO DIRECTED Escitalopram Oxalate (Lexapro), 1 TAB PO DAILY, (Reported) Gabapentin (Gabapentin), 1 CAP PO TID, (Reported) Gabapentin (Gabapentin ER), 1 CAP PO HS Losartan Potassium (Losartan Potassium), 1 TAB PO DAILY Nifedipine ER* (Nifedipine Er*), 1 TAB PO DAILY, (Reported) Pantoprazole Sodium (Pantoprazole Sodium), 40 MG PO DAILY Past Medical History Past Medical History: Seizures, Atrial Fibrillation, Hypertension, GERD, Pancreatitis, Peptic Ulcer Disease, Anemia, Diabetes, *INFECTIOUS DZ*, MRSA Abscess, Breast Cancer, Anxiety, Bipolar, Depression Past Surgical History: appendectomy, cholecystectomy, gastric bypass, tonsillectomy, tubal ligation, other Patient History: FH: breast cancer Aunt FH: colon cancer FH: dementia Aunt FH: depression FATHER FH: heart attack GRANDFATHER OR GRANDMOTHER, Name: Grandmother, , Age: 87 GRANDFATHER OR GRANDMOTHER, Name: Grandfather, , Age: 42 FH: heart disease MOTHER Aunt Alcohol Use: Abuse Drug Use: methamphetamine Lives In: Home Occupation: unemployed Review of Systems ROS As stated above in the HPI, otherwise all systems are reviewed and negative. Constitutional: Denies: chills, fever, weakness Eyes: Denies: pain, blurred vision ENT: Denies: ear pain, nose pain, throat pain, mouth pain Respiratory: Denies: cough, shortness of breath Cardiovascular: Denies: chest pain, palpitations Gastrointestinal: Denies: abdominal pain, nausea, vomiting Genitourinary: Denies: burning, dysuria Female Genitalia: Denies: vaginal discharge, pelvic pain Neurological: Denies: headache, dizziness Musculoskeletal: Denies: pain, swelling Integumentary: Denies: rash, lesions Allergic/Immunologic: Denies: hives, itching Hematologic/Lymphatic: Denies: no symptoms reported Psychiatric: Denies: depression, anxiety Physical Exam Vital Signs: Temperature: 97.9, Source: Temporal, Heart Rate: 90, Respiratory Rate: 18, BP: 219/129, Pulse Oximetry: 97, Weight: 93.800 Oxygen Flow Rate: 0 Physical Exam General: Awake and Alert, no acute distress. HEENT: Patient has a very small lump on the occiput with no bleeding and no laceration with mild tenderness to palpation. Conjunctiva pink, Sclera clear, Mucus Membranes moist. Neck: Supple without masses and tenderness. Resp: Unlabored. Lungs clear to auscultation bilaterally. Heart: Regular Rate and rhythm, normal S1 and S2 without murmur, rub or gallop. Abdomen: Soft and non tender no organomegaly Skin: Warm and Dry. Progress Results/Orders Results/Orders Orders - ESTELLE RUIZ PAC Chest,Single View (05/14/25 18:11) Saline Lock (05/14/25 18:11) Page Hospitalist (05/14/25 18:17) Fill Out Med Reconciliation (05/14/25 18:17) Completed Orders - ESTELLE RUIZ PAC Cbc/Diff (05/14/25 18:11) Lipase (05/14/25 18:11) Ethanol (05/14/25 18:11) MG (05/14/25 18:11) Hcg, Ur Ql (05/14/25 18:11) Urinalysis, Cult If Indicated (05/14/25 18:11) Electrocardiogram (05/14/25 18:11) Chest,Single View (05/14/25 18:11) Drug Screen, Urine (05/14/25 18:11) BMP (05/14/25 18:11) Phenobarbital Inj (Phenobarbital Inj.) (05/14/25 18:11) Hgb A1c (05/14/25 18:54) Lipid Panel (05/14/25 18:54) Medications Received in ER Medications (Trade) Dose Ordered Sig/Franco Route PRN Reason Start Time Stop Time Status Last Admin Dose Admin Phenobarbital Sodium 260 mg/ Sodium Chloride 100 ml @ 200 mls/hr ONCE STAT IV 05/14/25 18:11 05/14/25 18:40 DC 05/14/25 20:18 200 MLS/HR Vital Signs 05/14/25 05/14/25 05/14/25 05/14/25 12:12 16:05 17:00 18:13 Temp 97.9 Pulse 90 77 87 Resp 18 14 18 14 B/P (MAP) 219/129 138/88 (105) 115/75 (88) Pulse Ox 97 98 96 O2 Flow Rate 0 0 0 Laboratory Tests Test 05/14/25 18:47 05/14/25 18:54 Urine Specimen Description Non-specified Urine Color Yellow Urine Clarity Clear Urine pH 6.0 Urine Specific [place] <=1.005 Urine Protein Negative Urine Glucose (UA) Negative Urine Ketones Negative Urine Occult Blood Negative Urine Nitrite Negative Urine Bilirubin Negative Urine Urobilinogen 0.2 Urine Leukocyte Esterase Negative Urine Culture Indicated Not ind Volume Urine Centrifuged 10 ml Urine HCG, Qualitative Negative Urine Comment Urine Opiates Screen Negative Urine Methadone Screen Negative Urine Fentanyl Screen Negative Urine Barbiturates Screen Negative Urine Phencyclidine Screen Negative Urine Amphetamines Screen Negative Urine Benzodiazepines Screen Positive Urine Cocaine Screen Negative Urine Cannabinoids Screen Negative Drug Screen Comment White Blood Count 3.0 L Red Blood Count 3.78 L Hemoglobin 10.7 L Hematocrit 33.0 L Mean Corpuscular Volume 87.2 Mean Corpuscular Hemoglobin 28.2 Mean Corpuscular Hemoglobin Concent 32.4 L Red Cell Distribution Width 25.0 H Platelet Count 209 Mean Platelet Volume 7.0 L Neutrophils (%) (Auto) 51.0 Lymphocytes (%) (Auto) 36.3 Monocytes (%) (Auto) 8.7 Eosinophils (%) (Auto) 2.4 Basophils (%) (Auto) 1.6 H Neutrophils # (Auto) 1.5 L Lymphocytes # (Auto) 1.1 Monocytes # (Auto) 0.3 Eosinophils # (Auto) 0.1 Basophils # (Auto) 0.0 CBC Comment Platelet Estimate Normal Red Blood Cell Morphology Perf Basophilic Stippling Anisocytosis 2+ Microcytosis Few Sodium Level 139 Potassium Level 4.2 Chloride Level 104 Carbon Dioxide Level 22.9 L Anion Gap 12 Blood Urea Nitrogen 6 L Creatinine 0.71 Estimated GFR/1.73 m2 86 BUN/Creatinine Ratio 8.5 L Glucose Level 87 Hemoglobin A1c 5.1 Calcium Level 9.0 Magnesium Level 1.9 Albumin 3.6 Triglycerides Level 91 Cholesterol Level 254 H LDL Cholesterol 93 HDL Cholesterol 125 H Cholesterol/HDL Ratio 2.0 Lipase 33 Chemistry Comments Ethyl Alcohol Level 208 H EKG/XRAY/CT/US/VASC/MRI CT : Impression CAT SCAN Patient: MICHOACANO FIERRO Medical Record: [id number] [facility] 1970, Age: 54 Sex: Female Location: ER Patient Status: REG ER Service Date/Time: 05/14/25/ 1231 Ordering Physician: MAX PURI Exam: CT CERVICAL SPINE EXAM: CT CT CERVICAL SPINE INDICATION: FALL WITH HEADSTRIKE AND NECK PAIN TECHNIQUE: Non contrast axial images of the cervical spine have been obtained with coronal and sagittal reformatted images. CT scans at this facility use dose modulation, iterative reconstruction, and/or weight based dosing when appropriate to reduce radiation dose to as low as reasonably achievable. COMPARISON: CT CT HEAD on DOS: 04/29/25 FINDINGS: ANATOMY: Cervical lordosis is maintained. VERTEBRAL BODIES: The vertebral bodies are normal in height and alignment. The dens is intact, the lateral masses of C1 are normally aligned, and the atlantodental interval is normal for age. SPINAL CANAL: No significant spinal canal stenosis. INTERVERTEBRAL DISCS: No CT findings to suggest traumatic disc herniation or acute hematoma. SOFT TISSUES: There is no prevertebral soft tissue swelling. OTHER: The partially visualized lung apices are clear. IMPRESSION: 1. No acute cervical spine fracture or malalignment. Electronically Signed by:CONOR AQUINO MD Date & Time: 05/14/251245 Dictated by: CONOR AQUINO MD Dictation date and time: 05/14/251245 Primary Care Provider: NO PRIMARY CARE PROVIDER cc: MAX PURI ~ CAT SCAN Patient: MICHOACANO FIERRO Medical Record: [id number] [facility] 1970, Age: 54 Sex: Female Location: ER Patient Status: [facility] ER Service Date/Time: 05/14/25 1231 Ordering Physician: MAX PURI Exam: CT HEAD EXAM: CT CT HEAD HISTORY: FALL WITH HEADSTRIKE AND NECK PAIN COMPARISON: CT CT HEAD on DOS: 04/29/25, CT CT HEAD on DOS: 02/29/24, CT CT HEAD on DOS: 11/09/23, CT CTA NECK/HEAD on DOS: 10/12/23, CT CT STROKE ALERT on DOS: 10/12/23 TECHNIQUE: Noncontrast axial CT images of the head were performed. Sagittal and coronal reformatted images were obtained. This CT exam was performed using 1 or more of the following dose reduction techniques: Automated exposure control, adjustment of the mA and/or kv according to patient size, or the use of iterative reconstruction techniques. Radiation Dose: CTDI volume is 68.02 mGy. Dose-length product is 1449.47 mGy*cm FINDINGS: No intracranial hemorrhage, mass, midline shift, hydrocephalus, or evidence of acute large vessel infarct. The paranasal sinuses are clear. The bilateral mastoid air cells and middle ear spaces are clear. There are advanced degenerative changes of the right temporomandibular joint. No cranial fracture. There is occipital scalp edema in the midline. There is a calcification in the subcutaneous fat of the left parietal scalp, stable. IMPRESSION: 1. No acute intracranial process. 2. Occipital scalp edema without underlying cranial fracture. Electronically Signed by:YUNG CRAWFORD MD Date & Time: 05/14/251241 Dictated by: YUNG CRAWFORD MD Dictation date and time: 05/14/251241 Primary Care Provider: NO PRIMARY CARE PROVIDER cc: MAX PURI ~ Medical Decision Making Findings This is a 54-year-old female brought in by EMS after a ground level mechanical fall, per EMS positive head strike, no loss of consciousness, no blood thinners. Hematoma noted. EMS reports positive EtOH. A C-collar was placed by EMS prior to arrival. Patient does also admit to heavy drinking and states she drinks 12 or more high alcohol content beers per day and states she has been trying to quit in wounds to start rehab and gets severe shakes is concern about seizures when she stops abruptly the alcohol. He currently denies any chest pain or shortness of breath or abdominal pain or nausea, vomiting, diarrhea. Patient has no other concern or complaint at this time. Patient's head CT and CT of neck were unremarkable. Patient will be admitted for alcohol withdrawal. I did consult hospitalist for further eval and consult. Patient was given phenobarbital 260 mg IV along with Compazine 10 mg IV. Departure Disposition: ADMITTED INPATIENT Admitted to Inpatient Unit: to hospitalist Impression: Primary Impression: Superficial bruising Additional Impressions: Acute alcohol intoxication Qualified Codes: F10.920 - Alcohol use, unspecified with intoxication, uncomplicated Alcohol use disorder, severe, dependence Alcohol withdrawal Qualified Codes: F10.930 - Alcohol use, unspecified with withdrawal, uncomplicated Condition: Stable Additional Instructions: Patient's head CT and CT of neck were unremarkable. Patient will be admitted for alcohol withdrawal. I did consult hospitalist for further eval and consult. Patient was given phenobarbital 260 mg IV along with Compazine 10 mg IV. Referrals: NO PRIMARY CARE PROVIDER (PCP) Signature Scribe Signature: No scribe Attestation: No scribe MAX PURI FINISH REPAIRER May 14, 2025 12:44 ESTELLE RUIZ PAC May 14, 2025 23:34
--- NOTE | 2025-05-14 12:45 | RADIOLOGY REPORT ---
EXAM: CT CT HEAD HISTORY: FALL WITH HEADSTRIKE AND NECK PAIN COMPARISON: CT CT HEAD on DOS: 04/29/25, CT CT HEAD on DOS: 02/29/24, CT CT HEAD on DOS: 11/09/23, CT CT A NECK/HEAD on DOS: 10/12/23, CT CT STROKE ALERT on DOS: 10/12/23 TECHNIQUE: Noncontrast axial CT images of the head were performed. Sagittal and coronal reformatted i mages were obtained. This CT exam was performed using 1 or more of the following dose reduction techn iques: Automated exposure control, adjustment of the mA and/or kv according to patient size, or the u se of iterative reconstruction techniques. Radiation Dose: CTDI volume is 68.02 mGy. Dose-length product is 1449.47 mGy*cm FINDINGS: No intracranial hemorrhage, mass, midline shift, hydrocephalus, or evidence of acute large vessel inf arct. The paranasal sinuses are clear. The bilateral mastoid air cells and middle ear spaces are ian ar. There are advanced degenerative changes of the right temporomandibular joint. No cranial fracture . There is occipital scalp edema in the midline. There is a calcification in the subcutaneous fat of the left parietal scalp, stable. IMPRESSION: 1. No acute intracranial process. 2. Occipital scalp edema without underlying cranial fracture.
--- NOTE | 2025-05-14 12:49 | RADIOLOGY REPORT ---
EXAM: CT CT CERVICAL SPINE INDICATION: FALL WITH HEADSTRIKE AND NECK PAIN TECHNIQUE: Non contrast axial images of the cervical spine have been obtained with coronal and sagitt al reformatted images. CT scans at this facility use dose modulation, iterative reconstruction, and/o r weight based dosing when appropriate to reduce radiation dose to as low as reasonably achievable. COMPARISON: CT CT HEAD on DOS: 04/29/25 FINDINGS: ANATOMY: Cervical lordosis is maintained. VERTEBRAL BODIES: The vertebral bodies are normal in height and alignment. The dens is intact, the la teral masses of C1 are normally aligned, and the atlantodental interval is normal for age. SPINAL CANAL: No significant spinal canal stenosis. INTERVERTEBRAL DISCS: No CT findings to suggest traumatic disc herniation or acute hematoma. SOFT TISSUES: There is no prevertebral soft tissue swelling. OTHER: The partially visualized lung apices are clear. IMPRESSION: 1. No acute cervical spine fracture or malalignment.
--- NOTE | 2025-05-14 18:33 | RADIOLOGY REPORT ---
EXAM: DI CHEST,SINGLE VIEW Indication: alcoholic, cough Technique: Single frontal view of the chest was obtained Comparison: DI CHEST,SINGLE VIEW on DOS: 03/15/25, DI CHEST,SINGLE VIEW on DOS: 01/07/25, DI CHEST,TWO VIEWS on DOS: 04/19/24, DI CHEST,SINGLE VIEW on DOS: 11/13/23, CT CT CHEST ABDOMEN PELVIS on DOS: 4 FINDINGS: Lines and Tubes: None Lungs: No focal consolidation. Pleura: No effusion. No pneumothorax. Cardiomediastinal contours: Unremarkable Bones: No acute osseous abnormality. IMPRESSION: No acute cardiopulmonary disease.
--- NOTE | 2025-05-14 18:40 | ELECTROCARDIOGRAPH REPORT ---
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
[2025-05-14 19:06] LABS: MEAN PLATELET VOLUME 7.0 FL (7.4-10.4); RED CELL DISTRIBUTION WIDTH 25.0 % (11.5-14.5)
[2025-05-14] MEDS ORDERED: magnesium Cl slow-release 64mg tablet PO PRN (19:20)
[2025-05-14] MEDS ORDERED: HYDROcodone/acetaminophen 5mg/325mg tablet PO PRN (19:20)
[2025-05-14] MEDS ORDERED: magnesium hydroxide 30ml (MOM) UD suspension PO PRN (19:20)
[2025-05-14] MEDS ORDERED: magnesium sulf-water 4G/100mL 100 ML IV PRN (19:20)
[2025-05-14] MEDS ORDERED: ondansetron/PF 4mg/2ml inj IV PRN (19:20)
[2025-05-14] MEDS ORDERED: HYDROcodone/acetaminophen 10/325mg tab PO PRN (19:20)
[2025-05-14] MEDS ORDERED: potassium Cl 40MEQ/1/2NS 520ml 520 ML IV PRN (19:20)
[2025-05-14] MEDS ORDERED: magnesium sulf-water 2g/50mL 50 ML IV PRN (19:20)
[2025-05-14] MEDS ORDERED: potassium Cl 20 mEq SR tablet PO PRN ×2 (19:20)
[2025-05-14] MEDS ORDERED: mag hydrox/Alum hydrox/simeth 30ml oral suspension PO PRN (19:20)
[2025-05-14 19:26] LABS: CREATININE 0.71 MG/DL (0.40-0.90); ETHANOL 208 MG/DL (<10); TOTAL CARBON DIOXIDE 22.9 MMOL/L (24-32); eCRCL 97 ML/MIN; eGFR 86 ML/MIN
[2025-05-14 19:31] LABS: LEUKOCYTE ESTERASE ,URINE NEGATIVE (Neg); NITRITES, URINE NEGATIVE (Neg); OCCULT BLOOD,URINE NEGATIVE (Neg)
[2025-05-14 19:33] LABS: UA COLLECTION TYPE NON-SPECIFIED
[2025-05-14 19:35] LABS: URINE HCG NEGATIVE (NEG)
[2025-05-14 19:51] LABS: PLATELET ESTIMATE NORMAL
[2025-05-14 19:56] LABS: URINE AMPHETAMINE SCREEN NEGATIVE (Neg); URINE BARBITUATE SCREEN NEGATIVE (Neg); URINE BENZODIAZEPINES SCREEN POSITIVE (Neg); URINE CANNABINOID SCREEN NEGATIVE (Neg); URINE COCAINE SCREEN NEGATIVE (Neg); URINE METHADONE SCREEN NEGATIVE (Neg); URINE OPIATE SCREEN NEGATIVE (Neg); URINE PHENCYCLIDINE SCREEN NEGATIVE (Neg)
[2025-05-14] MEDS: docusate sod 100mg capsule PO SCH (20:00)
[2025-05-14] MEDS: K and/or MAG REPLACEMENT MC SCH (20:00)
--- NOTE | 2025-05-14 20:15 | HISTORY AND PHYSICAL-Residence ---
History & Physical Providers to CC Resident Creating Document: SHELLY TRINH, RES ~ History of Present Illness Primary Medical Doctor: Wally Hawkins Reason for Admit\\Complaint: Alcohol withdrawal History of Present Illness This is a 54-year-old female with past medical history of alcohol use disorder, atrial fibrillation, hypertension, peptic ulcer disease, pancreatitis, breast cancer status post resection who came to the emergency room after experiencing alcohol withdrawal symptoms. She explained that she was sober since one year after rehab and today morning she binge drank six hi IPA beers in 2 hours after which she called her rehab. Her rehab suggested her to come to the emergency room for alcohol withdrawal symptoms. She complained that she started feeling shaky in the evening and started having suicidal thoughts. She was had a mechanical fall in her garden before coming to the ER. She fell and hit the back of her head and had a brief moment of LOC. She was found by her neighbors who called an ambulance. She complains of swelling in the back of her neck but no headache, nausea, dizziness. She has not been compliant with her blood pressure and atrial fibrillation medications since one year. Dr. Tatum is her bilingual medical receptionist. Allergies: Coded Allergies: zolpidem (Unverified Allergy, Severe, hives, 04/23/25) doxycycline (Verified Allergy, Mild, "BURNING", 04/23/25) mc pepper (Verified Allergy, Unknown, 04/23/25) BLISTERS IN MOUTH trazodone (Verified Allergy, Unknown, 04/23/25) codeine (Verified Adverse Reaction, Mild, 04/23/25) N/V ondansetron (Verified Adverse Reaction, Mild, Migraine, 04/23/25) Home Medications Home Medications Active Gabapentin ER (Gabapentin) 300 Mg Tab.er.24h 1 Cap PO HS Librium (Chlordiazepoxide Hcl) 25 Mg Capsule 25 Mg PO DIRECTED TAKE ONE TABLET P.O. Q.I.D. FOR TWO DAYS, THEN TAKE ONE TABLET P.O. T.I.D. FOR TWO DAYS, THEN TAKE ONE TABLET P.O. B.I.D. FOR TWO DAYS THEN TAKE ONE TABLET P.O. DAILY FOR TWO DAYS. Pantoprazole Sodium 40 Mg Tablet.dr 40 Mg PO DAILY 30 Days Losartan Potassium 50 Mg Tablet 1 Tab PO DAILY 30 Days Bupropion Hcl Sr (Bupropion Hcl) 150 Mg Tablet.er 150 Mg PO DAILY 30 Days Lipitor* (Atorvastatin Calcium) 40 Mg Tablet 1 Tab PO DAILY 30 Days Reported Nifedipine Er* (Nifedipine) 30 Mg Tab.er2.24 1 Tab PO DAILY Gabapentin 400 Mg Capsule 1 Cap PO TID 30 Days Lexapro (Escitalopram Oxalate) 20 Mg Tablet 1 Tab PO DAILY 30 Days Past Medical History Past Medical History Atrial fibrillation Hypertension Peptic ulcer disease Pancreatitis Anemia Breast cancer status post surgery and chemotherapy Anxiety Cervical cancer PTSD Bipolar disorder Agoraphobia Suicidal thoughts Past Surgical History Surgical History Comment Bilateral breast cancer diagnosed five years ago status post resection and reconstruction Gastric bypass surgery Cervical cancer diagnosed at the age of 21- underwent cryoablation at 21, hysterectomy at 30. Appendectomy Family History Family History: FH: breast cancer Aunt FH: colon cancer FH: dementia Aunt FH: depression FATHER FH: heart attack GRANDFATHER OR GRANDMOTHER, Name: Grandmother, , Age: 87 GRANDFATHER OR GRANDMOTHER, Name: Grandfather, , Age: 42 FH: heart disease MOTHER Aunt Past Social History Smoking: Quit less than 1 year Alcohol Use: Abuse (Sober since one year. Relapsed today. Before that drank 1 gal of vodka a day from the age of 39) Drug Use: Methamphetamine Lives with: Alone Lives In: Home Occupation: unemployed, disabled Domestic Violence: Neg (Has tried marijuana and meth in her teens) ROS Constitutional: Reports: weakness Eyes: Reports: no symptoms reported ENT: Reports: no symptoms reported Respiratory: Reports: no symptoms reported Cardiovascular: Reports: no symptoms reported Gastrointestinal: Reports: no symptoms reported Genitourinary: Reports: no symptoms reported Female Genitalia: Reports: no reported symptoms Neurological: Reports: no symptoms reported Musculoskeletal: Reports: no symptoms reported Integumentary: Reports: no symptoms reported Allergic/Immunologic: Reports: no symptoms reported Hematologic/Lymphatic: Reports: no symptoms reported Endocrine: Reports: no symptoms reported Psychiatric: Reports: no symptoms reported Exam Vitals: Vital Signs Date Time Temp Pulse Resp B/P (MAP) Pulse Ox O2 Delivery O2 Flow Rate FiO2 05/14/25 18:13 87 14 115/75 (88) 96 0 05/14/25 12:12 97.9 General: General: Well alert, well oriented, not confused, not agitated, not in acute distress, well cooperated during the physical. Alcohol breath. HEENT: Conjunctive are pink, sclerae clear, no icterus, pupil is equal in both sides, reactive to light, no ear discharge, no pharyngeal erythema or an edema, mouth and lips are dry. Neck: Supple, no JVD, no lymphadenopathy and thyromegaly. Lungs:Equal air entry on both lungs, no additional sounds Heart: S1-S2 regular sinus rhythm and, regular rate, no gallops, no rubs, no murmurs Abdomen: Normal, no guarding no rigidity on deep palpation, no organomegaly No visible peristalsis. Normal bowel sounds Extremities: No obvious deformities, , capillary refill intact, able to wiggle toes both sides, peripheral pulsations are intact on both sides GOLD TOOLER: No focal neurological deficits, no motor and sensory weakness in all 4 extremities, could move all 4 extremities Musculoskeletal: No joint swelling, deformities, inflammations, and no scoliosis and back tenderness Skin: No active skin lesions and rashes Diagnostic Data Last Recorded Lab Results: 05/14/25185305/14/251853 Counseling Services Smoking & Tobacco Cessation: > 10 Minutes Advance Care Planning Advanced Care plannin - 30 Minutes (Full code) Additional Plan Assessment: This is a 54-year-old female with past medical history of alcohol use disorder, atrial fibrillation, hypertension, peptic ulcer disease, pancreatitis, breast cancer status post resection who came to the emergency room after experiencing alcohol withdrawal symptoms. Plan: Alcohol use disorder Alcohol withdrawal Urine tox positive for ethyl alcohol and benzodiazepines Ethyl alcohol level 208 Plan: Phenobarbital 260 mg administered in the ER. On moderate alcohol withdrawal protocol Ordered social service and substance use navigator Ordered vitamin B12 Mechanical fall and concussion Small occipital hematoma noted, with LOC Head CT: 1. No acute intracranial process. 2. Occipital scalp edema without underlying cranial fracture. Cervical spine CT: 1. No acute cervical spine fracture or malalignment. Watch out for concussion symptoms for 24 hours including nausea, projectile vomiting, increased sleepiness, LOC. Hypertension noncompliance of medication Vitals: On arrival systolic blood pressure in 200s, reduced 140 without any medication administration Creatinine 0.71, urinalysis normal Chest x-ray: No acute cardiopulmonary disease. Plan: Ordered echo, lipids Continue home medication nifedipine 30 mg p.o. daily, atorvastatin 40 mg p.o. daily Paroxysmal atrial fibrillation with controlled ventricular rate Noncompliance of medication since one year Heart rate in 80s, sinus rhythm EKG: Sinus rhythm, no ST segment changes, normal T-wave morphology. Plan: We will start her medication aspirin 81 mg p.o. daily, nifedipine 30 mg p.o. daily Suicidal thoughts PTSD/bipolar disease, insomnia Continue medication bupropion 150 mg p.o. daily, escitalopram 20 mg p.o. daily. Zolpidem 5 mg p.r.n. for sleep. Psychiatric consultation tomorrow morning. Anemia most probably due to iron deficiency H&H 10.7 and 33, RBC morphology normal with few anisocytosis and microcytosis Received 2 units of blood transfusion four months ago along with iron injection five months ago Ordered iron studies Peptic ulcer disease Continue home medication pantoprazole 40 mg p.o. daily Code status: Full code DVT prophylaxis: SCDs Analgesia/sedation: Morphine/[place] as needed Lines/tubes: PIV GI prophylaxis: Protonix Nutrition: Heart healthy PT: Ordered Prognosis: Guarded Disposition: Admit to ortho floor Shelly Trinh MD Internal Medicine Resident [facility] I discussed the case with the resident and agree with the assessment and plan as above with no changes. Carolina Askew MD Critical Care Date of Service: May 14, 2025 Billing Provider: CAROLINA ASKEW MD, SHIVANI, [facility] May 14, 2025 20:15 CAROLINA ASKEW MD May 14, 2025 21:09
[2025-05-14] MEDS ORDERED: haloperidol lactate 5mg/ml inj IM PRN (20:35)
[2025-05-14] MEDS ORDERED: dextrose 50%-water 50ml dispensing syringe IV PRN (20:35)
[2025-05-14 21:20] LABS: CHOL/HDL RATIO 2.0 (0.00-4.99); LDL CHOLESTEROL 93 MG/DL (50-100)
[2025-05-14 21:45] VITALS: BP 138/81; PULSE 79; RESP 16; TEMP 97.8; O2SAT 96
[2025-05-14 21:48] LABS: % IRON SATURATION 14 % (11-46)
[2025-05-14] MEDS: thiamine 100mg/ml 2ml inj. IV SCH (22:18)
[2025-05-15] VITALS (8 sets, daily range): BP systolic 131–178; BP diastolic 74–98; PULSE 60–91; RESP 12–17; TEMP 97.5–98.8; O2SAT 98–100
[2025-05-15 06:19] LABS: CREATININE 0.71 MG/DL (0.40-0.90); TOTAL CARBON DIOXIDE 21.1 MMOL/L (24-32); eCRCL 97 ML/MIN; eGFR 86 ML/MIN
[2025-05-15 06:20] LABS: MEAN PLATELET VOLUME 7.3 FL (7.4-10.4); RED CELL DISTRIBUTION WIDTH 24.7 % (11.5-14.5)
[2025-05-15] MEDS: folic acid 1mg/0.2ml inj IV SCH (07:44)
[2025-05-15 08:07] LABS: BASOPHILS % (MANUAL) 1.0 % (0-1); EOSINOPHILS % (MANUAL) 2.0 % (0-6); LYMPHOCYTES % (MANUAL) 27.0 % (21-51); MONOCYTES % (MANUAL) 15.0 % (2-12); NEUTROPHILS % (MANUAL) 55.0 % (42-75)
[2025-05-15 08:08] LABS: PLATELET ESTIMATE NORMAL
--- NOTE | 2025-05-15 08:36 | PROGRESS NOTE ---
Daily Progress Note Providers to CC ~ Antibiotic Timeout Antibiotic Ordered?: No Subjective Chief complaint-I do not feel so good I do have rehab plans after this admission I really need to stop drinking I understand Review of systems negative for all 10 systems reviewed Objective Vital Signs Date Time Temp Pulse Resp B/P (MAP) Pulse Ox O2 Delivery O2 Flow Rate FiO2 05/15/25 06:00 77 05/15/25 06:00 97.5 17 131/74 (93) 99 Room Air 05/14/25 18:13 0 Result Diagram: 05/15/25 0507 05/15/25 0507 HEENT normocephalic nontraumatic head CVS first and second heart sounds are regular rate rhythm no murmurs gallops or rubs Respiratory system is clear to auscultate bilaterally no rales rhonchi crackles or wheezing Abdomen is soft bowel sounds are positive nontender nondistended Extremities no clubbing cyanosis or edema Bilateral upper extremity tremulous Problem\Assessment\Plan Assessment: This is a 54-year-old female with past medical history of alcohol use disorder, atrial fibrillation, hypertension, peptic ulcer disease, pancreatitis, breast cancer status post resection who came to the emergency room after experiencing alcohol withdrawal symptoms. Plan: Alcohol use disorder Alcohol withdrawal Urine tox positive for ethyl alcohol and benzodiazepines Ethyl alcohol level 208 Plan: Phenobarbital 260 mg administered in the ER. On moderate alcohol withdrawal protocol Ordered social service and substance use navigator Ordered vitamin B12 Hypertension out of control Start clonidine p.r.n. -nausea vomiting Compazine p.r.n. Patient on PPI Mechanical fall and concussion Small occipital hematoma noted, with LOC Head CT: 1. No acute intracranial process. 2. Occipital scalp edema without underlying cranial fracture. Cervical spine CT: 1. No acute cervical spine fracture or malalignment. Watch out for concussion symptoms for 24 hours including nausea, projectile vomiting, increased sleepiness, LOC. Hypertension noncompliance of medication Vitals: On arrival systolic blood pressure in 200s, reduced 140 without any medication administration Creatinine 0.71, urinalysis normal Chest x-ray: No acute cardiopulmonary disease. Plan: Ordered echo, lipids Continue home medication nifedipine 30 mg p.o. daily, atorvastatin 40 mg p.o. daily Paroxysmal atrial fibrillation with controlled ventricular rate Noncompliance of medication since one year Heart rate in 80s, sinus rhythm EKG: Sinus rhythm, no ST segment changes, normal T-wave morphology. Plan: We will start her medication aspirin 81 mg p.o. daily, nifedipine 30 mg p.o. daily Suicidal thoughts PTSD/bipolar disease, insomnia Continue medication bupropion 150 mg p.o. daily, escitalopram 20 mg p.o. daily. Zolpidem 5 mg p.r.n. for sleep. Psychiatric consultation tomorrow morning. Anemia most probably due to iron deficiency H&H 10.7 and 33, RBC morphology normal with few anisocytosis and microcytosis Received 2 units of blood transfusion four months ago along with iron injection five months ago Ordered iron studies Peptic ulcer disease Continue home medication pantoprazole 40 mg p.o. daily Code status: Full code DVT prophylaxis: SCDs Analgesia/sedation: Morphine/[place] as needed Lines/tubes: PIV GI prophylaxis: Protonix Nutrition: Heart healthy Date of Service: May 15, 2025 Billing Provider: OVI AMEZCUA MD Common Visit Codes: [id number] INP/OBS CARE(HIGH) OVI AMEZCUA MD May 15, 2025 08:36
--- NOTE | 2025-05-15 20:17 | CARDIOLOGY REPORT ---
APPROVED REPORT EXAM: Comprehensive 2D, Doppler, and color-flow Echocardiogram. Patient Location: [facility] Blood Pressure: 131/74 mmHg Heart Rate: 74 bpm Indications Hypertension Atrial Fibrillation Diabetes INTERVENTIONAL PAIN PHYSICIAN: Jian Tatum MD Previous ECHO: 02/16/24, [facility], EF: 65-70; m MR; mod TR 2D Dimensions LA Diam2.9 cm IVSd 1.3 (0.7-1.1cm) LVDd 4.3 cm PWd 1.2 (0.7-1.1cm) IVSs 1.9 (0.8-1.2cm) LVDs 2.5 (2.5-4.0cm) PWs 1.5 (0.8-1.2cm) LVOT Diameter 2.20 (1.8-2.4cm) LVEF(%) 72.4 (>50%) Ao Asc Diam.3.12 cm IVC 9.03 mmFS (%) 41.2 % SV 61.1 ml CO 4.5 L/min M-Mode Dimensions Left Atrium(MM) 2.72 (2.5-4.0cm) Aortic Root 2.91 (2.2-3.7cm) Aortic Cusp Exc 1.55 (1.5-2.0cm) MV EPSS 0.3 (<0.5cm) Aortic Valve AoV Peak Linus. 239.0 cm/s AoV VTI 49.1 cm AO Peak GR. 22.8 mmHg AO Mean GR. 15 mmHg LVOT VTI 29.11 cm LVOT Peak Linus. 133.5 cm/s LISSETH(VTI)/BSA 2.26 cm2/m2 LISSETH (VTI) 2.26 cm2 Mitral Valve MV E Velocity 61.2 cm/s MV Peak Gr. 3 mmHg MV DECEL TIME 344 ms MV A Velocity 89.7 cm/s MV PHT 80 ms E/A Ratio 0.7 MVA (PHT) 2.75 cm2 MV VMax92.5 cm/s TDI Lateral E' P. V11.77 cm/s E/Lateral E' 5.2 Tricuspid Valve TR P. Velocity 249 cm/s RAP ESTIMATE 10 mmHg TR Peak Gr. 25 mmHg RVSP 35 mmHg LEFT VENTRICLE Normal LV size and function. Mild concentric hypertrophy. LVEF is 65-70%. RIGHT VENTRICLE RV is normal size and function. ATRIA The left atrium size is normal. AORTIC VALVE Trileaflet AV appears mildly sclerotic without stenosis. Trace insufficiency. MITRAL VALVE Mild mitral annular calcification without stenosis. Trace regurgitation TRICUSPID VALVE The tricuspid valve is normal in structure with mild regurgitation. PULMONIC VALVE The pulmonary valve is normal in structure with physiologic insufficiency. GREAT VESSELS The aortic root is normal in size. The ascending aorta is normal in size. The IVC is normal in size a nd collapses >50% with inspiration. PERICARDIUM Normal pericardium. No effusion. Other Information Study Quality: Adequate
[2025-05-16 06:00] VITALS: BP 127/74; PULSE 52; RESP 16; TEMP 98.2; O2SAT 99
[2025-05-16 06:49] LABS: CREATININE 0.83 MG/DL (0.40-0.90); TOTAL CARBON DIOXIDE 23.0 MMOL/L (24-32); eCRCL 83 ML/MIN; eGFR 72 ML/MIN
[2025-05-16 07:00] LABS: % IRON SATURATION 47 % (11-46)
[2025-05-16 07:50] LABS: MEAN PLATELET VOLUME 7.3 FL (7.4-10.4); RED CELL DISTRIBUTION WIDTH 23.9 % (11.5-14.5)
[2025-05-16 08:34] LABS: EOSINOPHILS % (MANUAL) 3.0 % (0-6); MONOCYTES % (MANUAL) 13.0 % (2-12)
[2025-05-16 08:35] LABS: LYMPHOCYTES % (MANUAL) 24.0 % (21-51); NEUTROPHILS % (MANUAL) 60.0 % (42-75); PLATELET ESTIMATE NORMAL
[2025-05-16 10:00] VITALS: BP 151/101; PULSE 68; RESP 16; TEMP 97; O2SAT 98
--- NOTE | 2025-05-16 13:16 | PROGRESS NOTE ---
Daily Progress Note Providers to CC ~ Antibiotic Timeout Antibiotic Ordered?: No Subjective Chief complaint I barely managed to get a few bites in today with a first-time I am still very tremulous Objective Vital Signs Date Time Temp Pulse Resp B/P (MAP) Pulse Ox O2 Delivery O2 Flow Rate FiO2 05/16/25 10:00 97.0 68 16 151/101 (118) 98 Room Air 05/14/25 18:13 0 Result Diagram: 05/16/25 0718 05/16/25 0548 HEENT normocephalic nontraumatic head CVS first and second heart sounds are in sinus tachycardia Respiratory system is clear to auscultate bilaterally no rales rhonchi crackles or wheezing Abdomen is soft bowel sounds are positive nontender nondistended Extremities no clubbing cyanosis or edema Bilateral upper extremity tremulous Problem\Assessment\Plan Assessment: This is a 54-year-old female with past medical history of alcohol use disorder, atrial fibrillation, hypertension, peptic ulcer disease, pancreatitis, breast cancer status post resection who came to the emergency room after experiencing alcohol withdrawal symptoms. Plan: Alcohol use disorder Alcohol withdrawal Urine tox positive for ethyl alcohol and benzodiazepines Ethyl alcohol level 208 patient says this is not the 1st time she drank she has been drinking excessively for three weeks but this last day prior to coming in it was a higher alcohol content on the eye PAs and she downed them really fast On moderate alcohol withdrawal protocol Ordered social service and substance use navigator Continue to replace B12 vitamin folic acid and thiamine Probably one or two more days Hypertension out of control Start clonidine p.r.n. -nausea vomiting Compazine p.r.n. Patient on PPI Mechanical fall and concussion Small occipital hematoma noted, with LOC Head CT: 1. No acute intracranial process. 2. Occipital scalp edema without underlying cranial fracture. Cervical spine CT: 1. No acute cervical spine fracture or malalignment. Watch out for concussion symptoms for 24 hours including nausea, projectile vomiting, increased sleepiness, LOC. Hypertension noncompliance of medication Vitals: On arrival systolic blood pressure in 200s, reduced 140 without any medication administration Creatinine 0.71, urinalysis normal Chest x-ray: No acute cardiopulmonary disease. Plan: Ordered echo, lipids Continue home medication nifedipine 30 mg p.o. daily, atorvastatin 40 mg p.o. daily Paroxysmal atrial fibrillation with controlled ventricular rate Noncompliance of medication since one year Heart rate in 80s, sinus rhythm EKG: Sinus rhythm, no ST segment changes, normal T-wave morphology. Plan: We will start her medication aspirin 81 mg p.o. daily, nifedipine 30 mg p.o. daily Suicidal thoughts PTSD/bipolar disease, insomnia Continue medication bupropion 150 mg p.o. daily, escitalopram 20 mg p.o. daily. Zolpidem 5 mg p.r.n. for sleep. Psychiatric consultation tomorrow morning. Anemia most probably due to iron deficiency H&H 10.7 and 33, RBC morphology normal with few anisocytosis and microcytosis Received 2 units of blood transfusion four months ago along with iron injection five months ago Ordered iron studies Peptic ulcer disease Continue home medication pantoprazole 40 mg p.o. daily Code status: Full code DVT prophylaxis: SCDs Analgesia/sedation: Morphine/[place] as needed Lines/tubes: PIV GI prophylaxis: Protonix Nutrition: Heart healthy Date of Service: May 16, 2025 Billing Provider: OVI AMEZCUA MD Common Visit Codes: [id number] INP/OBS CARE(HIGH) OVI AMEZCUA MD May 16, 2025 13:16
--- NOTE | 2025-05-16 13:20 | DISCHARGE SUMMARY ---
Discharge Summary Providers to CC ~ Discharge Summary Admission Diagnosis: Mechanical fall Hospital Course DATE OF ADMISSION: 05/14/2025 DATE OF DISCHARGE: 05/17/2025 Discharge Diagnosis\Comment: DTs paroxysmal AFib EtOH abuse Operations\Procedures: None Consultants: None Complications: None Condition on DC: Stable Continued Medications: Atorvastatin Calcium* (Lipitor*) 40 Mg Tablet 1 TAB PO DAILY for 30 Days, #30 TAB Bupropion Hcl (Bupropion Hcl Sr) 150 Mg Tablet.er 150 MG PO DAILY for 30 Days, #30 TAB.SR Chlordiazepoxide Hcl (Librium) 25 Mg Capsule 25 MG PO DIRECTED, #20 CAP 0 Refills TAKE ONE TABLET P.O. Q.I.D. FOR TWO DAYS, THEN TAKE ONE TABLET P.O. T.I.D. FOR TWO DAYS, THEN TAKE ONE TABLET P.O. B.I.D. FOR TWO DAYS THEN TAKE ONE TABLET P.O. DAILY FOR TWO DAYS. Escitalopram Oxalate (Lexapro) 20 Mg Tablet 1 TAB PO DAILY for 30 Days, #30 TAB 0 Refills Gabapentin (Gabapentin) 400 Mg Capsule 1 CAP PO TID for 30 Days, #90 CAP 0 Refills Gabapentin (Gabapentin ER) 300 Mg Tab.er.24h 1 CAP PO HS, #7 CAP Losartan Potassium (Losartan Potassium) 50 Mg Tablet 1 TAB PO DAILY for 30 Days, #30 TAB 0 Refills Nifedipine ER* (Nifedipine Er*) 30 Mg Tab.er2.24 1 TAB PO DAILY Pantoprazole Sodium (Pantoprazole Sodium) 40 Mg Tablet.dr 40 MG PO DAILY for 30 Days, TAB.SR Discharge Summary: History of Present Illness This is a 54-year-old female with past medical history of alcohol use disorder, atrial fibrillation, hypertension, peptic ulcer disease, pancreatitis, breast cancer status post resection who came to the emergency room after experiencing alcohol withdrawal symptoms. She explained that she was sober since one year after rehab and today morning she binge drank six hi IPA beers in 2 hours after which she called her rehab. Her rehab suggested her to come to the emergency room for alcohol withdrawal symptoms. She complained that she started feeling shaky in the evening and started having suicidal thoughts. She was had a mechanical fall in her garden before coming to the ER. She fell and hit the back of her head and had a brief moment of LOC. She was found by her neighbors who called an ambulance. She complains of swelling in the back of her neck but no headache, nausea, dizziness. She has not been compliant with her blood pressure and atrial fibrillation medications since one year. Dr. Tatum is her clinical editor. Patient is a pleasant 54-year-old that has been binge drinking for the last three weeks. Patient went into DTs was admitted to the hospital multivitamins folic acid and thiamine were replace patient was started on EtOH withdrawal protocol. We consulted substance abuse navigator. Patient already has a rehab set up in place she understands she needs to abstain from EtOH abuse. Patient had severe tremors which have improved. Patient has been resumed on her home medications. Patient is advised for close follow up with PCP and clinical editor in two abstain from EtOH abuse. Patient does have a history of AFib is currently normal sinus rhythm is advised to follow up with Dr. Tatum as an outpatient. *Problems/Diagnosis: (1) Alcohol withdrawal Status: Acute (2) Nausea & vomiting (3) Depression Status: Chronic (4) Alcohol intoxication Status: Acute Total Time Spent on D/C: > 30 Minutes Date of Service: May 18, 2025 Billing Provider: OVI AMEZCUA MD Common Visit Codes: [id number] DISCH DAY >30min OVI AMEZCUA MD May 16, 2025 13:20
[2025-05-16 16:00] LABS: OCCULT BLOOD STOOL NEGATIVE (Neg)
[2025-05-16 18:00] VITALS: BP 180/96; PULSE 52; RESP 14; TEMP 98.4; O2SAT 97
[2025-05-16] MEDS ORDERED: hydrALAZINE 20mg/ml inj. IV ONE (18:55)
[2025-05-16 19:00] VITALS: BP 128/95; PULSE 94
[2025-05-16 20:00] VITALS: RESP 14; O2SAT 97
[2025-05-16 22:00] VITALS: BP 164/91; PULSE 52; RESP 16; TEMP 97.9; O2SAT 98
[2025-05-17 05:31] LABS: MEAN PLATELET VOLUME 7.5 FL (7.4-10.4); RED CELL DISTRIBUTION WIDTH 24.2 % (11.5-14.5)
[2025-05-17 06:09] LABS: CREATININE 0.96 MG/DL (0.40-0.90); TOTAL CARBON DIOXIDE 25.3 MMOL/L (24-32); eCRCL 72 ML/MIN; eGFR 61 ML/MIN
[2025-05-17 06:41] VITALS: BP 144/99; PULSE 67; RESP 16; TEMP 97.8; O2SAT 98
[2025-05-17 08:00] VITALS: RESP 16; O2SAT 98
[2025-05-17] MEDS: buPROPion SR 150mg tablet PO SCH (08:33)
[2025-05-17] MEDS: ESCITALOPRAM 10 mg tablet 10 MG TABLET PO SCH (08:34)
[2025-05-17] MEDS: NIFEdipine XL 30mg tablet PO SCH (08:35)
[2025-05-17] MEDS: pantoprazole 40mg Tablet.DR PO SCH (08:35)
--- NOTE | 2025-05-17 12:55 | PROGRESS NOTE ---
Daily Progress Note Providers to CC ~ Antibiotic Timeout Antibiotic Ordered?: No Subjective Chief complaint I feel a lot better but not quite ready yet I am still having a lot of tremors Objective Vital Signs Date Time Temp Pulse Resp B/P (MAP) Pulse Ox O2 Delivery O2 Flow Rate FiO2 05/17/25 08:37 75 05/17/25 08:00 16 98 Room Air 05/17/25 06:41 97.8 144/99 (114) 05/14/25 18:13 0 Result Diagram: 05/17/25 0514 05/17/25 0514 HEENT normocephalic nontraumatic head CVS first and second heart sounds are in sinus tachycardia Respiratory system is clear to auscultate bilaterally no rales rhonchi crackles or wheezing Abdomen is soft bowel sounds are positive nontender nondistended Extremities no clubbing cyanosis or edema Bilateral upper extremity tremulous Problem\Assessment\Plan Assessment: This is a 54-year-old female with past medical history of alcohol use disorder, atrial fibrillation, hypertension, peptic ulcer disease, pancreatitis, breast cancer status post resection who came to the emergency room after experiencing alcohol withdrawal symptoms. Plan: Alcohol use disorder Alcohol withdrawal Urine tox positive for ethyl alcohol and benzodiazepines Ethyl alcohol level 208 patient says this is not the 1st time she drank she has been drinking excessively for three weeks but this last day prior to coming in it was a higher alcohol content on the eye PAs and she downed them really fast On moderate alcohol withdrawal protocol Ordered social service and substance use navigator Continue to replace B12 vitamin folic acid and thiamine Probably one or two more days -I am concerned as these tremors are really only from the DTs or does she also have some underlying chronic tremors as her right upper extremity tremors are a lot more than the left and this has been continuous May benefit from a Neurology consult as an outpatient -Hypertension out of control Start clonidine p.r.n. -nausea vomiting Compazine p.r.n. Patient on PPI Mechanical fall and concussion Small occipital hematoma noted, with LOC Head CT: 1. No acute intracranial process. 2. Occipital scalp edema without underlying cranial fracture. Cervical spine CT: 1. No acute cervical spine fracture or malalignment. Watch out for concussion symptoms for 24 hours including nausea, projectile vomiting, increased sleepiness, LOC. Hypertension noncompliance of medication Vitals: On arrival systolic blood pressure in 200s, reduced 140 without any medication administration Creatinine 0.71, urinalysis normal Chest x-ray: No acute cardiopulmonary disease. Plan: Ordered echo, lipids Continue home medication nifedipine 30 mg p.o. daily, atorvastatin 40 mg p.o. daily Paroxysmal atrial fibrillation with controlled ventricular rate Noncompliance of medication since one year Heart rate in 80s, sinus rhythm EKG: Sinus rhythm, no ST segment changes, normal T-wave morphology. Plan: We will start her medication aspirin 81 mg p.o. daily, nifedipine 30 mg p.o. daily Suicidal thoughts PTSD/bipolar disease, insomnia Continue medication bupropion 150 mg p.o. daily, escitalopram 20 mg p.o. daily. Zolpidem 5 mg p.r.n. for sleep. Psychiatric consultation tomorrow morning. Anemia most probably due to iron deficiency H&H 10.7 and 33, RBC morphology normal with few anisocytosis and microcytosis Received 2 units of blood transfusion four months ago along with iron injection five months ago Ordered iron studies Peptic ulcer disease Continue home medication pantoprazole 40 mg p.o. daily Code status: Full code DVT prophylaxis: SCDs Analgesia/sedation: Morphine/[place] as needed Lines/tubes: PIV GI prophylaxis: Protonix Nutrition: Heart healthy Possible DC home in a.m. Date of Service: May 17, 2025 Billing Provider: OVI AMEZCUA MD Common Visit Codes: [id number] INP/OBS CARE(HIGH) OVI AMEZCUA MD May 17, 2025 12:55
[2025-05-17 18:00] VITALS: BP 135/55; PULSE 63; RESP 15; TEMP 98.3; O2SAT 97
[2025-05-17 22:00] VITALS: BP 133/98; PULSE 73; RESP 16; TEMP 98.1; O2SAT 96
[2025-05-18 05:56] LABS: MEAN PLATELET VOLUME 7.6 FL (7.4-10.4); RED CELL DISTRIBUTION WIDTH 23.0 % (11.5-14.5)
[2025-05-18 06:00] VITALS: BP 133/89; PULSE 56; RESP 15; TEMP 97.6; O2SAT 96
[2025-05-18 06:06] LABS: CREATININE 0.73 MG/DL (0.40-0.90); TOTAL CARBON DIOXIDE 24.0 MMOL/L (24-32); eCRCL 94 ML/MIN; eGFR 84 ML/MIN
[2025-05-18 08:00] VITALS: RESP 15; O2SAT 96
[2025-05-18 10:00] VITALS: BP 111/87; PULSE 86; RESP 14; TEMP 98.4; O2SAT 98
== END 2025-05-18 13:45 | disposition home or self-care (01) | DRG 897 ==
LOC: ER 12:09 → ED HOLD 19:22 → ORTHO 4S 21:39
PROVIDERS: ADMIT Internal Medicine Pulmonary Disease; ATTEND Internal Medicine
DX: F10.231 Alcohol dependence with withdrawal delirium (principal); S06.2X9A Diffuse traumatic brain injury with loss of consciousness of unspecified duration, initial encounter; R45.851 Suicidal ideations; I48.91 Unspecified atrial fibrillation; I10 Essential (primary) hypertension; F41.9 Anxiety disorder, unspecified; F31.9 Bipolar disorder, unspecified; X58.XXXA Exposure to other specified factors, initial encounter; G47.09 Other insomnia; E11.9 Type 2 diabetes mellitus without complications; D64.9 Anemia, unspecified; F10.220 Alcohol dependence with intoxication, uncomplicated; K21.9 Gastro-esophageal reflux disease without esophagitis; Z88.1 Allergy status to other antibiotic agents; Z88.8 Allergy status to other drugs, medicaments and biological substances; Z88.5 Allergy status to narcotic agent; Z91.018 Allergy to other foods; Z79.899 Other long term (current) drug therapy; Z90.49 Acquired absence of other specified parts of digestive tract; Z85.3 Personal history of malignant neoplasm of breast; Z98.84 Bariatric surgery status; Z87.11 Personal history of peptic ulcer disease; Z91.199 Patient's noncompliance with other medical treatment and regimen due to unspecified reason; Y93.89 Activity, other specified; Y92.89 Other specified places as the place of occurrence of the external cause; Y99.8 Other external cause status
CPT/HCPCS: 36415; 70450; 71045; 72125; 80048; 80053; 80061; 80305; 80320; 81003; 81025; 82272; 82607; 83036; 83540; 83550; 83690; 83735; 85007; 85008; 85025; 87081; 93005; 93306; 97116; 97161; 97530; 99285; A6258; G0378; J0780; J2560; J3411; J3490

== ENCOUNTER 2025-05-24 16:24 | Emergency (ER) | payer MEDICARE, MEDICAID ==
[~2025-05-24] VITALS: Ht 180.3 cm; Wt 102.3 kg
[2025-05-24 17:00] VITALS: BP 119/86; PULSE 71; RESP 16; O2SAT 98
--- NOTE | 2025-05-24 17:26 | Physician Documentation ---
History of Present Illness ~ Chief Complaint: See Chief Complaint Stated Complaint: ETOH Time Seen by MD: 17:25 Primary Medical Doctor: Wally DAVIS This is a 52-year-old female with history of alcohol abuse who presents by EMS for alcohol intoxication, patient reports she is seeking help entering treatment for alcohol abuse however has not established with a treatment program. Patient reports she would consider stopped drinking she had medication to help with withdrawal symptoms. Per EMS report patient drank 12 beers today prior to EMS arrival. Patient reports no other acute symptoms or concerns. Tetanus within 5 years?: No Medication Reconciliation Allergies: Coded Allergies: zolpidem (Unverified Allergy, Severe, hives, 05/24/25) doxycycline (Verified Allergy, Mild, "BURNING", 05/24/25) mc pepper (Verified Allergy, Unknown, 05/24/25) BLISTERS IN MOUTH trazodone (Verified Allergy, Unknown, 05/24/25) codeine (Verified Adverse Reaction, Mild, 05/24/25) N/V ondansetron (Verified Adverse Reaction, Mild, Migraine, 05/24/25) Scheduled Bupropion Hcl (Bupropion Hcl Sr), 150 MG PO DAILY Chlordiazepoxide Hcl (Librium), 25 MG PO DIRECTED Escitalopram Oxalate (Lexapro), 1 TAB PO DAILY, (Reported) Gabapentin (Gabapentin), 1 CAP PO TID, (Reported) Gabapentin (Gabapentin ER), 1 CAP PO HS Losartan Potassium (Losartan Potassium), 1 TAB PO DAILY Nifedipine ER* (Nifedipine Er*), 1 TAB PO DAILY, (Reported) Pantoprazole Sodium (Pantoprazole Sodium), 40 MG PO DAILY Scheduled PRN Chlordiazepoxide Hcl (Librium), 25 MG PO BID PRN for for anxiety/agitation Discontinued Medications Atorvastatin Calcium* (Lipitor*), 1 TAB PO DAILY Discontinued Reason: Auto Discontinued Past Medical History Past Medical History: Seizures, Atrial Fibrillation, Hypertension, GERD, Pancreatitis, Peptic Ulcer Disease, Anemia, Diabetes, *INFECTIOUS DZ*, MRSA Abscess, Breast Cancer, Anxiety, Bipolar, Depression Past Surgical History: appendectomy, cholecystectomy, gastric bypass, tonsillectomy, tubal ligation, other Patient History: FH: breast cancer Aunt FH: colon cancer FH: dementia Aunt FH: depression FATHER FH: heart attack GRANDFATHER OR GRANDMOTHER, Name: Grandmother, , Age: 87 GRANDFATHER OR GRANDMOTHER, Name: Grandfather, , Age: 42 FH: heart disease MOTHER Aunt Alcohol Use: Abuse Drug Use: methamphetamine Lives with: Alone Lives In: Home Occupation: unemployed, disabled Review of Systems ROS As stated above in the HPI, otherwise all systems are reviewed and negative. Physical Exam Vital Signs: Temperature: 99.1, Source: Temporal, Heart Rate: 71, Respiratory Rate: 16, BP: 119/86, Pulse Oximetry: 98, Weight: 102.270 Oxygen Flow Rate: 0 Physical Exam VITALS: Reviewed and as above. GENERAL: Alert, nontoxic appearing, no apparent distress. RESPIRATORY: No increased work of breathing, no respiratory distress, speaking in full clear sentences NEURO: Mildly slurred speech Progress Results/Orders Results/Orders Orders - MAX PURI Substance Use Navigator (05/24/25 20:03) Completed Orders - MAX PURI CMP (05/24/25 17:26) Cbc/Diff (05/24/25 17:26) Ethanol (05/24/25 17:26) Man Diff (05/24/25 17:54) Thiamine Inj. (Thiamine Inj.) (05/24/25 18:40) Normal Saline 1000ml (0.9% Sodium Chlori (05/24/25 18:40) Vital Signs 05/24/25 05/24/25 17:00 20:34 Temp 99.1 99.1 Pulse 71 Resp 16 B/P (MAP) 119/86 Pulse Ox 98 O2 Flow Rate 0 Laboratory Tests Test 05/24/25 17:54 White Blood Count 3.9 L Red Blood Count 4.52 Hemoglobin 12.9 Hematocrit 39.7 Mean Corpuscular Volume 87.9 Mean Corpuscular Hemoglobin 28.6 Mean Corpuscular Hemoglobin Concent 32.6 L Red Cell Distribution Width 23.2 H Platelet Count 286 Mean Platelet Volume 7.4 Neutrophils (%) (Auto) 36.5 L Lymphocytes (%) (Auto) 52.6 H Monocytes (%) (Auto) 6.5 Eosinophils (%) (Auto) 2.7 Basophils (%) (Auto) 1.7 H Neutrophils # (Auto) 1.4 L Lymphocytes # (Auto) 2.0 Monocytes # (Auto) 0.3 Eosinophils # (Auto) 0.1 Basophils # (Auto) 0.1 CBC Comment Differential Total Cells Counted 100 Neutrophils % (Manual) 37.0 L Lymphocytes % (Manual) 56.0 H Monocytes % (Manual) 4.0 Eosinophils % (Manual) 3.0 Platelet Estimate Normal Red Blood Cell Morphology Perf Basophilic Stippling Anisocytosis 3+ Elliptocytes Few Sodium Level 137 Potassium Level 3.9 Chloride Level 102 Carbon Dioxide Level 25.5 Anion Gap 10 Blood Urea Nitrogen 9 Creatinine 0.92 H Estimated GFR/1.73 m2 64 BUN/Creatinine Ratio 9.8 L Glucose Level 94 Calcium Level 9.4 Total Bilirubin 0.4 Aspartate Amino Transf (AST/SGOT) 130 H Alanine Aminotransferase (ALT/SGPT) 125 H Alkaline Phosphatase 145 H Total Protein 9.8 H Albumin 4.4 Globulin 5.4 H Albumin/Globulin Ratio 0.8 L Chemistry Comments Ethyl Alcohol Level 461 *H Medical Decision Making Findings This 52 year old female with history of alcohol abuse presented by EMS for alcohol intoxication, she reported seeking help for alcohol abuse and reports will stop drinking if provided medication for help with withdrawal symptoms. Physical exam benign, labs significant for high level of ETOH and elevated liver enzymes consistent with alcohol abuse, otherwise labs without clinically si gnificant acute abnormality. Patient monitored until clinically sober. Patient is clinically sober and requesting discharge. Patient discharged with Rx for librium and provided substance use navigator referral for resources. Patient provided homecare instructions, follow up instructions, and careful return precautions. Differential Dx:Considerations: Intoxication - ETOH, Intoxication - other drug, Sub. Abuse -continuous, Sub. Abuse-intermittent, Personality disorder, Confusion, Dehydration, Pancreatitis, Thiamine deficiency Departure Time of Disposition: 20:28 Disposition: 01 HOME / SELF CARE / HOMELESS Impression: Primary Impression: Alcoholic intoxication Qualified Codes: F10.920 - Alcohol use, unspecified with intoxication, uncomplicated Condition: Improved Discharge Instructions: Alcohol Withdrawal Syndrome, [id number] Additional Instructions: Please refrain from drinking, please use the prescribed medication to help with alcohol withdrawal symptoms (do not drink alcohol while taking these medications), please follow up with rehab program of your choice. Please follow up with your primary care provider in the next few days. Please return to the emergency department for any new or worsening concerning symptoms. Referrals: NO PRIMARY CARE PROVIDER (PCP) Prescriptions Chlordiazepoxide Hcl (Librium) 25 Mg Capsule 25 MG PO BID PRN for for anxiety/agitation MDD 150 mg for 14 Days, #32 CAP Use 2 tablets by mouth 3 times a day for 2 days, then 2 tablets twice a day for 2 days, then 1 tablet 3 times a day for 2 days, then 1 tablet twice a day for 2 days, then 1 tablet a day for 2 days Prov: MAX PURI 05/24/25 Education Educated: Patient Educated regarding: diagnosis, treatment, prognosis, need for follow up Signature Scribe Signature: No Scribe Attestation: The note accurately reflects work and decisions made by me.ABE Brooks 05/26/25 18:43 MAX PURI May 24, 2025 17:26
[2025-05-24 18:02] LABS: MEAN PLATELET VOLUME 7.4 FL (7.4-10.4); RED CELL DISTRIBUTION WIDTH 23.2 % (11.5-14.5)
[2025-05-24 18:18] LABS: CREATININE 0.92 MG/DL (0.40-0.90); TOTAL CARBON DIOXIDE 25.5 MMOL/L (24-32); eCRCL 80 ML/MIN; eGFR 64 ML/MIN
[2025-05-24 18:25] LABS: EOSINOPHILS % (MANUAL) 3.0 % (0-6); LYMPHOCYTES % (MANUAL) 56.0 % (21-51); MONOCYTES % (MANUAL) 4.0 % (2-12); NEUTROPHILS % (MANUAL) 37.0 % (42-75)
[2025-05-24 18:26] LABS: PLATELET ESTIMATE NORMAL
[2025-05-24 18:27] LABS: ELLIPTOCYTES FEW
[2025-05-24 18:30] LABS: ETHANOL 461 MG/DL (<10)
[2025-05-24] MEDS: normal saline 1000ML IV soln IVB ONE (19:23)
[2025-05-24] MEDS: thiamine 100mg/ml 2ml inj. IV ONE (19:27)
[2025-05-24] MEDS ORDERED: CHLO25CA10 PO (20:32)
[2025-05-24 20:34] VITALS: TEMP 99.1
== END 2025-05-24 20:40 | disposition home or self-care (01) ==
LOC: ER 16:25
DX: F10.120 Alcohol abuse with intoxication, uncomplicated (principal); E11.9 Type 2 diabetes mellitus without complications; F31.9 Bipolar disorder, unspecified; I10 Essential (primary) hypertension; I48.91 Unspecified atrial fibrillation; F15.90 Other stimulant use, unspecified, uncomplicated; Z85.3 Personal history of malignant neoplasm of breast; Z86.14 Personal history of Methicillin resistant Staphylococcus aureus infection; Z88.1 Allergy status to other antibiotic agents; Z88.5 Allergy status to narcotic agent; Z88.8 Allergy status to other drugs, medicaments and biological substances; Z90.49 Acquired absence of other specified parts of digestive tract; Z90.89 Acquired absence of other organs; Z98.51 Tubal ligation status; Z98.84 Bariatric surgery status; Y90.9 Presence of alcohol in blood, level not specified
CPT/HCPCS: 36415; 80053; 85007; 85025; 96361; 96374; 99284; G0480; J3411; J7030; 80320

== ENCOUNTER 2025-07-18 17:07 | Emergency (ER) | payer MEDICARE, MEDICAID ==
[~2025-07-18] VITALS: Ht 175.3 cm; Wt 100.6 kg
[~2025-07-18 17:07] MED LIST changes: -ATOR40TA PO
--- NOTE | 2025-07-18 17:12 | Physician Documentation ---
History of Present Illness ~ Stated Complaint: ETOH Time Seen by MD: 17:11 Primary Medical Doctor: Wally DAVIS This is a 55-year-old female with a history of alcohol use disorder who presents to the emergency department for ambulance. 911 was called, she admitted to them that she had swallowed # 31 81 mg aspirin in a deliberate attempt to end her life. Most recent ETOH today 3 pm, notes that she usually drinks 20 beers per day. Most recent visit to this ER on 05/24/2025 requesting help with alcohol cessation. At that visit, she was given Librium. Most recent hospitalization 05/14/2025 through 05/17/2025 for DTs, AFib, alcohol withdrawal, hyperlipidemia. History depression and anxiety, breast cancer status post resection. Tetanus within 5 years?: No Medication Reconciliation Allergies: Coded Allergies: mc pepper (Verified Allergy, Intermediate, BLISTERS IN MOUTH, 07/19/25) zolpidem (Verified Adverse Reaction, Intermediate, kept awake 3 days, ) doxycycline (Verified Adverse Reaction, Mild, rash, "burning", 07/19/25) Scheduled Bupropion Hcl (Bupropion Hcl Sr), 150 MG PO DAILY Chlordiazepoxide Hcl (Librium), 25 MG PO DIRECTED Escitalopram Oxalate (Lexapro), 1 TAB PO DAILY, (Reported) Gabapentin (Gabapentin), 1 CAP PO TID, (Reported) Gabapentin (Gabapentin ER), 1 CAP PO HS Losartan Potassium (Losartan Potassium), 1 TAB PO DAILY Nifedipine ER* (Nifedipine Er*), 1 TAB PO DAILY, (Reported) Pantoprazole Sodium (Pantoprazole Sodium), 40 MG PO DAILY Scheduled PRN Chlordiazepoxide Hcl (Librium), 25 MG PO BID PRN for for anxiety/agitation Past Medical History Past Medical History: Seizures, Atrial Fibrillation, Hypertension, GERD, Pancreatitis, Peptic Ulcer Disease, Anemia, Diabetes, *INFECTIOUS DZ*, MRSA Abscess, Breast Cancer, Anxiety, Bipolar, Depression Past Surgical History: appendectomy, cholecystectomy, gastric bypass, tonsillectomy, tubal ligation, other Patient History: FH: breast cancer Aunt FH: colon cancer FH: dementia Aunt FH: depression FATHER FH: heart attack GRANDFATHER OR GRANDMOTHER, Name: Grandmother, , Age: 87 GRANDFATHER OR GRANDMOTHER, Name: Grandfather, , Age: 42 FH: heart disease MOTHER Aunt Alcohol Use: Abuse Drug Use: methamphetamine Lives with: Alone Lives In: Home Occupation: unemployed, disabled Review of Systems ROS As stated above in the HPI, otherwise all systems are reviewed and negative. Physical Exam Physical Exam General: Alert, crying, appears anxious. Neck: Full range of motion. Respiratory: Lungs clear, no respiratory distress. Chest: No accessory muscle use. Cardiovascular: Regular rate and rhythm, 3/6 systolic murmur. Gastrointestinal: Soft, nontender, nondistended. Bowels sounds present. Extremities: Normal range of motion, no deformity. Neurologic: Oriented x4. Psychiatric: Anxious, crying. Skin: Normal color, warm and dry. No edema, no ecchymosis. Progress Progress Note 730: ER Charge nurse contacted poison control. They recommend checking urine drug screen, salicylate, acetaminophen levels and basic chemistry. They recommend Q2H salicylate levels until trending down. Sodium bicarb recommended if acidosis develops. Results/Orders Results/Orders Completed Orders - JAQUI RESENDIZ MD Diazepam Tablet (Valium Tablet) (07/19/25 08:40) Medications Received in ER Medications (Trade) Dose Ordered Sig/Franco Route PRN Reason Start Time Stop Time Status Last Admin Dose Admin (K-DUR tablet) 20 meq ONCE STAT PO 07/19/25 05:13 07/19/25 05:14 DC 07/19/25 05:17 20 MEQ (Motrin tablet) 400 mg ONCE ONCE PO 07/19/25 05:20 07/19/25 05:21 DC 07/19/25 05:24 400 MG (Valium tablet) 5 mg ONCE ONCE PO 07/19/25 08:40 07/19/25 08:41 DC 07/19/25 08:47 5 MG Vital Signs 07/18/25 07/18/25 07/18/25 07/18/25 17:09 17:20 17:20 17:36 Temp 97.7 97.7 Pulse 87 83 Resp 19 13 20 B/P (MAP) 152/92 152/96 (114) Pulse Ox 97 96 O2 Flow Rate 0 0 07/18/25 07/18/25 07/18/25 07/18/25 18:19 18:23 18:38 18:40 Pulse 81 82 82 83 Resp 17 17 18 19 B/P (MAP) 107/62 (77) 96/56 (69) 80/44 (56) 78/43 (55) Pulse Ox 93 92 92 92 07/18/25 07/18/25 07/18/25 07/18/25 18:42 18:53 18:57 19:01 Pulse 81 85 84 85 Resp 19 18 12 16 B/P (MAP) 74/40 (51) 90/50 (63) 90/50 (63) 85/51 (62) Pulse Ox 92 96 94 92 07/18/25 07/18/25 07/18/25 07/18/25 19:05 20:19 21:32 21:56 Temp 97.7 97.7 Pulse 88 88 85 83 Resp 18 16 15 18 B/P (MAP) 106/67 (80) 127/85 (99) 84/51 (62) 139/85 (103) Pulse Ox 94 97 90 92 O2 Flow Rate 0 0 0 0 07/18/25 07/18/25 07/19/25 07/19/25 22:23 23:35 01:11 02:00 Temp 97.7 97.7 97.7 Pulse 78 71 76 Resp 18 15 19 B/P (MAP) 119/74 (89) 112/71 (85) 117/73 (88) Pulse Ox 95 93 95 O2 Flow Rate 0 0 0 07/19/25 07/19/25 07/19/25 07/19/25 03:00 05:00 05:57 06:29 Temp 97.7 97.7 97.7 Pulse 66 83 81 99 Resp 16 16 14 14 B/P (MAP) 126/79 (95) 155/89 (111) 147/92 (110) 159/101 (120) Pulse Ox 97 95 97 98 O2 Flow Rate 0 0 0 0 07/19/25 07/19/25 07:55 08:47 Pulse 79 Resp 13 17 B/P (MAP) 154/97 (116) Pulse Ox 96 O2 Flow Rate 0 Laboratory Tests Test 07/18/25 17:45 07/18/25 18:45 07/18/25 18:52 07/18/25 21:44 White Blood Count 3.4 L Red Blood Count 3.35 L Hemoglobin 9.5 L Hematocrit 29.1 L Mean Corpuscular Volume 87.0 Mean Corpuscular Hemoglobin 28.2 Mean Corpuscular Hemoglobin Concent 32.5 L Red Cell Distribution Width 20.4 H Platelet Count 188 Mean Platelet Volume 6.9 L Neutrophils (%) (Auto) 45.8 Lymphocytes (%) (Auto) 39.5 Monocytes (%) (Auto) 11.3 Eosinophils (%) (Auto) 2.1 Basophils (%) (Auto) 1.3 H Neutrophils # (Auto) 1.5 L Lymphocytes # (Auto) 1.3 Monocytes # (Auto) 0.4 Eosinophils # (Auto) 0.1 Basophils # (Auto) 0.0 CBC Comment Platelet Estimate Normal Red Blood Cell Morphology Perf Polychromasia Few Hypochromasia 1+ Basophilic Stippling Anisocytosis 3+ Sodium Level 135 142 Potassium Level 3.6 3.4 L Chloride Level 100 111 H Carbon Dioxide Level 23.1 L 20.2 L Anion Gap 12 11 Blood Urea Nitrogen 11 10 Creatinine 0.77 0.65 Estimated GFR/1.73 m2 78 > 90 BUN/Creatinine Ratio 14.3 15.4 Glucose Level 117 H 88 Calcium Level 8.3 L 7.3 L Total Bilirubin 0.5 Aspartate Amino Transf (AST/SGOT) 137 H Alanine Aminotransferase (ALT/SGPT) 102 H Alkaline Phosphatase 117 H Total Protein 7.9 Albumin 3.3 L 2.7 L Globulin 4.6 H Albumin/Globulin Ratio 0.7 L Lipase 47 Chemistry Comments Salicylates Level 4.9 4.8 4.3 Acetaminophen Level < 2.0 L Ethyl Alcohol Level 433 *H 331 H Prothrombin Time 10.9 INR International Normalized Ratio 1.1 Coagulation Comments Blood Gas Specimen Type Arterial Blood Gas Puncture Site Rr O2 Saturation 94.7 Arterial Blood pH (Temp corrected) 7.356 Arterial Blood pCO2 (Temp correct) 33.8 Arterial Blood pO2 (Temp corrected) 88.4 Arterial Blood PO2/FiO2 Ratio 4.34 Arterial Blood HCO3 18.6 L Arterial Blood Base Excess -6.3 L Arterial Blood Oxyhemoglobin 94.4 Arterial Blood Carboxyhemoglobin 0.3 L Arterial Blood Methemoglobin 0.0 Arterial Blood Deoxyhemoglobin 5.3 H Ángel Test Modified Blood Gas Hemoglobin 9.3 L Blood Gas Temperature 36.5 Blood Gas Modality Room air FiO2 21.0 Test 07/18/25 21:59 07/18/25 22:00 07/19/25 06:56 SARS-CoV-2 Antigen (Rapid) Negative Glucometer 101 Urine Specimen Description Cln catch midstream Urine Color Yellow Urine Clarity Clear Urine pH 6.0 Urine Specific [place] 1.010 Urine Protein Negative Urine Glucose (UA) Negative Urine Ketones Negative Urine Occult Blood Negative Urine Nitrite Negative Urine Bilirubin Negative Urine Urobilinogen 0.2 Urine Leukocyte Esterase Negative Urine Culture Indicated Not ind Volume Urine Centrifuged 10 ml Urine HCG, Qualitative Negative Urine Comment Urine Opiates Screen Negative Urine Methadone Screen Negative Urine Fentanyl Screen Negative Urine Barbiturates Screen Negative Urine Phencyclidine Screen Negative Urine Amphetamines Screen Negative Urine Benzodiazepines Screen Negative Urine Cocaine Screen Negative Urine Cannabinoids Screen Negative Drug Screen Comment Medical Decision Making Additional information obtaine: old records Findings Patient presented to the emergency room with report of intentional overdose on aspirin. Poison control immediately contacted recommend monitoring acid-base status and salicylate levels. Salicylate levels down trending. Patient has received IV fluids. That has acid-base of ABGs reassuring. Vitals remained stable. Patient is medically cleared for mental health evaluation. Patient did have time of hypotension relieved with IV saline. Patient is medically cleared for mental health evaluation Differential Dx:Considerations: Intoxication - ETOH, Intoxication - other drug, Sub. Abuse -continuous, Sub. Abuse-intermittent, Encephalopathy, Pancreatitis Additional Comment Most Likely Diagnoses: Acute salicylate (aspirin) toxicity: Ingestion of 31 tablets of 81 mg aspirin (2,511 mg) is a significant acute overdose, especially in the context of chronic alcohol use, which may increase GI absorption and risk of toxicity. Early symptoms include tinnitus, vertigo, nausea, vomiting, and hyperventilation. Severe toxicity can cause altered mental status, metabolic acidosis, and respiratory alkalosis. Co-ingestion of alcohol can delay gastric emptying and salicylate absorption, so toxicity may be delayed or prolonged.[1] Acute alcohol intoxication: Depending on the amount consumed, the patient may present with CLAIM TAKER depression, ataxia, or metabolic derangements. Alcohol can also mask or worsen symptoms of salicylate toxicity and complicate the clinical picture.[2] Early alcohol withdrawal: Symptoms can begin as early as 624 hours after cessation, including anxiety, tremor, tachycardia, hypertension, and agitation. Seizures may occur as early as 8 hours after the last drink, and withdrawal delirium (delirium tremens) can develop after 7296 hours.[3-4] Acute gastritis or GI irritation: Both alcohol and aspirin independently increase the risk of gastritis, dyspepsia, and GI bleeding. The risk is additive, and the patient is at high risk for upper GI bleeding or ulceration. [5-6] Mixed acidbase disorder: Salicylate toxicity typically causes a mixed respiratory alkalosis and high anion gap metabolic acidosis, which should be anticipated and monitored.[1] Most Important Not to Miss Diagnoses: Severe salicylate toxicity: Look for altered mental status, seizures, pulmonary edema, or cardiovascular collapse. Serial salicylate levels, acidbase status, and close monitoring are essential. Early consultation with a plant clerk and consideration of hemodialysis for severe toxicity are warranted.[1] Alcohol withdrawal seizures or delirium tremens: Monitor for tremor, agitation, hallucinations, and autonomic instability. Early benzodiazepine administration is indicated for withdrawal symptoms.[3-4] Wernicke encephalopathy: Chronic alcoholism increases risk for thiamine deficiency, which can present with confusion, ataxia, and ophthalmoplegia. Empiric high-dose IV thiamine should be given before glucose to prevent irreversible neurologic damage.[4][7] Upper GI bleeding or perforation: Monitor for hematemesis, melena, hypotension, or peritoneal signs. Prompt endoscopic evaluation and supportive care are indic ated if bleeding is suspected.[5-6] Took over care of this patient from previous ED physician. This is a 55-year-old female presenting with ETOH intoxication as well as substance abuse. Initially presented with suicidal ideations while she was intoxicated. Now that she has been cleared medically and a sobered up she was assessed by mental health provider. Patient no longer suicidal and is stable and safe for discharge with follow up with outpatient mental health. Advised patient to abstain from further drug and alcohol use. Follow up with mental health as mentioned. Return to the ED with any acutely worsening symptoms. Departure Disposition: 01 HOME / SELF CARE / HOMELESS Impression: Primary Impression: Intentional overdose Additional Impression: Suicidal ideation Condition: Improved Discharge Instructions: Suicidal Feelings: How to Help Yourself Additional Instructions: Please abstain from using anymore alcohol and drugs. Follow up closely with your mental health provider outpatient in the next 2-5 days. Return immediately to the emergency department with any acutely recurring symptoms. Referrals: NO PRIMARY CARE PROVIDER (PCP) Critical Care Note Total Time (mins): 45 Critical Care Note The very real possibility of a deterioration of this patient's condition required the highest level of my preparedness for sudden, emergent intervention. I provided critical care services, which included medication orders, frequent reevaluations of the patient's condition and response to treatment, ordering and reviewing test results, and discussing the case with various consultants. Excludes time spent performing separately billable procedures. The critical care time associated with the care of the patient was 45 minutes not counting procedures Signature Scribe Signature: x Attestation: The note accurately reflects work and decisions made by me.Brown Aguilar MD 07/19/25 00:36 The note accurately reflects work and decisions made by me.Dori Choe NP 07/18/25 17:13 DORI LUIS NP Jul 18, 2025 17:12 BROWN AGUILAR MD Jul 19, 2025 00:36 JAQUI RESENDIZ MD Jul 19, 2025 11:38
--- NOTE | 2025-07-18 17:27 | ELECTROCARDIOGRAPH REPORT ---
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 Prabhjot Chin Measurements Intervals [place] Rate: 79 P: 46 [place]: 191 QRS: 24 QRSD: 103 T: 34 QT: 392 QTc: 450 Interpretive Statements Sinus rhythm Electronically Signed On 07-23-2025 20:44:[address] Prabhjot Chin Please click the below link to view image of tracing.
[2025-07-18] MEDS: diazepam inj 5 MG/ML inj. IV ONE (17:36)
[2025-07-18] MEDS: normal saline 1000ML IV soln IVB ONE ×2 (17:41→20:51)
[2025-07-18] MEDS: thiamine 100mg/ml 2ml inj. IV ONE (18:00)
[2025-07-18 18:04] LABS: MEAN PLATELET VOLUME 6.9 FL (7.4-10.4); RED CELL DISTRIBUTION WIDTH 20.4 % (11.5-14.5)
[2025-07-18 18:21] LABS: CREATININE 0.77 MG/DL (0.40-0.90); TOTAL CARBON DIOXIDE 23.1 MMOL/L (24-32); eCRCL 88 ML/MIN; eGFR 78 ML/MIN
[2025-07-18 18:34] LABS: PLATELET ESTIMATE NORMAL
[2025-07-18 18:37] LABS: ETHANOL 433 MG/DL (<10)
[2025-07-18 18:57] LABS: ABG BASE EXCESS -6.3 mmol/L (-2.0-3.0); ABG HCO3 18.6 mmol/L (21.0-28.0); ABG OXYGEN SATURATION 94.7 % (94.0-98.0); ABG PCO2 (T) 33.8 mmHg (32.0-45.0); ABG PH (T) 7.356 (7.350-7.450); ABG PO2 (T) 88.4 mmHg (83.0-108.0); ALLEN'S TEST Modified; FCOHb 0.3 % (0.5-1.5); FHHb 5.3 % (0.0-5.0); FIO2 21.0 mmHg/%; FMetHb 0.0 % (0.0-1.5); FO2Hb 94.4 % (94.0-98.0); MODE ROOM AIR; PATIENT TEMPERATURE 36.5; TOTAL HEMOGLOBIN 9.3 G/dl (12.0-16.0)
[2025-07-18 19:09] LABS: INR 1.1 INR
[2025-07-18 22:19] LABS: CREATININE 0.65 MG/DL (0.40-0.90); TOTAL CARBON DIOXIDE 20.2 MMOL/L (24-32); eCRCL 105 ML/MIN; eGFR > 90 ML/MIN
[2025-07-18 22:24] LABS: ETHANOL 331 MG/DL (<10)
[2025-07-19] MEDS: potassium Cl 20 mEq SR tablet PO STA ×2 (00:40→05:17)
[2025-07-19] MEDS: ibuprofen tablet 400 MG TABLET PO ONE (05:24)
[2025-07-19 07:36] LABS: LEUKOCYTE ESTERASE ,URINE NEGATIVE (Neg); NITRITES, URINE NEGATIVE (Neg); OCCULT BLOOD,URINE NEGATIVE (Neg)
[2025-07-19 07:37] LABS: UA COLLECTION TYPE CLN CATCH MIDSTREAM
[2025-07-19 07:52] LABS: URINE HCG NEGATIVE (NEG)
[2025-07-19 07:58] LABS: URINE AMPHETAMINE SCREEN NEGATIVE (Neg); URINE BARBITUATE SCREEN NEGATIVE (Neg); URINE BENZODIAZEPINES SCREEN NEGATIVE (Neg); URINE CANNABINOID SCREEN NEGATIVE (Neg); URINE COCAINE SCREEN NEGATIVE (Neg); URINE METHADONE SCREEN NEGATIVE (Neg); URINE OPIATE SCREEN NEGATIVE (Neg); URINE PHENCYCLIDINE SCREEN NEGATIVE (Neg)
[2025-07-19 11:59] VITALS: BP 168/117; PULSE 97; RESP 16; TEMP 98; O2SAT 99
== END 2025-07-19 11:59 | disposition home or self-care (01) ==
LOC: ER 17:07
DX: T42.4X2A Poisoning by benzodiazepines, intentional self-harm, initial encounter (principal); R45.851 Suicidal ideations; E11.9 Type 2 diabetes mellitus without complications; E78.5 Hyperlipidemia, unspecified; K21.9 Gastro-esophageal reflux disease without esophagitis; F31.9 Bipolar disorder, unspecified; F41.9 Anxiety disorder, unspecified; I10 Essential (primary) hypertension; I48.91 Unspecified atrial fibrillation; F15.90 Other stimulant use, unspecified, uncomplicated; Z85.3 Personal history of malignant neoplasm of breast; Z86.14 Personal history of Methicillin resistant Staphylococcus aureus infection; Z87.11 Personal history of peptic ulcer disease; Z88.1 Allergy status to other antibiotic agents; Z87.19 Personal history of other diseases of the digestive system; Z98.51 Tubal ligation status; Z90.49 Acquired absence of other specified parts of digestive tract; Z88.8 Allergy status to other drugs, medicaments and biological substances; Z90.89 Acquired absence of other organs; Z79.899 Other long term (current) drug therapy; Z56.0 Unemployment, unspecified; Z60.2 Problems related to living alone; Z20.822 Contact with and (suspected) exposure to COVID-19; Y92.89 Other specified places as the place of occurrence of the external cause
CPT/HCPCS: 36415; 36600; 80048; 80053; 80305; 80329; 81003; 81025; 82803; 82948; 83690; 85008; 85018; 85025; 85610; 87811; 93005; 96361; 96374; 96375; 99285; A4620; G0480; J0780; J1200; J3360; J3411; J7030; 80320